=== PATIENT | male | born 1945 | race Caucasian/White ===

== ENCOUNTER 2019-03-18 16:36 | Outpatient (REF) | payer MEDICARE, BC, SELFPAY ==
[2019-03-18 21:26] LABS: Calculated LDL 147 mg/dL; Cholesterol 211 mg/dL (50-200); Glucose 89 mg/dL (70-100); HDL Cholesterol 42 mg/dL (40-60); Triglyceride 111 mg/dL (30-150)
== END 2019-03-18 16:56 ==
LOC: NCHCN 16:36
PROVIDERS: PCP Internal Medicine; Visit Provider Internal Medicine
DX: E78.00 Pure hypercholesterolemia, unspecified (principal)
CPT/HCPCS: 80061; 82947

== ENCOUNTER 2019-04-11 08:45 | Outpatient (REF) | payer MEDICARE, BC, SELFPAY ==
[2019-04-13 15:28] LABS: Lyme Ab w Rflx to Lyme Confirm Negative
== END 2019-04-11 09:05 ==
LOC: NCHCN 08:45
PROVIDERS: PCP Internal Medicine; Visit Provider Internal Medicine
DX: R21 Rash and other nonspecific skin eruption (principal); Z11.9 Encounter for screening for infectious and parasitic diseases, unspecified
CPT/HCPCS: 86618

== ENCOUNTER 2020-06-12 10:28 | Outpatient (REF) | payer MEDICARE, BC, SELFPAY ==
[2020-06-12 22:52] LABS: HCT 44.6 % (40.0-50.0); HGB 14.1 g/dL (13.5-17.5); MCH 30.3 pg (27.0-33.0); MCHC 31.6 % (32.0-36.0); MCV 95.9 fL (80-95); MPV 12.2 fL (8.0-11.0); Platelet Count 172 10^3/uL (130-400); RBC 4.65 10^6/uL (4.36-5.78); RDW 14.1 % (11.8-14.1); WBC 4.01 10^3/uL (4.4-10.8)
[2020-06-12 23:28] LABS: ALT 31 U/L (16-63); AST 21 U/L (15-37); Albumin 3.7 g/dL (3.4-5.0); Alkaline Phosphatase 46 U/L (46-116); Anion Gap 7.3 mmol/L (3-11); BUN 19 mg/dL (7-18); Bilirubin, Total 0.4 mg/dL (0.2-1.0); CO2 26.7 mmol/L (21.0-32.0); CREATININE 1.07 mg/dL (0.70-1.30); Calcium 8.4 mg/dL (8.5-10.1); Calculated LDL 171 mg/dL (<100); Chloride 108 mmol/L (98-107); Cholesterol 224 mg/dL (<200); Glucose 83 mg/dL (74-106); HDL Cholesterol 36 mg/dL (40-60); Potassium 4.7 mmol/L (3.5-5.1); Sodium 142 mmol/L (136-145); Total Protein 6.8 g/dL (6.4-8.2); Triglyceride 86 mg/dL (<150)
[2020-06-13 21:29] LABS: PSA, Screening 10.5 ng/mL (0.0-6.5)
== END 2020-06-12 10:48 ==
LOC: NCHCN 10:28
PROVIDERS: PCP Nurse Practitioner Family; Visit Provider Nurse Practitioner Family
DX: Z00.00 Encounter for general adult medical examination without abnormal findings (principal); Z12.5 Encounter for screening for malignant neoplasm of prostate; Z13.220 Encounter for screening for lipoid disorders
CPT/HCPCS: 80053; 80061; 84153; 85027

== ENCOUNTER 2020-06-25 19:46 | Outpatient (REF) | payer MEDICARE, BC, SELFPAY ==
[2020-06-26 17:43] LABS: PSA, Diagnostic 11.8 ng/mL (0.0-6.5)
== END 2020-06-25 20:06 ==
LOC: NCHCN 19:46
PROVIDERS: PCP Nurse Practitioner Family; Visit Provider Nurse Practitioner Family
DX: R97.20 Elevated prostate specific antigen [PSA] (principal)
CPT/HCPCS: 84153

== ENCOUNTER 2020-09-14 10:34 | Outpatient (REF) | payer MEDICARE, BC, SELFPAY ==
[2020-09-14 14:00] LABS: ALT 31 U/L (16-63); AST 20 U/L (15-37); Albumin 3.7 g/dL (3.4-5.0); Alkaline Phosphatase 51 U/L (46-116); Anion Gap 7.2 mmol/L (3-11); BUN 15 mg/dL (7-18); Bilirubin, Total 0.5 mg/dL (0.2-1.0); CO2 29.8 mmol/L (21.0-32.0); Calcium 8.8 mg/dL (8.5-10.1); Calculated LDL 143 mg/dL (<100); Chloride 105 mmol/L (98-107); Cholesterol 196 mg/dL (<200); Glucose 92 mg/dL (74-106); HDL Cholesterol 37 mg/dL (40-60); Potassium 4.6 mmol/L (3.5-5.1); Sodium 142 mmol/L (136-145); Total Protein 7.2 g/dL (6.4-8.2); Triglyceride 83 mg/dL (<150)
== END 2020-09-14 10:35 | disposition home or self-care (01) ==
LOC: NCHCN 10:34
PROVIDERS: PCP Nurse Practitioner Family; Visit Provider Nurse Practitioner Family
DX: R97.20 Elevated prostate specific antigen [PSA] (principal); E78.89 Other lipoprotein metabolism disorders
CPT/HCPCS: 80053; 80061

== ENCOUNTER 2020-10-11 20:21 | Outpatient (REF) | payer MEDICARE, BC, SELFPAY ==
[2020-11-09 12:36] LABS: Fungus Smear No Fungi Seen
== END 2020-10-11 20:22 | disposition home or self-care (01) ==
LOC: NCHCN 20:21
PROVIDERS: PCP Nurse Practitioner Family; Visit Provider Nurse Practitioner Family
DX: L60.8 Other nail disorders (principal)
CPT/HCPCS: 87101; 87206

== ENCOUNTER 2020-11-05 10:16 | Outpatient (REF) | payer MEDICARE, BC, SELFPAY ==
[2020-11-05 22:22] LABS: PSA, Diagnostic 14.2 ng/mL (0.0-6.5)
== END 2020-11-05 10:17 | disposition home or self-care (01) ==
LOC: LBN 10:16
PROVIDERS: PCP Nurse Practitioner Family; Visit Provider Urology
DX: C61 Malignant neoplasm of prostate (principal)
CPT/HCPCS: 84153

== ENCOUNTER 2021-03-13 09:16 | Outpatient (REF) | payer MEDICARE, BC, SELFPAY ==
[2021-03-13 14:35] LABS: ALT 33 U/L (16-63); AST 22 U/L (15-37); Albumin 3.6 g/dL (3.4-5.0); Alkaline Phosphatase 60 U/L (46-116); BUN 21 mg/dL (7-18); Bilirubin, Total 0.4 mg/dL (0.2-1.0); Calcium 8.6 mg/dL (8.5-10.1); Calculated LDL 116 mg/dL (<100); Chloride 104 mmol/L (98-107); Cholesterol 165 mg/dL (<200); Glucose 84 mg/dL (74-106); HDL Cholesterol 38 mg/dL (40-60); Potassium 4.3 mmol/L (3.5-5.1); Sodium 141 mmol/L (136-145); Total Protein 6.9 g/dL (6.4-8.2); Triglyceride 56 mg/dL (<150)
[2021-03-13 22:17] LABS: PSA, Diagnostic 14.6 ng/mL (0.0-6.5)
== END 2021-03-13 09:17 | disposition home or self-care (01) ==
LOC: LBN 09:16
PROVIDERS: PCP Nurse Practitioner Family; Visit Provider Urology
DX: C61 Malignant neoplasm of prostate (principal); E78.5 Hyperlipidemia, unspecified
CPT/HCPCS: 80053; 80061; 84153

== ENCOUNTER 2021-05-23 08:35 | Outpatient (REF) | payer MEDICARE, BC, SELFPAY ==
[2021-05-24 09:18] LABS: Calculated LDL 106 mg/dL (<100); Cholesterol 148 mg/dL (<200); HDL Cholesterol 33 mg/dL (40-60); Triglyceride 48 mg/dL (<150)
== END 2021-05-23 08:36 | disposition home or self-care (01) ==
LOC: NCHCN 08:35
PROVIDERS: PCP Nurse Practitioner Family; Visit Provider Nurse Practitioner Family
DX: E78.5 Hyperlipidemia, unspecified (principal)
CPT/HCPCS: 80061

== ENCOUNTER 2021-07-02 13:14 | Outpatient (REF) | payer MEDICARE, BC, SELFPAY ==
[2021-07-02 15:16] LABS: ALT 33 U/L (16-63); AST 22 U/L (15-37); Albumin 3.9 g/dL (3.4-5.0); Alkaline Phosphatase 58 U/L (46-116); Anion Gap 5.8 mmol/L (3-11); BUN 20 mg/dL (7-18); Bilirubin, Total 0.5 mg/dL (0.2-1.0); CO2 32.2 mmol/L (21.0-32.0); Calcium 8.9 mg/dL (8.5-10.1); Calculated LDL 123 mg/dL (<100); Chloride 105 mmol/L (98-107); Cholesterol 179 mg/dL (<200); Glucose 92 mg/dL (74-106); HDL Cholesterol 44 mg/dL (40-60); Potassium 5.3 mmol/L (3.5-5.1); Sodium 143 mmol/L (136-145); Total Protein 7.1 g/dL (6.4-8.2); Triglyceride 64 mg/dL (<150)
[2021-07-02 22:59] LABS: PSA, Diagnostic 14.8 ng/mL (0.0-6.5)
== END 2021-07-02 13:15 | disposition home or self-care (01) ==
LOC: NCHCN 13:14
PROVIDERS: PCP Nurse Practitioner Family; Visit Provider Nurse Practitioner Family
DX: E78.5 Hyperlipidemia, unspecified (principal); C61 Malignant neoplasm of prostate
CPT/HCPCS: 80053; 80061; 84153

== ENCOUNTER 2021-07-08 16:00 | Outpatient (REF) | payer MEDICARE, BC, SELFPAY ==
[2021-07-08 21:16] LABS: Potassium 3.8 mmol/L (3.5-5.1)
== END 2021-07-08 16:01 | disposition home or self-care (01) ==
LOC: NCHCN 16:00
PROVIDERS: PCP Nurse Practitioner Family; Visit Provider Nurse Practitioner Family
DX: E87.5 Hyperkalemia (principal)
CPT/HCPCS: 84132

== ENCOUNTER 2021-08-14 11:08 | Outpatient (REF) | payer MEDICARE, BC, SELFPAY ==
[2021-08-14 15:21] LABS: Calculated LDL 84 mg/dL (<100); Cholesterol 149 mg/dL (<200); HDL Cholesterol 41 mg/dL (40-60); Triglyceride 124 mg/dL (<150)
== END 2021-08-14 11:09 | disposition home or self-care (01) ==
LOC: NCHCN 11:08
PROVIDERS: PCP Nurse Practitioner Family; Visit Provider Internal Medicine
DX: E78.5 Hyperlipidemia, unspecified (principal); E66.3 Overweight
CPT/HCPCS: 80061

== ENCOUNTER 2021-10-22 13:02 | Outpatient (REF) | payer MEDICARE, BC, SELFPAY | END 2021-10-22 13:03 | disposition home or self-care (01) | LOC: NCHCN 13:02 | PROVIDERS: PCP Nurse Practitioner Family; Visit Provider Internal Medicine | DX: M70.21 Olecranon bursitis, right elbow (principal) | CPT/HCPCS: 87070; 87205 ==

== ENCOUNTER 2021-10-29 16:21 | Outpatient (REF) | payer MEDICARE, BC, SELFPAY | END 2021-10-29 16:22 | disposition home or self-care (01) | LOC: NCHCN 16:21 | PROVIDERS: PCP Nurse Practitioner Family; Visit Provider Internal Medicine | DX: M70.21 Olecranon bursitis, right elbow (principal) | CPT/HCPCS: 87070; 87205 ==

== ENCOUNTER 2021-12-31 19:44 | Outpatient (REF) | payer MEDICARE, BC, SELFPAY | END 2021-12-31 19:45 | disposition home or self-care (01) | LOC: NCHCN 19:44 | PROVIDERS: PCP Nurse Practitioner Family; Visit Provider Nurse Practitioner Family | DX: C61 Malignant neoplasm of prostate (principal) | CPT/HCPCS: 84153 ==

== ENCOUNTER 2023-08-19 18:21 | Outpatient (REF) | payer MEDICARE, BC, SELFPAY ==
--- OUTSIDE RECORDS SUMMARY | 2023-08-19 18:33 | XMS_ITS | CCD ---
Author Name Unknown Address [address] [place] [address] [phone] Organization Unknown Address [address] [place] [address] [phone] Care Team Providers Care Malt House Operator Name Role Phone JULIÁN MACEDO Attending Physician [phone] Vital Signs Unknown or Not Available. Allergies Allergy Code Allergy Type Reaction Status No Known Environmental Allergies 0 No known envir onmental allergies Active No Known Food Allergies 0 No known food allergies Active No Known Drug Allergies 0 No known drug allergies Active Procedures Unknown or Not Available. History of Immunizations Unknown or Not Available. Problems Unknown or Not Available. Results BASIC METABOLIC PANEL (BMP) - Collect Date/Time: 03/26/2023 08:15 Test Name Code Test Result Test Units Test Ref Rang e GLUCOSE 2345-7 86 mg/dL L=70 H=116 BUN 3094-0 20 mg/dL L=6 H=25 CREATININE 2160-0 0.99 mg/dL L=0.67 H=1.17 SODIUM SERUM 2951-2 140 mmol/L L=136 H=145 POTASSIUM SERUM 2823-3 5.0 mmol/L L=3.4 H=5 .2 CHLORIDE SERUM 2075-0 107 mmol/L L=96 H=110 CARBON DIOXIDE (CO2) 2028-9 30 mmol/L L=22 H=34 ANION GAP 11982-1 2.7 mmol/L CALCIUM SERUM 74157-1 8.5 mg/dL L=8.2 H=10. 2 AGE 77 years eGFR (non-Afr.Amer.) 96904-5 73 mL/min eGFR (Afr-Singaporean) 62680-9 89 mL/min C REACTIVE PROTEIN HIGH SENS ITIVITY* - Collect Date/Time: 03/26/2023 08:15 Test Name Code Test Result Test Units Test Ref Rang e CRP-HIGH SENS. 18231-3 3.27 mg/L L=0.00 H=3 .00 CRP-HIGH SENS 17024-7 0.33 mg/dL L=0.00 H=0. 30 CBC W/ DIFFERENTIAL* - Colle ct Date/Time: 03/26/2023 08:15 Test Name Code Test Result Test Units Test Ref Rang e WBC 6690-2 4.27 th/cmm L=5.00 H=10.00 NEUT % 54.6 % L=40.0 H=80.0 LYMPH % 23.4 % L=10.0 H=50.0 MONO % 86922-4 13.1 % L=2.0 H=12.0 EOS % 8.0 % L=0.0 H=8.0 BASO % 0.7 % L=0.0 H=3.0 IG % 2514-8 0.2 % L=0.0 H=1.1 NRBC % 42934-0 0.0 % L=0.0 H=0.0 NEUT abs count 751-8 2.3 th/cmm L=1.6 H=8. 4 LYMPH abs count 731-0 1.0 th/cmm L=1.5 H=4 .0 MONO abs count 742-7 0.6 th/cmm L=0.2 H=1. 0 EOS abs count 711-2 0.3 th/cmm L=0.0 H=0.5 BASO abs count 704-7 0.0 th/cmm L=0.0 H=0. 2 IG abs count 94797-9 0.0 th/cmm L=0.0 H=0.1 NRBC abs count 20856-6 0.0 mil/cmm L=0.0 H=0. 0 RBC 789-8 4.63 mil/cmm L=4.30 H=6.20 HEMOGLOBIN 718-7 13.8 gm/dL L=13.0 H=17.0 HEMATOCRIT 4544-3 44 % L=45 H=52 MCV 787-2 94 fL L=82 H=92 MCH 785-6 29.8 pg L=27.0 H=31.0 MCHC 786-4 31.7 % L=32.0 H=36.0 RDW-SD 788-0 51.1 fL L=39.0 H=49.0 PLATELET COUNT 777-3 181 th/cmm L=150 H=45 0 SED RATE* - Collect Date/Felipe e: 03/26/2023 08:15 Test Name Code Test Result Test Units Test Ref Rang e SED. RATE 4537-7 <1 mm/hr L=0 H=20 MRSA/MSSA NASAL COMPLETE BY PCR* - Collect Date/Time: 03/26/2023 08:15 Test Name Code Test Result Test Units Test Ref Rang e MRSA 63586-3 NEGATIVE N/A Normal: Negati ve MSSA NEGATIVE N/A Normal: Negati ve Active Medications Unknown or Not Available. Medications Administered During Visit Unknown or Not Available. Encounters Encounter Diagnosis Diagnosis Code Start Date Pre-surgery evaluation [id number] Social History Smoking Status Code Start Date End Date Former smoker [id number] 1964 12/19/1999 Patient Decision Aids Unknown or Not Available. Discharge Instructions You were admitted to [facility] on 03/26/2023 14:41 with a principal diagnosis of Encounter for other preprocedural examination You had the following tests done:BASIC METABOLIC PANEL (BMP)C REACTIVE PROTEIN HIGH SENSITIVITY*CBC W/ DIFFERENTIAL*MRSA/MSSA NASAL COMPLETE BY PCR*SED RATE* You were discharged from [facility] on 03/26/2023 14:42 Should you have any questions prior to discharge, please contact a member of your healthcare team. If you have left the hospital and have any questions, please contact your primary care physician. Chief Complaint and Reason For Visit Chief Complaint Date of Onset PROSTATE CA Function Status Unknown or Not Available. Plan of Care Unknown or Not Available. Referral/Transition of Care Unknown or Not Available.
--- OUTSIDE RECORDS SUMMARY | 2023-08-19 18:33 | XMS_ITS | CCD ---
Author Name Unknown Address [address] [place] [address] [phone] Organization Unknown Address [address] [place] [address] [phone] Care Team Providers Care Packing Clerk Name Role Phone WOO WEST Attending Physician [phone] Vital Signs Unknown or Not Available. Allergies Allergy Code Allergy Type Reaction Status No Known Environmental Allergies 0 No known envir onmental allergies Active No Known Food Allergies 0 No known food allergies Active No Known Drug Allergies 0 No known drug allergies Active Procedures Unknown or Not Available. History of Immunizations Unknown or Not Available. Problems Unknown or Not Available. Results Unknown or Not Available. Active Medications Unknown or Not Available. Medications Administered During Visit Unknown or Not Available. Encounters Encounter Diagnosis Diagnosis Code Start Date Degeneration of lumbar intervertebral disc 49001 006 04/01/2023 Social History Smoking Status Code Start Date End Date Former smoker [id number] 1964 12/19/1999 Patient Decision Aids Unknown or Not Available. Discharge Instructions You were admitted to [facility] on 04/01/2023 07:58 with a principal diagnosis of Other intervertebral disc degeneration, lumbar region You were discharged from [facility] on 04/01/2023 07:58 Should you have any questions prior to discharge, please contact a member of your healthcare team. If you have left the hospital and have any questions, please contact your primary care physician. Chief Complaint and Reason For Visit Unknown or Not Available. Function Status Unknown or Not Available. Plan of Care Unknown or Not Available. Referral/Transition of Care Unknown or Not Available.
--- OUTSIDE RECORDS SUMMARY | 2023-08-19 18:33 | XMS_ITS | CCD ---
Author Name Unknown Address [address] [place] [address] [phone] Organization Unknown Address [address] [place] [address] [phone] Care Team Providers Care Appeals Analyst Name Role Phone JULIÁN MACEDO Attending Physician [phone] JULIÁN MACEDO Rounding (Secondary) Physician [phone] Vital Signs Unknown or Not Available. Allergies [...] Encounters Encounter Diagnosis Diagnosis Code Start Date Aftercare [id number] 04/27/2023 Social History Smoking Status Code Start Date End Date Former smoker [id number] 1964 12/19/1999 Patient Decision Aids Unknown or Not Available. Discharge Instructions You were admitted to [facility] [place] [facility] on 04/27/2023 14:31 with a principal diagnosis of Aftercare following joint replacement surgery You were discharged from [facility] [place] [facility] on 04/27/2023 09:15 Should you have any questions prior to [...]
--- OUTSIDE RECORDS SUMMARY | 2023-08-19 18:33 | XMS_ITS | CCD ---
Author Name Unknown Address [address] [place] [address] [phone] Organization Unknown Address [address] [place] [address] [phone] Care Team Providers Care Assistant Athletic Trainer Name Role Phone JULIÁN MACEDO Attending Physician [phone] Vital Signs Unknown or Not Available. Allergies [...] Encounter Diagnosis Diagnosis Code Start Date Aftercare following joint replacement surgery Z4 71 05/01/2023 Social History Smoking Status Code Start Date End Date Former smoker [id number] 1964 12/19/1999 Patient Decision Aids Unknown or Not Available. Discharge Instructions You were admitted to [facility] on 05/01/2023 07:53 with a principal diagnosis of Aftercare following joint replacement surgery You were discharged from [facility] Should you have any questions prior to [...]
--- OUTSIDE RECORDS SUMMARY | 2023-08-19 18:34 | XMS_ITS | CCD ---
Author Name Unknown Address [address] [place] [address] [phone] Organization Unknown Address [address] [place] [address] [phone] Care Team Providers Care Ocean Fishing Guide Name Role Phone MIRIAM PABLO Attending Physician [phone] MIRIAM PABLO Rounding (Secondary) Physic prince [phone] Vital Signs Unknown or Not Available. Allergies [...] Encounters Encounter Diagnosis Diagnosis Code Start Date Bursitis of olecranon of right elbow [id number] 9108 12/19/2021 Social History Smoking Status Code Start Date End Date Former smoker [id number] 1964 12/19/1999 Patient Decision Aids Unknown or Not Available. Discharge Instructions You were admitted to [facility] [place] [facility] on 12/19/2021 15:16 with a principal diagnosis of Olecranon bursitis, right elbow You were discharged from [facility] [place] [facility] on 12/19/2021 00:00 Should you have any questions prior to [...]
--- OUTSIDE RECORDS SUMMARY | 2023-08-19 18:34 | XMS_ITS | CCD ---
Author Name Unknown Address [address] [place] [address] [phone] Organization Unknown Address [address] [place] [address] [phone] Care Team Providers Care Mining And Quarrying Machinery Repairer Name Role Phone WOO WEST Attending Physician [phone] Vital Signs Unknown or Not Available. [...] Encounters Encounter Diagnosis Diagnosis Code Start Date Malignant neoplasm of prostate C61 0 03/25/2023 Social History Smoking Status Code Start Date End Date Former smoker [id number] 1964 12/19/1999 Patient Decision Aids Unknown or Not Available. Discharge Instructions You were admitted to [facility] on 03/25/2023 16:05 with a principal diagnosis of Malignant neoplasm of prostate You were discharged from [facility] on 03/25/2023 16:05 Should you have any questions prior to [...]
--- OUTSIDE RECORDS SUMMARY | 2023-08-19 18:34 | XMS_ITS | CCD ---
Author Name Unknown Address [address] [place] [address] [phone] Organization Unknown Address [address] [place] [address] [phone] Care Team Providers Care Filterer Name Role Phone QUINCY WYNN Attending Physician [phone] Vital Signs Unknown or Not Available. Allergies [...] Encounters Encounter Diagnosis Diagnosis Code Start Date Nasal congestion R0981 06/09/2022 Social History Smoking Status Code Start Date End Date Former smoker [id number] 1964 12/19/1999 Patient Decision Aids Unknown or Not Available. Discharge Instructions You were admitted to [facility] on 06/09/2022 08:53 with a principal diagnosis of Nasal congestion You were discharged from [facility] on 06/09/2022 08:53 Should you have any questions prior to discharge, please contact a member of your healthcare team. If you have left the hospital and have any questions, please contact your primary care physician. Chief Complaint and Reason For Visit Chief Complaint Date of Onset NASAL CONGESTION R/O CHRONIC SINUSITIS Function Status Unknown or Not Available. Plan of Care Unknown or Not Available. Referral/Transition of Care Unknown or Not Available.
--- OUTSIDE RECORDS SUMMARY | 2023-08-19 18:34 | XMS_ITS | CCD ---
Author Name Unknown Address [address] [place] [address] [phone] Organization Unknown Address [address] [place] [address] [phone] Care Team Providers Care Head Turning Machine Operator Name Role Phone BRETTNIALLWOO Z Attending Physician [phone] Vital Signs Unknown or Not Available. Allergies Allergy Code Allergy Type Reaction Status No Known Environmental Allergies 0 No known envir onmental allergies Active No Known Food Allergies 0 No known food allergies Active No Known Drug Allergies 0 No known drug allergies Active Procedures Unknown or Not Available. History of Immunizations Unknown or Not Available. Problems Unknown or Not Available. Results PSA DIAG PROSTATE SPECIFIC A NTIGEN * - Collect Date/Time: 01/27/2023 12:07 Test Name Code Test Result Test Units Test Ref Rang e PSA 2857-1 27.92 ng/mL L=0.00 H=6.50 Active Medications Unknown or Not Available. Medications Administered During Visit Unknown or Not Available. Encounters Encounter Diagnosis Diagnosis Code Start Date Malignant neoplasm of prostate C61 0 01/27/2023 Social History Smoking Status Code Start Date End Date Former smoker [id number] 1964 12/19/1999 Patient Decision Aids Unknown or Not Available. Discharge Instructions You were admitted to [facility] on 01/27/2023 11:50 with a principal diagnosis of Malignant neoplasm of prostate You had the following tests done:PSA DIAG PROSTATE SPECIFIC ANTIGEN * You were discharged from [facility] on 01/27/2023 11:50 Should you have any questions prior to [...]
--- OUTSIDE RECORDS SUMMARY | 2023-08-19 18:34 | XMS_ITS | CCD ---
Author Name Unknown Address [address] [place] [address] [phone] Organization Unknown Address [address] [place] [address] [phone] Care Team Providers Care Plow And Boring Machine Tender Name Role Phone WOO WEST Attending Physician [phone] Vital Signs Unknown or Not Available. [...] Date Malignant neoplasm of prostate C61 0 03/04/2023 Social History Smoking Status Code Start Date End Date Former smoker [id number] 1964 12/19/1999 Patient Decision Aids Unknown or Not Available. Discharge Instructions You were admitted to [facility] on 03/04/2023 13:33 with a principal diagnosis of Malignant neoplasm of prostate You were discharged from [facility] on 03/04/2023 13:33 Should you have any questions prior to discharge, please contact a member of your healthcare team. If you have left the hospital and have any questions, please contact your primary care physician. Chief Complaint and Reason For Visit Chief Complaint Date of Onset ELEVATED PSA Function Status Unknown or Not Available. Plan of Care Unknown or Not Available. Referral/Transition of Care Unknown or Not Available.
--- OUTSIDE RECORDS SUMMARY | 2023-08-19 18:34 | XMS_ITS | CCD ---
Author Name Unknown Address [address] [place] [address] [phone] Organization Unknown Address [address] [place] [address] [phone] Care Team Providers Care Bull Bucker Name Role Phone TREVOR SERRANO Attending Physician [phone] TREVOR SERRANO Rounding (Secondary) Physic prince [phone] Vital Signs Unknown or Not Available. Allergies [...] Encounters Encounter Diagnosis Diagnosis Code Start Date Other specific arthropathies , not elsewhere classified, right shoulder [id number] 07/24/2022 Social History Smoking Status Code Start Date End Date Former smoker [id number] 1964 12/19/1999 Patient Decision Aids Unknown or Not Available. Discharge Instructions You were admitted to [facility] on 07/24/2022 09:13 with a principal diagnosis of Other specific arthropathies, not elsewhere classified, right shoulder You were discharged from [facility] on 07/24/2022 00:00 Should you have any questions prior [...]
--- OUTSIDE RECORDS SUMMARY | 2023-08-19 18:35 | XMS_ITS | CCD ---
Author Name Unknown Address [address] [place] [address] [phone] Organization Unknown Address [address] [place] [address] [phone] Care Team Providers Care Adult Education Manager Name Role Phone JULIÁN MACEDO Attending Physician [phone] Vital Signs Unknown or Not Available. Allergies [...] BASIC METABOLIC PANEL (BMP) - Collect Date/Time: 08/10/2023 14:30 Test Name Code Test Result Test Units Test Ref Rang e GLUCOSE 2345-7 108 mg/dL L=70 H=116 BUN 3094-0 25 mg/dL L=6 H=25 CREATININE 2160-0 0.90 mg/dL L=0.67 H=1.17 SODIUM SERUM 2951-2 142 mmol/L L=136 H=145 POTASSIUM SERUM 2823-3 4.0 mmol/L L=3.4 H=5 .2 CHLORIDE SERUM 2075-0 106 mmol/L L=96 H=110 CARBON DIOXIDE (CO2) 2028-9 28 mmol/L L=22 H=34 ANION GAP 31334-2 8.3 mmol/L CALCIUM SERUM 30970-7 9.2 mg/dL L=8.2 H=10. 2 AGE 77 years eGFR (non-Afr.Amer.) 35314-5 82 mL/min eGFR (Afr-Gabonese) 88667-8 99 mL/min C REACTIVE PROTEIN HIGH SENS ITIVITY* - Collect Date/Time: 08/10/2023 14:30 Test Name Code Test Result Test Units Test Ref Rang e CRP-HIGH SENS. 72594-7 7.47 mg/L L=0.00 H=3 .00 CRP-HIGH SENS 51250-7 0.75 mg/dL L=0.00 H=0. 30 CBC W/ DIFFERENTIAL* - [facility] ct Date/Time: 08/10/2023 14:30 Test Name Code Test Result Test Units Test Ref Rang e WBC 6690-2 3.17 th/cmm L=5.00 H=10.00 NEUT % 49.9 % L=40.0 H=80.0 LYMPH % 26.5 % L=10.0 H=50.0 MONO % 67198-6 15.8 % L=2.0 H=12.0 EOS % 6.9 % L=0.0 H=8.0 BASO % 0.6 % L=0.0 H=3.0 IG % 2514-8 0.3 % L=0.0 H=1.1 NRBC % 66790-4 0.0 % L=0.0 H=0.0 NEUT abs count 751-8 1.6 th/cmm L=1.6 H=8. 4 LYMPH abs count 731-0 0.8 th/cmm L=1.5 H=4 .0 MONO abs count 742-7 0.5 th/cmm L=0.2 H=1. 0 EOS abs count 711-2 0.2 th/cmm L=0.0 H=0.5 BASO abs count 704-7 0.0 th/cmm L=0.0 H=0. 2 IG abs count 22213-0 0.0 th/cmm L=0.0 H=0.1 NRBC abs count 67554-9 0.0 mil/cmm L=0.0 H=0. 0 RBC 789-8 4.15 mil/cmm L=4.30 H=6.20 HEMOGLOBIN 718-7 12.5 gm/dL L=13.0 H=17.0 HEMATOCRIT 4544-3 39 % L=45 H=52 MCV 787-2 93 fL L=82 H=92 MCH 785-6 30.1 pg L=27.0 H=31.0 MCHC 786-4 32.5 % L=32.0 H=36.0 RDW-SD 788-0 49.7 fL L=39.0 H=49.0 PLATELET COUNT 777-3 156 th/cmm L=150 H=45 0 SED RATE* - Collect Date/Felipe e: 08/10/2023 14:30 Test Name Code Test Result Test Units Test Ref Rang e SED. RATE 4537-7 8 mm/hr L=0 H=20 MRSA/MSSA NASAL COMPLETE BY PCR* - Collect Date/Time: 08/10/2023 14:30 Test Name Code Test Result Test Units Test Ref Rang e MRSA 82825-2 NEGATIVE N/A Normal: Negati ve MSSA NEGATIVE N/A Normal: Negati ve Active Medications Unknown or Not Available. Medications Administered During Visit Unknown or Not Available. Encounters Encounter Diagnosis Diagnosis Code Start Date Pre-surgery evaluation [id number] Social History Smoking Status Code Start Date End Date Former smoker [id number] 1964 12/19/1999 Patient Decision Aids Unknown or Not Available. Discharge Instructions You were admitted to [facility] on 08/10/2023 12:58 with a principal diagnosis of Encounter for other preprocedural examination You had the following tests done:BASIC METABOLIC PANEL (BMP)C REACTIVE PROTEIN HIGH SENSITIVITY*CBC W/ DIFFERENTIAL*MRSA/MSSA NASAL COMPLETE BY PCR*SED RATE* You were discharged from [facility] on 08/10/2023 12:58 Should you have any questions prior to discharge, please contact a member of your healthcare team. If you have left the hospital and have any questions, please contact your primary care physician. Chief Complaint and Reason For Visit Chief Complaint Date of Onset PREOP LT SHOULDER Function Status Unknown or Not Available. Plan of Care Unknown or Not Available. Referral/Transition of Care Unknown or Not Available.
--- OUTSIDE RECORDS SUMMARY | 2023-08-19 18:35 | XMS_ITS | CCD ---
Author Name Unknown Address [address] [place] [address] [phone] Organization Unknown Address [address] [place] [address] [phone] Care Team Providers Care Tin Flopper Name Role Phone JULIÁN MACEDO Attending Physician [phone] JULIÁN MACEDO Rounding (Secondary) Physician [phone] Vital Signs Unknown or Not Available. Allergies [...] Other specific arthropathies , not elsewhere classified, left shoulder S30022 08/03/2023 Social History Smoking Status Code Start Date End Date Former smoker [id number] 1964 12/19/1999 Patient Decision Aids Unknown or Not Available. Discharge Instructions You were admitted to [facility] on 08/03/2023 12:58 with a principal diagnosis of Other specific arthropathies, not elsewhere classified, left shoulder You were discharged from [facility] on 08/03/2023 12:58 Should you have any questions prior [...]
[2023-08-19 21:51] LABS: FREE T4 0.74 ng/dL (0.76-1.46); Ferritin 461 ng/mL (26-388); TSH 1.31 uIU/mL (0.36-3.74)
[2023-08-19 22:32] LABS: Folate 9.4 ng/mL (8.6-20.0); Vitamin B12 344 pg/mL (193-986)
== END 2023-08-19 18:22 | disposition home or self-care (01) ==
LOC: NCHCN 18:21
PROVIDERS: PCP Nurse Practitioner Family; Visit Provider Nurse Practitioner Family
DX: D64.9 Anemia, unspecified (principal)
CPT/HCPCS: 82607; 82728; 82746; 84439; 84443

== ENCOUNTER 2023-10-13 17:59 | Outpatient (REF) | payer MEDICARE, BC, SELFPAY ==
[2023-10-14 18:19] LABS: PSA, Diagnostic <0.1 ng/mL (<=6.5)
== END 2023-10-13 18:00 | disposition home or self-care (01) ==
LOC: NCHCN 17:59
PROVIDERS: PCP Nurse Practitioner Family; Visit Provider Nurse Practitioner Family
DX: C61 Malignant neoplasm of prostate (principal)
CPT/HCPCS: 84153

== ENCOUNTER 2023-11-11 15:39 | Outpatient (REF) | payer MEDICARE, BC, SELFPAY ==
[2023-11-11 22:08] LABS: HCT 36.9 % (40.0-50.0); HGB 12.1 g/dL (13.5-17.5); MCH 29.5 pg (27.0-33.0); MCHC 32.8 % (32.0-36.0); MCV 90 fL (80-95); MPV 10.8 fL (8.0-11.0); Platelet Count 266 10^3/uL (130-400); RDW 14.4 % (11.8-14.1); RDW-SD 47.8 fL; Reticulocyte 1.6 % (0.5-2.4); WBC 5.43 10^3/uL (4.4-10.8)
[2023-11-11 22:34] LABS: ALT 28 U/L (16-63); AST 21 U/L (15-37); Albumin 3.3 g/dL (3.4-5.0); Alkaline Phosphatase 70 U/L (46-116); Anion Gap 7.3 mmol/L (3-11); BUN 19 mg/dL (7-18); Bilirubin, Direct 0.1 mg/dL (0.0-0.2); Bilirubin, Total 0.3 mg/dL (0.2-1.0); C-Reactive Protein 0.69 mg/dL (<or=0.5); CO2 27.7 mmol/L (21.0-32.0); CREATININE 0.9 mg/dL (0.70-1.30); Calcium 8.7 mg/dL (8.5-10.1); Chloride 107 mmol/L (98-107); Estimated GFR 87.96 (mL/min/1.73m2); FREE T4 0.88 ng/dL (0.76-1.46); Glucose 115 mg/dL (74-106); Potassium 3.9 mmol/L (3.5-5.1); Sodium 142 mmol/L (136-145); TSH 1.37 uIU/Ml (0.36-3.74); Total Protein 6.9 g/dL (6.4-8.2)
[2023-11-11 22:53] LABS: Vitamin D 25 Total 37.2 ng/mL (30-100)
[2023-11-11 23:13] LABS: Ferritin 502 ng/mL (26-388); Vitamin B12 313 pg/mL (193-986)
[2023-11-12 18:25] LABS: T3, Total 144 ng/dL (97-169)
== END 2023-11-11 15:40 | disposition home or self-care (01) ==
LOC: NCHCN 15:39
PROVIDERS: PCP Nurse Practitioner Family; Visit Provider Nurse Practitioner Family
DX: D64.9 Anemia, unspecified (principal); Z85.46 Personal history of malignant neoplasm of prostate; E05.90 Thyrotoxicosis, unspecified without thyrotoxic crisis or storm
CPT/HCPCS: 80053; 82306; 85027; 82248; 82607; 82728; 84439; 84443; 84480; 85045; 86140

== ENCOUNTER 2024-01-18 13:51 | Outpatient (REF) | payer MEDICARE, BC, SELFPAY ==
[2024-01-18 14:36] LABS: Reticulocyte 1.3 % (0.5-2.4)
[2024-01-18 14:40] LABS: ESR 7 mm/hr (0-20)
[2024-01-18 16:01] LABS: Iron 65 ug/dL (65-175); Total Iron Binding Capacity 222 ug/dL (250-450); Transferrin Sat 29 % (20-55)
[2024-01-18 16:05] LABS: ALT 39 U/L (16-63); AST 25 U/L (15-37); Albumin 3.7 g/dL (3.4-5.0); Alkaline Phosphatase 66 U/L (46-116); Anion Gap 6.2 mmol/L (3-11); BUN 22 mg/dL (7-18); Bilirubin, Total 0.35 mg/dL (0.2-1.0); CO2 27.8 mmol/L (21.0-32.0); CREATININE 0.8 mg/dL (0.70-1.30); Calcium 9.1 mg/dL (8.5-10.1); Chloride 106 mmol/L (98-107); Estimated GFR 90.58 (mL/min/1.73m2); Ferritin 456 ng/mL (26-388); Glucose 90 mg/dL (74-106); Potassium 4.1 mmol/L (3.5-5.1); Sodium 140 mmol/L (136-145); Total Protein 7.3 g/dL (6.4-8.2)
[2024-01-18 16:26] LABS: Abs Immature Grans 0.01 10^3/uL (0.0-0.06); HCT 41.6 % (40.0-50.0); HGB 13.1 g/dL (13.5-17.5); MCH 29.4 pg (27.0-33.0); MCHC 31.5 % (32.0-36.0); MCV 93 fL (80-95); MPV 11.3 fL (8.0-11.0); Platelet Count 193 10^3/uL (130-400); RBC 4.46 10^6/uL (4.36-5.78); RDW-SD 52.2 fL
[2024-01-18 16:48] LABS: C-Reactive Protein < 0.50 mg/dL (<or=0.5)
[2024-01-18 16:59] LABS: Absolute Basophil Count 0.05 10^3/uL (0.0-0.2); Absolute Eosinophil Count 0.37 10^3/uL (0.0-0.7); Absolute Lymphocyte Count 1.01 10^3/uL (1.2-3.4); Absolute Monocyte Count 0.37 10^3/uL (0.1-0.8); Absolute Neutrophil Count 2.81 10^3/uL (1.2-6.7); Atypical Lymphocytes % 1 %; Diff Comment Manual Differential; RBC Morphology Normal
[2024-01-19 10:11] LABS: Transferrin 161 mg/dL (201-352)
== END 2024-01-18 13:52 | disposition home or self-care (01) ==
LOC: NCHCN 13:51
PROVIDERS: PCP Nurse Practitioner Family; Visit Provider Nurse Practitioner Family
DX: D53.9 Nutritional anemia, unspecified (principal)
CPT/HCPCS: 80053; 85652; 82728; 83540; 83550; 84466; 85025; 85045; 86140

== ENCOUNTER 2024-01-27 08:10 | Outpatient (REF) | payer MEDICARE, BC, SELFPAY ==
--- OUTSIDE RECORDS SUMMARY | 2024-01-27 08:12 | XMS_ITS ---
Author Organization Unknown Address [address] [place] [address] [phone] Phone Care Team Providers Care Receiving Weigher Name Role Phone BEV Hutchinson Attending Unavailable CRHISTINA MIMS Primary Unavailable Results XR ELBOW RT 3V MIN* - Comple marion: 12/19/2021 13:54 LOINC: RIGHT ELBOW Three views. There is a prominent spur at the triceps insertion. There is also a small spur at the posterior olecranon and lateral epicondyle. Minimal spurring is seen at the radial head. No joint effusion is visible. There are no tendon or joint space calcifications. IMPRESSION: Prominent olecranon spur. Dictated by: CEO DAVID MENDOZA MD Transcribed by: [facility] 12/19/21/15:42 D December 12:59:59 PM [id number] Electronically Reviewed and Signed By: DAVID MENDOZA MD 12/19/21 16:04 Copy for: CHRISTINA MIMS via fax Copy for: [employer] Social History Type Status Start Date End Date Code Code Syst em Smoking History Former smoker 1964 12/19/[address] Sex Male Hospital Discharge Instructions Should you have any questions prior to discharge, please contact a member of your healthcare team. If you have left the hospital and have any questions, please contact your primary care physician. Reason For Referral No Data Found Allergies and Adverse Reactions Allergy Substance Reaction Severity Start Date Concern Status Co de Code System No Known Drug Allergies Moderate Active [id number] SNOMED-CT Plan of Treatment NM BONE SCAN WHOLE BODY 03/25/2023 CT FACIAL/SINUS W/O CONTRAS 06/09/2022 US GUIDED NEEDLE BIOPSY 03/04/2023 PRE-OP TESTING 08/10/2023 PRE-OP TESTING 03/26/2023 CT UPPER EXTREM W/O CONTRAST 08/10/2023 CT UPPER EXTREM W/O CONTRAST 03/26/2023 Encounters Encounter Diagnosis Start Date Code Code Sys tem Bursitis of olecranon of right elbow 12/19/2021 3146 [id number] SNOMED-CT Personal Care Team Section Performer Name Performer Role Active Date Inactive Da te
--- OUTSIDE RECORDS SUMMARY | 2024-01-27 08:13 | XMS_ITS ---
Author Organization Unknown Address [address] [place] [address] [phone] Phone Care Team Providers Care Rn Med Surg Name Role Phone KINGSLEY MATHEW Attending Unavailable CHRISTINA MIMS Primary Unavailable Results CT FACIAL OR SINUS WO CONTRA ST - Completed: 06/09/2022 09:14 LOINC: [facility] [place], [place] [address] PACS PASTEURIZING SUPERVISOR REPORT Patient Name: ALEX CRESPO MRN: Sex: : Age: [id number] M 1945 [id number] Account: Accession: Admit: StayType: [id number] 06/09/2022 O/P Ordered: Order ID: Submitted: Ordering Provider: 06/09/2022 08:57 [id number] [facility] QUINCY WYNN Completed: Technologist: Resulted: 06/09/2022 09:14 BMM 06/09/2022 16:14 Study Description: CT FACIAL OR SINUS WO CONTRAST Study Reason: NASAL CONGESTION TECHNIQUE: Imaging Protocol: Axial computed tomography images with coronal and sagittal reformatted images were created and reviewed. No IV Contrast COMPARISON: No exams were available for comparison FINDINGS: MAXILLARY SINUSES: There is mild mucosal thickening in the floor of both maxillary sinuses. No fluid levels. There is no evidence of bone dehiscence. OSTIOMEATAL UNITS: Patent bilaterally. Appearance may reflect prior endoscopic surgery. ETHMOIDAL AIR CELLS: [Mild mucosal thickening . SPHENOID SINUSES: Well aerated. No mucosal thickening nor fluid levels. FRONTAL SINUSES: Well aerated. No mucosal thickening nor fluid levels. NASAL SEPTUM AND TURBINATES:Nasal septum is midline with no evidence of significant nasal septal spur. There is no evidence of debbie bullosa. IMPRESSION: Mild findings as described above. Report Digitally Signed by Asa Walker on 06/09/2022 04:14 PM EST 06/09/[email or web address].to CHRISTINA SALAZAR via fax Social History Type Status Start Date End Date Code Code Syst em Smoking History Former smoker 1964 12/19/[address] Sex Male Hospital Discharge Instructions [...] System No Known Drug Allergies Moderate Active [id number] SNOMED-CT Plan of Treatment NM BONE SCAN WHOLE BODY 03/25/2023 CT FACIAL/SINUS W/O CONTRAS 06/09/2022 US GUIDED NEEDLE BIOPSY 03/04/2023 PRE-OP TESTING 08/10/2023 PRE-OP TESTING 03/26/2023 CT UPPER EXTREM W/O CONTRAST 08/10/2023 CT UPPER EXTREM W/O CONTRAST 03/26/2023 Encounters Encounter Diagnosis Start Date Code Code Sys tem Nasal congestion 06/09/2022 SNOMED-CT Personal Care Team Section Performer Name Performer Role Active Date Inactive Da te
--- OUTSIDE RECORDS SUMMARY | 2024-01-27 08:13 | XMS_ITS ---
Author Organization Unknown Address [address] [place] [address] [phone] Phone Care Team Providers Care Director Ambulatory Name Role Phone BEV Hutchinson Attending Unavailable CHRISTINA MIMS Primary Unavailable Social History Type Status Start Date End Date Code Code Syst em Smoking History Former smoker 1964 12/19/[id number] Sex Male Hospital Discharge Instructions [...] System No Known Drug Allergies Moderate Active [id number] SNOMED-CT Plan of Treatment NM BONE SCAN WHOLE BODY 03/25/2023 CT FACIAL/SINUS W/O CONTRAS 06/09/2022 US GUIDED NEEDLE BIOPSY 03/04/2023 PRE-OP TESTING 08/10/2023 PRE-OP TESTING 03/26/2023 CT UPPER EXTREM W/O CONTRAST 08/10/2023 CT UPPER EXTREM W/O CONTRAST 03/26/2023 Encounters Encounter Diagnosis Start Date Code Code Sys tem Bursitis of olecranon of right elbow 01/27/2022 3146 [id number] SNOMED-CT Personal Care Team Section Performer Name Performer Role Active Date Inactive Da abbey
--- OUTSIDE RECORDS SUMMARY | 2024-01-27 08:14 | XMS_ITS ---
Author Organization Unknown Address [address] [place] [address] [phone] Phone Care Team Providers Care Medical Staff Credentialing Coordinator Name Role Phone HELLEN Correa Attending Unavailable CHERYL Hutchinson Primary Unavailable Social History Type Status Start Date End Date Code Code Syst em Smoking History Former smoker 1964 12/19/[address] Sex Male Hospital Discharge Instructions [...] System No Known Drug Allergies Moderate Active 820962219 SNOMED-CT Plan of Treatment NM BONE SCAN WHOLE BODY 03/25/2023 CT FACIAL/SINUS W/O CONTRAS 06/09/2022 US GUIDED NEEDLE BIOPSY 03/04/2023 PRE-OP TESTING 08/10/2023 PRE-OP TESTING 03/26/2023 CT UPPER EXTREM W/O CONTRAST 08/10/2023 CT UPPER EXTREM W/O CONTRAST 03/26/2023 Encounters Encounter Diagnosis Start Date Code Code Sys tem Idiopathic osteoarthritis 03/23/2023 078890714 SN OMED-CT Personal Care Team Section Performer Name Performer Role Active Date Inactive Da te
--- OUTSIDE RECORDS SUMMARY | 2024-01-27 08:14 | XMS_ITS ---
Author Organization Unknown Address [address] [place] [address] [phone] Phone Care Team Providers Care Family Independence Case Manager Name Role Phone MAGGIE Varma Attending Unavailable CHRISTINA MIMS Primary Unavailable Results XR SHOULDER 2V OR MORE LT* - Completed: 07/24/2022 09:29 LOINC: [place], [place] [address] PACS VENDING MECHANIC REPORT Patient Name: ALEX CRESPO MRN: Sex: : Age: [id number] M 1945 76 Account: Accession: Admit: StayType: [id number] 07/24/2022 CLINIC Ordered: Order ID: Submitted: Ordering Provider: 07/24/2022 09:20 [id number] [facility] TREVOR SERRANO Completed: Technologist: Resulted: 07/24/2022 09:29 [facility] 07/24/2022 15:39 Study Description: XR SHOULDER 2V OR MORE LT* Study Reason: Pain Views: 3 COMPARISON: 28 July 2019 FINDINGS: BONES: No acute fracture is present. No bony destructive lesion is seen. JOINTS: No dislocation present. Superior subluxation of the humeral head not as apparent on the current exam which is suspicious for a chronic rotator cuff tear. Spurring at the tip of the acromion. Glenohumeral joint space is maintained. There is mild spurring at the glenoid, greater and lesser tuberosities. SOFT TISSUE: Normal. IMPRESSION: Stable degenerative changes. Report Digitally Signed by Nya Lozano on 07/24/2022 03:39 PM EST XR SHOULDER 2V OR MORE RT* - Completed: 07/24/2022 09:29 LOINC: [facility] [place], [place] [address] PACS VENDING MECHANIC REPORT Patient Name: ALEX CRESPO MRN: Sex: : Age: [id number] M 1945 Account: Accession: Admit: StayType: [id number] 07/24/2022 CLINIC Ordered: Order ID: Submitted: Ordering Provider: 07/24/2022 09:20 [id number] [facility] TREVOR SERRANO Completed: Technologist: Resulted: 07/24/2022 09:29 [facility] 07/24/2022 15:40 Study Description: XR SHOULDER 2V OR MORE RT* Study Reason: Pain TECHNIQUE: 3 Views Comparison: 28 July 2019 FINDINGS: No evidence of fracture. No destructive bony lesion. The AC joint is unremarkable. The glenohumeral joint is well-maintained. There is spurring at the rim of the glenoid and inferior humeral head. The humeral head is superiorly positioned, articulating against the undersurface of the acromion which is prominent spurring. Spurring and subchondral cysts also noted at the greater tuberosity. Soft tissues:Unremarkable. IMPRESSION: Degenerative changes and evidence of chronic rotator cuff tear. Report Digitally Signed by Nya Lozano on 07/24/2022 03:40 PM EST Social History Type Status Start Date End Date Code Code Syst em Smoking History Former smoker 1964 12/19/[address] Sex Male Hospital Discharge Instructions [...] System No Known Drug Allergies Moderate Active 987970026 SNOMED-CT Plan of Treatment NM BONE SCAN WHOLE BODY 03/25/2023 CT FACIAL/SINUS W/O CONTRAS 06/09/2022 US GUIDED NEEDLE BIOPSY 03/04/2023 PRE-OP TESTING 08/10/2023 PRE-OP TESTING 03/26/2023 CT UPPER EXTREM W/O CONTRAST 08/10/2023 CT UPPER EXTREM W/O CONTRAST 03/26/2023 Encounters Encounter Diagnosis Start Date Code Code Sys tem 07/24/2022 [id number] SNOMED-CT Personal Care Team Section Performer Name Performer Role Active Date Inactive Da abbey
--- OUTSIDE RECORDS SUMMARY | 2024-01-27 08:14 | XMS_ITS ---
Author Organization Unknown Address [address] [place] [address] [phone] Phone Care Team Providers Care Photogrammetric Compilation Specialist Name Role Phone BRETT Harmon Attending Unavailable CHERYL Hutchinson Primary Unavailable Results PSA DIAG PROSTATE SPECIFIC A NTIGEN * - Collect Date/Time: 01/27/2023 12:07 [facility] ID: [id number] - [id number] [address], [place], [address] LOINC: 2857-1 Test Value Unit Reference Range Code Code System Flag PSA 27.92 ng/mL L=0.00 H=6.50 2857-1 LOINC H Social History Type Status Start Date End Date Code Code Syst em Smoking History Former smoker 1964 12/19/[address] Sex Male Hospital Discharge Instructions [...] System No Known Drug Allergies Moderate Active 783341352 SNOMED-CT Plan of Treatment NM BONE SCAN WHOLE BODY 03/25/2023 CT FACIAL/SINUS W/O CONTRAS 06/09/2022 US GUIDED NEEDLE BIOPSY 03/04/2023 PRE-OP TESTING 08/10/2023 PRE-OP TESTING 03/26/2023 CT UPPER EXTREM W/O CONTRAST 08/10/2023 CT UPPER EXTREM W/O CONTRAST 03/26/2023 Encounters Encounter Diagnosis Start Date Code Code Sys tem Malignant neoplasm of prostate 01/27/2023 SNOMED-CT Personal Care Team Section Performer Name Performer Role Active Date Inactive Da te
--- OUTSIDE RECORDS SUMMARY | 2024-01-27 08:14 | XMS_ITS ---
Author Organization Unknown Address [address] [place] [address] [phone] Phone Care Team Providers Care Road Hogger Operator Name Role Phone BRETT Harmon Attending Unavailable CHERYL Hutchinson Primary Unavailable Results US PROSTATE BIOPSY* - Comple marion: 03/04/2023 14:03 LOINC: [place], [place] [address] PACS TRUSS BUILDER REPORT Patient Name: ALEX CRESPO MRN: Sex: : Age: [id number] M 1945 77 Account: Accession: Admit: StayType: [id number] 03/04/2023 O/P Ordered: Order ID: Submitted: Ordering Provider: 03/04/2023 13:36 [id number] KT WOO WEST Completed: Technologist: Resulted: 03/04/2023 15:10 [facility] 03/04/2023 15:59 Study Description: US PROSTATE BIOPSY Study Reason: ELEVATED PSA TECHNIQUE: Transrectal ultrasound guidance provided for ultrasound-guided prostate biopsy COMPARISON: No exams were available for comparison FINDINGS: Ultrasound-guided biopsy. IMPRESSION: As above. Report Digitally Signed by Asa Walker on 03/04/2023 03:59 PM EDT 03/04/23.1572.[facility].to CHERYL KINNEY via fax Social History Type Status Start Date End Date Code Code Syst em Smoking History Former smoker 1964 12/19/[address] Sex Male Hospital Discharge Instructions [...] System No Known Drug Allergies Moderate Active 557267232 SNOMED-CT Plan of Treatment NM BONE SCAN WHOLE BODY 03/25/2023 CT FACIAL/SINUS W/O CONTRAS 06/09/2022 US GUIDED NEEDLE BIOPSY 03/04/2023 PRE-OP TESTING 08/10/2023 PRE-OP TESTING 03/26/2023 CT UPPER EXTREM W/O CONTRAST 08/10/2023 CT UPPER EXTREM W/O CONTRAST 03/26/2023 Encounters Encounter Diagnosis Start Date Code Code Sys tem Malignant neoplasm of prostate 03/04/2023 SNOMED-CT Personal Care Team Section Performer Name Performer Role Active Date Inactive Da te
--- OUTSIDE RECORDS SUMMARY | 2024-01-27 08:15 | XMS_ITS ---
Author Organization Unknown Address [address] [place] [address] [phone] Phone Care Team Providers Care Event Specialist Product Demonstrator Name Role Phone BRETT Harmon Attending Unavailable CHERYL Hutchinson Primary Unavailable Results XR LS SPINE 4V OR MORE - Com pleted: 04/01/2023 08:29 LOINC: [facility] [place], [place] [address] PACS APPLIED MATHEMATICIAN REPORT Patient Name: ALEX CRESPO MRN: Sex: : Age: [id number] M 1945 77 Account: Accession: Admit: StayType: [id number] 04/01/2023 O/P Ordered: Order ID: Submitted: Ordering Provider: 04/01/2023 08:02 [id number] WOO WEIR Completed: Technologist: Resulted: 04/01/2023 08:29 EXC 04/01/2023 08:47 Study Description: XR LS SPINE 4V OR MORE Study Reason: ABNORMAL FINDINGS ON 5 images were obtained. COMPARISON: Comparison is made with nuclear medicine examination from 03/25/2023. FINDINGS: There are 5 lumbar-type vertebral bodies. There is normal alignment. There is no spondylolysis or spondylolisthesis. Disc base narrowing is seen at T12-L1. Endplate osteophytes are seen at multiple levels of the lumbar spine. There are degenerative changes of the facets at L5-S1. No acute fracture or subluxation is seen. Atherosclerosis is present. There are degenerative changes seen at T10-T11, T11-T12 and T12-L1 with disc base narrowing and osteophytes. The findings are most marked on the right side. This likely reflects the findings on the bone scan. IMPRESSION: 1. Mild to moderate degenerative changes seen in the lumbar spine. 2. Degenerative changes seen in the lower thoracic spine, particularly on the right. Report Digitally Signed by Brian Milan on 04/01/2023 08:47 AM EDT 04/01/23.0850.EXC.to CHERYL KINNEY via fax Social History Type Status Start Date End Date Code Code Syst em Smoking History Former smoker 1964 12/19/[address] Sex Male Hospital Discharge Instructions [...] System No Known Drug Allergies Moderate Active 438850248 SNOMED-CT Plan of Treatment NM BONE SCAN WHOLE BODY 03/25/2023 CT FACIAL/SINUS W/O CONTRAS 06/09/2022 US GUIDED NEEDLE BIOPSY 03/04/2023 PRE-OP TESTING 08/10/2023 PRE-OP TESTING 03/26/2023 CT UPPER EXTREM W/O CONTRAST 08/10/2023 CT UPPER EXTREM W/O CONTRAST 03/26/2023 Encounters Encounter Diagnosis Start Date Code Code Sys tem Degeneration of lumbar intervertebral disc 04/01/2023 19425102 SNOMED-CT Personal Care Team Section Performer Name Performer Role Active Date Inactive Da te
--- OUTSIDE RECORDS SUMMARY | 2024-01-27 08:15 | XMS_ITS ---
Author Organization Unknown Address [address] [place] [address] [phone] Phone Care Team Providers Care Corporate Real Estate Manager Name Role Phone BRETT Harmon Attending Unavailable CHERYL Hutchinson Primary Unavailable Results NM BONE SCAN WHOLE BODY - Co mpleted: 03/25/2023 16:06 LOINC: [facility] [place], [place] [address] PACS APPRENTICE PAINTER BRUSH REPORT Patient Name: ALEX CREPSO MRN: Sex: : Age: [id number] M 1945 77 Account: Accession: Admit: StayType: [id number] O/P Ordered: Order ID: Submitted: Ordering Provider: 03/25/2023 12:51 [id number] WOO INMAN Completed: Technologist: Resulted: 03/25/2023 16:06 HTP 03/26/2023 08:56 Study Description: NM BONE SCAN WHOLE BODY Study Reason: PROSTATE CANCER TECHNIQUE: Injected dose: 22.1 mCi technetium 99 MDP COMPARISON: No exams were available for comparison FINDINGS: There is focal increased uptake in the medial compartment of both knees consistent with osteoarthritic degenerative change. Also within both breasts, more so on the left side. There is mild decrease uptake in both sides of L5 level of the lumbar spine most probably related to degenerative facet arthropathy. There is also a focus of increased uptake seen on the right side of what appears to be T12 this may be related to the facet. No other abnormal uptake in the spine. No abnormal uptake in the rib cages. No abnormal uptake in the pelvis. No abnormal uptake in the hips and long bones IMPRESSION: 1. there is an abnormal focus of increased radiopharmaceutical uptake seen in the right side of what appears to be T12 or L1. This may be related to facet arthropathy but recommend further imaging with CT scan of the lumbosacral spine through this region to rule out lytic or blastic lesion. If this patient is having a staging abdomen pelvic CT scan then this would most probably be satisfactory for determination added specificity for these findings in the lumbosacral spine. 2. Mild increased relatively symmetric things seen at L5 level which is probably related to facet arthropathy. This will also be confirmed with CT scan. 3. Other findings as above in the knees and wrists are related to degenerative changes. Report Digitally Signed by Asa Walker on 03/26/2023 08:56 AM EDT 03/26/23.0858.HTP.to CHERYL KINNEY via fax Social History Type Status Start Date End Date Code Code Syst em Smoking History Former smoker 1964 12/19/[address] Sex Male Hospital Discharge Instructions Should [...] System No Known Drug Allergies Moderate Active 029420547 SNOMED-CT Plan of Treatment NM BONE SCAN WHOLE BODY 03/25/2023 CT FACIAL/SINUS W/O CONTRAS 06/09/2022 US GUIDED NEEDLE BIOPSY 03/04/2023 PRE-OP TESTING 08/10/2023 PRE-OP TESTING 03/26/2023 CT UPPER EXTREM W/O CONTRAST 08/10/2023 CT UPPER EXTREM W/O CONTRAST 03/26/2023 Encounters Encounter Diagnosis Start Date Code Code Sys tem Malignant neoplasm of prostate 03/25/2023 SNOMED-CT Personal Care Team Section Performer Name Performer Role Active Date Inactive Da te
--- OUTSIDE RECORDS SUMMARY | 2024-01-27 08:15 | XMS_ITS ---
Author Organization Unknown Address [address] [place] [address] [phone] Phone Care Team Providers Care Decal Applier Name Role Phone HELLEN Correa Attending Unavailable CHERYL Hutchinson Primary Unavailable Results CBC W/ DIFFERENTIAL* - Colle ct Date/Time: 03/26/2023 08:15 [facility] ID: [id number] [address] [place] [address], [address] LOINC: 50502-3 Test Value Unit Reference Range Code Code System Flag WBC 4.27 th/cmm L=5.00 H=10.00 6690-2 LOINC L NEUT % 54.6 % L=40.0 H=80.0 LYMPH % 23.4 % L=10.0 H=50.0 MONO % 13.1 % L=2.0 H=12.0 84445-0 LOINC H EOS % 8.0 % L=0.0 H=8.0 BASO % 0.7 % L=0.0 H=3.0 IG % 0.2 % L=0.0 H=1.1 2514-8 LOINC NRBC % 0.0 % L=0.0 H=0.0 56518-9 LOINC NEUT abs count 2.3 th/cmm L=1.6 H=8.4 751-8 LOINC LYMPH abs count 1.0 th/cmm L=1.5 H=4.0 731-0 LOINC L MONO abs count 0.6 th/cmm L=0.2 H=1.0 742-7 LOINC EOS abs count 0.3 th/cmm L=0.0 H=0.5 711-2 LOINC BASO abs count 0.0 th/cmm L=0.0 H=0.2 704-7 LOINC IG abs count 0.0 th/cmm L=0.0 H=0.1 86699-3 LOINC NRBC abs count 0.0 mil/cmm L=0.0 H=0.0 20774-5 LOINC RBC 4.63 mil/cmm L=4.30 H=6.20 789-8 LOINC HEMOGLOBIN 13.8 gm/dL L=13.0 H=17.0 718-7 LOINC HEMATOCRIT 44 % L=45 H=52 4544-3 LOINC L MCV 94 fL L=82 H=92 787-2 LOINC H MCH 29.8 pg L=27.0 H=31.0 785-6 LOINC MCHC 31.7 % L=32.0 H=36.0 786-4 LOINC L RDW-SD 51.1 fL L=39.0 H=49.0 788-0 LOINC H PLATELET COUNT 181 th/cmm L=150 H=450 777-3 LOINC SED RATE* - Collect Date/Felipe e: 03/26/2023 08:15 [facility] ID: [id number] [address] [place] [address], [address] LOINC: 4537-7 Test Value Unit Reference Range Code Code System Flag SED. RATE < 1 mm/hr L=0 H=20 4537-7 LOINC MRSA/MSSA NASAL COMPLETE BY PCR* - Collect Date/Time: 03/26/2023 08:15 [facility] ID: [id number] [address] [place] [address], [id number] LOINC: Test Value Unit Reference Range Code Code System Flag MRSA NEGATIVE Normal: Negative 61473-9 LOINC MSSA NEGATIVE Normal: Negative C REACTIVE PROTEIN HIGH SENS ITIVITY* - Collect Date/Time: 03/26/2023 08:15 [facility] ID: [id number] [address] [place] [address], [address] LOINC: 55162-7 Test Value Unit Reference Range Code Code System Flag CRP-HIGH SENS. 3.27 mg/L L=0.00 H=3.00 22496-6 LOINC H CRP-HIGH SENS 0.33 mg/dL L=0.00 H=0.30 99898-7 LOINC H BASIC METABOLIC PANEL (BMP) - Collect Date/Time: 03/26/2023 08:15 [facility] ID: [id number] [address] [place], [place], [address] LOINC: 26357-3 Test Value Unit Reference Range Code Code System Flag GLUCOSE 86 mg/dL L=70 H=116 2345-7 LOINC BUN 20 mg/dL L=6 H=25 3094-0 LOINC CREATININE 0.99 mg/dL L=0.67 H=1.17 2160-0 LOINC SODIUM SERUM 140 mmol/L L=136 H=145 2951-2 LOINC POTASSIUM SERUM 5.0 mmol/L L=3.4 H=5.2 2823-3 LOINC CHLORIDE SERUM 107 mmol/L L=96 H=110 2075-0 LOINC CARBON DIOXIDE (CO2) 30 mmol/L L=22 H=34 2028-9 LOINC ANION GAP 2.7 mmol/L 17592-6 LOINC CALCIUM SERUM 8.5 mg/dL L=8.2 H=10.2 08104-2 LOINC AGE 77 years eGFR (non-Afr.Amer.) 73 mL/min 72383-4 LOINC eGFR (Afr-Gambian) 89 mL/min 68750-[address] UPPER EXT WO CONTRAST RT - Completed: 03/26/2023 08:29 LOINC: [facility] [place], [place] [address] PACS RESEARCH BIOSTATISTICIAN REPORT Patient Name: ALEX CRESPO Avani MRN: Sex: : Age: [id number] M 1945 77 Account: Accession: Admit: StayType: [id number] O/P Ordered: Order ID: Submitted: Ordering Provider: 03/26/2023 08:04 [id number] [facility] JULIÁN MACEDO Completed: Technologist: Resulted: 03/26/2023 08:29 SLG 03/26/2023 08:41 Study Description: CT UPPER EXT WO CONTRAST RT Study Reason:Arthritis COMPARISON: X-rays 07/24/2022 FINDINGS: There is no evidence of fracture nor dislocation nor soft tissue calcifications. There is advanced diminution of the subacromial space, indicating full-thickness chronic rotator cuff tear. There also appears to be atrophy of both the supraspinatus and infraspinatus musculature evident on the CT scan. There is significant osteoarthritic degenerative changes in the glenohumeral joint. Some joint space narrowing and there is an osteophyte on the inferior tickler surface of the humeral head. There are no significant degenerative subarticular cysts in the osseous glenoid. Moderate degenerative changes are noted in the AC joint, including degenerative subarticular cysts on the clavicular side of the joint.. There is degenerative subarticular cyst in the lateral aspect of the humeral head-greater tuberosity. There are no soft tissue calcifications. Coracoid process intact. IMPRESSION: Advanced degenerative changes. Elimination of the subacromial space consistent with full rotator tear pathology. There is atrophy of both the supraspinatus and infraspinatus evident on this CT study. Report Digitally Signed by Asa Walker on 03/26/2023 08:41 AM EDT Social History Type Status Start Date End Date Code Code Syst em Smoking History Former smoker 1964 12/19/[address] Sex Male Hospital Discharge Instructions [...] System No Known Drug Allergies Moderate Active 506853244 SNOMED-CT Plan of Treatment NM BONE SCAN WHOLE BODY 03/25/2023 CT FACIAL/SINUS W/O CONTRAS 06/09/2022 US GUIDED NEEDLE BIOPSY 03/04/2023 PRE-OP TESTING 08/10/2023 PRE-OP TESTING 03/26/2023 CT UPPER EXTREM W/O CONTRAST 08/10/2023 CT UPPER EXTREM W/O CONTRAST 03/26/2023 Encounters Encounter Diagnosis Start Date Code Code Sys tem Pre-surgery evaluation 03/26/2023 199583709 [facility] Lebario D-CT Personal Care Team Section Performer Name Performer Role Active Date Inactive Harley potter
--- OUTSIDE RECORDS SUMMARY | 2024-01-27 08:15 | XMS_ITS ---
Author Organization Unknown Address [address] [place] [address] [phone] Phone Care Team Providers Care Logistics Administrator Name Role Phone Unavailable Xwatchlist Unavailable HELLEN Correa Attending Unavailable ANNE-MARIE SIMMONS CRNA Unavailable EFREN LUEVANO Physician Director Of Physical Education Unavailable CHERYL Hutchinson Primary Unavailable Results XR SHOULDER 2V OR MORE RT* - Completed: 04/16/2023 10:16 [facility] [place], [place] [address] PACS POLICE RESERVES COMMANDER REPORT Patient Name: ALEX CRESPO MRN: Sex: : Age: [id number] M 1945 77 Account: Accession: Admit: StayType: [id number] 04/16/2023 O/P Ordered: Order ID: Submitted: Ordering Provider: 04/16/2023 08:29 [id number] JULIÁN FARNSWORTH Completed: Technologist: Resulted: 04/16/2023 10:16 PAMELA 04/16/2023 10:43 Study Description: XR SHOULDER 2V OR MORE RT Study Reason: rt shoulder post op TECHNIQUE: 2 Views portable Comparison: CT 26 March 2023 FINDINGS: A reverse shoulder prosthesis has been placed. The alignment is satisfactory. There is residual postsurgical air in soft tissues. Report Digitally Signed by Nya Lozano on 04/16/2023 10:43 AM EDT Social History Type Status Start Date End Date Code Code Syst em Smoking History Former smoker 1964 12/19/[address] Sex Male Vital Signs Vital Sign Value Unit [place] Value [place] Unit Date/Time Recent/Initial? Code Code System Body Mass Index 24.19 kg/m2 04/13/2023 11:37 Initial 13519 -5 LOINC Systolic Blood Pressure 130 mm[Hg] 04/16/2023 09:58 Initial 8480- 6 LOINC Diastolic Blood Pressure 71 mm[Hg] 04/16/2023 09:58 Initial 8462- 4 LOINC Body Surface Area 2.04 m2 04/13/2023 11:37 Initial 3140- 1 LOINC Height 183.896 0 cm 72.40 in 04/13/2023 11:37 Initial 8302- 2 LOINC O2 Saturation 97 % 2022 09:58 Initial 43724 -5 LOINC Pulse 63.0 /min 04/16/2023 09:58 Initial 8867- 4 LOINC Respiration 19 /min 04/16/20 09:58 Initial 9279- 1 LOINC Temperature 35.4 Alice 95.7 F 04/16/20 09:58 Initial 8310- 5 LOINC Weight 81.82 kg 180.38 lbs 04/13/2023 11:37 Initial 39631 -7 LOINC Hospital Discharge Instructions Should you have any questions prior to discharge, please contact a member of your healthcare team. If you have left the hospital and have any questions, please contact your primary care physician. Reason For Referral No Data Found Procedures Procedure Name Date Status Code Code Sanya m Arthroplasty, Glenohumeral J oint; Total Shoulder 04/16/2023 completed 23343 CPT Injection Anesthetic Agent a nd/or Steroid; Brachial Plexus Including Imaging Guidance When Performed 04/16/2023 completed 53164 CPT Anesthesia, Open/Surg Arthro scopic Proc, Humeral Head & Neck, Sternoclav/Ac/Shoulder Jt; Replacemen 04/16/2023 completed 94476 CPT Allergies and Adverse Reactions Allergy Substance Reaction Severity Start Date Concern Status Co de Code System No Known Drug Allergies Moderate Active 157863656 SNOMED-CT Plan of Treatment NM BONE SCAN WHOLE BODY 03/25/2023 CT FACIAL/SINUS W/O CONTRAS 06/09/2022 US GUIDED NEEDLE BIOPSY 03/04/2023 PRE-OP TESTING 08/10/2023 PRE-OP TESTING 03/26/2023 CT UPPER EXTREM W/O CONTRAST 08/10/2023 CT UPPER EXTREM W/O CONTRAST 03/26/2023 Encounters Encounter Diagnosis Start Date Code Code Sys tem Other specific arthropathies , not elsewhere classified, left shoulder 04/16/2023 SNOMED-CT Personal Care Team Section Performer Name Performer Role Active Date Inactive Harley potter
--- OUTSIDE RECORDS SUMMARY | 2024-01-27 08:16 | XMS_ITS ---
Author Organization Unknown Address [address] [place] [address] [phone] Phone Care Team Providers Care Employee Relations Assistant Name Role Phone HELLEN Correa Attending Unavailable CHERYL Hutchinson Primary Unavailable Social History Type Status Start Date End Date Code Code Syst em Smoking History Former smoker 1964 12/19/[id number] Sex Male Hospital Discharge Instructions [...] System No Known Drug Allergies Moderate Active 538850339 SNOMED-CT Plan of Treatment NM BONE SCAN WHOLE BODY 03/25/2023 CT FACIAL/SINUS W/O CONTRAS 06/09/2022 US GUIDED NEEDLE BIOPSY 03/04/2023 PRE-OP TESTING 08/10/2023 PRE-OP TESTING 03/26/2023 CT UPPER EXTREM W/O CONTRAST 08/10/2023 CT UPPER EXTREM W/O CONTRAST 03/26/2023 Encounters Encounter Diagnosis Start Date Code Code Sys tem Aftercare following joint replacement surgery 05/01/20 SNOMED-CT Personal Care Team Section Performer Name Performer Role Active Date Inactive Da te
--- OUTSIDE RECORDS SUMMARY | 2024-01-27 08:16 | XMS_ITS ---
Author Organization Unknown Address [address] [place] [address] [phone] Phone Care Team Providers Care Motion Picture Projectionist Apprentice Name Role Phone HELLEN Correa Attending Unavailable CHERYL Hutchinson Primary Unavailable Results XR SHOULDER 2V OR MORE RT* - Completed: 04/27/2023 09:10 [facility] [place], [place] [address] PACS INTERNAL COMMUNICATIONS SPECIALIST REPORT Patient Name: ALEX CRESPO MRN: Sex: : Age: [id number] M 1945 77 Account: Accession: Admit: StayType: [id number] 04/27/2023 CLINIC Ordered: Order ID: Submitted: Ordering Provider: 04/27/2023 09:05 [id number] JULIÁN LIM Completed: Technologist: Resulted: 04/27/2023 09:10 MALIK 04/27/2023 09:16 Study Description: XR SHOULDER 2V OR MORE RT Study Reason: Post-Op Eval TECHNIQUE: 2D digital imaging was performed. COMPARISON: Postop images of 04/16/2023. FINDINGS: NUMBER OF VIEWS: 2 Again noted are the components of the recently placed reverse prosthesis. There are no fractures evident. However, on the AP view there is a lucent area just lateral to the humeral component, slightly more prominent than previous. May be significant. IMPRESSION: As above. Follow-up recommended. Report Digitally Signed by Asa Walker on 04/27/2023 09:16 AM EDT Social History Type Status Start Date End Date Code Code Syst em Smoking History Former smoker 1964 12/19/[address] Sex Male Hospital Discharge Instructions [...] System No Known Drug Allergies Moderate Active 542122561 SNOMED-CT Plan of Treatment NM BONE SCAN WHOLE BODY 03/25/2023 CT FACIAL/SINUS W/O CONTRAS 06/09/2022 US GUIDED NEEDLE BIOPSY 03/04/2023 PRE-OP TESTING 08/10/2023 PRE-OP TESTING 03/26/2023 CT UPPER EXTREM W/O CONTRAST 08/10/2023 CT UPPER EXTREM W/O CONTRAST 03/26/2023 Encounters Encounter Diagnosis Start Date Code Code Sys tem Aftercare 04/27/2023 [id number] SNOMED-CT Personal Care Team Section Performer Name Performer Role Active Date Inactive Da te
--- OUTSIDE RECORDS SUMMARY | 2024-01-27 08:16 | XMS_ITS ---
Author Organization Unknown Address [address] [place] [address] [phone] Phone Care Team Providers Care Airport Planner Name Role Phone HELLEN Correa Attending Unavailable CHERYL Hutchinson Primary Unavailable Results XR SHOULDER 2V OR MORE LT* - Completed: 08/03/2023 13:23 LOINC: [facility] [place], [place] [address] PACS ICE RESURFACING MACHINE OPERATORS REPORT Patient Name: ALEX CRESPO MRN: Sex: : Age: [id number] M 1945 77 Account: Accession: Admit: StayType: [id number] 08/03/2023 CLINIC Ordered: Order ID: Submitted: Ordering Provider: 08/03/2023 12:59 [id number] JULIÁN AMBROSE Completed: Technologist: Resulted: 08/03/2023 12:59 08/03/2023 13:20 Study Description: XR SHOULDER 2V OR MORE LT Study Reason: Pain Technique: 2D digital imaging was performed. 2 images were obtained. COMPARISON: Comparison is 07/24/2022. FINDINGS: Bones: No acute fractures present. No bony destructive lesion is seen. Joints: There is superior subluxation of the humeral head relative to the glenoid suggesting chronic rotator cuff tear. There are degenerative changes seen at both the glenohumeral and acromioclavicular joints. Soft tissues: The visualized lungs are unremarkable. 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 Report Digitally Signed by Brian Milan on 08/03/2023 01:20 PM EST XR SHOULDER 2V OR MORE RT* - Completed: 08/03/2023 13:23 LOINC: [facility] [place], [place] [address] PACS ICE RESURFACING MACHINE OPERATORS REPORT Patient Name: ALEX CRESPO MRN: Sex: : Age: [id number] M 1945 Account: Accession: Admit: StayType: [id number] 08/03/2023 CLINIC Ordered: Order ID: Submitted: Ordering Provider: 08/03/2023 13:13 [id number] JULIÁN AMBROSE Completed: Technologist: Resulted: 08/03/2023 13:23 MALIK 08/03/2023 13:23 Study Description: XR SHOULDER 2V OR MORE RT Reason for Study: Post-Op Eval COMPARISON: Comparison is 06/02/2023. Findings: Bones: There are post surgical changes of a right total reverse shoulder replacement present. No acute fracture or dislocation. Joints: There are degenerative changes seen at the acromioclavicular joint. There is no evidence of hardware failure. Soft Tissues: The visualized lungs are clear. Impressions: Stable post surgical changes. Report Digitally Signed by Brian Milan on 08/03/2023 01:23 PM EST Social History Type Status Start Date End Date Code Code Syst em Smoking History Former smoker 1964 12/19/[address] Sex Male Hospital Discharge Instructions [...] System No Known Drug Allergies Moderate Active 849664060 SNOMED-CT Plan of Treatment NM BONE SCAN WHOLE BODY 03/25/2023 CT FACIAL/SINUS W/O CONTRAS 06/09/2022 US GUIDED NEEDLE BIOPSY 03/04/2023 PRE-OP TESTING 08/10/2023 PRE-OP TESTING 03/26/2023 CT UPPER EXTREM W/O CONTRAST 08/10/2023 CT UPPER EXTREM W/O CONTRAST 03/26/2023 Encounters Encounter Diagnosis Start Date Code Code Sys tem 08/03/2023 [id number] SNOMED-CT Personal Care Team Section Performer Name Performer Role Active Date Inactive Da te
--- OUTSIDE RECORDS SUMMARY | 2024-01-27 08:16 | XMS_ITS ---
Author Organization Unknown Address [address] [place] [address] [phone] Phone Care Team Providers Care Extractions Technician Name Role Phone HELLEN Correa Attending Unavailable CHERYL Hutchinson Primary Unavailable Results SED RATE* - Collect Date/Felipe e: 08/10/2023 14:30 [facility] ID: [id number] [address] [place] [address], [address] LOINC: 4537-7 Test Value Unit Reference Range Code Code System Flag SED. RATE 8 mm/hr L=0 H=20 4537-7 LOINC MRSA/MSSA NASAL COMPLETE BY PCR* - Collect Date/Time: 08/10/2023 14:30 [facility] ID: [id number] [address] [place] [address], [id number] LOINC: Test Value Unit Reference Range Code Code System Flag MRSA NEGATIVE Normal: Negative 09874-7 LOINC MSSA NEGATIVE Normal: Negative CBC W/ DIFFERENTIAL* - Colle ct Date/Time: 08/10/2023 14:30 [facility] ID: [id number] [address] [place] [address], [address] LOINC: 63046-2 Test Value Unit Reference Range Code Code System Flag WBC 3.17 th/cmm L=5.00 H=10.00 6690-2 LOINC L NEUT % 49.9 % L=40.0 H=80.0 LYMPH % 26.5 % L=10.0 H=50.0 MONO % 15.8 % L=2.0 H=12.0 95335-6 LOINC H EOS % 6.9 % L=0.0 H=8.0 BASO % 0.6 % L=0.0 H=3.0 IG % 0.3 % L=0.0 H=1.1 2514-8 LOINC NRBC % 0.0 % L=0.0 H=0.0 99028-9 LOINC NEUT abs count 1.6 th/cmm L=1.6 H=8.4 751-8 LOINC LYMPH abs count 0.8 th/cmm L=1.5 H=4.0 731-0 LOINC L MONO abs count 0.5 th/cmm L=0.2 H=1.0 742-7 LOINC EOS abs count 0.2 th/cmm L=0.0 H=0.5 711-2 LOINC BASO abs count 0.0 th/cmm L=0.0 H=0.2 704-7 LOINC IG abs count 0.0 th/cmm L=0.0 H=0.1 57497-3 LOINC NRBC abs count 0.0 mil/cmm L=0.0 H=0.0 57795-5 LOINC RBC 4.15 mil/cmm L=4.30 H=6.20 789-8 LOINC L HEMOGLOBIN 12.5 gm/dL L=13.0 H=17.0 718-7 LOINC L HEMATOCRIT 39 % L=45 H=52 4544-3 LOINC L MCV 93 fL L=82 H=92 787-2 LOINC H MCH 30.1 pg L=27.0 H=31.0 785-6 LOINC MCHC 32.5 % L=32.0 H=36.0 786-4 LOINC RDW-SD 49.7 fL L=39.0 H=49.0 788-0 LOINC H PLATELET COUNT 156 th/cmm L=150 H=450 777-3 LOINC C REACTIVE PROTEIN HIGH SENS ITIVITY* - Collect Date/Time: 08/10/2023 14:30 [facility] ID: [id number] [address] [place], [place], [address] LOINC: 27493-7 Test Value Unit Reference Range Code Code System Flag CRP-HIGH SENS. 7.47 mg/L L=0.00 H=3.00 66571-7 LOINC H CRP-HIGH SENS 0.75 mg/dL L=0.00 H=0.30 72201-9 LOINC H BASIC METABOLIC PANEL (BMP) - Collect Date/Time: 08/10/2023 14:30 [facility] ID: [id number] [address] [place], [place], [address] LOINC: 44356-7 Test Value Unit Reference Range Code Code System Flag GLUCOSE 108 mg/dL L=70 H=116 2345-7 LOINC BUN 25 mg/dL L=6 H=25 3094-0 LOINC CREATININE 0.90 mg/dL L=0.67 H=1.17 2160-0 LOINC SODIUM SERUM 142 mmol/L L=136 H=145 2951-2 LOINC POTASSIUM SERUM 4.0 mmol/L L=3.4 H=5.2 2823-3 LOINC CHLORIDE SERUM 106 mmol/L L=96 H=110 2075-0 LOINC CARBON DIOXIDE (CO2) 28 mmol/L L=22 H=34 2028-9 LOINC ANION GAP 8.3 mmol/L 13957-1 LOINC CALCIUM SERUM 9.2 mg/dL L=8.2 H=10.2 38064-3 LOINC AGE 77 years eGFR (non-Afr.Amer.) 82 mL/min 26081-1 LOINC eGFR (Afr-Bulgarian) 99 mL/min 33613-[address] UPPER EXT WO CONTRAST LT - Completed: 08/10/2023 15:04 LOINC: [facility] [place], [place] [address] PACS LEAD NET SOFTWARE DEVELOPER REPORT Patient Name: ALEX CRESPO Avani MRN: Sex: : Age: [id number] M 1945 77 Account: Accession: Admit: StayType: [id number] O/P Ordered: Order ID: Submitted: Ordering Provider: 08/10/2023 14:52 [id number] JULIÁN WEST Completed: Technologist: Resulted: 08/10/2023 15:04 RXK 08/10/2023 18:27 Study Description: CT UPPER EXT WO CONTRAST LT Study Reason:LT SHOULDER ARTHRITIS COMPARISON: No exams were available for comparison FINDINGS: There is no evidence of fracture nor dislocation. [There is upward subluxation of the humeral head in the glenoid fossa by approxione 0.5 cm and diminution of the subacromial space which now exhibits space of 5-6 mm. Small osteophyte on the inferior articular surface of the humeral head noted. Also some sclerosis in the acromion subarticular region. Also degenerative subarticular cysts in the clavicular side of the AC joint. IMPRESSION: Significant osteoarthritic degenerative changes and glenohumeral joint. Also upward subluxation of the humeral head and the osseous glenoid with diminution of the subacromial space. Also degenerative changes in the AC joint articulation. Report Digitally Signed by Asa Walker on 08/10/2023 06:27 PM EST Social History Type Status Start Date End Date Code Code Syst em Smoking History Former smoker 1964 12/19/[address] Sex Male Hospital Discharge Instructions [...] System No Known Drug Allergies Moderate Active 519200134 SNOMED-CT Plan of Treatment NM BONE SCAN WHOLE BODY 03/25/2023 CT FACIAL/SINUS W/O CONTRAS 06/09/2022 US GUIDED NEEDLE BIOPSY 03/04/2023 PRE-OP TESTING 08/10/2023 PRE-OP TESTING 03/26/2023 CT UPPER EXTREM W/O CONTRAST 08/10/2023 CT UPPER EXTREM W/O CONTRAST 03/26/2023 Encounters Encounter Diagnosis Start Date Code Code Sys tem Encounter for other preprocedural examination 08/10/19 24 SNOMED-CT Personal Care Team Section Performer Name Performer Role Active Date Inactive Da te
--- OUTSIDE RECORDS SUMMARY | 2024-01-27 08:17 | XMS_ITS ---
Author Organization Unknown Address [address] [place] [address] [phone] Phone Care Team Providers Care Contract Manager Name Role Phone HELLEN Correa Attending Unavailable ANNE-MARIE SIMMONS CONCRETE TECHNICIAN Unavailable EFREN LUEVANO Physician Club Room Attendant Unavailable CHERYL Hutchinson Primary Unavailable Results XR SHOULDER 2V OR MORE LT* - Completed: 09/09/2023 09:36 LOINC: [facility] [place], [place] [address] PACS TRAVEL DIRECTOR REPORT Patient Name: ALEX CRESPO MRN: Sex: : Age: [id number] M 1945 77 Account: Accession: Admit: StayType: [id number] 09/09/2023 O/P Ordered: Order ID: Submitted: Ordering Provider: 09/09/2023 01:58 [id number] JULIÁN PEPPER Completed: Technologist: Resulted: 09/09/2023 09:36 MJP 09/09/2023 09:48 Study Description: XR SHOULDER 2V OR MORE LT Study Reason: TOTAL REVERSE Views: 3, portable COMPARISON: None. FINDINGS: A reverse shoulder prosthesis is in place. The alignment appears satisfactory. There is residual postsurgical air in the soft tissues. Report Digitally Signed by Nya Lozano on 09/09/2023 09:48 AM EST Social History Type Status Start Date End Date Code Code Syst em Smoking History Former smoker 1964 12/19/[address] Sex Male Vital Signs Vital Sign Value Unit Cold[place] Value [place] Unit Date/Time Recent/Initial? Code Code System Body Mass Index 25.11 kg/m2 08/26/2023 11:56 Initial 18234 -5 LOINC Systolic Blood Pressure 124 mm[Hg] 09/09/2023 10:58 Initial 8480- 6 LOINC Diastolic Blood Pressure 64 mm[Hg] 09/09/2023 10:58 Initial 8462- 4 LOINC Body Surface Area 1.98 m2 08/26/2023 11:56 Initial 3140- 1 LOINC Height 177.800 0 cm 70.00 in 08/26/2023 11:56 Initial 8302- 2 LOINC O2 Saturation 95 % 2023 10:58 Initial 82414 -5 LOINC Pulse 59.0 /min 09/09/2023 10:58 Initial 8867- 4 LOINC Respiration 19 /min 09/09/19 10:58 Initial 9279- 1 LOINC Temperature 36.0 Alice 96.8 F 09/09/19 10:58 Initial 8310- 5 LOINC Weight 79.38 kg 175.00 lbs 08/26/2023 11:56 Initial 33169 -7 LOINC Hospital Discharge Instructions Should you have any questions prior to discharge, please contact a member of your healthcare team. If you have left the hospital and have any questions, please contact your primary care physician. Reason For Referral No Data Found Procedures Procedure Name Date Status Code Code Syste m Arthroplasty, Glenohumeral J oint; Total Shoulder 09/09/2023 completed 65134 CPT Injection Anesthetic Agent a nd/or Steroid; Brachial Plexus Including Imaging Guidance When Performed 09/09/2023 completed 92006 CPT Anesthesia, Open/Surg Arthro scopic Proc, Humeral Head & Neck, Sternoclav/Ac/Shoulder Jt; Replacemen 09/09/2023 completed 68939 CPT Allergies and Adverse Reactions Allergy Substance Reaction Severity Start Date Concern Status Co de Code System No Known Drug Allergies Moderate Active 583748768 SNOMED-CT Plan of Treatment NM BONE SCAN WHOLE BODY 03/25/2023 CT FACIAL/SINUS W/O CONTRAS 06/09/2022 US GUIDED NEEDLE BIOPSY 03/04/2023 PRE-OP TESTING 08/10/2023 PRE-OP TESTING 03/26/2023 CT UPPER EXTREM W/O CONTRAST 08/10/2023 CT UPPER EXTREM W/O CONTRAST 03/26/2023 Encounters Encounter Diagnosis Start Date Code Code Sys tem Complete rotator cuff tear o r rupture of left shoulder, not specified as traumatic 09/09/2023 SNOMED-CT Personal Care Team Section Performer Name Performer Role Active Date Inactive Da te
--- OUTSIDE RECORDS SUMMARY | 2024-01-27 08:17 | XMS_ITS ---
Author Organization Unknown Address [address] [place] [address] [phone] Phone Care Team Providers Care Junior Electrical Engineer Name Role Phone HELLEN Correa Attending Unavailable CHERYL Hutchinson Primary Unavailable Social History Type Status Start Date End Date Code Code Syst em Smoking History Former smoker 1964 12/19/[address] Sex Male Hospital Discharge Instructions [...] System No Known Drug Allergies Moderate Active 915158948 SNOMED-CT Plan of Treatment NM BONE SCAN WHOLE BODY 03/25/2023 CT FACIAL/SINUS W/O CONTRAS 06/09/2022 US GUIDED NEEDLE BIOPSY 03/04/2023 PRE-OP TESTING 08/10/2023 PRE-OP TESTING 03/26/2023 CT UPPER EXTREM W/O CONTRAST 08/10/2023 CT UPPER EXTREM W/O CONTRAST 03/26/2023 Encounters Encounter Diagnosis Start Date Code Code Sys tem Aftercare following joint replacement surgery 09/23/19 24 SNOMED-CT Personal Care Team Section Performer Name Performer Role Active Date Inactive Da te
--- OUTSIDE RECORDS SUMMARY | 2024-01-27 08:17 | XMS_ITS ---
Author Organization Unknown Address [address] [place] [address] [phone] Phone Care Team Providers Care Decorator Hand Name Role Phone HELLEN Correa Attending Unavailable CHERYL Hutchinson Primary Unavailable Social History Type Status Start Date End Date Code Code Syst em Smoking History Former smoker 1964 12/19/[address] Sex Male Hospital Discharge Instructions [...] System No Known Drug Allergies Moderate Active 120608866 SNOMED-CT Plan of Treatment NM BONE SCAN WHOLE BODY 03/25/2023 CT FACIAL/SINUS W/O CONTRAS 06/09/2022 US GUIDED NEEDLE BIOPSY 03/04/2023 PRE-OP TESTING 08/10/2023 PRE-OP TESTING 03/26/2023 CT UPPER EXTREM W/O CONTRAST 08/10/2023 CT UPPER EXTREM W/O CONTRAST 03/26/2023 Encounters Encounter Diagnosis Start Date Code Code Sys tem Pre-surgery evaluation 08/27/2023 017598553 SNOME D-CT Personal Care Team Section Performer Name Performer Role Active Date Inactive Da te
--- OUTSIDE RECORDS SUMMARY | 2024-01-27 08:17 | XMS_ITS ---
Author Organization Unknown Address [address] [place] [address] [phone] Phone Care Team Providers Care Street Photographer Name Role Phone HELLEN Correa Attending Unavailable CHERYL Hutchinson Primary Unavailable Results XR SHOULDER 2V OR MORE LT* - Completed: 09/22/2023 10:02 [facility] [place], [place] [address] PACS DRYWALL FINISHER REPORT Patient Name: ALEX CRESPO MRN: Sex: : Age: [id number] M 1945 77 Account: Accession: Admit: StayType: [id number] 09/22/2023 CLINIC Ordered: Order ID: Submitted: Ordering Provider: 09/22/2023 09:55 [id number] JULIÁN VICKERS Completed: Technologist: Resulted: 09/22/2023 10:02 PW 09/22/2023 10:06 Study Description: XR SHOULDER 2V OR MORE LT Reason for Study: Pain COMPARISON: Comparison is made with prior examinations. Findings: Bones: There are post surgical changes of a left total reverse shoulder replacement present. No acute fracture or dislocation. Joints: The joints are well maintained. There is no evidence of hardware failure. Soft Tissues: There is a small amount of air which persists inferior to the acromion. This is likely residual from the recent surgery. The visualized lungs are clear. Impressions: Stable left total reverse shoulder replacement. Report Digitally Signed by Brian Milan on 09/22/2023 10:06 AM EDT Social History Type Status Start Date End Date Code Code Syst em Smoking History Former smoker 1964 12/19/[address] Sex Male Hospital Discharge Instructions [...] System No Known Drug Allergies Moderate Active 896578482 SNOMED-CT Plan of Treatment NM BONE SCAN WHOLE BODY 03/25/2023 CT FACIAL/SINUS W/O CONTRAS 06/09/2022 US GUIDED NEEDLE BIOPSY 03/04/2023 PRE-OP TESTING 08/10/2023 PRE-OP TESTING 03/26/2023 CT UPPER EXTREM W/O CONTRAST 08/10/2023 CT UPPER EXTREM W/O CONTRAST 03/26/2023 Encounters Encounter Diagnosis Start Date Code Code Sys tem Follow-up orthopedic assessment 09/22/2023 767439124 SNOMED-CT Personal Care Team Section Performer Name Performer Role Active Date Inactive Da te
--- OUTSIDE RECORDS SUMMARY | 2024-01-27 08:18 | XMS_ITS | Encounter Summary ---
Author Organization [facility] Address [address] [place] [address] Care Team Providers Care Security Guards Dispatcher Name Role Phone Domonique Caballero [facility] Primary Care Provider Encounter Details Date Type Department Care Team (Late st Contact Info) Description 11/12/2023 Lab Requisition [facility] Pathology & Laboratory Medicine - [facility] [address] [place], [place] [phone] Outr Resulting Lab, Provider Social History Tobacco Use Types Packs/Day Years Used Date Smoking Tobacco: Former Cigarettes 1 40 Smokeless Tobacco: Never Alcohol Use Standard Drinks/Week Comments Yes 14 (1 standard drink = 0.6 oz pu re alcohol) Interpersonal Safety Answer Date Record ed Physically Hurt Never 02/12/2020 Verbally Threaten Not on file 02/12/2020 Sex and Gender Information Value Date Recorded Sex Assigned at Not on file Gender Identity Male 03/18/2022 14:42 EDT Sexual Orientation Not on file documented as of this encounter Plan of Treatment Upcoming Encounters Date Type Department Care Team (Late st Contact Info) Description 03/22/2024 9:00 EDT Nurse Only [facility] Cancer Treatment [address] [phone] 03/22/2024 9:15 EDT Office Visit [facility] [address] [phone] Ezra Greenberg MD [address] [facility], [address] [place] [address] documented as of this encounter Procedures Procedure Name Priority Date/Time Associated Diagnosis Comments T3, TOTAL Routine 11/11/2023 15:20 EDT documented in this encounter Results * T3, TOTAL (11/11/2023 15:20 EDT) T3, Total 144 97 - 169 ng/dL 11/12/2023 18:21 EDT [facility] Blood VENOUS BLOOD / Unknown 11/11/2023 15:20 EDT 11/12/2023 17:31 EDT Provider Outr Resulting Lab CHEMISTRY & BLOOD GAS ORDERABLES [facility] [address] [place], [place] [address] documented in this encounter Visit Diagnoses Not on filedocumented in this encounter Care Teams Security Guards Dispatcher Relationship Specialty Start Date End Date Domonique Caballero FNP [address] [place] [phone] PCP - General Family Medicine - Primary Care 04/16/23 documented as of this encounter
--- OUTSIDE RECORDS SUMMARY | 2024-01-27 08:18 | XMS_ITS | Encounter Summary ---
Author Organization [facility] Address [address] [place] [address] Care Team Providers Care Editor School Photograph Name Role Phone Domonique Caballero [facility] Primary Care Provider Encounter Details Date Type Department Care Team (Late st Contact Info) Description 01/18/2024 Lab Requisition [facility] Pathology & Laboratory Medicine - [facility] [address], [place] [phone] Outr Resulting Lab, Provider Social History Tobacco [...] Info) Description 03/22/2024 9:00 EDT Nurse Only [facility] [place] [facility] [address] [phone] 03/22/2024 9:15 EDT Office Visit [facility] [place] [facility] [address] [phone] Ezra Greenberg MD [address] [facility], [address] [place] [address] documented as of this encounter Procedures Procedure Name Priority Date/Time Associated Diagnosis Comments TRANSFERRIN Routine 01/18/2024 7:45 EDT documented in this encounter Results * (ABNORMAL) TRANSFERRIN (01/18/2024 7:45 EDT) Transferrin 161(L) 201 - 352 mg/dL 01/19/2024 10:05 EDT [facility] Blood VENOUS BLOOD / Unknown 01/18/2024 7:45 EDT 01/18/2024 21:31 EDT Provider Outr Resulting Lab CHEMISTRY & BLOOD GAS ORDERABLES [facility] [address] [place], [place] [phone] documented in this encounter Visit Diagnoses Not on filedocumented in this encounter Care Teams Editor School Photograph Relationship Specialty Start Date End Date Domonique Caballero FNP [address] [place] [phone] PCP - General Family Medicine - Primary Care 04/16/23 documented as of this encounter
--- OUTSIDE RECORDS SUMMARY | 2024-01-27 08:18 | XMS_ITS | Encounter Summary ---
Author Organization [facility] [place] Address [address] [place] [address] Care Team Providers Care Block Sorter Name Role Phone Domonique Caballero WASHER CUTTER Primary Care Provider Encounter Details Date Type Department Care Team (Late st Contact Info) Description 12/04/2023 Documentation Visit [facility] Cancer Treatment [address] [address] Darby Eckert, RN Social History Tobacco Use Types Packs/Day Years [...] on file documented as of this encounter Progress Notes * Darby Eckert, RN - 12/04/2023 1218 EDT RX for Venlafaxine 37.5 sent to pts pharmacy to be refilled on 12.21.2023 # 30 with 2 refills, his last RX was 11.25.2023 with 0 refills. Pt requested it be renewed so he would not miss any doses. documented in this encounter Plan of Treatment Upcoming Encounters Date Type Department Care Team (Late st Contact Info) Description 03/22/2024 9:00 EDT Nurse Only [facility] [address] [place] [address] 03/22/2024 9:15 EDT Office Visit [facility] [address] [place] [address] Ezra Greenberg MD 111 [facility] 2 [place] [phone] documented as of this encounter Visit Diagnoses Not on filedocumented in this encounter Care Teams Block Sorter Relationship Specialty Start Date End Date Domonique Caballero FNP [address] [place] [phone] PCP - General Family Medicine - Primary Care 04/16/23 documented as of this encounter
--- OUTSIDE RECORDS SUMMARY | 2024-01-27 08:18 | XMS_ITS | Encounter Summary ---
Author Organization [facility] Address [address] [place] [address] Care Team Providers Care Morning Show Host Name Role Phone Domonique Caballero RESIDENTIAL ADVISOR Primary Care Provider Reason for Visit * Reason Onset Date Comments Medication Reaction 10/26/2023 Encounter Details Date Type Department Care Team (Late st Contact Info) Description 10/26/2023 Telephone [facility] Treatment [place] [address] [place] [address] Darby Eckert, directory clerk Reaction Social History Tobacco Use Types Packs/Day Years [...] on file documented as of this encounter Miscellaneous Notes * Telephone Encounter - Darby Eckert, RN - 10/26/2023 6108 EDT Called [facility] back regarding reaction to Lupron and or Venlafaxine. He has had nausea and one dayof vomiting. He notes a headache daily and just feeling poorly. I told him I have not seen this reaction to Lupron and he has not had any venlafaxine in 6 days at this point. His symptoms of nausea, headache and body aches is much like other patients with viral symptoms. I advised he keep up the fluids and call his pcp if he does not feel better soon. Rolan states understanding of the instructions. documented in this encounter Plan of Treatment Upcoming Encounters Date Type Department Care Team (Late st Contact Info) Description 03/22/2024 9:00 EDT Nurse Only [facility] Cancer Treatment [place] [address] [place] [address] 03/22/2024 9:15 EDT Office Visit [facility] Cancer [address] [address] Ezra Greenberg MD 111 [facility] 2 [place] [phone] documented as of this encounter Visit Diagnoses Not on filedocumented in this encounter Care Teams Morning Show Host Relationship Specialty Start Date End Date Domonique Caballero FNP [address] [place] [phone] PCP - General Family Medicine - Primary Care 04/16/23 documented as of this encounter
--- OUTSIDE RECORDS SUMMARY | 2024-01-27 08:18 | XMS_ITS | Encounter Summary ---
Author Organization [facility] Address [address] [place] [address] Care Team Providers Care Manager Battery Name Role Phone Domonique Caballero SATURATION DIVER Primary Care Provider Encounter Details Date Type Department Care Team (Late st Contact Info) Description 06/09/2023 Documentation Visit [facility] Cancer Treatment [address] [address] Darby Eckert, RN Social History Tobacco Use [...] Progress Notes * Darby Eckert, RN - 06/09/2023 0914 EST Pt notes nocturia x 4-5, some mild dysuria, morning frequency and urgency. Bowels are looser than normal. documented in this encounter Plan of Treatment Upcoming Encounters Date Type Department Care Team (Late st Contact Info) Description 03/22/2024 9:00 EDT Nurse Only [facility] Cancer Treatment [place] [address] [place] [address] 03/22/2024 9:15 EDT Office Visit [facility] Cancer Treatment [place] [address] [place] [address] Ezra Greenberg MD 111 [facility] 2 [place] [address] documented as of this encounter Visit Diagnoses Not on filedocumented in this encounter Care Teams Manager Battery Relationship Specialty Start Date End Date Domonique Caballero FNP 4 [place] [phone] PCP - General Family Medicine - Primary Care 04/16/23 documented as of this encounter
--- OUTSIDE RECORDS SUMMARY | 2024-01-27 08:18 | XMS_ITS ---
Author Organization [facility] Address [address] [place] [address] Care Team Providers Care Deck Hand Name Role Phone Domonique Caballero [facility] Primary Care Provider Active Problems Problem Noted Date Diagnosed Date Malignant neoplasm of prostate ([facility]) 023 Macular degeneration (senile) of retina 04/03/20 23 Glaucoma 04/03/2023 Deviated nasal septum 01/12/2018 Current Oncology Plans LEUPROLIDE* Plan Start Date:04/30/2023 Plan Provider:Todd Myles MD Linked Problems Malignant neoplasm of prosta te ([facility]) Treatment Medications leuprolide acetate (6 month) (LUPRON DEPOT) Past Plans No past plan information found. Radiation Treatments * Plan Last Treated On Elapsed Days Fractions Treated Prescribed Fraction Dose Prescribed Total Dose 1_ProstProx SV 05/19/2023 29 6 of 20 300 cGy 6,000 cGy 1_ProstProx SV:1 06/10/2023 29 14 of 14 300 cGy 4,200 cGy Reference Point Last Treated On Elapsed Days Session Dose Total Dose PROSTATE+PROX SV 06/10/2023 29 300 cGy 6,000 cG y Prost_ProxSV:1 06/10/2023 29 300 cGy 4,200 cGy
--- OUTSIDE RECORDS SUMMARY | 2024-01-27 08:18 | XMS_ITS | Encounter Summary ---
Author Organization [facility] Address [address] [place] [address] Care Team Providers Care Area Field Worker Name Role Phone Domonique Caballero GENERAL WORKER Primary Care Provider Encounter Details Date Type Department Care Team (Latest Contact Info) Description 06/08/2023 8:32 EST - 06/08/2023 23:59 EST Hospital Encounter [facility] Cancer Treatment [place] [address] [place] [address] Discharge Disposition: Home or Self Care Social History Tobacco Use Types Packs/Day Years [...] on file documented as of this encounter Medications at Time of Discharge Medication Sig Dispensed Refills Start Date End Date sildenafil citrate (VIAGRA) 100 mg tablet Take 1 Tablet by mouth as needed for Erectile Dysfunction. timolol (TIMOPTIC) 0.5 % ophthalmic solution Place 1 Drop into both eyes 2 times daily. vit A/vit C/vit E/zinc/copper (ICAPS AREDS ORAL) Take by mouth. documented as of this encounter Discharge Disposition Disposition Code Departure Means Destination Home or Self Care documented in this encounter Plan of Treatment Upcoming Encounters Date Type Department Care Team (Late st Contact Info) Description 03/22/2024 9:00 EDT Nurse Only [facility] Cancer Treatment [place] [address] [place] [address] 03/22/2024 9:15 EDT Office Visit [facility] [address] [place] [address] Ezra Greenberg MD [address] [place] [address] 2 [place] [phone] documented as of this encounter Visit Diagnoses Not on filedocumented in this encounter Care Teams Area Field Worker Relationship Specialty Start Date End Date Domonique Caballero FNP 4 [place] [phone] PCP - General Family Medicine - Primary Care 04/16/23 documented as of this encounter
--- OUTSIDE RECORDS SUMMARY | 2024-01-27 08:18 | XMS_ITS | Encounter Summary ---
Author Organization [facility] Address [address] [place] [address] Care Team Providers Care Stack Attendant Name Role Phone Domonique Caballero [facility] Primary Care Provider [phone] Encounter Details Date Type Department Care Team (Late st Contact Info) Description 12/04/2023 Orders Only [facility] Cancer Treatment [address] [address] Darby Eckert, MARGOT Social History Tobacco Use Types Packs/Day Years [...] on file documented as of this encounter Ordered Prescriptions Prescription Sig Dispensed Refills Start Date End Da te venlafaxine (EFFEXOR) 37.5 mg tablet Take 1 Tablet by mouth daily for 90 days. 30 Tablet 2 12/21/2023 03/20/2024 documented in this encounter Plan of Treatment Upcoming Encounters Date Type Department Care Team (Late st Contact Info) Description 03/22/2024 9:00 EDT Nurse Only [facility] Cancer [address] [address] 03/22/2024 9:15 EDT Office Visit [facility] Treatment [facility] [address] [place] [address] Ezra Greenberg MD 111 [facility] 2 [place] [phone] documented as of this encounter Visit Diagnoses Not on filedocumented in this encounter Care Teams Stack Attendant Relationship Specialty Start Date End Date Domonique Caballero FNP [address] [place] [phone] PCP - General Family Medicine - Primary Care 04/16/23 documented as of this encounter
--- OUTSIDE RECORDS SUMMARY | 2024-01-27 08:18 | XMS_ITS | Encounter Summary ---
Author Organization [facility] Address [address] [place] [address] Care Team Providers Care Bottling Equipment Sales Representative Name Role Phone Domonique Caballero BRINE TANK OPERATOR Primary Care Provider [phone] Encounter Details Date Type Department Care Team (Late st Contact Info) Description 06/09/2023 Results Only [facility] Radiation Oncology - Main [address] [phone] Unknown, Provider, Social History Tobacco Use Types Packs/Day Years [...] EDT Nurse Only [facility] Cancer Treatment [address] [address] 03/22/2024 9:15 EDT Office Visit [facility] Cancer [address] [address] Ezra Greenberg MD [address] [place] [address], Level [address] [place] [address] documented as of this encounter Procedures Procedure Name Priority Date/Time Associated Diagnosis Comments RAD ONC ARIA SESSION SUMMARY Routine 06/09/2023 9:01 EST documented in this encounter Results * RAD ONC ARIA SESSION SUMMARY (06/09/2023 9:01 EST) Course ID C1 ARIA RADIATION ONCOLOGY Course Intent Curative ARIA RADIATION ONCOLOGY Course First Treatment Date 05/12/2023 11:02 ARIA RADIATION ONCOLOGY Course Last Treatment Date 06/09/2023 9:02 ARIA RADIATION ONCOLOGY Course Elapsed Days 28 ARIA RADIATION ONCOLOGY Reference Point ID Prost_ProxSV :1 ARIA RADIATION ONCOLOGY Reference Point Dosage Given to Date 39 Gy ARIA RADIATION ONCOLOGY Reference Point Session Dosage Given 3 Gy ARIA RADIATION ONCOLOGY Reference Point ID PROSTATE+PRO X SV ARIA RADIATION ONCOLOGY Reference Point Dosage Given to Date 57 Gy ARIA RADIATION ONCOLOGY Reference Point Session Dosage Given 3 Gy ARIA RADIATION ONCOLOGY Plan ID 1_ProstProxS V:1 ARIA RADIATION ONCOLOGY Plan Name 1_ProstProxS V:1 ARIA RADIATION ONCOLOGY Plan Fractions Treated to Date 13 ARIA RADIATION ONCOLOGY Plan Total Fractions Prescribed 14 ARIA RADIATION ONCOLOGY Plan Prescribed Dose Per Fraction 3 Gy ARIA RADIATION ONCOLOGY Plan Total Prescribed Dose 4,200 cGy ARIA RADIATION ONCOLOGY Plan Primary Reference Point Prost_ProxSV :1 ARIA RADIATION ONCOLOGY 06/09/2023 9:01 EST Provider Unknown RADIATION ONCOLOGY O RDERABLES ARIA RADIATION ONCOLOGY documented in this encounter Visit Diagnoses Not on filedocumented in this encounter Care Teams Bottling Equipment Sales Representative Relationship Specialty Start Date End Date Domonique Caballero FNP [address] [place] [phone] PCP - General Family Medicine - Primary Care 04/16/23 documented as of this encounter
--- OUTSIDE RECORDS SUMMARY | 2024-01-27 08:18 | XMS_ITS | Encounter Summary ---
Author Organization [facility] Address [address] [place] [address] Care Team Providers Care Coding And Reimbursement Specialist Name Role Phone Domonique Caballero WOOD MILLING MACHINE OPERATOR Primary Care Provider Reason for Visit * Reason Comments Medications Refill Encounter Details Date Type Department Care Team (Late st Contact Info) Description 12/03/2023 Refill [facility] Cancer [address] [address] Ezra Greenberg MD 111 [facility] 2 [place] [address] Medications Refill Social History Tobacco Use Types Packs/Day Years [...] Info) Description 03/22/2024 9:00 EDT Nurse Only [facility] Cancer Treatment [place] [address] [place] [address] 03/22/2024 9:15 EDT Office Visit [facility] Treatment [facility] [address] [place] [address] Ezra Greenberg MD [address] [facility] 2 [place] [phone] documented as of this encounter Visit Diagnoses Not on filedocumented in this encounter Care Teams Coding And Reimbursement Specialist Relationship Specialty Start Date End Date Domonique Caballero FNP [address] [place] [phone] PCP - General Family Medicine - Primary Care 04/16/23 documented as of this encounter
--- OUTSIDE RECORDS SUMMARY | 2024-01-27 08:18 | XMS_ITS | Encounter Summary ---
Author Organization [facility] Address [address] [place] [address] Care Team Providers Care Director Service Name Role Phone Domonique Caballero MEDICAL TECHNOLOGIST MICROBIOLOGY Primary Care Provider Reason for Visit * Reason Comments Prostate Cancer Encounter Details Date Type Department Care Team (Late st Contact Info) Description 10/19/2023 9:00 EDT Office Visit [facility] Cancer Treatment [place] [address] [place], [place] [phone] Ezra Greenberg MD 111 [facility] 2 [place] [address] Malignant neoplasm of prostate (HCC-CMS) (Primary Dx) Social History Tobacco Use Types Packs/Day Years [...] Take 1 Tablet by mouth daily for 30 days. 30 Tablet 1 10/19/2023 11/18/2023 documented in this encounter Progress Notes * Ezra Greenberg MD - 10/19/2023 0900 EDT RADIATION ONCOLOGY FOLLOW UP NOTE Diagnosis: High risk prostate cancer (S1qC1H3) PSA 27.9 Northbrook score 3+4 adenocarcinoma the prostate Site Treated with Radiation: Prostate and Seminal Vesicles Radiation Completion Date: 06/10/2023 Encounter Date: 10/19/23 Clinical History: Rolan Cardenas is a 77 y.o. male who presented with elevated PSA. PSA 14.2 on November 07, 2020 He underwent transrectal ultrasound-guided biopsies, we do not currently have that pathology reporthowever according to the note from Dr. Beasley this revealed Taylor score 6. PSA values on active surveillance included 14.6 on March 14, 2021, 14.8 on June 20, 2021, with 27.92 in February 18, 2023 03/04/2023 Transrectal ultrasound-guided biopsies by Dr. Beasley : Abnormality was noted on ultrasoundat the base extending from the right to the left. Pathology review: 09/17 core biopsies with evidenceof malignancy, Northbrook score 3+3 disease at the right and left base as well as Taylor score 3+4 inthe left base. 03/26/23 bone scan: Consistent with degenerative change. 04/03/[address] Wright. He had modest urinary symptoms at this point, his IPSS is 6. He does have erectile dysfunction and uses sildenafil at times. He has no localizing bone pain other than in his left shoulder, he is anticipating shoulder replacement surgery on . He was felt to have high risk disease given PSA> 20. PSA was repeated and PSMA PET was requested. Treatment options were reviewed 04/03/23 PSA 20.3 04/23/23 PSMA PET Impression 1. Extensive intense activity which is multifocal in the prostate gland, consistent with carcinoma. 2. Otherwise physiological activity and low-level activity in lymph nodes as described, most likely reactive. 3. No definite regional or distant metastatic disease. He underwent androgen deprivation therapy with 6 month Lupron injection 04/30/2023 and moderately hypofractionated prostate radiation to a dose of 6000 cGy in 20 fractions completed 06/10/2023. He experienced mild fatigue and his baseline nocturia remained at 3-5 x per evening. He experienced rare hot flashes and 3-4 soft BM per day and took Metamucil 5 caps per day. He had occasional burning when starting urinary stream. Interval History: Mr Cardenas is seen in scheduled follow up. He reports nocturia 4-5 times per night that is unchanged since prior to radiation. He has hot flashes day and night that sometimes impacts his sleep. He denies dysuria, hematuria or hematochezia. As below, his PSA is undetectable. AUA Score: PSA (ng/mL) Date Value 10/13/2023 <0.1 04/03/2023 20.300 (H) 12/31/2021 16.0 (H) 07/02/2021 14.8 (H) 03/13/2021 14.6 (H) 11/05/2020 14.2 (H) 06/25/2020 11.8 (H) 06/12/2020 10.5 (H) ECOG Performance Status: Current Outpatient Medications Medication fexofenadine (ROBYN) 60 mg tablet psyllium husk (METAMUCIL) 0.4 gram capsule sildenafil citrate (VIAGRA) 100 mg tablet timolol (TIMOPTIC) 0.5 % ophthalmic solution vit A/vit C/vit E/zinc/copper (ICAPS AREDS ORAL) Current Facility-Administered Medications Medication Route Frequency leuprolide acetate (6 month) (LUPRON DEPOT) IM injection 45 mg intramuscular EVERY 6 MONTHS Allergies as of 10/19/2023 (No Known Allergies) Objective: General: Well appearing male in no acute distress. Accompanied his HEENT: No facial asymmetry. Extraocular movements intact, no scleral icterus or injection. Abdomen: Non-distended Extremities: No digital or extremity clubbing, cyanosis, edema Neurological: Awake alert and oriented ASSESSMENT: 77 y.o. male with high risk prostate cancer ([id number]) PSA 27.9 Taylor score 3+4 adenocarcinoma theprostate PLAN: Mr Cardenas is recovering from radiation and his PSA decreased significantly. He continues to have hot flashes thrughout the day and night, The plan is for 18 months ADT with second 6 month Lupron injection today (10/19/2023). The following plan was discussed: - Prescription for Effexor 37.5 mg for hot flashes from ADT - 6 months Lupron injection today - Follow up PSA in 6 months - Follow up in radiation oncology after PSA I spent a total of 20 minutes on the date of this encounter meeting with the patient and reviewing documentation/coordinating care as described in the above note. Ezra Greenberg MD documented in this encounter Plan of Treatment Upcoming Encounters Date Type Department Care Team (Late st Contact Info) Description 03/22/2024 9:00 EDT Nurse Only [facility] Cancer [address] [address] 03/22/2024 9:15 EDT Office Visit [facility] Cancer [address] [address] Ezra Greenberg MD [address] [place] [address] 2 [place] [phone] Scheduled Orders Name Type Priority Associated Diagnoses Orde r Schedule PSA TOTAL, DIAGNOSTIC Lab Routine Malignant neoplasm of prostate (HCC-CMS) Expected: 04/12/2024 (Approximate), Expires: 10/18/2024 documented as of this encounter Visit Diagnoses Diagnosis Malignant neoplasm of prostate (HCC-CMS)- Primary Malignant neoplasm of prostate documented in this encounter Care Teams Director Service Relationship Specialty Start Date End Date Domonique Caballero FNP [address] [place] [phone] PCP - General Family Medicine - Primary Care 04/16/23 documented as of this encounter
--- OUTSIDE RECORDS SUMMARY | 2024-01-27 08:18 | XMS_ITS | Encounter Summary ---
Author Organization [facility] Address [address] [place] [address] Care Team Providers Care Drum Reel Cutter Name Role Phone Domonique Caballero PLOW HOLDER Primary Care Provider [phone] Reason for Visit * Reason Comments Prostate Cancer Encounter Details Date Type Department Care Team (Late st Contact Info) Description 06/10/2023 Radiation Therapy Visit [facility] Cancer Treatment [place] [address] [place] [address] Ezra Greenberg MD 111 [facility] 2 [place] [address] Malignant neoplasm of prostate (HCC-CMS) [...] as of this encounter Progress Notes * Ezra Greenberg MD - 06/10/2023 0808 EST Images from the original note were not included. Radiation Oncology- On Treatment Visit On Treatment Visit Assessment:06/10/23 Rolan Cardenas is currently receiving radiation therapy treatment and is being seen today for his weekly on treatment visit. Encounter Diagnosis: ICD-10-CM ICD-9-CM 1. Malignant neoplasm of prostate (HCC-CMS) C61 185 Radiation Therapy Dose: Radiation Treatments Active Plans 1_ProstProxSV Most recent treatment: Dose planned: 300 cGy (fraction 6 on 05/19/2023) Total: Dose planned: 6,000 cGy (20 fractions) Elapsed Days: Reference Points PROSTATE+PROX SV Most recent treatment: Dose given: 300 cGy (on 06/10/2023) Total: Dose given: 6,000 cGy Elapsed Days: 29 Prost_ProxSV:1 Most recent treatment: Dose given: 300 cGy (on 06/10/2023) Total: Dose given: 4,200 cGy Elapsed Days: 29 Treatment Plan Medications leuprolide acetate (6 month) (LUPRON DEPOT) IM 04/30/2023 9:20 45 mg Subjective Note: The patient reports baseline nocturia 3-5 x per evening. Rare hot flashes. 3-4 soft BM per day. Occasional burning when starting stream. Metamucil 5 caps per day Physical Exam: Wt Readings from Last 3 Encounters: 04/30/23 81.2 kg (179 lb) 04/03/23 81.9 kg (180 lb 8 oz) 01/12/18 81.6 kg (180 lb) (0) Fully active, able to carry on all predisease performance without restriction GENERAL: Well appearing male in no distress SKIN: Grade 0 erythema in the radiation treatment field Treatment Related Toxicity: Radiation Dermatitis: (0) No reaction. Current Labs: Lab Results Component Value Date PSA 20.300 (H) 04/03/2023 Medication Reconciliation: Medications were reviewed with the patient. Weekly Review Medication Changes: None Port Film/CBCT Review: Yes Impression: Disease State: Stable Plan: Plan: Continue per plan Plan Comment: - Patient tolerating treatment with expected radiation reaction. - No medications indicated at this time - Follow up PSA and see me in clinic October 2023 Ezra Greenberg MD Radiation Oncology-[facility] [phone] documented in this encounter Plan of Treatment Upcoming Encounters Date Type Department Care Team (Late st Contact Info) Description 03/22/2024 9:00 EDT Nurse Only [facility] Cancer Treatment [place] [address] [place] [address] 03/22/2024 9:15 EDT Office Visit [facility] Cancer [facility] [address] [place] [address] Ezra Greenberg MD [address] [place] [address] 2 [place] [phone] Scheduled Orders Name Type Priority Associated Diagnoses Orde r Schedule PSA TOTAL, DIAGNOSTIC Lab Routine Malignant neoplasm of prostate (HCC-CMS) Expected: 10/12/2023 (Approximate), Expires: 06/10/2024 documented as of this encounter Visit Diagnoses Diagnosis Malignant neoplasm of prostate (HCC-CMS)- Primary Malignant neoplasm of prostate documented in this encounter Care Teams Drum Reel Cutter Relationship Specialty Start Date End Date Domonique Caballero FNP [address] [place] [phone] PCP - General Family Medicine - Primary Care 04/16/23 documented as of this encounter
--- OUTSIDE RECORDS SUMMARY | 2024-01-27 08:18 | XMS_ITS | Encounter Summary ---
Author Organization [facility] Address [address] [place] [address] Care Team Providers Care Protection Analyst Name Role Phone Domonique Caballero [facility] Primary Care Provider [phone] Encounter Details Date Type Department Care Team (Late st Contact Info) Description 10/14/2023 Lab Requisition [facility] Pathology & Laboratory Medicine - [facility] [address] [place], [place] [phone] Outr Resulting Lab, Provider Social History Tobacco [...] Info) Description 03/22/2024 9:00 EDT Nurse Only [facility] Cancer Treatment [address] [phone] 03/22/2024 9:15 EDT Office Visit [facility] Cancer Treatment [address] [phone] Ezra Greenberg MD 111 [facility] [address] [place] [address] documented as of this encounter Procedures Procedure Name Priority Date/Time Associated Diagnosis Comments PSA TOTAL, DIAGNOSTIC Routine 10/13/2023 14:05 EDT documented in this encounter Results * PSA TOTAL, DIAGNOSTIC (10/13/2023 14:05 EDT) PSA <0.1 <=6.5 ng/mL 10/14/2023 18:[address] [facility] Blood VENOUS BLOOD / Unknown 10/13/2023 14:05 EDT 10/14/2023 16:[address] [facility] - 10/14/2023 18:15 EDT NOTE: Serum PSA concentration should not be interpreted as absolute evidence for the presence or absence of malignant disease. Assayed on Siemens ADVIA Linkytaur XPT using chemiluminescent technology.??Values obtained by using different assay methods cannot be used interchangeably. Provider Outr Resulting Lab CHEMISTRY & BLOOD GAS ORDERABLES [facility] [address] [place] [employer], [place] [address] documented in this encounter Visit Diagnoses Not on filedocumented in this encounter Care Teams Protection Analyst Relationship Specialty Start Date End Date Domonique Caballero FNP [address] [place] [phone] PCP - General Family Medicine - Primary Care 04/16/23 documented as of this encounter
--- OUTSIDE RECORDS SUMMARY | 2024-01-27 08:18 | XMS_ITS | Encounter Summary ---
Author Organization [facility] Address [address] [place] [address] Care Team Providers Care Outside Plant Engineer Name Role Phone Domonique Caballero GATE MORTISER OPERATOR Primary Care Provider Encounter Details Date Type Department Care Team (Late st Contact Info) Description 06/10/2023 Results Only [facility] Radiation Oncology - Main [address] [phone] Unknown, Provider, Social History Tobacco Use Types [...] [facility] Treatment [address] [address] 03/22/2024 9:15 EDT Office Visit [facility] Cancer [address] [address] Ezra Greenberg MD [address] [place] [address], [address] [place] [address] documented as of this encounter Procedures Procedure Name Priority Date/Time Associated Diagnosis Comments RAD ONC ARIA SESSION SUMMARY Routine 06/10/2023 8:38 EST documented in this encounter Results * RAD ONC ARIA SESSION SUMMARY (06/10/2023 8:38 EST) Course ID C1 ARIA RADIATION ONCOLOGY Course Intent Curative ARIA RADIATION ONCOLOGY Course First Treatment Date 05/12/2023 11:02 ARIA RADIATION ONCOLOGY Course Last Treatment Date 06/10/2023 8:39 ARIA RADIATION ONCOLOGY Course Elapsed Days 29 ARIA RADIATION ONCOLOGY Reference Point ID Prost_ProxSV :1 ARIA RADIATION ONCOLOGY Reference Point Dosage Given to Date 42 Gy ARIA RADIATION ONCOLOGY Reference Point Session Dosage Given 3 Gy ARIA RADIATION ONCOLOGY Reference Point ID PROSTATE+PRO X SV ARIA RADIATION ONCOLOGY Reference Point Dosage Given to Date 60 Gy ARIA RADIATION ONCOLOGY Reference Point Session Dosage Given 3 Gy ARIA RADIATION ONCOLOGY Plan ID 1_ProstProxS V:1 ARIA RADIATION ONCOLOGY Plan Name 1_ProstProxS V:1 ARIA RADIATION ONCOLOGY Plan Fractions Treated to Date 14 ARIA RADIATION ONCOLOGY Plan Total Fractions Prescribed 14 ARIA RADIATION ONCOLOGY Plan Prescribed Dose Per Fraction 3 Gy ARIA RADIATION ONCOLOGY Plan Total Prescribed Dose 4,200 cGy ARIA RADIATION ONCOLOGY Plan Primary Reference Point Prost_ProxSV :1 ARIA RADIATION ONCOLOGY 06/10/2023 8:38 EST Provider Unknown MD RADIATION ONCOLOGY O RDERABLES ARIA RADIATION ONCOLOGY documented in this encounter Visit Diagnoses Not on filedocumented in this encounter Care Teams Outside Plant Engineer Relationship Specialty Start Date End Date Domonique Caballero FNP [address] [place] [address] PCP - General Family Medicine - Primary Care 04/16/23 documented as of this encounter
--- OUTSIDE RECORDS SUMMARY | 2024-01-27 08:18 | XMS_ITS | Clinical Summary ---
Author Organization Health system Address [address] [place] [address] Care Team Providers Care Chemical Handler Name Role Phone Domonique Caballero AIRPORT CONTROL OPERATOR Primary Care Provider Allergies No known active allergies Medications Medication Sig Dispensed Refills Start Date End Date Status timolol (TIMOPTIC) 0.5 % ophthalmic solution Place 1 Drop into both eyes 2 times daily. Active sildenafil citrate (VIAGRA) 100 mg tablet Take 1 Tablet by mouth as needed for Erectile Dysfunction. Active vit A/vit C/vit E/zinc/copper (ICAPS AREDS ORAL) Take by mouth. Ac tive fexofenadine (ROBYN) 60 mg tablet Take 1 Tablet by mouth daily. Active psyllium husk (METAMUCIL) 0.4 gram capsule Take 4 Capsules by mouth. Active venlafaxine (EFFEXOR) 37.5 mg tablet Take 1 Tablet by mouth daily for 90 days. 30 Tablet 2 12/21/2023 03/20/2024 Active Hospital, Clinic, or Other Facility Administered Medication Ordered Dose Route Frequency Start Date End Date Status leuprolide acetate (6 month) (LUPRON DEPOT) IM injection 45 mg 45 mg IM EVERY 6 MONTHS 04/30/2023 Activ e Active Problems Problem Noted Date Diagnosed Date Malignant neoplasm of prostate (HCC-CMS) 023 Macular degeneration (senile) of retina 04/03/20 23 Glaucoma 04/03/2023 Deviated nasal septum 01/12/2018 Encounters Date Type Department Care Team Description 01/18/2024 Lab Requisition [facility] Pathology & Laboratory Medicine [address] [address] Outr Resulting Lab, Provider 12/04/2023 Documentation Visit [facility] [address] [place] [address] Darby Eckert, MARGOT 12/04/2023 Orders Only [facility] [address] [place] [address] Darby Eckert, RN 12/03/2023 Refill [facility] [address] [place] [address] Ezra Greenberg MD Medications Refill 11/12/2023 Lab Requisition [facility] Pathology & Laboratory [address] [address] Outr Resulting Lab, Provider from Last 3 Months Medical History Medical History Date Comments Glaucoma Macular degeneration (senile) of retina Glaucoma Social History Tobacco Use Types Packs/Day Years Used Date Smoking Tobacco: Former Cigarettes 1 40 Smokeless Tobacco: Never Tobacco Cessation:Counseling Given: Not Answered Alcohol Use Standard Drinks/Week Comments Yes 14 (1 standard drink = 0.6 oz pu re alcohol) Interpersonal Safety Answer Date Record ed Physically Hurt Never 02/12/2020 Verbally Threaten Not on file 02/12/2020 Sex and Gender Information Value Date Recorded Sex Assigned at Not on file Gender Identity Male 03/18/2022 14:42 EDT Sexual Orientation Not on file Obstetrics History Last Filed Vital Signs Vital Sign Reading Time Taken Comments Blood Pressure 162/74 10/19/2023 0903 EDT Pulse 66 10/19/2023 0903 EDT Temperature - - Respiratory Rate 16 06/01/2023 1304 EST Oxygen Saturation - - Inhaled Oxygen Concentration - - Weight 83 kg (183 lb) 10/19/2023 0903 EDT Height 182.9 cm (6') 01/12/2018 0826 EDT Body Mass Index 24.82 01/12/2018 0826 EDT Plan of Treatment Upcoming Encounters Date Type Department Care Team (Late st Contact Info) Description 03/22/2024 9:00 EDT Nurse Only [facility] Treatment [place] [address] [place] [address] 03/22/2024 9:15 EDT Office Visit [facility] Treatment [place] [address] [place] [address] Ezra Greenberg MD [address] [place] [address] [place] [address] Health Maintenance Due Date Last Done Comments Hepatitis C Screen 1945 COVID-19 Vaccine (#1) 1950 RSV Immunization ( o r 60+ Years) (1 - 1-dose 60+ series) 2005 Fall Risk Screening 2010 Procedures Procedure Name Priority Date/Time Associated Diagnosis Comments TRANSFERRIN Routine 01/18/2024 7:45 EDT T3, TOTAL Routine 11/11/2023 15:20 EDT from Last 3 Months Results * (ABNORMAL) TRANSFERRIN (01/18/2024 7:45 EDT) Pathologist [facility] Transferrin 161(L) 201 - 352 mg/dL 01/19/2024 10:05 EDT [facility] Blood VENOUS BLOOD / Unknown 01/18/2024 7:45 EDT 01/18/2024 21:31 EDT Provider Outr Resulting Lab CHEMISTRY & BLOOD GAS ORDERABLES [facility] [address] [place] [address] * T3, TOTAL (11/11/2023 15:20 EDT) T3, Total 144 97 - 169 ng/dL 11/12/2023 18:21 EDT [facility] Blood VENOUS BLOOD / Unknown 11/11/2023 15:20 EDT 11/12/2023 17:31 EDT Provider Outr Resulting Lab CHEMISTRY & BLOOD GAS ORDERABLES [facility] [address] [place], [place] [address] from Last 3 Months Care Teams Chemical Handler Relationship Specialty Start Date End Date Domonique Caballero, AIRPORT CONTROL OPERATOR [address] [place] [address] PCP - General Family Medicine - Primary Care 04/16/23
--- OUTSIDE RECORDS SUMMARY | 2024-01-27 08:18 | XMS_ITS | Encounter Summary ---
Author Organization [facility] Address [address] [place] [address] Care Team Providers Care Facing End Trimmer Name Role Phone Domonique Caballero TRAVELING CONSTRUCTION SUPERINTENDENT Primary Care Provider [phone] Encounter Details Date Type Department Care Team (Late st Contact Info) Description 06/10/2023 Results Only [facility] Radiation Oncology - Main [address] [phone] Unknown, Provider, Social History Tobacco Use Types [...] Info) Description 03/22/2024 9:00 EDT Nurse Only [facility] Cancer Treatment [address] [address] 03/22/2024 9:15 EDT Office Visit [facility] Cancer [address] [address] Ezra Greenberg MD [address] [place] [address], [address] [place] [address] documented as of this encounter Procedures Procedure Name Priority Date/Time Associated Diagnosis Comments RAD ONC ARIA COURSE SUMMARY Routine 10/21/2023 9:13 EDT documented in this encounter Results * RAD ONC ARIA COURSE SUMMARY (10/21/2023 9:13 EDT) Course ID C1 ARIA RADIATION ONCOLOGY Course Intent Curative ARIA RADIATION ONCOLOGY Course End Date 10/21/2023 9:13 ARIA RADIATION ONCOLOGY Course First Treatment Date 05/12/2023 11:02 ARIA RADIATION ONCOLOGY Course Last Treatment Date 06/10/2023 8:39 ARIA RADIATION ONCOLOGY Course Elapsed Days 29 ARIA RADIATION ONCOLOGY Reference Point ID Prost_ProxSV :1 ARIA RADIATION ONCOLOGY Reference Point Dosage Given to Date 42 Gy ARIA RADIATION ONCOLOGY Reference Point ID PROSTATE+PRO X SV ARIA RADIATION ONCOLOGY Reference Point Dosage Given to Date 60 Gy ARIA RADIATION ONCOLOGY Plan ID 1_ProstProxS V:1 ARIA RADIATION ONCOLOGY Plan Name 1_ProstProxS V:1 ARIA RADIATION ONCOLOGY Plan Fractions Treated to Date 14 ARIA RADIATION ONCOLOGY Plan Total Fractions Prescribed 14 ARIA RADIATION ONCOLOGY Plan Prescribed Dose Per Fraction 3 Gy ARIA RADIATION ONCOLOGY Plan Total Prescribed Dose 4,200 cGy ARIA RADIATION ONCOLOGY Plan Primary Reference Point Prost_ProxSV :1 ARIA RADIATION ONCOLOGY Plan ID 1_ProstProxS V ARIA RADIATION ONCOLOGY Plan Name 1_ProstProxS V ARIA RADIATION ONCOLOGY Plan Fractions Treated to Date 6 ARIA RADIATION ONCOLOGY Plan Total Fractions Prescribed 20 ARIA RADIATION ONCOLOGY Plan Prescribed Dose Per Fraction 3 Gy ARIA RADIATION ONCOLOGY Plan Total Prescribed Dose 6,000 cGy ARIA RADIATION ONCOLOGY Plan Primary Reference Point PROSTATE+PRO X SV ARIA RADIATION ONCOLOGY 10/21/2023 9:13 EDT Provider Unknown MD RADIATION ONCOLOGY O PETEY ARIA RADIATION ONCOLOGY documented in this encounter Visit Diagnoses Not on filedocumented in this encounter Care Teams Facing End Trimmer Relationship Specialty Start Date End Date Domonique Caballero FNP [address] [place] [phone] PCP - General Family Medicine - Primary Care 04/16/23 documented as of this encounter
--- OUTSIDE RECORDS SUMMARY | 2024-01-27 08:18 | XMS_ITS ---
Author Organization Unknown Address [address] [place] [phone] Phone Care Team Providers Care Towboat Captain Name Role Phone DAX YONI Vargas Attending Unavailable CHERYL Hutchinson Primary Unavailable Social History Type Status Start Date End Date Code Code Syst em Smoking History Former smoker 1964 12/19/[id number] Sex Male Hospital Discharge Instructions [...] System No Known Drug Allergies Moderate Active [id number] SNOMED-CT Plan of Treatment NM BONE SCAN WHOLE BODY 03/25/2023 CT FACIAL/SINUS W/O CONTRAS 06/09/2022 US GUIDED NEEDLE BIOPSY 03/04/2023 PRE-OP TESTING 08/10/2023 PRE-OP TESTING 03/26/2023 CT UPPER EXTREM W/O CONTRAST 08/10/2023 CT UPPER EXTREM W/O CONTRAST 03/26/2023 Encounters Encounter Diagnosis Start Date Code Code Sys tem 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
--- OUTSIDE RECORDS SUMMARY | 2024-01-27 08:18 | XMS_ITS | Referral Summary ---
Author Organization [facility] Address [address] [place] [address] Care Team Providers Care Urban Sociologist Name Role Phone Domonique Caballero [facility] Primary Care Provider Encounters Date Type Department Care Team Description 01/18/2024 Lab Requisition [facility] Pathology & Laboratory [address] [address] Outr Resulting Lab, Provider 12/04/2023 Documentation Visit [facility] [place] [address] Darby Eckert, RN 12/04/2023 Orders Only [facility] [place] [address] Darby Eckert, RN 12/03/2023 Refill [facility] [address] [address] Ezra Greenberg MD Medications Refill 11/12/2023 Lab Requisition [facility] Pathology & Laboratory [address] [address] Outr Resulting Lab, Provider from Last 3 Months Allergies No known active allergies Medications Medication [...] Date Diagnosed Date Malignant neoplasm of prostate ([facility]) 023 Macular degeneration (senile) of retina 04/03/20 23 Glaucoma 04/03/2023 Deviated nasal septum 01/12/2018 Social History Tobacco Use Types Packs/Day Years [...] 14:42 EDT Sexual Orientation Not on file Last Filed Vital Signs Vital Sign Reading [...] 9:00 EDT Nurse Only [facility] [address] [place] [address] 03/22/2024 9:15 EDT Office Visit [facility] Treatment [place] [address] [place] [address] Ezra Greenberg MD 111 [facility] 2 [place] [address] Procedures Procedure Name Priority Date/Time Associated Diagnosis Comments TRANSFERRIN Routine 01/18/2024 7:45 EDT T3, TOTAL Routine 11/11/2023 15:20 EDT from Last 3 Months Results * (ABNORMAL) TRANSFERRIN (01/18/2024 7:45 EDT) Transferrin 161(L) 201 - 352 mg/dL 01/19/2024 10:05 EDT [facility] Blood VENOUS BLOOD / Unknown 01/18/2024 7:45 EDT 01/18/2024 21:31 EDT Provider Outr Resulting Lab CHEMISTRY & BLOOD GAS ORDERABLES [facility] [address] [place] [address] * T3, TOTAL (11/11/2023 15:20 EDT) T3, Total 144 97 - 169 ng/dL 11/12/2023 18:21 EDT [facility] Blood VENOUS BLOOD / Unknown 11/11/2023 15:20 EDT 11/12/2023 17:31 EDT Provider Outr Resulting Lab CHEMISTRY & BLOOD GAS ORDERABLES [facility] [address] [place], [place] [phone] from Last 3 Months Care Teams Urban Sociologist Relationship Specialty Start Date End Date Domonique Caballero FNP 4 [place] [phone] PCP - General Family Medicine - Primary Care 04/16/23
--- OUTSIDE RECORDS SUMMARY | 2024-01-27 08:18 | XMS_ITS | Encounter Summary ---
Author Organization [facility] Address [address] [place] [address] Care Team Providers Care Bilingual Case Manager Name Role Phone Domonique Caballero SLEEP MANAGER Primary Care Provider [phone] Encounter Details Date Type Department Care Team (Late st Contact Info) Description 10/19/2023 Documentation Visit [facility] Cancer Treatment [address] [address] Darby Eckert, RN Social History Tobacco Use [...] Progress Notes * Darby Eckert, RN - 10/19/2023 1019 EDT Images from the original note were not included. Nursing Lupron Follow-Up Date of Service: 10/19/2023 Patient: Rolan Cardenas : @ADTLBLBDAY@ Age: 77 y.o. Lupron Procedure Acquisition: [] Labs: Labs to be drawn in Radiation Oncology per the order of the physician. [] All specimens collected were verbalized and labeled with the patient's name and in front of the patient. [] Code 21332 (Venipuncture Blood Draw) was billed on 10/19/2023. [] Code 82662 (Port Blood Draw) was billed on 10/19/2023 . COMMENTS: [x] Injection: Intramuscular injection given at Left upper quad. gluteus Lot Number:[id number] Expiration Date: 06/26/25 [facility]:6176-9288-96 [x]The patient's name and were verified prior to administering medications. [x] All medications were verbally and visually verified prior to administration. [x] Code 88111 (Administration of hormonal anti-neoplastic) was billed on 10/19/2023 by DARBY ECKERT RN . COMMENTS: Referring Physician: No ref. provider found Prescription: Vital Signs: There were no vitals filed for this visit. Medications: Current Outpatient Medications Medication fexofenadine (ROBYN) 60 mg tablet psyllium husk (METAMUCIL) 0.4 gram capsule sildenafil citrate (VIAGRA) 100 mg tablet timolol (TIMOPTIC) 0.5 % ophthalmic solution venlafaxine (EFFEXOR) 37.5 mg tablet vit A/vit C/vit E/zinc/copper (ICAPS AREDS ORAL) Current Facility-Administered Medications Medication Route Frequency leuprolide acetate (6 month) (LUPRON DEPOT) IM injection 45 mg intramuscular EVERY 6 MONTHS Lab Results: No results found for: LDVLIVER, PROT, ASTEXT, ALTEXT Review of Systems: Rolan in for a follow up with Dr. Greenberg. He is fatigues and experiencing hot flashes about 10 times a day, with some at night. He has nocturia x 4-5 and daytime urgency. We discussed the importance of getting outside each day and walking and doing some free weights as he is losing muscle mass and strength. ROS Signed: DARBY ECKERT RN documented in this encounter Plan of Treatment Upcoming Encounters Date Type Department Care Team (Late st Contact Info) Description 03/22/2024 9:00 EDT Nurse Only [facility] Cancer Treatment [address] [address] 03/22/2024 9:15 EDT Office Visit [facility] [address] [place] [address] Ezra Greenberg MD 111 [facility] 2 [place] [phone] documented as of this encounter Visit Diagnoses Not on filedocumented in this encounter Care Teams Bilingual Case Manager Relationship Specialty Start Date End Date Domonique Caballero FNP [address] [place] [phone] PCP - General Family Medicine - Primary Care 04/16/23 documented as of this encounter
--- OUTSIDE RECORDS SUMMARY | 2024-01-27 08:18 | XMS_ITS | Encounter Summary ---
Author Organization [facility] Address [address] [place] [address] Care Team Providers Care Hand Drawer In Helper Name Role Phone Domonique Caballero MANAGER QUANTITATIVE Primary Care Provider Reason for Visit * Reason Comments Prostate Cancer Encounter Details Date Type Department Care Team (Late st Contact Info) Description 06/03/2023 Radiation Therapy Visit [facility] Treatment [place] [address] [place] [address] Ezra Greenberg MD 111 [facility] 2 [place] [address] Malignant neoplasm of prostate (HCC-CMS) [...] Progress Notes * Ezra Greenberg MD - 06/03/2023 0815 EST Images from the original note were not included. Radiation Oncology- On Treatment Visit On Treatment Visit Assessment:06/03/23 Rolan Cardenas is currently receiving radiation therapy treatment and is being seen today for his weekly on treatment visit. Encounter Diagnosis: ICD-10-CM ICD-9-CM 1. Malignant neoplasm of prostate (HCC-CMS) C61 185 Radiation Therapy Dose: Radiation Treatments Active Plans 1_ProstProxSV Most recent treatment: Dose planned: 300 cGy (fraction 6 on 05/19/2023) Total: Dose planned: 6,000 cGy (20 fractions) Elapsed Days: 7 1_ProstProxSV:1 Most recent treatment: Dose planned: 300 cGy (fraction 12 on 06/03/2023) Total: Dose planned: 4,200 cGy (14 fractions) Elapsed Days: 22 Reference Points PROSTATE+PROX SV Most recent treatment: Dose given: 300 cGy (on 06/03/2023) Total: Dose given: 5,400 cGy Elapsed Days: 22 Prost_ProxSV:1 Most recent treatment: Dose given: 300 cGy (on 06/03/2023) Total: Dose given: 3,600 cGy Elapsed Days: 22 Treatment Plan Medications leuprolide acetate (6 month) (LUPRON DEPOT) IM 04/30/2023 9:20 45 mg Subjective Note: The patient reports baseline nocturia 3-5 x per evening. Rare hot flashes.Several soft BM and AM. Occasional burning when starting stream. Metamucil 5 [...] indicated at this time - Follow up October 2023 Ezra Greenberg MD Radiation Oncology-[facility] [phone] documented in this encounter Plan of Treatment Upcoming Encounters Date Type Department Care Team (Late st Contact Info) Description 03/22/2024 9:00 EDT Nurse Only [facility] [address] [place] [address] 03/22/2024 9:15 EDT Office Visit [facility] Cancer [address] [address] Ezra Greenberg MD [address] [place] [address], [facility] [address] [place] [address] documented as of this encounter Visit Diagnoses Diagnosis Malignant neoplasm of prostate (HCC-CMS)- Primary Malignant neoplasm of prostate documented in this encounter Care Teams Hand Drawer In Helper Relationship Specialty Start Date End Date Domonique Caballero FNP [address] [place] [address] PCP - General Family Medicine - Primary Care 04/16/23 documented as of this encounter
--- OUTSIDE RECORDS SUMMARY | 2024-01-27 08:18 | XMS_ITS | Encounter Summary ---
Author Organization [facility] Address [address] [place] [address] Care Team Providers Care Turpentine Farmer Name Role Phone Domonique Caballero RISK ENGINEER Primary Care Provider Encounter Details Date Type Department Care Team (Late st Contact Info) Description 07/22/2023 Documentation Visit [facility] Cancer Treatment [address] [address] Ezra Greenberg MD 111 [facility], [facility] 2 [place] [address] Social History Tobacco Use Types Packs/Day Years [...] as of this encounter Miscellaneous Notes * Treatment Summary - Ezra Greenberg MD - 07/22/2023 1732 EST RADIATION ONCOLOGY END OF TREATMENT REPORT Diagnosis: [id number], PSA 27.9 Luana score 3+4 adenocarcinoma the prostate, PSA 27.92 Site Treated with Radiation: Prostate and Seminal Vesicles Radiation Completion Date: 06/10/2023 Clinical History: Rolan Cardenas is a 77 y.o. male who presented with elevated PSA. PSA 14.2 on November 07, 2020 He underwent transrectal ultrasound-guided biopsies, we do not currently have that pathology reporthowever according to the note from Dr. Beasley this revealed Luana score 6. PSA values on active surveillance included 14.6 on March 14, 2021, 14.8 on June 20, 2021, with 27.92 in February 18, 2023 03/04/2023 Transrectal ultrasound-guided biopsies by Dr. Beasley : Abnormality was noted on ultrasoundat the base extending from the right to the left. Pathology review: 09/17 core biopsies with evidenceof malignancy, Taylor score 3+3 disease at the right and left base as well as Luana score 3+4 inthe left base. 03/26/23 bone [...] No definite regional or distant metastatic disease. Rolan Cardenas underwent androgen deprivation therapy with 6 month Lupron injection 04/30/2023 and moderately hypofractionated prostate radiation with a full bladder and daily CBCT image guidance with a treatment course as follows: Radiation Treatment Dates Elapsed Days Site Treated Technique Energy Dose Per Fraction Number Fractions Total Dose 05/20 - 06/10/2023 29 Prostate + Proximal Seminal Vesicles VMAT 10 MV 300 cGy 20 6000 cGy Disposition of the Patient: Rolan Cardenas tolerated his treatment and completed all prescribed radiation therapy as planned. He experienced mild fatigue and his baseline nocturia remained at 3-5 x per evening. He experienced rare hot flashes and 3-4 soft BM per day and took Metamucil 5 caps per day. He had occasional burning when starting urinary stream. PSA was ordered for 3 months post radiation completion. He was instructed to follow-up in the radiation oncology department after his PSA test in approximately 3 months. Rolan Cardenas was seen weekly by myself and the radiation oncology nursing staff. All treatment portals were reviewed and approved during the course of his radiation therapy. Ezra Greenberg MD documented in this encounter Plan of Treatment Upcoming Encounters Date Type Department Care Team (Late st Contact Info) Description 03/22/2024 9:00 EDT Nurse Only [facility] Cancer [address] [address] 03/22/2024 9:15 EDT Office Visit [facility] [address] [address] Ezra Greenberg MD 111 [facility], Level 2 [place] [phone] documented as of this encounter Visit Diagnoses Not on filedocumented in this encounter Care Teams Turpentine Farmer Relationship Specialty Start Date End Date Domonique Caballero FNP [address] [place] [phone] PCP - General Family Medicine - Primary Care 04/16/23 documented as of this encounter
--- OUTSIDE RECORDS SUMMARY | 2024-01-27 08:18 | XMS_ITS | Encounter Summary ---
Author Organization [facility] Address [address] [place] [address] Care Team Providers Care Cna Instructor Name Role Phone Domonique Caballero GENERAL MAINTENANCE MECHANIC Primary Care Provider Reason for Visit * Reason Comments Prostate Cancer Encounter Details Date Type Department Care Team (Latest Contact Info) Description 06/09/2023 8:45 EST - 06/09/2023 23:59 EST Hospital Encounter [facility] [place] [facility] Cancer Treatment [place] [address] [place] [address] Discharge Disposition: Home or Self Care Social [...] on file documented as of this encounter Last Filed Vital Signs Vital Sign Reading Time Taken Comments Blood Pressure 186/82 06/09/2023 0907 EST Pt to be in touch with his pcp regarding his BP. Pulse 78 06/09/2023 0907 EST Temperature - - Respiratory Rate - - Oxygen Saturation - - Inhaled Oxygen Concentration - - Weight - - Height - - Body Mass Index - - documented in this encounter Medications at Time of Discharge [...] Info) Description 03/22/2024 9:00 EDT Nurse Only [facility] [place] [facility] Cancer [address] [address] 03/22/2024 9:15 EDT Office Visit [facility] [place] [facility] Cancer [address] [address] Ezra Greenberg MD 111 [facility], [facility] 2 [place] [phone] documented as of this encounter Visit Diagnoses Not on filedocumented in this encounter Care Teams Cna Instructor Relationship Specialty Start Date End Date Domonique Caballero FNP 4 [place] [phone] PCP - General Family Medicine - Primary Care 04/16/23 documented as of this encounter
--- OUTSIDE RECORDS SUMMARY | 2024-01-27 08:18 | XMS_ITS | Encounter Summary ---
Author Organization [facility] Address [address] [place] [address] Care Team Providers Care Tumbler Operator Name Role Phone Domonique Caballero SHIP BOAT OR BARGE MATE Primary Care Provider Encounter Details Date Type Department Care Team (Latest Contact Info) Description 06/03/2023 8:45 EST - 06/03/2023 23:59 EST Hospital Encounter [facility] Cancer Treatment [place] [address] [place] [address] Discharge Disposition: Home or Self Care Social [...] 9:00 EDT Nurse Only [facility] Cancer Treatment [place] [address] [place] [address] 03/22/2024 9:15 EDT Office Visit [facility] [address] [place] [address] Ezra Greenberg MD [address] [place] [address] 2 [place] [phone] documented as of this encounter Visit Diagnoses Not on filedocumented in this encounter Care Teams Tumbler Operator Relationship Specialty Start Date End Date Domonique Caballero FNP 4 [place] [phone] PCP - General Family Medicine - Primary Care 04/16/23 documented as of this encounter
--- OUTSIDE RECORDS SUMMARY | 2024-01-27 08:18 | XMS_ITS ---
Author Organization Unknown Address [address] [place] [phone] Phone Care Team Providers Care Field Crop Ii Farmworker Name Role Phone DAX Vargas Attending Unavailable CHERYL Hutchinson Primary Unavailable Results XR KNEE BILAT 4V* - Complete d: 11/18/2023 07:48 LOINC: [facility] RADIOLOGY [place], [place] [address] [facility] PACS FRIT BURNER REPORT Patient Name: ALEX CRESPO MRN: Sex: : Age: [id number] O 1945 [id number] Account: Accession: Admit: StayType: [id number] 11/18/2023 O Ordered: Order ID: Submitted: Ordering Provider: 11/18/2023 07:35 [id number] LB YONI VERDUZCO Completed: Technologist: Resulted: 11/18/2023 07:38 LB 11/18/2023 07:55 FINAL REPORT EXAM: XR KNEE BILAT 4V* CLINICAL HISTORY: Reason for Extrem: Pain. TECHNIQUE: 2D digital imaging was performed of the right and left knee. Five views obtained. , AP, lateral and PA tunnel views were obtained. COMPARISON: MO KNEE LEFT MIN 4V from 05/03/2014 FINDINGS: In the right knee, there is marked narrowing of the medial femorotibial joint space. Osteophytes are seen at the posterior patella and the medial femorotibial joint. The bones are intact and normally mineralized. Vascular calcifications are seen in the soft tissues. In the left knee, there is marked narrowing of the medial femorotibial joint. Osteophytes are seen at the posterior patella and the medial femorotibial joint. The bones are intact and normally mineralized. No significant joint effusion is seen. Vascular calcifications are seen in the soft tissues. 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 DATA REPOSITORY: RADIATION DOSE DELIVERED: Electronically signed by: Brian Milan Dictated: 11/18/2023 07:55 Social History Type Status Start Date End Date Code Code Syst em Smoking History Former smoker 1964 12/19/1999 [id number] [employer] (formerly [employer]) CT Sex Male Hospital Discharge Instructions Should [...] System No Known Drug Allergies Moderate Active 792726061 SNOMED-CT Plan of Treatment NM BONE SCAN WHOLE BODY 03/25/2023 CT FACIAL/SINUS W/O CONTRAS 06/09/2022 US GUIDED NEEDLE BIOPSY 03/04/2023 PRE-OP TESTING 08/10/2023 PRE-OP TESTING 03/26/2023 CT UPPER EXTREM W/O CONTRAST 08/10/2023 CT UPPER EXTREM W/O CONTRAST 03/26/2023 Encounters Encounter Diagnosis Start Date Code Code Sys tem Idiopathic osteoarthritis 11/18/2023 [id number] SN OMED-CT Personal Care Team Section Performer Name Performer Role Active Date Inactive Da te
--- OUTSIDE RECORDS SUMMARY | 2024-01-27 08:18 | XMS_ITS | Encounter Summary ---
Author Organization [facility] Address [address] [place] [address] Care Team Providers Care Ferryboat Operator Helper Name Role Phone Domonique Caballero STAIN DIPPER Primary Care Provider Reason for Visit * Reason Comments Prostate Cancer Encounter Details Date Type Department Care Team (Late st Contact Info) Description 10/19/2023 8:45 EDT Nurse Only [facility] [place] [facility] Cancer Treatment [place] [address] [place], [place] [phone] Malignant neoplasm of prostate (HCC-CMS) (Primary Dx) [...] 0903 EDT Temperature - - Respiratory Rate - - Oxygen Saturation - - Inhaled Oxygen Concentration - - Weight 83 kg (183 lb) 10/19/2023 0903 EDT Height - - Body Mass Index 24.82 01/12/2018 0826 EDT documented in this encounter Progress Notes * Darby Eckert, RN - 10/19/2023 0845 EDT . documented in this encounter Plan of Treatment Upcoming Encounters Date Type Department Care Team (Late st Contact Info) Description 03/22/2024 9:00 EDT Nurse Only [facility] [place] [facility] Cancer Treatment [place] [address] [place] [address] 03/22/2024 9:15 EDT Office Visit [facility] [place] [facility] [address] [place] [address] Ezra Greenberg MD 111 [facility] 2 [place] [phone] documented as of this encounter Visit Diagnoses Diagnosis Malignant neoplasm of prostate (HCC-CMS)- Primary Malignant neoplasm of prostate documented in this encounter Administered Medications Active Administered Medications - up to 3 most recent administrations Medication Order MAR Action Action Date Dose Rate Site leuprolide acetate (6 month) (LUPRON DEPOT) IM injection 45 mg 45 mg, intramuscular, EVERY 6 MONTHS, First dose on Laurie 04/30/23 at 0000, Until Discontinued, Routine Given 10/19/2023 9:41 EDT 45 mg Left Gluteus Medius/Ventrogluteal documented in this encounter Historical Medications * This list may reflect changes made after this encounter. Medication Sig Dispensed Refills Start Date End Date psyllium husk (METAMUCIL) 0.4 gram capsule Take 4 Capsules by mouth. fexofenadine (ROBYN) 60 mg tablet Take 1 Tablet by mouth daily. added in this encounter Care Teams Ferryboat Operator Helper Relationship Specialty Start Date End Date Domonique Caballero FNP [address] [place] [phone] PCP - General Family Medicine - Primary Care 04/16/23 documented as of this encounter
--- OUTSIDE RECORDS SUMMARY | 2024-01-27 08:18 | XMS_ITS | Encounter Summary ---
Author Organization [facility] Address [address] [place] [address] Care Team Providers Care Dining Room Host Name Role Phone Domonique Caballero CHIEF INVESTMENT OFFICER Primary Care Provider Encounter Details Date Type Department Care Team (Late st Contact Info) Description 06/02/2023 Results Only [facility] Radiation Oncology - Main [address] [phone] Unknown, Provider, Social History Tobacco Use Types [...] Info) Description 03/22/2024 9:[address] [facility] Cancer Treatment [address] [address] 03/22/2024 9:[address] [facility] Cancer [address] [address] Ezra Greenberg MD [address] [place] [address], Level 2 [place] [address] documented as of this encounter Procedures Procedure Name Priority Date/Time Associated Diagnosis Comments RAD ONC ARIA SESSION SUMMARY Routine 06/02/2023 8:45 EST documented in this encounter Results * RAD ONC ARIA SESSION SUMMARY (06/02/2023 8:45 EST) Course ID C1 ARIA RADIATION ONCOLOGY Course Intent Curative ARIA RADIATION ONCOLOGY Course First Treatment Date 05/12/2023 11:02 ARIA RADIATION ONCOLOGY Course Last Treatment Date 06/02/2023 8:46 ARIA RADIATION ONCOLOGY Course Elapsed Days 21 ARIA RADIATION ONCOLOGY Reference Point ID Prost_ProxSV :1 ARIA RADIATION ONCOLOGY Reference Point Dosage Given to Date 33 Gy ARIA RADIATION ONCOLOGY Reference Point Session Dosage Given 3 Gy ARIA RADIATION ONCOLOGY Reference Point ID PROSTATE+PRO X SV ARIA RADIATION ONCOLOGY Reference Point Dosage Given to Date 51 Gy ARIA RADIATION ONCOLOGY Reference Point Session Dosage Given 3 Gy ARIA RADIATION ONCOLOGY Plan ID 1_ProstProxS V:1 ARIA RADIATION ONCOLOGY Plan Name 1_ProstProxS V:1 ARIA RADIATION ONCOLOGY Plan Fractions Treated to Date 11 ARIA RADIATION ONCOLOGY Plan Total Fractions Prescribed 14 ARIA RADIATION ONCOLOGY Plan Prescribed Dose Per Fraction 3 Gy ARIA RADIATION ONCOLOGY Plan Total Prescribed Dose 4,200 cGy ARIA RADIATION ONCOLOGY Plan Primary Reference Point Prost_ProxSV :1 ARIA RADIATION ONCOLOGY 06/02/2023 8:45 EST Provider Unknown MD RADIATION ONCOLOGY O RDERABLES ARIA RADIATION ONCOLOGY documented in this encounter Visit Diagnoses Not on filedocumented in this encounter Care Teams Dining Room Host Relationship Specialty Start Date End Date Domonique Caballero FNP [address] [place] [phone] PCP - General Family Medicine - Primary Care 04/16/23 documented as of this encounter
--- OUTSIDE RECORDS SUMMARY | 2024-01-27 08:18 | XMS_ITS | Encounter Summary ---
Author Organization [facility] Address [address] [place] [address] Care Team Providers Care Lock Fitter Name Role Phone Domonique Caballero MANUFACTURING SCHEDULER Primary Care Provider Encounter Details Date Type Department Care Team (Late st Contact Info) Description 06/03/2023 Results Only [facility] Radiation Oncology - Main [address] [phone] Unknown, Provider, Social History Tobacco Use Types [...] Info) Description 03/22/2024 9:00 EDT Nurse Only [facility] Cancer Treatment [address] [address] 03/22/2024 9:15 EDT Office Visit [facility] [address] [address] Ezra Greenberg MD [address] [place] [address], Level [address] [place] [address] documented as of this encounter Procedures Procedure Name Priority Date/Time Associated Diagnosis Comments RAD ONC ARIA SESSION SUMMARY Routine 06/03/2023 9:02 EST documented in this encounter Results * RAD ONC ARIA SESSION SUMMARY (06/03/2023 9:02 EST) Course ID C1 ARIA RADIATION ONCOLOGY Course Intent Curative ARIA RADIATION ONCOLOGY Course First Treatment Date 05/12/2023 11:02 ARIA RADIATION ONCOLOGY Course Last Treatment Date 06/03/2023 9:02 ARIA RADIATION ONCOLOGY Course Elapsed Days 22 ARIA RADIATION ONCOLOGY Reference Point ID Prost_ProxSV :1 ARIA RADIATION ONCOLOGY Reference Point Dosage Given to Date 36 Gy ARIA RADIATION ONCOLOGY Reference Point Session Dosage Given 3 Gy ARIA RADIATION ONCOLOGY Reference Point ID PROSTATE+PRO X SV ARIA RADIATION ONCOLOGY Reference Point Dosage Given to Date 54 Gy ARIA RADIATION ONCOLOGY Reference Point Session Dosage Given 3 Gy ARIA RADIATION ONCOLOGY Plan ID 1_ProstProxS V:1 ARIA RADIATION ONCOLOGY Plan Name 1_ProstProxS V:1 ARIA RADIATION ONCOLOGY Plan Fractions Treated to Date 12 ARIA RADIATION ONCOLOGY Plan Total Fractions Prescribed 14 ARIA RADIATION ONCOLOGY Plan Prescribed Dose Per Fraction 3 Gy ARIA RADIATION ONCOLOGY Plan Total Prescribed Dose 4,200 cGy ARIA RADIATION ONCOLOGY Plan Primary Reference Point Prost_ProxSV :1 ARIA RADIATION ONCOLOGY 06/03/2023 9:02 EST Provider Unknown RADIATION ONCOLOGY O RDERABLES ARIA RADIATION ONCOLOGY documented in this encounter Visit Diagnoses Not on filedocumented in this encounter Care Teams Lock Fitter Relationship Specialty Start Date End Date Domonique Caballero FNP [address] [place] [phone] PCP - General Family Medicine - Primary Care 04/16/23 documented as of this encounter
--- OUTSIDE RECORDS SUMMARY | 2024-01-27 08:18 | XMS_ITS | Encounter Summary ---
Author Organization [facility] Address [address] [place] [address] Care Team Providers Care Travel Professional Name Role Phone Domonique Caballero ELECTROENCEPHALOGRAPH TECHNICIAN Primary Care Provider Encounter Details Date Type Department Care Team (Latest Contact Info) Description 06/10/2023 8:30 EST - 06/10/2023 23:59 EST Hospital Encounter [facility] Cancer Treatment [place] [address] [place] [address] Discharge Disposition: Home or Self Care Social [...] Info) Description 03/22/2024 9:00 EDT Nurse Only [facility] Cancer Treatment [place] [address] [place] [address] 03/22/2024 9:15 EDT Office Visit [facility] [address] [place] [address] Ezra Greenberg MD [address] [place] [address] 2 [place] [phone] documented as of this encounter Visit Diagnoses Not on filedocumented in this encounter Care Teams Travel Professional Relationship Specialty Start Date End Date Domoinque Caballero FNP [address] [place] [phone] PCP - General Family Medicine - Primary Care 04/16/23 documented as of this encounter
--- OUTSIDE RECORDS SUMMARY | 2024-01-27 08:19 | XMS_ITS | Encounter Summary ---
Author Organization [facility] Address [address] [place] [address] Care Team Providers Care Telegraph Editor Name Role Phone Domonique Caballero CALIBRATION CHECKER Primary Care Provider Encounter Details Date Type Department Care Team (Latest Contact Info) Description 05/13/2023 10:38 EDT - 05/13/2023 23:59 EDT Hospital Encounter [facility] Treatment [place] [address] [place] [address] Discharge Disposition: Home or Self Care Social [...] E/zinc/copper (ICAPS AREDS ORAL) Take by mouth. bicalutamide (CASODEX) 50 mg tablet Take 1 Tablet by mouth daily for 28 days. 28 Tablet 04/24/2023 05/22/2023 documented as of this encounter Discharge Disposition Disposition Code Departure Means Destination Home or Self Care documented in this encounter Plan of Treatment Upcoming Encounters Date Type Department Care Team (Late st Contact Info) Description 03/22/2024 9:00 EDT Nurse Only [facility] [place] [facility] Cancer [facility] [address] [place] [address] 03/22/2024 9:15 EDT Office Visit [facility] [place] [facility] Cancer [facility] [address] [place] [address] Ezra Greenberg MD 111 [facility] 2 [place] [address] documented as of this encounter Visit Diagnoses Not on filedocumented in this encounter Care Teams Telegraph Editor Relationship Specialty Start Date End Date Domonique Caballero FNP [address] [place] [phone] PCP - General Family Medicine - Primary Care 04/16/23 documented as of this encounter
--- OUTSIDE RECORDS SUMMARY | 2024-01-27 08:19 | XMS_ITS | Encounter Summary ---
Author Organization [facility] Address [address] [place] [address] Care Team Providers Care Mechanical Engineering Teacher Name Role Phone Domonique Caballero BUSINESS LAWYER Primary Care Provider [phone] Encounter Details Date Type Department Care Team (Late st Contact Info) Description 05/29/2023 Results Only [facility] Radiation Oncology - Main [address] [phone] Unknown, Provider, Social History Tobacco Use Types [...] Only [facility] Cancer Treatment [address] [address] 03/22/2024 9:15 EDT Office Visit [facility] Cancer [address] [address] Ezra Greenberg MD [address] [place] [address], Level [address] [place] [address] documented as of this encounter Procedures Procedure Name Priority Date/Time Associated Diagnosis Comments RAD ONC ARIA SESSION SUMMARY Routine 05/29/2023 8:52 EST documented in this encounter Results * RAD ONC ARIA SESSION SUMMARY (05/29/2023 8:52 EST) Course ID C1 ARIA RADIATION ONCOLOGY Course Intent Curative ARIA RADIATION ONCOLOGY Course First Treatment Date 05/12/2023 11:02 ARIA RADIATION ONCOLOGY Course Last Treatment Date 05/29/2023 8:53 ARIA RADIATION ONCOLOGY Course Elapsed Days 17 ARIA RADIATION ONCOLOGY Reference Point ID Prost_ProxSV :1 ARIA RADIATION ONCOLOGY Reference Point Dosage Given to Date 24 Gy ARIA RADIATION ONCOLOGY Reference Point Session Dosage Given 3 Gy ARIA RADIATION ONCOLOGY Reference Point ID PROSTATE+PRO X SV ARIA RADIATION ONCOLOGY Reference Point Dosage Given to Date 42 Gy ARIA RADIATION ONCOLOGY Reference Point Session Dosage Given 3 Gy ARIA RADIATION ONCOLOGY Plan ID 1_ProstProxS V:1 ARIA RADIATION ONCOLOGY Plan Name 1_ProstProxS V:1 ARIA RADIATION ONCOLOGY Plan Fractions Treated to Date 8 ARIA RADIATION ONCOLOGY Plan Total Fractions Prescribed 14 ARIA RADIATION ONCOLOGY Plan Prescribed Dose Per Fraction 3 Gy ARIA RADIATION ONCOLOGY Plan Total Prescribed Dose 4,200 cGy ARIA RADIATION ONCOLOGY Plan Primary Reference Point Prost_ProxSV :1 ARIA RADIATION ONCOLOGY 05/29/2023 8:52 EST Provider Unknown MD RADIATION ONCOLOGY O RDERABLES ARIA RADIATION ONCOLOGY documented in this encounter Visit Diagnoses Not on filedocumented in this encounter Care Teams Mechanical Engineering Teacher Relationship Specialty Start Date End Date Domonique Caballero FNP [address] [place] [phone] PCP - General Family Medicine - Primary Care 04/16/23 documented as of this encounter
--- OUTSIDE RECORDS SUMMARY | 2024-01-27 08:19 | XMS_ITS | Encounter Summary ---
Author Organization [facility] Address [address] [place] [address] Care Team Providers Care Hydraulic Plumber Name Role Phone Domonique Caballero JAMB CUTTER Primary Care Provider [phone] Encounter Details Date Type Department Care Team (Late st Contact Info) Description 05/21/2023 Results Only [facility] Radiation Oncology - Main [address] [phone] Unknown, Provider, Social History Tobacco Use Types [...] Nurse Only [facility] Cancer Treatment [address] [address] 03/22/2024 9:15 EDT Office Visit [facility] Cancer [address] [address] Ezra Greenberg MD [address] [place] [address], Level 2 [place] [address] documented as of this encounter Procedures Procedure Name Priority Date/Time Associated Diagnosis Comments RAD ONC ARIA SESSION SUMMARY Routine 05/21/2023 9:56 EST documented in this encounter Results * RAD ONC ARIA SESSION SUMMARY (05/21/2023 9:56 EST) Course ID C1 ARIA RADIATION ONCOLOGY Course Intent Curative ARIA RADIATION ONCOLOGY Course First Treatment Date 05/12/2023 11:02 ARIA RADIATION ONCOLOGY Course Last Treatment Date 05/21/2023 9:57 ARIA RADIATION ONCOLOGY Course Elapsed Days 9 ARIA RADIATION ONCOLOGY Reference Point ID Prost_ProxSV :1 ARIA RADIATION ONCOLOGY Reference Point Dosage Given to Date 6 Gy ARIA RADIATION ONCOLOGY Reference Point Session Dosage Given 3 Gy ARIA RADIATION ONCOLOGY Reference Point ID PROSTATE+PRO X SV ARIA RADIATION ONCOLOGY Reference Point Dosage Given to Date 24 Gy ARIA RADIATION ONCOLOGY Reference Point Session Dosage Given 3 Gy ARIA RADIATION ONCOLOGY Plan ID 1_ProstProxS V:1 ARIA RADIATION ONCOLOGY Plan Name 1_ProstProxS V:1 ARIA RADIATION ONCOLOGY Plan Fractions Treated to Date 2 ARIA RADIATION ONCOLOGY Plan Total Fractions Prescribed 14 ARIA RADIATION ONCOLOGY Plan Prescribed Dose Per Fraction 3 Gy ARIA RADIATION ONCOLOGY Plan Total Prescribed Dose 4,200 cGy ARIA RADIATION ONCOLOGY Plan Primary Reference Point Prost_ProxSV :1 ARIA RADIATION ONCOLOGY 05/21/2023 9:56 EST Provider Unknown RADIATION ONCOLOGY O RDERABLES ARIA RADIATION ONCOLOGY documented in this encounter Visit Diagnoses Not on filedocumented in this encounter Care Teams Hydraulic Plumber Relationship Specialty Start Date End Date Domonique Caballero FNP [address] [place] [address] PCP - General Family Medicine - Primary Care 04/16/23 documented as of this encounter
--- OUTSIDE RECORDS SUMMARY | 2024-01-27 08:19 | XMS_ITS | Encounter Summary ---
Author Organization [facility] Address [address] [place] [address] Care Team Providers Care Forward Air Controller/Air Officer Name Role Phone Domonique Caballero SURGICAL TECHNICIAN Primary Care Provider Encounter Details Date Type Department Care Team (Late st Contact Info) Description 05/25/2023 Results Only [facility] Radiation Oncology - Main [address] [phone] Unknown, Provider, Social History Tobacco Use Types [...] EDT Nurse Only [facility] Cancer Treatment [address] [address] 03/22/2024 9:15 EDT Office Visit [facility] Cancer [address] [address] Ezra Greenberg MD [address] [place] [address], Level 2 [place] [address] documented as of this encounter Procedures Procedure Name Priority Date/Time Associated Diagnosis Comments RAD ONC ARIA SESSION SUMMARY Routine 05/25/2023 9:54 EST documented in this encounter Results * RAD ONC ARIA SESSION SUMMARY (05/25/2023 9:54 EST) Course ID C1 ARIA RADIATION ONCOLOGY Course Intent Curative ARIA RADIATION ONCOLOGY Course First Treatment Date 05/12/2023 11:02 ARIA RADIATION ONCOLOGY Course Last Treatment Date 05/25/2023 9:55 ARIA RADIATION ONCOLOGY Course Elapsed Days 13 ARIA RADIATION ONCOLOGY Reference Point ID Prost_ProxSV :1 ARIA RADIATION ONCOLOGY Reference Point Dosage Given to Date 12 Gy ARIA RADIATION ONCOLOGY Reference Point Session Dosage Given 3 Gy ARIA RADIATION ONCOLOGY Reference Point ID PROSTATE+PRO X SV ARIA RADIATION ONCOLOGY Reference Point Dosage Given to Date 30 Gy ARIA RADIATION ONCOLOGY Reference Point Session Dosage Given 3 Gy ARIA RADIATION ONCOLOGY Plan ID 1_ProstProxS V:1 ARIA RADIATION ONCOLOGY Plan Name 1_ProstProxS V:1 ARIA RADIATION ONCOLOGY Plan Fractions Treated to Date 4 ARIA RADIATION ONCOLOGY Plan Total Fractions Prescribed 14 ARIA RADIATION ONCOLOGY Plan Prescribed Dose Per Fraction 3 Gy ARIA RADIATION ONCOLOGY Plan Total Prescribed Dose 4,200 cGy ARIA RADIATION ONCOLOGY Plan Primary Reference Point Prost_ProxSV :1 ARIA RADIATION ONCOLOGY 05/25/2023 9:54 EST Provider Unknown MD RADIATION ONCOLOGY O RDERABLES ARIA RADIATION ONCOLOGY documented in this encounter Visit Diagnoses Not on filedocumented in this encounter Care Teams Forward Air Controller/Air Officer Relationship Specialty Start Date End Date Domonique Caballero FNP [address] [place] [address] PCP - General Family Medicine - Primary Care 04/16/23 documented as of this encounter
--- OUTSIDE RECORDS SUMMARY | 2024-01-27 08:19 | XMS_ITS | Encounter Summary ---
Author Organization [facility] Address [address] [place] [address] Care Team Providers Care Septic Technician Name Role Phone Domonique Caballero SLIVER FORMER Primary Care Provider Encounter Details Date Type Department Care Team (Latest Contact Info) Description 05/15/2023 11:15 EDT - 05/15/2023 23:59 EDT Hospital Encounter [facility] Cancer Treatment [place] [address] [place] [address] Discharge Disposition: Home or Self Care Social [...] 9:00 EDT Nurse Only [facility] [address] [place] [address] 03/22/2024 9:15 EDT Office Visit [facility] Cancer [facility] [address] [place] [address] Ezra Greenberg MD 111 [facility] 2 [place] [address] documented as of this encounter Visit Diagnoses Not on filedocumented in this encounter Care Teams Septic Technician Relationship Specialty Start Date End Date Domonique Caballero FNP [address] [place] [phone] PCP - General Family Medicine - Primary Care 04/16/23 documented as of this encounter
--- OUTSIDE RECORDS SUMMARY | 2024-01-27 08:19 | XMS_ITS | Encounter Summary ---
Author Organization [facility] Address [address] [place] [address] Care Team Providers Care Sifter Operator Name Role Phone Domonique Caballero [facility] Primary Care Provider Encounter Details Date Type Department Care Team (Late st Contact Info) Description 04/30/2023 Documentation Visit [facility] Cancer Treatment [address] [address] Darby Eckert, RN Social History Tobacco Use [...] Progress Notes * Darby Eckert, RN - 04/30/2023 1522 EDT [facility] Patient Education/Needs Assessment Date: 04/30/23 What is the patient most concerned about with treatment? Concerns with bladder filling. Does the patient feel adequately informed about he treatment process? Yes Are there any barriers to getting the patient to treatment (transportation, work etc)? No Was the patient accompanied for this encounter? Yes, by his . LEARNING STYLE What time of day does the patient learn best? What is the patient preferred method of learning? Patient's primary language: Chilean Does the patient require an track walker? No Does the patient have any barriers to learning? []Hard of Hearing []Visual Impairment []Cognitive Impairment []Dementia []Low Literacy []Other Comments: PATIENT EDUCATION After assessing the patient's learning needs, the patient was educated about their upcoming treatments. The patient was: The following education materials were supplied to the patient: Written: [x] ZI Radiation Therapy for Cancer [] ZI Radiation Therapy for [x][facility]-specific information Audio/Visual [] ZI RT Answers: An introduction to external beam radiation therapy ADVANCE DIRECTIVES STATUS The patient's advance directive status was reviewed: [x] Patient was reminded again to bring in a copy for their electronic Radiation Oncology chart. [] The patient does not have any advance directives and is not interested in completing one at thistime. When asked, the patient was able to summarize our conversation, which demonstrates that they understand the education provided and are ready to begin their course of treatment. [x] The patient was counseled and provided with educational handouts of the following information: pertinent contact information for Radiation Oncology staff, general care and skin care during radiation therapy, nutritional and exercise guidelines during radiation therapy and information related to supportive services during radiation therapy. Comments: Signed: DARBY ECKERT RN documented in this encounter Plan of Treatment Upcoming Encounters Date Type Department Care Team (Late st Contact Info) Description 03/22/2024 9:00 EDT Nurse Only [facility] Cancer Treatment [address] [phone] 03/22/2024 9:15 EDT Office Visit [facility] Cancer [facility] [address] [place], [place] [address] Ezra Greenberg MD [address] [place] [address] 2 [place] [phone] documented as of this encounter Visit Diagnoses Not on filedocumented in this encounter Care Teams Sifter Operator Relationship Specialty Start Date End Date Domonique Caballero FNP [address] [place] [address] PCP - General Family Medicine - Primary Care 04/16/23 documented as of this encounter
--- OUTSIDE RECORDS SUMMARY | 2024-01-27 08:19 | XMS_ITS | Encounter Summary ---
Author Organization [facility] Address [address] [place] [address] Care Team Providers Care Asset Liability Analyst Name Role Phone Domonique Caballero OVERNIGHT BABYSITTER Primary Care Provider Encounter Details Date Type Department Care Team (Late st Contact Info) Description 05/12/2023 11:00 EDT - 05/12/2023 23:59 EDT Hospital Encounter [facility] Cancer Treatment [place] [address] [place] [address] Todd Myles MD 111 [facility] 2 [place] [address] Discharge Disposition: Home or Self Care Social [...] 9:00 EDT Nurse Only [facility] Cancer [address] [address] 03/22/2024 9:15 EDT Office Visit [facility] Cancer Treatment [address] [address] Ezra Greenberg MD 111 [facility] 2 [place] [address] documented as of this encounter Visit Diagnoses Not on filedocumented in this encounter Care Teams Asset Liability Analyst Relationship Specialty Start Date End Date Domonique Caballero FNP [address] [place] [phone] PCP - General Family Medicine - Primary Care 04/16/23 documented as of this encounter
--- OUTSIDE RECORDS SUMMARY | 2024-01-27 08:19 | XMS_ITS | Encounter Summary ---
Author Organization [facility] Address [address] [place] [address] Care Team Providers Care Tailings Dam Laborer Name Role Phone Doomnique Caballero DINING MANAGER Primary Care Provider [phone] Encounter Details Date Type Department Care Team (Late st Contact Info) Description 05/22/2023 Results Only [facility] Radiation Oncology - Main [address] [phone] Unknown, Provider, Social History Tobacco Use Types [...] Nurse Only [facility] Cancer Treatment [address] [address] 03/22/2024 9:15 EDT Office Visit [facility] Cancer [address] [address] Ezra Greenberg MD [address] [place] [address], Level 2 [place] [address] documented as of this encounter Procedures Procedure Name Priority Date/Time Associated Diagnosis Comments RAD ONC ARIA SESSION SUMMARY Routine 05/22/2023 9:59 EST documented in this encounter Results * RAD ONC ARIA SESSION SUMMARY (05/22/2023 9:59 EST) Course ID C1 ARIA RADIATION ONCOLOGY Course Intent Curative ARIA RADIATION ONCOLOGY Course First Treatment Date 05/12/2023 11:02 ARIA RADIATION ONCOLOGY Course Last Treatment Date 05/22/2023 9:59 ARIA RADIATION ONCOLOGY Course Elapsed Days 10 ARIA RADIATION ONCOLOGY Reference Point ID Prost_ProxSV :1 ARIA RADIATION ONCOLOGY Reference Point Dosage Given to Date 9 Gy ARIA RADIATION ONCOLOGY Reference Point Session Dosage Given 3 Gy ARIA RADIATION ONCOLOGY Reference Point ID PROSTATE+PRO X SV ARIA RADIATION ONCOLOGY Reference Point Dosage Given to Date 27 Gy ARIA RADIATION ONCOLOGY Reference Point Session Dosage Given 3 Gy ARIA RADIATION ONCOLOGY Plan ID 1_ProstProxS V:1 ARIA RADIATION ONCOLOGY Plan Name 1_ProstProxS V:1 ARIA RADIATION ONCOLOGY Plan Fractions Treated to Date 3 ARIA RADIATION ONCOLOGY Plan Total Fractions Prescribed 14 ARIA RADIATION ONCOLOGY Plan Prescribed Dose Per Fraction 3 Gy ARIA RADIATION ONCOLOGY Plan Total Prescribed Dose 4,200 cGy ARIA RADIATION ONCOLOGY Plan Primary Reference Point Prost_ProxSV :1 ARIA RADIATION ONCOLOGY 05/22/2023 9:59 EST Provider Unknown MD RADIATION ONCOLOGY O RDERABLES ARIA RADIATION ONCOLOGY documented in this encounter Visit Diagnoses Not on filedocumented in this encounter Care Teams Tailings Dam Laborer Relationship Specialty Start Date End Date Domonique Caballero FNP [address] [place] [address] PCP - General Family Medicine - Primary Care 04/16/23 documented as of this encounter
--- OUTSIDE RECORDS SUMMARY | 2024-01-27 08:19 | XMS_ITS | Encounter Summary ---
Author Organization [facility] Address [address] [place] [address] Care Team Providers Care Customer Service Administrator Name Role Phone Domonique Caballero WASHER ENGINEER HELPER Primary Care Provider Reason for Referral * (Routine/Next Available) - New Request Specialty Diagnoses / Procedures Referred By Tri crane Referred To Contact Diagnoses Malignant neoplasm of prostate (HCC-CMS) Procedures CT SIM EXAM Ezra Greenberg MD [address] [place] [phone] [facility] Referral ID Status Reason Start Date Expiration Date V isits Requested Visits Authorized [id number] New Request 05/19/2023 1 1 Reason for Visit * (Routine/Next Available) - New Request Specialty Diagnoses / Procedures Referred By Tri crane Referred To Contact Diagnoses Malignant neoplasm of prostate (HCC-CMS) Procedures CT SIM EXAM Ezra Greenberg MD [address] [place] [phone] [facility] Referral ID Status Reason Start Date Expiration Date V isits Requested Visits Authorized [id number] New Request 05/19/2023 1 1 Encounter Details Date Type Department Care Team (Latest Contact Info) Description 05/19/2023 9:45 EST - 05/19/2023 23:59 EST Hospital Encounter [facility] Treatment [place] [address] [place] [address] Malignant neoplasm of prostate (HCC-CMS) Discharge Disposition: Home or Self Care Social [...] EDT Nurse Only [facility] Treatment [place] [address] [place], [place] [address] 03/22/2024 9:[address] [facility] Treatment [place] [address] [place] [address] Ezra Greenberg MD [address] [place] [address] 2 [place] [address] documented as of this encounter Procedures Procedure Name Priority Date/Time Associated Diagnosis Comments CT SIM EXAM Routine 05/19/2023 10:15 EST Malignant neoplasm of prostate (HCC-CMS) documented in this encounter Results * CT SIM EXAM (05/19/2023 10:15 EST) Narrative 05/19/2023 10:15 EST This is a non-reportable exam. Ezra Greenberg MD IMG OTHER IMAGING OR DERABLES documented in this encounter Visit Diagnoses Diagnosis Malignant neoplasm of prostate (HCC-CMS) Malignant neoplasm of prostate documented in this encounter Care Teams Customer Service Administrator Relationship Specialty Start Date End Date Domonique Caballero FNP [address] [place] [address] PCP - General Family Medicine - Primary Care 04/16/23 documented as of this encounter
--- OUTSIDE RECORDS SUMMARY | 2024-01-27 08:19 | XMS_ITS | Encounter Summary ---
Author Organization [facility] Address [address] [place] [address] Care Team Providers Care General Practice Name Role Phone Domonique Caballero MAINTENANCE EQUIPMENT OPERATOR Primary Care Provider Encounter Details Date Type Department Care Team (Latest Contact Info) Description 05/28/2023 8:45 EST - 05/28/2023 23:59 EST Hospital Encounter [facility] Cancer Treatment [place] [address] [place] [address] Discharge Disposition: Home or Self Care Social [...] 9:00 EDT Nurse Only [facility] Cancer Treatment [place] [address] [place] [address] 03/22/2024 9:15 EDT Office Visit [facility] [address] [place] [address] Ezra Greenberg MD [address] [place] [address] 2 [place] [phone] documented as of this encounter Visit Diagnoses Not on filedocumented in this encounter Care Teams General Practice Relationship Specialty Start Date End Date Domonique Caballero FNP [address] [place] [phone] PCP - General Family Medicine - Primary Care 04/16/23 documented as of this encounter
--- OUTSIDE RECORDS SUMMARY | 2024-01-27 08:19 | XMS_ITS | Encounter Summary ---
Author Organization [facility] Address [address] [place] [address] Care Team Providers Care Mold Cooler Name Role Phone Domonique Caballero INSPECTOR OUTSIDE STEAM DISTRIBUTION Primary Care Provider Reason for Visit * Reason Comments Prostate Cancer Encounter Details Date Type Department Care Team (Late st Contact Info) Description 05/27/2023 Radiation Therapy Visit [facility] Treatment [place] [address] [place] [address] Ezra Greenberg MD 111 [facility] 2 [place] [address] Malignant neoplasm of prostate (HCC-CMS) [...] Progress Notes * Ezra Greenberg MD - 05/27/2023 0857 EST Images from the original note were not included. Radiation Oncology- On Treatment Visit On Treatment Visit Assessment:05/27/23 Rolan Cardenas is currently receiving radiation therapy [...] Dose planned: 300 cGy (fraction 6 on 05/27/2023) Total: Dose planned: 4,200 cGy (14 fractions) Elapsed Days: 15 Reference Points PROSTATE+PROX SV Most recent treatment: Dose given: 300 cGy (on 05/27/2023) Total: Dose given: 3,600 cGy Elapsed Days: 15 Prost_ProxSV:1 Most recent treatment: Dose given: 300 cGy (on 05/27/2023) Total: Dose given: 1,800 cGy Elapsed Days: 15 Treatment Plan Medications leuprolide acetate (6 month) (LUPRON DEPOT) IM 04/30/2023 9:20 45 mg Subjective Note: The patient reports baseline nocturia 3-5 x per evening. Rare hot flashes.Several soft BM and AM. Occasional burning when starting stream. Physical Exam: Wt Readings from Last 3 [...] - No medications indicated at this time Ezra Greenberg MD Radiation Oncology-[facility] [phone] documented in this encounter Plan of Treatment Upcoming Encounters Date Type Department Care Team (Late st Contact Info) Description 03/22/2024 9:00 EDT Nurse Only [facility] [address] [place] [address] 03/22/2024 9:15 EDT Office Visit [facility] [address] [place] [address] Ezra Greenberg MD 111 [facility] 2 [place] [address] documented as of this encounter Visit Diagnoses Diagnosis Malignant neoplasm of prostate (HCC-CMS)- Primary Malignant neoplasm of prostate documented in this encounter Care Teams Mold Cooler Relationship Specialty Start Date End Date Domonique Caballero FNP [address] [place] [phone] PCP - General Family Medicine - Primary Care 04/16/23 documented as of this encounter
--- OUTSIDE RECORDS SUMMARY | 2024-01-27 08:19 | XMS_ITS | Encounter Summary ---
Author Organization [facility] Address [address] [place] [address] Care Team Providers Care Die Sizer Name Role Phone Domonique Caballero SFDC DEVELOPER Primary Care Provider [phone] Reason for Visit * Reason Comments Prostate Cancer OTV Encounter Details Date Type Department Care Team (Latest Contact Info) Description 06/01/2023 8:45 EST - 06/01/2023 23:59 EST Hospital Encounter [facility] Treatment [place] [address] [place] [address] Discharge Disposition: Home or Self Care Social [...] Sign Reading Time Taken Comments Blood Pressure 174/75 06/01/2023 1304 EST Pulse 58 06/01/2023 1304 EST Temperature - - Respiratory Rate 16 06/01/2023 [...] EDT Nurse Only [facility] Cancer [address] [address] 03/22/2024 9:15 EDT Office Visit [facility] Cancer [address] [address] Ezra Greenberg MD 111 [facility] 2 [place] [phone] documented as of this encounter Visit Diagnoses Not on filedocumented in this encounter Care Teams Die Sizer Relationship Specialty Start Date End Date Domonique Caballero FNP [address] [place] [phone] PCP - General Family Medicine - Primary Care 04/16/23 documented as of this encounter
--- OUTSIDE RECORDS SUMMARY | 2024-01-27 08:19 | XMS_ITS | Encounter Summary ---
Author Organization [facility] Address [address] [place] [address] Care Team Providers Care Armature Repairer Name Role Phone Domonique Caballero FOLDING MACHINE FEEDER Primary Care Provider Encounter Details Date Type Department Care Team (Late st Contact Info) Description 06/01/2023 Documentation Visit [facility] Cancer Treatment [address] [address] Catrina Heredia, RN Social History Tobacco Use Types Packs/Day [...] as of this encounter Progress Notes * Catrina Heredia, MARGOT - 06/01/2023 1301 EST Seen for a nursing visit during radiation therapy of prostate. Reports urinary frequency and urgency, no incontinence. Loose stools, mostly in the morning. Takes Metamucil 1 capsule BID, dosage reviewed with him, he can take 2 to 6 caps. He will try 2 caps in am and 3 caps HS. If no improvement with this increase, he can try Imodium. documented in this encounter Plan of Treatment Upcoming Encounters Date Type Department Care Team (Late st Contact Info) Description 03/22/2024 9:00 EDT Nurse Only [facility] Cancer Treatment [place] [address] [place] [address] 03/22/2024 9:15 EDT Office Visit [facility] [address] [place] [address] Ezra Greenberg MD 111 [facility] 2 [place] [phone] documented as of this encounter Visit Diagnoses Not on filedocumented in this encounter Care Teams Armature Repairer Relationship Specialty Start Date End Date Domonique Caballero FNP [address] [place] [phone] PCP - General Family Medicine - Primary Care 04/16/23 documented as of this encounter
--- OUTSIDE RECORDS SUMMARY | 2024-01-27 08:19 | XMS_ITS | Encounter Summary ---
Author Organization [facility] Address [address] [place] [address] Care Team Providers Care Proof Technician Helper Name Role Phone Domonique Caballero TALENT MANAGEMENT SPECIALIST Primary Care Provider Encounter Details Date Type Department Care Team (Latest Contact Info) Description 05/22/2023 9:45 EST - 05/22/2023 23:59 EST Hospital Encounter [facility] Treatment [place] [address] [place] [address] Discharge Disposition: Home or Self Care Social [...] Info) Description 03/22/2024 9:00 EDT Nurse Only [facility] Cancer Treatment [place] [address] [place] [address] 03/22/2024 9:15 EDT Office Visit [facility] [address] [place] [address] Ezra Greenberg MD [address] [place] [address] 2 [place] [phone] documented as of this encounter Visit Diagnoses Not on filedocumented in this encounter Care Teams Proof Technician Helper Relationship Specialty Start Date End Date Domonique Caballero FNP 4 [place] [phone] PCP - General Family Medicine - Primary Care 04/16/23 documented as of this encounter
--- OUTSIDE RECORDS SUMMARY | 2024-01-27 08:19 | XMS_ITS | Encounter Summary ---
Author Organization [facility] Address [address] [place] [address] Care Team Providers Care Fan Runner Name Role Phone Domonique Caballero NIPPING MACHINE OPERATOR Primary Care Provider Encounter Details Date Type Department Care Team (Late st Contact Info) Description 05/15/2023 Results Only [facility] Radiation Oncology - Main [address] [phone] Unknown, Provider, Social History Tobacco Use Types [...] [facility] Cancer Treatment [address] [address] 03/22/2024 9:15 EDT Office Visit [facility] Cancer [address] [address] Ezra Greenberg MD 111 [facility], [facility], Level [address] [place] [address] documented as of this encounter Procedures Procedure Name Priority Date/Time Associated Diagnosis Comments RAD ONC ARIA SESSION SUMMARY Routine 05/15/2023 11:17 EDT documented in this encounter Results * RAD ONC ARIA SESSION SUMMARY (05/15/2023 11:17 EDT) Course ID C1 ARIA RADIATION ONCOLOGY Course Intent Curative ARIA RADIATION ONCOLOGY Course First Treatment Date 05/12/2023 11:02 ARIA RADIATION ONCOLOGY Course Last Treatment Date 05/15/2023 11:17 ARIA RADIATION ONCOLOGY Course Elapsed Days 3 ARIA RADIATION ONCOLOGY Reference Point ID PROSTATE+PRO X SV ARIA RADIATION ONCOLOGY Reference Point Dosage Given to Date 12 Gy ARIA RADIATION ONCOLOGY Reference Point Session Dosage Given 3 Gy ARIA RADIATION ONCOLOGY Plan ID 1_ProstProxS V ARIA RADIATION ONCOLOGY Plan Name 1_ProstProxS V ARIA RADIATION ONCOLOGY Plan Fractions Treated to Date 4 ARIA RADIATION ONCOLOGY Plan Total Fractions Prescribed 20 ARIA RADIATION ONCOLOGY Plan Prescribed Dose Per Fraction 3 Gy ARIA RADIATION ONCOLOGY Plan Total Prescribed Dose 6,000 cGy ARIA RADIATION ONCOLOGY Plan Primary Reference Point PROSTATE+PRO X SV ARIA RADIATION ONCOLOGY 05/15/2023 11:1 7 EDT Provider Unknown MD RADIATION ONCOLOGY O RDERABLES ARIA RADIATION ONCOLOGY documented in this encounter Visit Diagnoses Not on filedocumented in this encounter Care Teams Fan Runner Relationship Specialty Start Date End Date Domonique Caballero FNP [address] [place] [address] PCP - General Family Medicine - Primary Care 04/16/23 documented as of this encounter
--- OUTSIDE RECORDS SUMMARY | 2024-01-27 08:19 | XMS_ITS | Encounter Summary ---
Author Organization [facility] Address [address] [place] [address] Care Team Providers Care Clinical Assistant Name Role Phone Domonique Caballero BOTTOM SAW OPERATOR Primary Care Provider [phone] Encounter Details Date Type Department Care Team (Late st Contact Info) Description 06/01/2023 Results Only [facility] Radiation Oncology - Main [address] [phone] Unknown, Provider, Social History Tobacco Use Types [...] EDT Nurse Only [facility] Cancer Treatment [address] [address] 03/22/2024 9:15 EDT Office Visit [facility] Cancer [address] [address] Ezra Greenberg MD [address] [place] [address], Level [address] [place] [address] documented as of this encounter Procedures Procedure Name Priority Date/Time Associated Diagnosis Comments RAD ONC ARIA SESSION SUMMARY Routine 06/01/2023 8:49 EST documented in this encounter Results * RAD ONC ARIA SESSION SUMMARY (06/01/2023 8:49 EST) Course ID C1 ARIA RADIATION ONCOLOGY Course Intent Curative ARIA RADIATION ONCOLOGY Course First Treatment Date 05/12/2023 11:02 ARIA RADIATION ONCOLOGY Course Last Treatment Date 06/01/2023 8:50 ARIA RADIATION ONCOLOGY Course Elapsed Days 20 ARIA RADIATION ONCOLOGY Reference Point ID Prost_ProxSV :1 ARIA RADIATION ONCOLOGY Reference Point Dosage Given to Date 30 Gy ARIA RADIATION ONCOLOGY Reference Point Session Dosage Given 3 Gy ARIA RADIATION ONCOLOGY Reference Point ID PROSTATE+PRO X SV ARIA RADIATION ONCOLOGY Reference Point Dosage Given to Date 48 Gy ARIA RADIATION ONCOLOGY Reference Point Session Dosage Given 3 Gy ARIA RADIATION ONCOLOGY Plan ID 1_ProstProxS V:1 ARIA RADIATION ONCOLOGY Plan Name 1_ProstProxS V:1 ARIA RADIATION ONCOLOGY Plan Fractions Treated to Date 10 ARIA RADIATION ONCOLOGY Plan Total Fractions Prescribed 14 ARIA RADIATION ONCOLOGY Plan Prescribed Dose Per Fraction 3 Gy ARIA RADIATION ONCOLOGY Plan Total Prescribed Dose 4,200 cGy ARIA RADIATION ONCOLOGY Plan Primary Reference Point Prost_ProxSV :1 ARIA RADIATION ONCOLOGY 06/01/2023 8:49 EST Provider Unknown MD RADIATION ONCOLOGY O RDERABLES ARIA RADIATION ONCOLOGY documented in this encounter Visit Diagnoses Not on filedocumented in this encounter Care Teams Clinical Assistant Relationship Specialty Start Date End Date Domonique Caballero FNP [address] [place] [address] PCP - General Family Medicine - Primary Care 04/16/23 documented as of this encounter
--- OUTSIDE RECORDS SUMMARY | 2024-01-27 08:19 | XMS_ITS | Encounter Summary ---
Author Organization [facility] Address [address] [place] [address] Care Team Providers Care Channel Supervisor Name Role Phone Domonique Caballero INTERIOR HORTICULTURIST Primary Care Provider Encounter Details Date Type Department Care Team (Latest Contact Info) Description 05/25/2023 9:45 EST - 05/25/2023 23:59 EST Hospital Encounter [facility] Cancer Treatment [place] [address] [place] [address] Discharge Disposition: Home or Self Care Social [...] Sign Reading Time Taken Comments Blood Pressure 181/81 05/25/2023 1002 EST Pulse 61 05/25/2023 1002 EST Temperature - - Respiratory Rate - [...] 9:00 EDT Nurse Only [facility] [address] [place] [address] 03/22/2024 9:15 EDT Office Visit [facility] [address] [place] [address] Ezra Greenberg MD 111 [facility] 2 [place] [phone] documented as of this encounter Visit Diagnoses Not on filedocumented in this encounter Care Teams Channel Supervisor Relationship Specialty Start Date End Date Domonique Caballero FNP [address] [place] [phone] PCP - General Family Medicine - Primary Care 04/16/23 documented as of this encounter
--- OUTSIDE RECORDS SUMMARY | 2024-01-27 08:19 | XMS_ITS | Encounter Summary ---
Author Organization [facility] Address [address] [place] [address] Care Team Providers Care Gravure Press Operator Name Role Phone Domonique Caballero RETIREMENT SALES CONSULTANT Primary Care Provider Encounter Details Date Type Department Care Team (Latest Contact Info) Description 05/14/2023 9:45 EDT - 05/14/2023 23:59 EDT Hospital Encounter [facility] Cancer Treatment [place] [address] [place] [address] Discharge Disposition: Home or Self Care Social [...] EDT Nurse Only [facility] [address] [place] [address] 03/22/2024 9:15 EDT Office Visit [facility] [address] [place] [address] Ezra Greenberg MD 111 [facility] 2 [place] [address] documented as of this encounter Visit Diagnoses Not on filedocumented in this encounter Care Teams Gravure Press Operator Relationship Specialty Start Date End Date Domonique Caballero FNP 4 [place] [phone] PCP - General Family Medicine - Primary Care 04/16/23 documented as of this encounter
--- OUTSIDE RECORDS SUMMARY | 2024-01-27 08:19 | XMS_ITS | Encounter Summary ---
Author Organization [facility] Address [address] [place] [address] Care Team Providers Care Oil Well Service Operator Helper Name Role Phone Domonique Caballero GRANITE FABRICATOR Primary Care Provider Encounter Details Date Type Department Care Team (Latest Contact Info) Description 05/27/2023 9:15 EST - 05/27/2023 23:59 EST Hospital Encounter [facility] Treatment [place] [address] [place] [address] Discharge Disposition: Home or Self Care Social [...] or Self Care documented in this encounter Progress Notes * Betzaida Perera RD - 05/27/2023 0915 EST Initial Nutrition Assessment S: Louis reports feeling well and stating I feel like I'm getting off easy. Does endorse some bowel changes. Stools are more loose, but have not increased in frequency. Has a BM daily in the morning. Feels that his quality of sleep has actually improved since starting treatment. Has a garden and just finished shelling beans for winter storage. Asking questions regarding protein needs. O: Pt is 77 y.o. male currently receiving radiation treatment. Dx: Malignant neoplasm of prostate (HCC-CMS) Past Medical History: Diagnosis Date ??? Glaucoma ??? Glaucoma ??? Macular degeneration (senile) of retina Recent weight changes: There were no vitals filed for this visit. Wt Readings from Last 10 Encounters: 04/30/23 81.2 kg (179 lb) 04/03/23 81.9 kg (180 lb 8 oz) 01/12/18 81.6 kg (180 lb) . Significant Laboratory Data: No results found for: WBC, HGB, HCT, MCV, NA, K, CO2, CL, BUN, CREATININE, SERGLU, CALCIUM, PHOS, MG No results found for: HGBA1C, GLUCOSEPOC No results found for: ZINCMZN, COPPER, THIAMINE, FOLATE, [id number], METMMETHY, VITEALPH, RETINOL, VITD No results found for: IRON, TIBC, FERRITIN Current Outpatient Medications Medication Instructions ??? sildenafil citrate (VIAGRA) 100 mg, oral, PRN ??? timolol (TIMOPTIC) 0.5 % ophthalmic solution 1 Drop, both eyes, 2 TIMES DAILY ??? vit A/vit C/vit E/zinc/copper (ICAPS AREDS ORAL) oral A: RD Malnutrition Assessment No evidence of malnutrition at this time. Nutrition Impact Symptoms [] Nausea [] Vomiting [] Diarrhea [] Constipation [] Difficulty Swallowing [] Throat Pain/Sores [] Taste Changes [] Metallic Taste [] Fatigue [] Mouth Sores [] Dry Mouth [] Early Satiety [] Other [x] None Discussed included good protein sources throughout the day to help meet protein needs. Patient denies recent weight changes. Energy level is stable. No nutrition concerns at this time. Encouraged patient to follow-up with new questions. P: -Follow-up per patient or provider request. Betzaida Perera MS, RD, CD, CNSC documented in this encounter Plan of Treatment Upcoming Encounters Date Type Department Care Team (Late st Contact Info) Description 03/22/2024 9:00 EDT Nurse Only [facility] Cancer Treatment [place] [address] [place] [address] 03/22/2024 9:15 EDT Office Visit [facility] [address] [place] [address] Ezra Greenberg MD [address] [place] [address] 2 [place] [phone] documented as of this encounter Visit Diagnoses Not on filedocumented in this encounter Care Teams Oil Well Service Operator Helper Relationship Specialty Start Date End Date Domonique Caballero FNP [address] [place] [phone] PCP - General Family Medicine - Primary Care 04/16/23 documented as of this encounter
--- OUTSIDE RECORDS SUMMARY | 2024-01-27 08:19 | XMS_ITS | Encounter Summary ---
Author Organization [facility] Address [address] [place] [address] Care Team Providers Care Leg Man Name Role Phone Domonique Caballero Evangelina PHOTOGRAPHER FINISH Primary Care Provider Encounter Details Date Type Department Care Team (Latest Contact Info) Description 05/20/2023 15:15 EST - 05/20/2023 23:59 EST Hospital Encounter [facility] Cancer Treatment [place] [address] [place] [address] Discharge Disposition: Home or Self Care Social [...] Nurse Only [facility] Cancer [address] [address] 03/22/2024 9:15 EDT Office Visit [facility] Cancer [address] [address] Ezra Greenberg MD [address] [place] [address] 2 [place] [address] documented as of this encounter Visit Diagnoses Not on filedocumented in this encounter Care Teams Leg Man Relationship Specialty Start Date End Date Domonique Caballero FNP [address] [place] [phone] PCP - General Family Medicine - Primary Care 04/16/23 documented as of this encounter
--- OUTSIDE RECORDS SUMMARY | 2024-01-27 08:19 | XMS_ITS | Encounter Summary ---
Author Organization [facility] Address [address] [place] [address] Care Team Providers Care Inflated Ball Molder Name Role Phone Domonique Caballero HAZARDOUS SUBSTANCES ENGINEER Primary Care Provider Encounter Details Date Type Department Care Team (Late st Contact Info) Description 05/31/2023 Results Only [facility] Radiation Oncology - Main [address] [phone] Unknown, Provider, Social History Tobacco Use Types [...] EDT Nurse Only [facility] Cancer Treatment [address] [address] 03/22/2024 9:15 EDT Office Visit [facility] Cancer [address] [address] Ezra Greenberg MD [address] [place] [address], Level [address] [place] [address] documented as of this encounter Procedures Procedure Name Priority Date/Time Associated Diagnosis Comments RAD ONC ARIA SESSION SUMMARY Routine 05/31/2023 8:52 EST documented in this encounter Results * RAD ONC ARIA SESSION SUMMARY (05/31/2023 8:52 EST) Course ID C1 ARIA RADIATION ONCOLOGY Course Intent Curative ARIA RADIATION ONCOLOGY Course First Treatment Date 05/12/2023 11:02 ARIA RADIATION ONCOLOGY Course Last Treatment Date 05/31/2023 8:52 ARIA RADIATION ONCOLOGY Course Elapsed Days 19 ARIA RADIATION ONCOLOGY Reference Point ID Prost_ProxSV :1 ARIA RADIATION ONCOLOGY Reference Point Dosage Given to Date 27 Gy ARIA RADIATION ONCOLOGY Reference Point Session Dosage Given 3 Gy ARIA RADIATION ONCOLOGY Reference Point ID PROSTATE+PRO X SV ARIA RADIATION ONCOLOGY Reference Point Dosage Given to Date 45 Gy ARIA RADIATION ONCOLOGY Reference Point Session Dosage Given 3 Gy ARIA RADIATION ONCOLOGY Plan ID 1_ProstProxS V:1 ARIA RADIATION ONCOLOGY Plan Name 1_ProstProxS V:1 ARIA RADIATION ONCOLOGY Plan Fractions Treated to Date 9 ARIA RADIATION ONCOLOGY Plan Total Fractions Prescribed 14 ARIA RADIATION ONCOLOGY Plan Prescribed Dose Per Fraction 3 Gy ARIA RADIATION ONCOLOGY Plan Total Prescribed Dose 4,200 cGy ARIA RADIATION ONCOLOGY Plan Primary Reference Point Prost_ProxSV :1 ARIA RADIATION ONCOLOGY 05/31/2023 8:52 EST Provider Unknown MD RADIATION ONCOLOGY O RDERABLES ARIA RADIATION ONCOLOGY documented in this encounter Visit Diagnoses Not on filedocumented in this encounter Care Teams Inflated Ball Molder Relationship Specialty Start Date End Date Domonique Caballero FNP [address] [place] [address] PCP - General Family Medicine - Primary Care 04/16/23 documented as of this encounter
--- OUTSIDE RECORDS SUMMARY | 2024-01-27 08:19 | XMS_ITS | Encounter Summary ---
Author Organization [facility] Address [address] [place] [address] Care Team Providers Care Patternmaker Grader Name Role Phone Domonique Caballero TRANSITION PROGRAM MANAGER Primary Care Provider Encounter Details Date Type Department Care Team (Latest Contact Info) Description 05/08/2023 18:15 EDT - 05/08/2023 23:59 EDT Hospital Encounter [facility] Cancer Treatment [place] [address] [place] [address] Discharge Disposition: Home or Self Care Social [...] Info) Description 03/22/2024 9:[address] [facility] [address] [place] [address] 03/22/2024 9:[address] [facility] [address] [place] [address] Ezra Greenberg MD [address] [facility] 2 [place] [address] documented as of this encounter Visit Diagnoses Not on filedocumented in this encounter Care Teams Patternmaker Grader Relationship Specialty Start Date End Date Domonique Caballero FNP [address] [place] [phone] PCP - General Family Medicine - Primary Care 04/16/23 documented as of this encounter
--- OUTSIDE RECORDS SUMMARY | 2024-01-27 08:19 | XMS_ITS | Encounter Summary ---
Author Organization [facility] Address [address] [place] [address] Care Team Providers Care Snowmaker Name Role Phone Domonique Caballero Evangelina FLOUR INSPECTOR Primary Care Provider Encounter Details Date Type Department Care Team (Latest Contact Info) Description 05/18/2023 10:30 EST - 05/18/2023 23:59 EST Hospital Encounter [facility] Treatment [place] [address] [place] [address] Discharge Disposition: Home or Self Care Social [...] 9:00 EDT Nurse Only [facility] Cancer [address] [address] 03/22/2024 9:15 EDT Office Visit [facility] Cancer [address] [address] Ezra Greenberg MD [address] [place] [address] 2 [place] [address] documented as of this encounter Visit Diagnoses Not on filedocumented in this encounter Care Teams Snowmaker Relationship Specialty Start Date End Date Domonique Caballero FNP [address] [place] [phone] PCP - General Family Medicine - Primary Care 04/16/23 documented as of this encounter
--- OUTSIDE RECORDS SUMMARY | 2024-01-27 08:19 | XMS_ITS | Encounter Summary ---
Author Organization [facility] Address [address] [place] [address] Care Team Providers Care Bowstring Maker Name Role Phone Domonique Caballero WINDOW TRIMMER Primary Care Provider [phone] Encounter Details Date Type Department Care Team (Late st Contact Info) Description 05/13/2023 Radiation Therapy Visit [facility] [address] [place] [address] Todd Myles MD 111 [facility], [facility] 2 [place] [address] Prostate cancer ([facility]) (Primary Dx) Social History Tobacco Use Types [...] as of this encounter Progress Notes * Todd Myles MD - 05/13/2023 1043 EDT Images from the original note were not included. Radiation Oncology- On Treatment Visit On Treatment Visit Assessment:05/13/23 Rolan Cardenas is currently receiving radiation therapy treatment and is being seen today for his weekly on treatment visit. Encounter Diagnosis: ICD-10-CM ICD-9-CM 1. Prostate cancer (HCC-CMS) C61 185 Radiation Therapy Dose: Radiation Treatments Active Plans 1_ProstProxSV Most recent treatment: Dose planned: 300 cGy (fraction 2 on 05/13/2023) Total: Dose planned: 6,000 cGy (20 fractions) Elapsed Days: 1 Reference Points PROSTATE+PROX SV Most recent treatment: Dose given: 300 cGy (on 05/13/2023) Total: Dose given: 600 cGy Elapsed Days: 1 Treatment Plan Medications leuprolide acetate (6 month) (LUPRON DEPOT) IM 04/30/2023 9:20 45 mg Subjective Note: Just started this week. Baseline nocturia 4-5 x Rare hot flashes. Physical Exam: There were no vitals taken for this visit. There were no vitals filed for this visit. Wt Readings from Last 3 Encounters: 04/30/23 81.2 kg (179 lb) 04/03/23 81.9 kg (180 lb 8 oz) 01/12/18 81.6 kg (180 lb) (0) Fully active, able to carry on all predisease performance without restriction Appears well Treatment Related Toxicity: 0 Current Labs: Lab Results Component Value Date PSA 20.300 (H) 04/03/2023 Medication Reconciliation: Medications were reviewed with the patient. Impression: Rolan Cardenas is tolerating treatment well having just started. Plan: Reviewed treatment set up notes. Checked and approved portal images/CBCT. Reviewed dose delivery treatment parameters and deemed appropriate. After assessing the patient's response to treatment thus far, we will continue with radiation treatments as planned. Oncology History Malignant neoplasm of prostate (HCC-CMS) 04/03/2023 Initial Diagnosis Malignant neoplasm of prostate (HCC-CMS) 04/30/2023 - Procedure Lupron 45mg/6 months given Plan 6-12 months pending tolerance Todd Myles MD Radiation Oncology[facility] (p) [phone] / (f) [phone] documented in this encounter Plan of Treatment Upcoming Encounters Date Type Department Care Team (Late st Contact Info) Description 03/22/2024 9:00 EDT Nurse Only [facility] Treatment [place] [address] [place] [address] 03/22/2024 9:15 EDT Office Visit [facility] [address] [place] [address] Ezra Greenberg MD [address] [place] [address] [address] [place] [phone] documented as of this encounter Visit Diagnoses Diagnosis Prostate cancer ([facility])- Primary Malignant neoplasm of prostate documented in this encounter Care Teams Bowstring Maker Relationship Specialty Start Date End Date Domonique Caballero FNP [address] [place] [phone] PCP - General Family Medicine - Primary Care 04/16/23 documented as of this encounter
--- OUTSIDE RECORDS SUMMARY | 2024-01-27 08:19 | XMS_ITS | Encounter Summary ---
Author Organization [facility] Address [address] [place] [address] Care Team Providers Care Dry Cell And Battery Assembler Name Role Phone Domonique Caballero VALVING MACHINE OPERATOR Primary Care Provider Reason for Visit * Reason Comments Prostate Cancer Encounter Details Date Type Department Care Team (Late st Contact Info) Description 05/20/2023 Radiation Therapy Visit [facility] Treatment [place] [address] [place] [address] Ezra Greenberg MD 111 [facility] 2 [place] [address] Malignant neoplasm of prostate (HCC-CMS) [...] Progress Notes * Ezra Greenberg MD - 05/20/2023 9928 EST Images from the original note were not included. Radiation Oncology- On Treatment Visit On Treatment Visit Assessment:05/20/23 Rolan Cardenas is currently receiving radiation therapy treatment and is being seen today for his weekly on treatment visit. Encounter Diagnosis: ICD-10-CM ICD-9-CM 1. Malignant neoplasm of prostate (HCC-CMS) C61 185 Radiation Therapy Dose: Radiation Treatments Active Plans 1_ProstProxSV Most recent treatment: Dose planned: 300 cGy (fraction 6 on 05/19/2023) Total: Dose planned: 6,000 cGy (20 fractions) Elapsed Days: 7 Reference Points PROSTATE+PROX SV Most recent treatment: Dose given: 300 cGy (on 05/19/2023) Total: Dose given: 1,800 cGy Elapsed Days: 7 Treatment Plan Medications leuprolide acetate (6 month) (LUPRON DEPOT) IM 04/30/2023 9:20 45 mg Subjective Note: The patient reports baseline nocturia 3-5 x per evening. Rare hot flashes. Occasional soft BM. Occasional burning when starting stream. Physical Exam: There were no vitals taken [...] Patient tolerating treatment with expected radiation reaction. Ezra Greenberg MD Radiation Oncology-[facility] [place] [phone] documented in this encounter Plan of Treatment Upcoming Encounters Date Type Department Care Team (Late st Contact Info) Description 03/22/2024 9:00 EDT Nurse Only [facility] Cancer Treatment [address] [address] 03/22/2024 9:15 EDT Office Visit [facility] [address] [place] [address] Ezra Greenberg MD [address] [facility] 2 [place] [phone] documented as of this encounter Visit Diagnoses Diagnosis Malignant neoplasm of prostate (HCC-CMS)- Primary Malignant neoplasm of prostate documented in this encounter Care Teams Dry Cell And Battery Assembler Relationship Specialty Start Date End Date Domonique Caballero FNP 4 [place] [phone] PCP - General Family Medicine - Primary Care 04/16/23 documented as of this encounter
--- OUTSIDE RECORDS SUMMARY | 2024-01-27 08:19 | XMS_ITS | Encounter Summary ---
Author Organization [facility] Address [address] [place] [address] Care Team Providers Care Inspection Clerk Name Role Phone Domonique Caballero DIRECTOR OF CASINO MARKETING Primary Care Provider Encounter Details Date Type Department Care Team (Late st Contact Info) Description 05/25/2023 Documentation Visit [facility] Cancer Treatment [address] [address] Darby Eckert, RN Social History Tobacco Use [...] Progress Notes * Darby Eckert, RN - 05/25/2023 1007 EST Louis in for a nursing visit. He is feeling well, denies fatigue or pain at this time. He notes nocturia x 4, this has been a chronic baseline. He notes mild dysuria, I suggested Tums or Baking soda to make urine more alkaline. His bowel movements are softer than usual, denies any diarrhea. documented in this encounter Plan of Treatment Upcoming Encounters Date Type Department Care Team (Late st Contact Info) Description 03/22/2024 9:00 EDT Nurse Only [facility] [address] [place] [address] 03/22/2024 9:15 EDT Office Visit [facility] [address] [place] [address] Ezra Greenberg MD 111 [facility] 2 [place] [address] documented as of this encounter Visit Diagnoses Not on filedocumented in this encounter Care Teams Inspection Clerk Relationship Specialty Start Date End Date Domonique Caballero FNP 4 [place] [phone] PCP - General Family Medicine - Primary Care 04/16/23 documented as of this encounter
--- OUTSIDE RECORDS SUMMARY | 2024-01-27 08:19 | XMS_ITS | Encounter Summary ---
Author Organization [facility] Address [address] [place] [address] Care Team Providers Care Business Banking Officer Name Role Phone Domonique Caballero BOATBUILDER SUPERVISOR Primary Care Provider [phone] Encounter Details Date Type Department Care Team (Late st Contact Info) Description 05/20/2023 Results Only [facility] Radiation Oncology - Main [address] [phone] Unknown, Provider, Social History Tobacco Use Types [...] EDT Nurse Only [facility] Cancer Treatment [address] [address] 03/22/2024 9:15 EDT Office Visit [facility] Cancer [address] [address] Ezra Greenberg MD [address] [place] [address], Level 2 [place] [address] documented as of this encounter Procedures Procedure Name Priority Date/Time Associated Diagnosis Comments RAD ONC ARIA SESSION SUMMARY Routine 05/20/2023 15:53 EST documented in this encounter Results * RAD ONC ARIA SESSION SUMMARY (05/20/2023 15:53 EST) Course ID C1 ARIA RADIATION ONCOLOGY Course Intent Curative ARIA RADIATION ONCOLOGY Course First Treatment Date 05/12/2023 11:02 ARIA RADIATION ONCOLOGY Course Last Treatment Date 05/20/2023 15:53 ARIA RADIATION ONCOLOGY Course Elapsed Days 8 ARIA RADIATION ONCOLOGY Reference Point ID Prost_ProxSV :1 ARIA RADIATION ONCOLOGY Reference Point Dosage Given to Date 3 Gy ARIA RADIATION ONCOLOGY Reference Point Session Dosage Given 3 Gy ARIA RADIATION ONCOLOGY Reference Point ID PROSTATE+PRO X SV ARIA RADIATION ONCOLOGY Reference Point Dosage Given to Date 21 Gy ARIA RADIATION ONCOLOGY Reference Point Session Dosage Given 3 Gy ARIA RADIATION ONCOLOGY Plan ID 1_ProstProxS V:1 ARIA RADIATION ONCOLOGY Plan Name 1_ProstProxS V:1 ARIA RADIATION ONCOLOGY Plan Fractions Treated to Date 1 ARIA RADIATION ONCOLOGY Plan Total Fractions Prescribed 14 ARIA RADIATION ONCOLOGY Plan Prescribed Dose Per Fraction 3 Gy ARIA RADIATION ONCOLOGY Plan Total Prescribed Dose 4,200 cGy ARIA RADIATION ONCOLOGY Plan Primary Reference Point Prost_ProxSV :1 ARIA RADIATION ONCOLOGY 05/20/2023 15:5 3 EST Provider Unknown MD RADIATION ONCOLOGY O RDERABLES ARIA RADIATION ONCOLOGY documented in this encounter Visit Diagnoses Not on filedocumented in this encounter Care Teams Business Banking Officer Relationship Specialty Start Date End Date Domonique Caballero FNP 4 [place] [address] PCP - General Family Medicine - Primary Care 04/16/23 documented as of this encounter
--- OUTSIDE RECORDS SUMMARY | 2024-01-27 08:19 | XMS_ITS | Encounter Summary ---
Author Organization [facility] Address [address] [place] [address] Care Team Providers Care Handstitching Machine Collar Feller Name Role Phone Domonique Caballero MARKING CLERK Primary Care Provider Encounter Details Date Type Department Care Team (Latest Contact Info) Description 05/20/2023 9:05 EST - 05/20/2023 12:23 EST Hospital Encounter [facility] Cancer Treatment [place] [address] [place] [address] Discharge Disposition: Home or Self Care Social [...] [facility] Cancer [address] [address] 03/22/2024 9:15 EDT Office Visit [facility] Cancer [address] [address] Ezra Greenberg MD [address] [place] [address] 2 [place] [address] documented as of this encounter Visit Diagnoses Not on filedocumented in this encounter Care Teams Handstitching Machine Collar Feller Relationship Specialty Start Date End Date Domonique Caballero FNP 4 [place] [phone] PCP - General Family Medicine - Primary Care 04/16/23 documented as of this encounter
--- OUTSIDE RECORDS SUMMARY | 2024-01-27 08:19 | XMS_ITS | Encounter Summary ---
Author Organization [facility] Address [address] [place] [address] Care Team Providers Care Medical Records Secretary Name Role Phone Domonique Caballero CLINICAL APPLICATION SPECIALIST Primary Care Provider Encounter Details Date Type Department Care Team (Latest Contact Info) Description 05/29/2023 8:45 EST - 05/29/2023 23:[address] [facility] Treatment [place] [address] [place] [address] Discharge Disposition: Home or Self Care Social [...] EDT Nurse Only [facility] Treatment [place] [address] [place] [address] 03/22/2024 9:15 EDT Office Visit [facility] [address] [place] [address] Ezra Greenberg MD [address] [place] [address] 2 [place] [phone] documented as of this encounter Visit Diagnoses Not on filedocumented in this encounter Care Teams Medical Records Secretary Relationship Specialty Start Date End Date Domonique Caballero FNP 4 [place] [phone] PCP - General Family Medicine - Primary Care 04/16/23 documented as of this encounter
--- OUTSIDE RECORDS SUMMARY | 2024-01-27 08:19 | XMS_ITS | Encounter Summary ---
Author Organization [facility] Address [address] [place] [address] Care Team Providers Care Certified Phlebotomy Technician Name Role Phone Domonique Caballero JUDO TEACHER Primary Care Provider Encounter Details Date Type Department Care Team (Late st Contact Info) Description 05/13/2023 Results Only [facility] Radiation Oncology - Main [address] [phone] Unknown, Provider, Social History Tobacco Use Types [...] Info) Description 03/22/2024 9:00 EDT Nurse Only [facility] Cancer Treatment [address] [address] 03/22/2024 9:15 EDT Office Visit [facility] Cancer [address] [address] Ezra Greenberg MD 111 [facility], Level [address] [place] [address] documented as of this encounter Procedures Procedure Name Priority Date/Time Associated Diagnosis Comments RAD ONC ARIA SESSION SUMMARY Routine 05/13/2023 10:38 EDT documented in this encounter Results * RAD ONC ARIA SESSION SUMMARY (05/13/2023 10:38 EDT) Course ID C1 ARIA RADIATION ONCOLOGY Course Intent Curative ARIA RADIATION ONCOLOGY Course First Treatment Date 05/12/2023 11:02 ARIA RADIATION ONCOLOGY Course Last Treatment Date 05/13/2023 10:38 ARIA RADIATION ONCOLOGY Course Elapsed Days 1 ARIA RADIATION ONCOLOGY Reference Point ID PROSTATE+PRO [...] Point PROSTATE+PRO X SV ARIA RADIATION ONCOLOGY 05/13/2023 10:3 8 EDT Provider Unknown MD RADIATION ONCOLOGY O RDERABLES ARIA RADIATION ONCOLOGY documented in this encounter Visit Diagnoses Not on filedocumented in this encounter Care Teams Certified Phlebotomy Technician Relationship Specialty Start Date End Date Domonique Caballero FNP 4 [place] [address] PCP - General Family Medicine - Primary Care 04/16/23 documented as of this encounter
--- OUTSIDE RECORDS SUMMARY | 2024-01-27 08:19 | XMS_ITS | Encounter Summary ---
Author Organization [facility] Address [address] [place] [address] Care Team Providers Care Correctional Officer Chief Name Role Phone Domonique Caballero TITLE ONE KINDERGARTEN TEACHER Primary Care Provider Encounter Details Date Type Department Care Team (Latest Contact Info) Description 05/31/2023 8:45 EST - 05/31/2023 23:59 EST Hospital Encounter [facility] Cancer Treatment [place] [address] [place] [address] Discharge Disposition: Home or Self Care Social [...] Nurse Only [facility] Treatment [place] [address] [place] [address] 03/22/2024 9:15 EDT Office Visit [facility] [address] [place] [address] Ezra Greenberg MD [address] [place] [address] 2 [place] [phone] documented as of this encounter Visit Diagnoses Not on filedocumented in this encounter Care Teams Correctional Officer Chief Relationship Specialty Start Date End Date Domonique Caballero FNP 4 [place] [phone] PCP - General Family Medicine - Primary Care 04/16/23 documented as of this encounter
--- OUTSIDE RECORDS SUMMARY | 2024-01-27 08:19 | XMS_ITS | Encounter Summary ---
Author Organization [facility] Address [address] [place] [address] Care Team Providers Care Time Recorder Name Role Phone Domonique Caballero BAG WORKER Primary Care Provider [phone] Encounter Details Date Type Department Care Team (Late st Contact Info) Description 05/28/[address] [facility] Radiation Oncology - Main [address] [phone] Unknown, Provider, Social History Tobacco Use Types [...] Nurse Only [facility] Cancer Treatment [address] [address] 03/22/2024 9:15 EDT Office Visit [facility] Cancer [address] [address] Ezra Greenberg MD [address] [place] [address], Level [address] [place] [address] documented as of this encounter Procedures Procedure Name Priority Date/Time Associated Diagnosis Comments RAD ONC ARIA SESSION SUMMARY Routine 05/28/2023 8:46 EST documented in this encounter Results * RAD ONC ARIA SESSION SUMMARY (05/28/2023 8:46 EST) Course ID C1 ARIA RADIATION ONCOLOGY Course Intent Curative ARIA RADIATION ONCOLOGY Course First Treatment Date 05/12/2023 11:02 ARIA RADIATION ONCOLOGY Course Last Treatment Date 05/28/2023 8:46 ARIA RADIATION ONCOLOGY Course Elapsed Days 16 ARIA RADIATION ONCOLOGY Reference Point ID Prost_ProxSV [...] RADIATION ONCOLOGY Plan Fractions Treated to Date 7 ARIA RADIATION ONCOLOGY Plan Total Fractions Prescribed 14 ARIA RADIATION ONCOLOGY Plan Prescribed Dose Per Fraction 3 Gy ARIA RADIATION ONCOLOGY Plan Total Prescribed Dose 4,200 cGy ARIA RADIATION ONCOLOGY Plan Primary Reference Point Prost_ProxSV :1 ARIA RADIATION ONCOLOGY 05/28/2023 8:46 EST Provider Unknown MD RADIATION ONCOLOGY O RDERABLES ARIA RADIATION ONCOLOGY documented in this encounter Visit Diagnoses Not on filedocumented in this encounter Care Teams Time Recorder Relationship Specialty Start Date End Date Domonique Caballero FNP [address] [place] [address] PCP - General Family Medicine - Primary Care 04/16/23 documented as of this encounter
--- OUTSIDE RECORDS SUMMARY | 2024-01-27 08:19 | XMS_ITS | Encounter Summary ---
Author Organization [facility] Address [address] [place] [address] Care Team Providers Care Black Pickler Name Role Phone Domonique Caballero PHARM SPEC Primary Care Provider [phone] Encounter Details Date Type Department Care Team (Late st Contact Info) Description 05/12/2023 Results Only [facility] Radiation Oncology - Main [address] [phone] Unknown, Provider, Social History Tobacco Use Types [...] EDT Nurse Only [facility] Cancer Treatment [address] [address] 03/22/2024 9:15 EDT Office Visit [facility] Cancer [address] [address] Ezra Greenberg MD 111 [facility], Level [address] [place] [address] documented as of this encounter Procedures Procedure Name Priority Date/Time Associated Diagnosis Comments RAD ONC ARIA SESSION SUMMARY Routine 05/12/2023 11:02 EDT documented in this encounter Results * RAD ONC ARIA SESSION SUMMARY (05/12/2023 11:02 EDT) Course ID C1 ARIA RADIATION ONCOLOGY Course Intent Curative ARIA RADIATION ONCOLOGY Course First Treatment Date 05/12/2023 11:02 ARIA RADIATION ONCOLOGY Course Last Treatment Date 05/12/2023 11:02 ARIA RADIATION ONCOLOGY Course Elapsed Days 0 ARIA RADIATION ONCOLOGY Reference Point ID PROSTATE+PRO [...] Point PROSTATE+PRO X SV ARIA RADIATION ONCOLOGY 05/12/2023 11:0 2 EDT Provider Unknown MD RADIATION ONCOLOGY O RDERABLES ARIA RADIATION ONCOLOGY documented in this encounter Visit Diagnoses Not on filedocumented in this encounter Care Teams Black Pickler Relationship Specialty Start Date End Date Domonique Caballero FNP [address] [place] [address] PCP - General Family Medicine - Primary Care 04/16/23 documented as of this encounter
--- OUTSIDE RECORDS SUMMARY | 2024-01-27 08:19 | XMS_ITS | Encounter Summary ---
Author Organization [facility] Address [address] [place] [address] Care Team Providers Care Knuckle Bender Name Role Phone Domonique Caballero AOC DIRECTOR COMBAT PLANS OFFICER Primary Care Provider Encounter Details Date Type Department Care Team (Late st Contact Info) Description 05/18/2023 Results Only [facility] Radiation Oncology - Main [address] [phone] Unknown, Provider, Social History Tobacco Use Types [...] EDT Nurse Only [facility] Cancer Treatment [address] [address] 03/22/2024 9:15 EDT Office Visit [facility] Cancer [address] [address] Ezra Greenberg MD 111 [facility], [facility], Level [address] [place] [address] documented as of this encounter Procedures Procedure Name Priority Date/Time Associated Diagnosis Comments RAD ONC ARIA SESSION SUMMARY Routine 05/18/2023 10:44 EST documented in this encounter Results * RAD ONC ARIA SESSION SUMMARY (05/18/2023 10:44 EST) Course ID C1 ARIA RADIATION ONCOLOGY Course Intent Curative ARIA RADIATION ONCOLOGY Course First Treatment Date 05/12/2023 11:02 ARIA RADIATION ONCOLOGY Course Last Treatment Date 05/18/2023 10:44 ARIA RADIATION ONCOLOGY Course Elapsed Days 6 ARIA RADIATION ONCOLOGY Reference Point ID PROSTATE+PRO X SV ARIA RADIATION ONCOLOGY Reference Point Dosage Given to Date 15 Gy ARIA RADIATION ONCOLOGY Reference Point Session Dosage Given 3 Gy ARIA RADIATION ONCOLOGY Plan ID 1_ProstProxS V ARIA RADIATION ONCOLOGY Plan Name 1_ProstProxS V ARIA RADIATION ONCOLOGY Plan Fractions Treated to Date 5 ARIA RADIATION ONCOLOGY Plan Total Fractions Prescribed 20 ARIA RADIATION ONCOLOGY Plan Prescribed Dose Per Fraction 3 Gy ARIA RADIATION ONCOLOGY Plan Total Prescribed Dose 6,000 cGy ARIA RADIATION ONCOLOGY Plan Primary Reference Point PROSTATE+PRO X SV ARIA RADIATION ONCOLOGY 05/18/2023 10:4 4 EST Provider Unknown MD RADIATION ONCOLOGY O RDERABLES ARIA RADIATION ONCOLOGY documented in this encounter Visit Diagnoses Not on filedocumented in this encounter Care Teams Knuckle Bender Relationship Specialty Start Date End Date Domonique Caballero FNP 4 [place] [address] PCP - General Family Medicine - Primary Care 04/16/23 documented as of this encounter
--- OUTSIDE RECORDS SUMMARY | 2024-01-27 08:19 | XMS_ITS | Encounter Summary ---
Author Organization [facility] Address [address] [place] [address] Care Team Providers Care Editor Department Name Role Phone Domonique Caballero Evangelina FUNERAL HOME LOCATION MANAGER Primary Care Provider Encounter Details Date Type Department Care Team (Latest Contact Info) Description 05/19/2023 9:45 EST Hospital Encounter [facility] Cancer Treatment [place] [address] [place] [address] Discharge Disposition: Home or Self Care Social [...] Nurse Only [facility] [address] [place] [address] 03/22/2024 9:15 EDT Office Visit [facility] [address] [place] [address] Ezra Greenberg MD [address] [place] [address] 2 [place] [phone] documented as of this encounter Visit Diagnoses Not on filedocumented in this encounter Care Teams Editor Department Relationship Specialty Start Date End Date Domonique Caballero FNP 4 [place] [phone] PCP - General Family Medicine - Primary Care 04/16/23 documented as of this encounter
--- OUTSIDE RECORDS SUMMARY | 2024-01-27 08:19 | XMS_ITS | Encounter Summary ---
Author Organization [facility] Address [address] [place] [address] Care Team Providers Care Information Management Manager Name Role Phone Domonique Caballero Evangelina DESIGN ANALYST Primary Care Provider [phone] Encounter Details Date Type Department Care Team (Latest Contact Info) Description 05/21/2023 9:45 EST - 05/21/2023 23:59 EST Hospital Encounter [facility] Cancer Treatment [place] [address] [place] [address] Discharge Disposition: Home or Self Care Social [...] 9:00 EDT Nurse Only [facility] Cancer [address] [address] 03/22/2024 9:15 EDT Office Visit [facility] Cancer [address] [address] Ezra Greenberg MD [address] [place] [address] 2 [place] [address] documented as of this encounter Visit Diagnoses Not on filedocumented in this encounter Care Teams Information Management Manager Relationship Specialty Start Date End Date Domonique Caballero FNP 4 [place] [phone] PCP - General Family Medicine - Primary Care 04/16/23 documented as of this encounter
--- OUTSIDE RECORDS SUMMARY | 2024-01-27 08:19 | XMS_ITS | Encounter Summary ---
Author Organization [facility] Address [address] [place] [address] Care Team Providers Care Director Intelligence Analysis Programs Name Role Phone Domonique Caballero MIDDLE SCHOOL TECHNOLOGY TEACHER Primary Care Provider Encounter Details Date Type Department Care Team (Late st Contact Info) Description 05/19/2023 Results Only [facility] Radiation Oncology - Main [address] [phone] Unknown, Provider, Social History Tobacco Use Types [...] 03/22/2024 9:00 EDT Nurse Only [facility] Cancer Treatment [address] [address] 03/22/2024 9:15 EDT Office Visit [facility] Cancer [address] [address] Ezra Greenberg MD 111 [facility], Level [address] [place] [address] documented as of this encounter Procedures Procedure Name Priority Date/Time Associated Diagnosis Comments RAD ONC ARIA SESSION SUMMARY Routine 05/19/2023 9:57 EST documented in this encounter Results * RAD ONC ARIA SESSION SUMMARY (05/19/2023 9:57 EST) Course ID C1 ARIA RADIATION ONCOLOGY Course Intent Curative ARIA RADIATION ONCOLOGY Course First Treatment Date 05/12/2023 11:02 ARIA RADIATION ONCOLOGY Course Last Treatment Date 05/19/2023 9:57 ARIA RADIATION ONCOLOGY Course Elapsed Days 7 ARIA RADIATION ONCOLOGY Reference Point ID PROSTATE+PRO X SV ARIA RADIATION ONCOLOGY Reference Point Dosage Given to Date 18 Gy ARIA RADIATION ONCOLOGY Reference Point Session [...] Point PROSTATE+PRO X SV ARIA RADIATION ONCOLOGY 05/19/2023 9:57 EST Provider Unknown MD RADIATION ONCOLOGY O RDERABLES ARIA RADIATION ONCOLOGY documented in this encounter Visit Diagnoses Not on filedocumented in this encounter Care Teams Director Intelligence Analysis Programs Relationship Specialty Start Date End Date Domonique Caballero FNP [address] [place] [address] PCP - General Family Medicine - Primary Care 04/16/23 documented as of this encounter
--- OUTSIDE RECORDS SUMMARY | 2024-01-27 08:19 | XMS_ITS | Encounter Summary ---
Author Organization [facility] Address [address] [place] [address] Care Team Providers Care Birdcage Assembler Name Role Phone Domonique Caballero SEMICONDUCTOR ENGINEER Primary Care Provider Encounter Details Date Type Department Care Team (Late st Contact Info) Description 05/26/2023 Results Only [facility] Radiation Oncology - Main [address] [phone] Unknown, Provider, Social History Tobacco Use Types [...] Nurse Only [facility] Cancer Treatment [address] [address] 03/22/2024 9:15 EDT Office Visit [facility] Cancer [address] [address] Ezra Greenberg MD [address] [place] [address], Level 2 [place] [address] documented as of this encounter Procedures Procedure Name Priority Date/Time Associated Diagnosis Comments RAD ONC ARIA SESSION SUMMARY Routine 05/26/2023 9:24 EST documented in this encounter Results * RAD ONC ARIA SESSION SUMMARY (05/26/2023 9:24 EST) Course ID C1 ARIA RADIATION ONCOLOGY Course Intent Curative ARIA RADIATION ONCOLOGY Course First Treatment Date 05/12/2023 11:02 ARIA RADIATION ONCOLOGY Course Last Treatment Date 05/26/2023 9:24 ARIA RADIATION ONCOLOGY Course Elapsed Days 14 ARIA RADIATION ONCOLOGY Reference Point ID Prost_ProxSV [...] Reference Point Prost_ProxSV :1 ARIA RADIATION ONCOLOGY 05/26/2023 9:24 EST Provider Unknown MD RADIATION ONCOLOGY O RDERABLES ARIA RADIATION ONCOLOGY documented in this encounter Visit Diagnoses Not on filedocumented in this encounter Care Teams Birdcage Assembler Relationship Specialty Start Date End Date Domonique Caballero FNP [address] [place] [address] PCP - General Family Medicine - Primary Care 04/16/23 documented as of this encounter
--- OUTSIDE RECORDS SUMMARY | 2024-01-27 08:19 | XMS_ITS | Encounter Summary ---
Author Organization [facility] Address [address] [place] [address] Care Team Providers Care Health And Safety Instructor Name Role Phone Domonique Caballero SPA DIRECTOR/FINANCE Primary Care Provider Encounter Details Date Type Department Care Team (Latest Contact Info) Description 05/07/2023 14:07 EDT - 05/07/2023 23:59 EDT Hospital Encounter [facility] Cancer Treatment [place] [address] [place] [address] Discharge Disposition: Home or Self Care Social [...] 9:[address] [facility] Cancer [facility] [address] [place] [address] 03/22/2024 9:[address] [facility] Cancer [facility] [address] [place] [address] Ezra Greenberg MD 111 [facility] 2 [place] [address] documented as of this encounter Visit Diagnoses Not on filedocumented in this encounter Care Teams Health And Safety Instructor Relationship Specialty Start Date End Date Domonique Caballero FNP 4 [place] [phone] PCP - General Family Medicine - Primary Care 04/16/23 documented as of this encounter
--- OUTSIDE RECORDS SUMMARY | 2024-01-27 08:19 | XMS_ITS | Encounter Summary ---
Author Organization [facility] Address [address] [place] [address] Care Team Providers Care Radiation Protection Specialist Name Role Phone Domonique Caballero GROUND PRODUCTS DIRECTOR Primary Care Provider Encounter Details Date Type Department Care Team (Latest Contact Info) Description 06/02/2023 8:45 EST - 06/02/2023 23:59 EST Hospital Encounter [facility] Cancer Treatment [place] [address] [place] [address] Discharge Disposition: Home or Self Care Social [...] Description 03/22/2024 9:00 EDT Nurse Only [facility] Cancer Treatment [place] [address] [place] [address] 03/22/2024 9:15 EDT Office Visit [facility] [address] [place] [address] Ezra Greenberg MD [address] [place] [address] 2 [place] [phone] documented as of this encounter Visit Diagnoses Not on filedocumented in this encounter Care Teams Radiation Protection Specialist Relationship Specialty Start Date End Date Domonique Caballero FNP 4 [place] [phone] PCP - General Family Medicine - Primary Care 04/16/23 documented as of this encounter
--- OUTSIDE RECORDS SUMMARY | 2024-01-27 08:19 | XMS_ITS | Encounter Summary ---
Author Organization [facility] Address [address] [place] [address] Care Team Providers Care Dog Trainer Name Role Phone Domonique Caballero TAX APPRAISER Primary Care Provider Encounter Details Date Type Department Care Team (Late st Contact Info) Description 05/14/2023 Results Only [facility] Radiation Oncology - Main [address] [phone] Unknown, Provider, Social History Tobacco Use Types [...] EDT Nurse Only [facility] Cancer Treatment [address] [address] 03/22/2024 9:[address] [facility] Cancer [address] [address] Ezra Greenberg MD 111 [facility], [facility], Level 2 [place] [address] documented as of this encounter Procedures Procedure Name Priority Date/Time Associated Diagnosis Comments RAD ONC ARIA SESSION SUMMARY Routine 05/14/2023 9:58 EDT documented in this encounter Results * RAD ONC ARIA SESSION SUMMARY (05/14/2023 9:58 EDT) Course ID C1 ARIA RADIATION ONCOLOGY Course Intent Curative ARIA RADIATION ONCOLOGY Course First Treatment Date 05/12/2023 11:02 ARIA RADIATION ONCOLOGY Course Last Treatment Date 05/14/2023 9:58 ARIA RADIATION ONCOLOGY Course Elapsed Days 2 ARIA RADIATION ONCOLOGY Reference Point ID PROSTATE+PRO [...] Point PROSTATE+PRO X SV ARIA RADIATION ONCOLOGY 05/14/2023 9:58 EDT Provider Unknown MD RADIATION ONCOLOGY O RDERABLES ARIA RADIATION ONCOLOGY documented in this encounter Visit Diagnoses Not on filedocumented in this encounter Care Teams Dog Trainer Relationship Specialty Start Date End Date Domonique Caballero FNP 4 [place] [address] PCP - General Family Medicine - Primary Care 04/16/23 documented as of this encounter
--- OUTSIDE RECORDS SUMMARY | 2024-01-27 08:19 | XMS_ITS | Encounter Summary ---
Author Organization [facility] Address [address] [place] [address] Care Team Providers Care Handy Worker Name Role Phone Domonique Caballero TURF FARM WORKER Primary Care Provider Encounter Details Date Type Department Care Team (Late st Contact Info) Description 05/27/2023 Results Only [facility] Radiation Oncology - Main [address] [phone] Unknown, Provider, Social History Tobacco Use Types [...] [facility] Cancer Treatment [address] [address] 03/22/2024 9:15 EDT Office Visit [facility] Cancer [address] [address] Ezra Greenberg MD [address] [place] [address], Level 2 [place] [address] documented as of this encounter Procedures Procedure Name Priority Date/Time Associated Diagnosis Comments RAD ONC ARIA SESSION SUMMARY Routine 05/27/2023 9:23 EST documented in this encounter Results * RAD ONC ARIA SESSION SUMMARY (05/27/2023 9:23 EST) Course ID C1 ARIA RADIATION ONCOLOGY Course Intent Curative ARIA RADIATION ONCOLOGY Course First Treatment Date 05/12/2023 11:02 ARIA RADIATION ONCOLOGY Course Last Treatment Date 05/27/2023 9:24 ARIA RADIATION ONCOLOGY Course Elapsed Days 15 ARIA RADIATION ONCOLOGY Reference Point ID Prost_ProxSV [...] Reference Point Prost_ProxSV :1 ARIA RADIATION ONCOLOGY 05/27/2023 9:23 EST Provider Unknown MD RADIATION ONCOLOGY O RDERABLES ARIA RADIATION ONCOLOGY documented in this encounter Visit Diagnoses Not on filedocumented in this encounter Care Teams Handy Worker Relationship Specialty Start Date End Date Domonique Caballero FNP [address] [place] [address] PCP - General Family Medicine - Primary Care 04/16/23 documented as of this encounter
--- OUTSIDE RECORDS SUMMARY | 2024-01-27 08:19 | XMS_ITS | Encounter Summary ---
Author Organization [facility] Address [address] [place] [address] Care Team Providers Care Wood Heel Attacher Name Role Phone Domonique Caballero CONSTRUCTION SKILLS TEACHER Primary Care Provider [phone] Encounter Details Date Type Department Care Team (Latest Contact Info) Description 05/26/2023 9:15 EST - 05/26/2023 23:59 EST Hospital Encounter [facility] Cancer Treatment [place] [address] [place] [address] Discharge Disposition: Home or Self Care Social [...] EDT Nurse Only [facility] Cancer Treatment [place] [address] [place] [address] 03/22/2024 9:15 EDT Office Visit [facility] [address] [place] [address] Ezra Greenberg MD [address] [place] [address] 2 [place] [phone] documented as of this encounter Visit Diagnoses Not on filedocumented in this encounter Care Teams Wood Heel Attacher Relationship Specialty Start Date End Date Domonique Caballero FNP 4 [place] [phone] PCP - General Family Medicine - Primary Care 04/16/23 documented as of this encounter
--- OUTSIDE RECORDS SUMMARY | 2024-01-27 08:20 | XMS_ITS | Encounter Summary ---
Author Organization [facility] Address [address] [place] [address] Care Team Providers Care Housing Quality Standard Inspector Name Role Phone Unavailable Primary Care Provider Unavailabl e Encounter Details Date Type Department Care Team (Late st Contact Info) Description 11/25/2007 Before PRISM Converted [facility] [address] [place] [address] Brian Wu MD 111 [facility], Level 5 [place] [address] Social History Tobacco Use Types Packs/Day Years Used Date Smoking Tobacco: Never Assessed Sex and Gender Information Value Date Recorded Sex Assigned at Not on file Gender Identity Male 03/18/2022 14:42 EDT Sexual Orientation Not on file documented as of this encounter Progress Notes * Brian Wu MD - 04/13/2009 0958 EDT DIVISION OF OPHTHALMOLOGY [facility] PROGRESS/FOLLOWUP NOTE - 11/25/2007 EXTENDED OPHTHALMOSCOPY Extended ophthalmoscopy done with 360 degrees scleral depression reveals: 1. No new holes, tears or detachment. 2. The patient has an area of pexy at about 11 oclock, which is flat. ASSESSMENT Good result from pneumatic retinopexy. PLAN Recheck in one month. Signed by Brian Wu MD 12/02/2007 07:58 Brian Wu MD [facility] - Retina and Vitreous Service [address] [place], [place] [address] - Brian Wu MD - DV Job ID: [id number] Doc ID: [id number] cc: documented in this encounter Plan of Treatment Upcoming Encounters Date Type Department Care Team (Late st Contact Info) Description 03/22/2024 9:00 EDT Nurse Only [facility] Life Cancer Treatment [address] [phone] 03/22/2024 9:15 EDT Office Visit [facility] Cancer Treatment [address] [phone] Ezra Greenberg MD [address] [place] [address] Level 2 [place] [phone] documented as of this encounter Visit Diagnoses Not on filedocumented in this encounter
--- OUTSIDE RECORDS SUMMARY | 2024-01-27 08:20 | XMS_ITS | Encounter Summary ---
Author Organization [facility] Address [address] [place] [address] Care Team Providers Care Kai Whakaruruhau Name Role Phone Unavailable Primary Care Provider Unavailabl e Encounter Details Date Type Department Care Team (Late st Contact Info) Description 10/06/[address] [facility] Ophthalmology - [place] [address] [place] [address] Brian Wu MD 111 [facility], [facility] 5 [place] [address] Social History Tobacco Use Types Packs/Day Years Used Date Smoking Tobacco: Never Assessed Sex and Gender Information Value Date Recorded Sex Assigned at Not on file Gender Identity Male 03/18/2022 14:42 EDT Sexual Orientation Not on file documented as of this encounter Progress Notes * Brian Wu MD - 04/04/2009 2333 EDT DIVISION OF OPHTHALMOLOGY [facility] October 06, 2007 Mack Colón MD [address] [place] [address] Federico Mccann, OD 530 [facility] [address] [place] [phone] Dear Citlali: Rolan Cardenas was in today. On extended ophthalmoscopy in the right eye his retina is flat. He has a radial element with pexy over it at about 2 oclock and more pexy over the buckle at about 4 oThe patient does have some drusen, but the fovea looks dry (he is pinholing up from 20/60 to 20/30 so I think if he wore glasses in the right eye he would see better). In the left eye, the retina is flat. He has a single druse that is of medium size nasal to the fovea. Comment: The patient looks quite stable from the retinal standpoint. 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 He is a borderline candidate for AREDS vitamins. We havegiven him a handout on this and I have suggested the smokerformula of the vitamins since he is smoking intermittently. I will plan to see him again in about a year. Rickey, it would be nice if you could see him in six months so that we could double-team him twice a year. He knows it is important to get in to see us immediately should he have a sudden change in his central vision as delineated by the Amsler grid, which we are teaching him how to use. With best regards, Signed by Brian Wu MD 10/14/2007 10:09 Brian Wu MD [facility] - Retina and Vitreous Service [address] [place] [address] - Brian Wu MD - DV Job ID: [id number] Doc ID: [id number] cc: MD Federico Lin, BEATRIZ ([address] [place] [address], [address] [address]) * documented in this encounter Plan of Treatment Upcoming Encounters Date Type Department Care Team (Late st Contact Info) Description 03/22/2024 9:00 EDT Nurse Only [facility] [address] [place] [address] 03/22/2024 9:15 EDT Office Visit [facility] [address] [place] [address] Ezra Greenberg MD [address] [place] [address] 2 [place] [phone] documented as of this encounter Visit Diagnoses Not on filedocumented in this encounter
--- OUTSIDE RECORDS SUMMARY | 2024-01-27 08:20 | XMS_ITS | Encounter Summary ---
Author Organization [facility] Address [address] [place] [address] Care Team Providers Care Vice President Client Services Name Role Phone Unavailable Primary Care Provider Unavailabl e Encounter Details Date Type Department Care Team (Late st Contact Info) Description 03/26/2004 Before PRISM Converted Visit ([facility]) [facility] - [facility] conversion [address] [place], [place] [phone] Brian Wu MD [address] [address] Social History Tobacco Use Types Packs/Day [...] EDT Nurse Only [facility] Cancer Treatment [address] [address] 03/22/2024 9:15 EDT Office Visit [facility] Cancer Treatment [address] [address] Ezra Greenberg MD 111 [facility] 2 [place] [address] documented as of this encounter Visit Diagnoses Not on filedocumented in this encounter
--- OUTSIDE RECORDS SUMMARY | 2024-01-27 08:20 | XMS_ITS | Encounter Summary ---
Author Organization [facility] Address [address] [place] [address] Care Team Providers Care Footwear Sales Leader Name Role Phone Almita Raza APRN Primary Care Provider [phone] Reason for Visit * (Routine/Next Available) - Receiving Office to Obtain Authorization Specialty Diagnoses / Procedures Referred By Tri crane Referred To Contact Procedures CT OUTSIDE IMAGES RIGHT UPPER EXTREMITY Imaging, External Referral ID Status Reason Start Date Expiration Date Visits Requested Visits Authorized [id number] Receiving Office to Obtain Authorization 04/03/2023 1 1 Encounter Details Date Type Department Care Team (Latest Contact Info) Description 03/26/2023 - 03/26/2023 23:59 EDT Hospital Encounter [facility] Secondary [place] Discharge Disposition: Home or Self Care Social [...] Sig Dispensed Refills Start Date End Date timolol (TIMOPTIC) 0.5 % ophthalmic solution Place 1 Drop into both eyes 2 times daily. documented as of this encounter Discharge Disposition Disposition Code Departure Means Destination Home or Self Care documented in this encounter Plan of Treatment Upcoming Encounters Date Type Department Care Team (Late st Contact Info) Description 03/22/2024 9:00 EDT Nurse Only [facility] Cancer Treatment [place] [address] [place], [place] [phone] 03/22/2024 9:15 EDT Office Visit [facility] Cancer [facility] 130 [place], [place] [address] Ezra Greenberg MD 111 [facility] 2 [place] [phone] documented as of this encounter Procedures Procedure Name Priority Date/Time Associated Diagnosis Comments CT OUTSIDE IMAGES RIGHT UPPER EXTREMITY Routine 03/26/2023 9:08 EDT documented in this encounter Results * CT OUTSIDE IMAGES RIGHT UPPER EXTREMITY (03/26/2023 9:08 EDT) Narrative 04/03/2023 9:08 EDT This is a non-reportable exam. External Imaging IMG OTHER IMAGING OR DERABLES documented in this encounter Visit Diagnoses Not on filedocumented in this encounter Care Teams Footwear Sales Leader Relationship Specialty Start Date End Date Almita Raza APRN [address] [place] [address] PCP - General Family Medicine - Primary Care 03/18/22 04/15/23 documented as of this encounter
--- OUTSIDE RECORDS SUMMARY | 2024-01-27 08:20 | XMS_ITS | Encounter Summary ---
Author Organization [facility] Address [address] [place] [address] Care Team Providers Care Police Commanding Officer Name Role Phone Unavailable Primary Care Provider Unavailabl e Encounter Details Date Type Department Care Team (Late st Contact Info) Description 11/09/2007 Office Visit [facility] Ophthalmology - [address] [address] Brian Wu MD 111 [facility] 5 [place] [address] Social History Tobacco Use Types [...] Nurse Only [facility] Cancer Treatment [address] [address] 03/22/2024 9:15 EDT Office Visit [facility] Cancer Treatment [place] [address] [place] [address] Ezra Greenberg MD 111 [facility] 2 [place] [address] documented as of this encounter Visit Diagnoses Not on filedocumented in this encounter
--- OUTSIDE RECORDS SUMMARY | 2024-01-27 08:20 | XMS_ITS | Encounter Summary ---
Author Organization [facility] Address [address] [place] [address] Care Team Providers Care Supervisor Process Testing Name Role Phone Unknown, Provider Primary Care Provider Reason for Visit * Reason Onset Date Comments Appointment Related 02/25/2019 Encounter Details Date Type Department Care Team (Late st Contact Info) Description 02/25/[address] [facility] Ophthalmology - [facility] [address] [place], [place] [phone] Luis Arambula MD 111 [facility], Level [address] [place] [address] Appointment Related Social History Tobacco Use Types Packs/Day Years Used Date Smoking Tobacco: Former Cigarettes 1 40 Smokeless Tobacco: Never Alcohol Use Standard Drinks/Week Comments Yes 14 (1 standard drink = 0.6 oz pu re alcohol) Sex and Gender Information Value Date Recorded Sex Assigned at Not on file Gender Identity Male 03/18/2022 14:42 EDT Sexual Orientation Not on file documented as of this encounter Miscellaneous Notes * Telephone Encounter - Cheng Sloan - 02/25/2019 0906 EDT Called and LMOM. Dr. Harvey referred patient to Dr. Arambula for Diplopia. Dr. Arambula would like to see the patient within 1 week. Reminder put in system for Sunday 03/04 documented in this encounter Plan of Treatment Upcoming Encounters Date Type Department Care Team (Late st Contact Info) Description 03/22/2024 9:00 EDT Nurse Only [facility] Cancer [facility] [address] [place] [address] 03/22/2024 9:15 EDT Office Visit [facility] Cancer [facility] [address] [place] [address] Ezra Greenberg MD 111 [facility] 2 [place] [phone] documented as of this encounter Visit Diagnoses Not on filedocumented in this encounter Care Teams Supervisor Process Testing Relationship Specialty Start Date End Date Unknown, Provider, PCP - General 02/25/19 03/17/22 documented as of this encounter
--- OUTSIDE RECORDS SUMMARY | 2024-01-27 08:20 | XMS_ITS | Encounter Summary ---
Author Organization [facility] Address [address] [place] [address] Care Team Providers Care Powerhouse Mechanic Helper Name Role Phone Domonique Caballero Evangelina SPECIAL EDUCATION SCIENCE TEACHER Primary Care Provider Reason for Referral * (Routine/Next Available) - New Request Specialty Diagnoses / Procedures Referred By Tri crane Referred To Contact Diagnoses Malignant neoplasm of prostate (HCC-CMS) Procedures CT SIM EXAM Todd Myles MD [address] [address] [facility] Referral ID Status Reason Start Date Expiration Date V isits Requested Visits Authorized [id number] New Request 04/28/2023 1 1 Reason for Visit * Reason Comments Prostate Cancer * (Routine/Next Available) - New Request Specialty Diagnoses / Procedures Referred By Tri crane Referred To Contact Diagnoses Malignant neoplasm of prostate (HCC-[facility]) Procedures CT SIM EXAM Todd Myles MD [address] [address] [facility] Referral ID Status Reason Start Date Expiration Date V isits Requested Visits Authorized [id number] New Request 04/28/2023 1 1 Encounter Details Date Type Department Care Team (Latest Contact Info) Description 04/30/2023 7:29 EDT - 04/30/2023 23:59 EDT Hospital Encounter [facility] Cancer Treatment [address] [address] Malignant neoplasm of prostate (HCC-CMS) Discharge Disposition: [...] 9:00 EDT Nurse Only [facility] Cancer Treatment [address] [address] 03/22/2024 9:15 EDT Office Visit [facility] Cancer Treatment [address] [phone] Ezra Greenberg MD [address] [place] [address] 2 [place] [address] documented as of this encounter Procedures Procedure Name Priority Date/Time Associated Diagnosis Comments CT SIM EXAM Routine 04/30/2023 10:13 EDT Malignant neoplasm of prostate (HCC-CMS) documented in this encounter Results * CT SIM EXAM (04/30/2023 10:13 EDT) Narrative 04/30/2023 10:13 EDT This is a non-reportable exam. Todd Myles MD IMG OTHER IMAGING ORDERABLES documented in this encounter Visit Diagnoses Diagnosis Malignant neoplasm of prostate (HCC-CMS) Malignant neoplasm of prostate documented in this encounter Care Teams Powerhouse Mechanic Helper Relationship Specialty Start Date End Date Domonique Caballero, SPECIAL EDUCATION SCIENCE TEACHER [address] [place] [phone] PCP - General Family Medicine - Primary Care 04/16/23 documented as of this encounter
--- OUTSIDE RECORDS SUMMARY | 2024-01-27 08:20 | XMS_ITS | Encounter Summary ---
Author Organization [facility] Address [address] [place] [address] Care Team Providers Care Lacquer Dipping Machine Operator Name Role Phone Unknown, Provider Primary Care Provider + [phone] Almita Raza APRN Primary Care Provider + [phone] Domonique Caballero Primary Care Provider + [phone] Encounter Details Date Type Department Care Team (Late st Contact Info) Description 12/31/2021 Lab Requisition [facility] Pathology & Laboratory Medicine - [address] [address] Outr Resulting Lab, Provider Social History Tobacco [...] 9:00 EDT Nurse Only [facility] Treatment [address] [id number] 03/22/2024 9:15 EDT Office Visit [facility] Treatment [place] [address] [place] [address] Ezra Greenberg MD 111 [facility], [facility] 2 [place] [phone] documented as of this encounter Procedures Procedure Name Priority Date/Time Associated Diagnosis Comments PSA TOTAL, DIAGNOSTIC Routine 12/31/2021 10:28 EDT documented in this encounter Results * (ABNORMAL) PSA TOTAL, DIAGNOSTIC (12/31/2021 10:28 EDT) PSA 16.0(H) <=6.5 ng/mL 12/31/2021 23:01 EDT [facility] Blood VENOUS BLOOD / Unknown 12/31/2021 10:28 EDT 12/31/2021 22:01 EDT Narrative [facility] - 12/31/2021 23:01 EDT NOTE: Serum PSA concentration should not be interpreted as absolute evidence for the presence or absence of malignant disease. Assayed on Siemens ADVIA Centaur XPT using chemiluminescent technology.??Values obtained by using different assay methods cannot be used interchangeably. Provider Outr Resulting Lab CHEMISTRY & BLOOD GAS ORDERABLES [facility] [address] [place] [address] documented in this encounter Visit Diagnoses Not on filedocumented in this encounter Care Teams Lacquer Dipping Machine Operator Relationship Specialty Start Date End Date Unknown, Milena, PCP - General 02/25/19 03/17/22 Almita Raza APRN [address] [place] [phone] PCP - General Family Medicine - Primary Care 03/18/22 04/15/23 Domonique Caballero, TOP CASE ASSEMBLER [address] [place] [phone] PCP - General Family Medicine - Primary Care 04/16/23 documented as of this encounter
--- OUTSIDE RECORDS SUMMARY | 2024-01-27 08:20 | XMS_ITS | Encounter Summary ---
Author Organization [facility] Address [address] [place] [address] Care Team Providers Care Dba Developer Name Role Phone Almita Raza APRN Primary Care Provider Reason for Visit * (Routine/Next Available) - Receiving Office to Obtain Authorization Specialty Diagnoses / Procedures Referred By Tri crane Referred To Contact Procedures XR OUTSIDE IMAGES LUMBAR SPINE Imaging, External Referral ID Status Reason Start Date Expiration Date Visits Requested Visits Authorized [id number] Receiving Office to Obtain Authorization 04/03/2023 1 1 Encounter Details Date Type Department Care Team (Latest Contact Info) Description 04/01/2023 - 04/01/2023 23:59 EDT Hospital Encounter [facility] Secondary Reads [place] Discharge Disposition: Home or [...] Encounters Date Type Department Care Team (Late Contact Info) Description 03/22/2024 9:00 EDT Nurse Only [facility] Cancer Treatment [place] [address] [place], [place] [phone] 03/22/2024 9:15 EDT Office Visit [facility] Cancer [facility] [address] [place], [place] [address] Ezra Greenberg MD 111 [facility] 2 [place] [phone] documented as of this encounter Procedures Procedure Name Priority Date/Time Associated Diagnosis Comments XR OUTSIDE IMAGES LUMBAR SPINE Routine 04/01/2023 9:08 EDT documented in this encounter Results * XR OUTSIDE IMAGES LUMBAR SPINE (04/01/2023 9:08 EDT) Narrative 04/03/2023 9:08 EDT This is a non-reportable exam. External Imaging IMG OTHER IMAGING OR DERABLES documented in this encounter Visit Diagnoses Not on filedocumented in this encounter Care Teams Dba Developer Relationship Specialty Start Date End Date Almita Raza APRN [address] [place] [phone] PCP - General Family Medicine - Primary Care 03/18/22 04/15/23 documented as of this encounter
--- OUTSIDE RECORDS SUMMARY | 2024-01-27 08:20 | XMS_ITS | Encounter Summary ---
Author Organization [facility] Address [address] [place] [address] Care Team Providers Care Glacing Machine Tender Name Role Phone Unavailable Primary Care Provider Unavailabl e Encounter Details Date Type Department Care Team (Late st Contact Info) Description 07/30/2005 Results Only [facility] [address] [place], [place] [phone] Justyna Eduardo MD [address] [place] [address] [address] [place] [phone] Social History Tobacco Use Types Packs/Day Years [...] Only [facility] Cancer Treatment [address] [address] 03/22/2024 9:15 EDT Office Visit [facility] Cancer Treatment [place] [address] [place], [place] [address] Ezra Greenberg MD 111 [facility], [facility] 2 [place] [address] [phone] (work) documented as of this encounter Procedures Procedure Name Priority Date/Time Associated Diagnosis Comments SURGICAL PATHOLOGY Routine 07/30/2005 0:00 EST documented in this encounter Results * SURGICAL PATHOLOGY (07/30/2005 0:00 EST) Pathology Report: SURGICAL PATHOLOGY REPORT Reports generated via electronic interface contain original data; however they are lacking the format of the original report. Caution should be taken when reading/interpreti ng unformatted reports. Name: ? ROLAN CRESPO ? Accession #: ? [id number] ? : ? 1945 (Age: 59) ??M ? Collect Date: ? 07/30/2005 ? Location: ? [facility] ? Receive Date: ? 08/01/2005 ? Provider: JUSTYNA EDUARDO MD Copy to: JULIÁN HUTTON MD ? Final Pathologic Diagnosis: A. ?Colon, ascending, polyp, biopsy: 1. ?Tubular adenoma. 2. ?No high grade dysplasia or carcinoma identified. B. ?Colon, sigmoid, polyps, biopsies: 1. ?Hyperplastic polyps. 2. ?No adenomatous mucosa identified. Document reviewed and electronically signed by: BEVERLEY LAWRENCE MD Report ??Date: 08/04/2005 15:56 By the signature above, the attending physician certifies that he/she has personally conducted a gross and/or microscopic examination of the described specimens and rendered or confirmed the above diagnosis. Specimen(s) Received: ? Colon bx' s A. ?Polyp ascending colon (#1) B. ?Polyp x2 sigmoid (#2) Clinical History: ? Screening Gross Description: ? Received in Hollande's fixative labelled Theresa and #1 ??polyp ascending colon is a 0.4 x 0.4 x 0.1 cm reyes-pink tissue. ??The specimen is submitted intact as (A). Received in Hollande's fixative labelled Theresa and #2 ??polyps sigmoid are two reyes-pink tissues averaging 0.4 x 0.2 x 0.1 cm. ??Submitted in toto as (B). ??(Inocencia Woodward)/[facility] End of Report ISAK BLAIR 07/30/2005 08/01/2005 8:4 8 EST Justyna Eduardo MD PATHOLOGY ORDERABL ES ISAK BLAIR [address] [place] [address] documented in this encounter Visit Diagnoses Not on filedocumented in this encounter
--- OUTSIDE RECORDS SUMMARY | 2024-01-27 08:20 | XMS_ITS | Encounter Summary ---
Author Organization [facility] Address [address] [place] [address] Care Team Providers Care Tower Technician Name Role Phone Almita Raza Clemente SNYDER Primary Care Provider [phone] Reason for Referral * Radiology Services (Routine/Next Available) - Authorization Not Required Specialty Diagnoses / Procedures [facility] Referred To Contact Nuclear Medicine Diagnoses Malignant neoplasm of prostate (HCC-CMS) Procedures PET CT PSMA ND PIFLU F-18, FARRAH 1 Cole Sands MD 111 [facility] 2 [place] [address] [facility] Referral ID Status Reason Start Date Expiration Date Visits Requested Visits Authorized [id number] Authorization Not Required 04/03/2023 1 1 Reason for Visit * Reason Comments Prostate Cancer Encounter Details Date Type Department Care Team (Latest Contact Info) Description 04/03/2023 13:00 EDT Initial consult [facility] Cancer Treatment [place] [address] [place] [address] Malignant neoplasm of prostate (HCC-CMS) (Primary Dx) [...] Sign Reading Time Taken Comments Blood Pressure 165/82 04/03/2023 1258 EDT Pulse 80 04/03/2023 1258 EDT Temperature - - Respiratory Rate - - Oxygen Saturation - - Inhaled Oxygen Concentration - - Weight 81.9 kg (180 lb 8 oz) 04/03/2023 1258 EDT Height - - Body Mass Index 24.48 01/12/2018 0826 EDT documented in this encounter Consult Notes * Cole Wright III, MD - 04/03/2023 1300 EDT DIVISION OF RADIATION ONCOLOGY CONSULT NOTE DATE OF SERVICE: 04/03/2023 PRIMARY SITE, HISTOPATHOLOGY AND STAGE: [id number], PSA 27.9 Taylor score 3+4 adenocarcinoma the prostate HPI: Mr. Cardenas is a 77-year-old man who is otherwise in who has had a gradual rise in his PSA over time. ?? PSA 14.2 on November 07, 2020 ?? He underwent transrectal ultrasound-guided biopsies, we do not currently have that pathology report however according to the note from Dr. Beasley this revealed Stromsburg score 6. ?? Subsequent PSA values on active surveillance included 14.6 on March 14, 2021, 14.8 on June 20, 2021, most recently 27.92 in February 18, 2023 ?? Transrectal ultrasound-guided biopsies March 04, 2023: Abnormality was noted on ultrasound at the base extending from the right to the left ?? Pathology review: 09/17 core biopsies with evidence of malignancy, Stromsburg score 3+3 disease at the right and left base as well as Taylor score 3+4 in the left base. ?? Bone scan March 26, 2023: Consistent with degenerative change. He states he has modest urinary symptoms at this point, his IPSS is 6. He does have erectile dysfunction and uses sildenafil at times. He has no localizing bone pain other than in his left shoulder, he is anticipating shoulder replacement surgery on April 16.. His appetite and energy are fairly good. He is seen today to discuss the potential role of radiation therapy in his disease. Past Medical History: Diagnosis Date ??? Glaucoma ??? Macular degeneration (senile) of retina No past surgical history on file. Social History Tobacco Use ??? Smoking status: Former Packs/day: 1.00 Years: 40.00 Additional pack years: 0.00 Total pack years: 40.00 Types: Cigarettes ??? Smokeless tobacco: Never Substance Use Topics ??? Alcohol use: Yes Alcohol/week: 14.0 standard drinks of alcohol Types: 14 Cans of beer per week No family history on file. Current Outpatient Medications Medication Sig Dispense Refill ??? sildenafil citrate (VIAGRA) 100 mg tablet Take 1 Tablet by mouth as needed for Erectile Dysfunction. (Patient not taking: Reported on 04/03/2023) ??? timolol (TIMOPTIC) 0.5 % ophthalmic solution Place 1 Drop into both eyes 2 times daily. No current facility-administered medications for this visit. No Known Allergies REVIEW OF SYSTEMS Reviewed in detail on our intake sheet today. He has no pertinent positives on extensive review of systems other than as described above OBJECTIVE: Pulse: 80 Weight : 81.9 kg (180 lb 8 oz) Pain Score: 0 - No pain General: Very pleasant cooperative man in no acute distress. Lab Results Component Value Date PSA 20.300 (H) 04/03/2023 PSA 16.0 (H) 12/31/2021 PSA 14.8 (H) 07/02/2021 PERFORMANCE STATUS: KPS Score ECOG Grade Definition x 90-100 0 Fully active, able to carry on all pre-disease performance without restriction 70-80 1 Restricted in physically strenuous activity but ambulatory and able to carry out work of a light or sedentary nature, e.g., light house work, office work 50-60 2 Ambulatory and capable of all selfcare but unable to carry out any work activities; up and about more than 50% of waking hours 30-40 3 Capable of only limited selfcare; confined to bed or chair more than 50% of waking hours 10-20 4 Completely disabled; cannot carry on any selfcare; totally confined to bed or chair ASSESSMENT: Mr. Cardenas has had a rapid insignificant rise in his PSA with a PSA maximum value now well above 20, this would put him in the category of high risk prostate cancer. Otherwise he has relatively small volume disease and Stromsburg grade 2 at maximum. I shared with him and his that there is some disparity in the findings of a very elevated PSA with small volume low-grade disease. However with a repeat PSA of approximately 20 it is best to consider that he has high risk disease. I outlined for him today a standard definitive external beam radiation therapy approach utilizing image guided and intensity modulated radiation therapy techniques. I described for him standard courses of therapy that would last between 4 and 5 and 1/2 weeks time with potential side effects including in the short-term skin erythema, hair loss in the treatment field, fatigue, decreased blood cell count as well as bowel bladder irritative symptoms. I did note that we historically and on occasion continue to use a more fractionated longer course of therapy, particularly in the setting of large prostate glands or in men with severe urinary symptomatology. Potential longer term complications incl uding permanent bowel and bladder injury potentially requiring surgical intervention, urethral stricture and erectile dysfunction were all described and put in perspective. The potential role of prostate seed brachytherapy was discussed. A very high PSA if this is confirmed he would have a high likelihood of extracapsular extension and brachytherapy would not be indicated. We did discuss this briefly with him today. The potential role of androgen deprivation dependent on tumor grade, volume and PSA was also described. Potential side effects of androgen deprivation including hot flashes, loss of libido in the longer-term the potential of metabolic effects including changing body fat distribution, loss of musclemass, osteoporosis as well as the less likely but serious complications associated with androgen deprivation including risk of heart attack and stroke were also discussed. I told him the relative advantages of androgen deprivation must be weighed against the potential risks and is individualized based on known risk factors of tumor progression. With a PSA of 20 I told him I typically do favor 18-24 months of androgen deprivation. RECOMMENDATION: We will have him complete his staging evaluation with a PET scan. I will be in touch with him by phone with that result. I spent a total of 60 minutes on the date of this encounter meeting with the patient and reviewing documentation/coordinating care as described in the above note. No procedures were performed at the time of the visit. Cole Wright III, MD This note has been prepared with voice recognition software. Please excuse assignment clerk errors documented in this encounter Plan of Treatment Upcoming Encounters Date Type Department Care Team (Late st Contact Info) Description 03/22/2024 9:00 EDT Nurse Only [facility] Cancer Treatment [place] [address] [place] [address] 03/22/2024 9:15 EDT Office Visit [facility] [address] [place], [place] [phone] Ezra Greenberg MD 111 [facility] 2 [place] [address] documented as of this encounter Results * PET CT PSMA (04/23/2023 16:41 EDT) Anatomical Region Laterality Modality Body Positron Emissio n Tomography (PET) 04/24/2023 10:4 4 EDT Impressions 04/24/2023 10:44 EDT 1. Extensive intense activity which is multifocal in the prostate gland, consistent with carcinoma. 2. Otherwise physiological activity and low-level activity in lymph nodes as described, most likely reactive. 3. No definite regional or distant metastatic disease. 4. Emphysema with bibasal blebs. [id number] Narrative 04/24/2023 10:[address] PSMA 04/23/2023 3:00 PM Signs and Symptoms: ??Prostate cancer, staging;C61:Malignant neoplasm of prostate (HCC-CMS) Comparison: none Technique: Approximately 79 minutes following the IV injection of 9.3 mCi of F18- Piflufolastat, 3D TOF PET imaging was obtained from the skull base to upper thighs using a [employer] digital PET/CT system. ??The injection site was the left antecubital fossa. Oral contrast was administered. Findings: HEAD/NECK: Pertinent findings: Uptake in the head and neck is physiological. No abnormality is seen. CHEST: Pertinent findings: No definite abnormalities. Symmetric low-level activity is seen in hilar nodes. There is a very small right hilar node with SUV max 4.7, PET axial 352 and there is a tiny intrathoracic para-aortic node, SUV max 4.8, PET axial 330. Given the locations, and very small sizes of these nodes, they are almost certainly reactive. Incidental findings: There are findings of emphysema with several blebs at both bases. ABDOMEN/PELVIS: Pertinent findings: There is multifocal high level activity in the prostate gland, especially at the base with SUV max 9.8, consistent with prostate carcinoma. No definite extra prostatic metastatic disease is seen. Physiologic activity is noted in the left celiac ganglion. There is symmetric low level activity in normal-sized inguinal nodes. The most intense activity is in a small right inguinal node with SUV max 2.3, almost certainly reactive. Incidental findings: There is a calcification in the right mid kidney with associated cortical scar. MUSCULOSKELETAL: Pertinent findings: There is physiological musculoskeletal activity. No evidence of skeletal metastatic disease. Incidental findings: Mild age-appropriate degenerative changes are noted in the spine. Procedure Note Fidel Longoria MD - 04/24/[address] PSMA 04/23/2023 3:00 PM Signs and Symptoms: Prostate cancer, staging;C61:Malignant neoplasm ofprostate (HCC-CMS) Comparison: none Technique: Approximately 79 minutes following the IV injection of 9.3 mCi ofF18- Piflufolastat, 3D TOF PET imaging was obtained from the skull base toupper thighs using a [employer] digital PET/CT system. The injectionsite was the left antecubital fossa. Oral contrast was administered. Findings: HEAD/NECK: Pertinent findings: Uptake in the head and neck is physiological. Noabnormality is seen. CHEST: Pertinent findings: No definite abnormalities. Symmetric low-levelactivity is seen in hilar nodes. There is a very small right hilar nodewith SUV max 4.7, PET axial 352 and there is a tiny intrathoracicpara-aortic node, SUV max 4.8, PET axial 330. Given the locations, andvery small sizes of these nodes, they are almost certainly reactive. Incidental findings: There are findings of emphysema with several blebs atboth bases. ABDOMEN/PELVIS: Pertinent findings: There is multifocal high level activity in theprostate gland, especially at the base with SUV max 9.8, consistent withprostate carcinoma. No definite extra prostatic metastatic disease isseen. Physiologic activity is noted in the left celiac ganglion. There issymmetric low level activity in normal-sized inguinal nodes. The mostintense activity is in a small right inguinal node with SUV max 2.3,almost certainly reactive. Incidental findings: There is a calcification in the right mid kidney withassociated cortical scar. MUSCULOSKELETAL: Pertinent findings: There is physiological musculoskeletal activity. Noevidence of skeletal metastatic disease. Incidental findings: Mild age-appropriate degenerative changes are notedin the spine. IMPRESSION 1. Extensive intense activity which is multifocal in the prostate gland,consistent with carcinoma. 2. Otherwise physiological activity and low-level activity in lymph nodesas described, most likely reactive. 3. No definite regional or distant metastatic disease. 4. Emphysema with bibasal blebs. [id number] Cole Wright MD [facility] ORDERABLE S * (ABNORMAL) PSA TOTAL, DIAGNOSTIC (04/03/2023 14:26 EDT) PSA 20.300(H) <=6.500 ng/mL 04/03/2023 16:[address] [facility] Blood VENOUS BLOOD / Unknown Venipuncture / Unknown 04/03/2023 14:26 EDT 04/03/2023 15:[address] [facility] - 04/03/2023 16:46 EDT NOTE: Serum PSA concentration should not be interpreted as absolute evidence for the presence or absence of malignant disease. Assayed on [employer] [id number] using chemiluminescent technology.??Values obtained by using different assay methods cannot be used interchangeably. ?? Cole Wright MD CHEMISTRY & BLOO D GAS ORDERABLES [facility] [address] [place] [address] documented in this encounter Visit Diagnoses Diagnosis Malignant neoplasm of prostate (HCC-CMS)- Primary Malignant neoplasm of prostate Malignant neoplasm of prostate (HCC-CMS) Malignant neoplasm of prostate documented in this encounter Historical Medications * This list may reflect changes made after this encounter. Medication Sig Dispensed Refills Start Date End Date sildenafil citrate (VIAGRA) 100 mg tablet Take 1 Tablet by mouth as needed for Erectile Dysfunction. added in this encounter Care Teams Tower Technician Relationship Specialty Start Date End Date Luz Marina, Almita J, ROUTE DRIVER [employer] [address] [place] [phone] PCP - General Family Medicine - Primary Care 03/18/22 04/15/23 documented as of this encounter
--- OUTSIDE RECORDS SUMMARY | 2024-01-27 08:20 | XMS_ITS | Encounter Summary ---
Author Organization [facility] Address [address] [place] [address] Care Team Providers Care Social Worker Aide Name Role Phone Unknown, Provider Primary Care Provider [phone] Reason for Visit * Reason Comments Diplopia 1 Episode of diplopi a last 3-5 minutes. Did not go away if one eye or the other was covered. Slight dizziness, followed by a minor headache. Intermittent chronic floaters both eyes, stable. No flashing lights or eye pain. * Consult, Test and Treat (Routine) - Closed Specialty Diagnoses / Procedures Referred By Tri crane Referred To Contact Ophthalmology Diagnoses Diplopia Headache Benjamín Harvey, OD [address] [place] [address] Luis Arambula MD [address] [place] [phone] Referral ID Status Reason Start Date Expiration Date Visits Re quested Visits Authorized [id number] Closed 1 1 Encounter Details Date Type Department Care Team (Late st Contact Info) Description 03/04/2019 8:30 EDT Office Visit [facility] Ophthalmology - [address] [phone] Luis Arambula MD [address] [place] [phone] Social History Tobacco Use Types Packs/Day [...] as of this encounter Progress Notes * Luis Arambula MD - 03/04/[address] [facility] NEURO-OPHTHALMOLOGY CONSULTATION - March 04, 2019 Patient: Rolan Cardenas : [address] Harvey, Thank you for requesting Neuro-Ophthalmological consultation on Mr. Cardenas because of the history of double vision. Appreciate the notes and events provide instruction to his medical problems. This is a 73-year-old man who is followed by you for an angle glaucoma in his regularly followed [facility] by Dr. 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 Patient was recently seen by you and reported a single episode of binocular oblique diplopia that lasted for couple minutes and subsequently resolved. The patient is fairly certain that the episode was present in each eye and did not resolve when he covered. In reviewing your notes, seen at the history somewhat different. In either case, present the patient is not experiencing any symptomatic diplopia. There was minor head discomfort following the event, and perhaps some degree of dizziness. Patient denies other deficits. The patient does report chronic floaters he denies flashes. There is no previous history of double vision, although, the patient retinal detachment and has an encircling buckle. There is no significant history of head trauma. A comprehensive review of systems is otherwise negative. 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 The medical history is otherwise unremarkable and his surgical history includes only the surgery asnoted above. The patient is a former smoker with with close to [id number] history reports moderate alcohol useand denies recreational drugs. Medications include only atenolol and an AREDS 2 multivitamin. Patient has no known medication allergies. There is no known family history of neurologic or ophthalmologic disease. The Neuro-ophthalmic examination revealed the patient to be alert, communicative and cooperative for testing. Visual acuities with glasses were: 20/20 in the right eye; 20/25 in the left eye. Color vision (Ishihara) testing showed no dyschromatopsia. Amsler grid testing was normal. The pupils were equal in size, and showed normal response to light and near. The external examination of the eyes and orbits revealed mild dermatochalasia. The lids were in normal position and showed no lid lag or twitch. The examination of extraocular motility showed no strabismus, with full versions and ductions.Pursuit and saccadic function was normal. There was no nystagmus. On Gómez brian testing there was no vertical misalignment. Stereopsis testing revealed 40 seconds of stereopsis. Applanation tonometryat 11:30 hours was 20 mmHg in the right eye; 20 mmHg in the left eye. Slit lamp examination revealed blepharitis early break of the tear film clear corneal incisions well-placed posterior chamber intraocular lenses. Confrontation visual velez were full. Undilated stereoscopic (indirect) funduscopyrevealed normal optic nerves, cup disc ratio 0.3-0.4 in each eye. The vessels were mildly attenuated there are laser scars of the retina in the right eye mild mottling in the left. Formulation: Mr. Cardenas is seen for Neuro-Ophthalmologic evaluation because of the history of a single episode of double vision. It is not entirely clear from the patient's history or the notes whetherthis was monocular or binocular. The symptom has not persisted and there is no evidence for strabismus today. I explained to the patient is possible that this is related to his scleral buckle, if it was in fact a true misalignment, or any number of other possibilitiest. To this end, I think it not unreasonable to obtain serologic studies for myasthenia gravis and thyroid I am to explore alternatecauses. Provided the patient is not having further episodes and/or provided these studies are negative I think it is fine for him to continue to monitor things. If this were to re-occur, I have instructed him to cover one eye and the other make note whether or not the double vision persists as wellas whether or not it is worse at distance or near any direction of gaze if it would recur. I have not scheduled follow-up neuro- ophthalmic examination at this point but would be happy to see patient back at any point that I can be of further assistance. Thank you for allowing me to share in the care of your patient. Please do not hesitate to contact me with any further questions or concerns. Sincerely, Luis Arambula MD Diplomate, the [place] [employer] central office operator Department of Ophthalmology NEURO-OPHTHALMOLOGY documented in this encounter Plan of Treatment Upcoming Encounters Date Type Department Care Team (Late st Contact Info) Description 03/22/2024 9:00 EDT Nurse Only [facility] Cancer [address] [address] 03/22/2024 9:15 EDT Office Visit [facility] Cancer [address] [phone] Ezra Greenberg MD [address] [facility], Level [address] [place] [address] documented as of this encounter Results * STRIATED MUSCLE ANTIBODY (03/04/2019 12:16 EDT) Striated Muscle Ab Negative <1:120 titer 03/07/2019 13:33 EDT [facility] Comment: (Note) . ADDITIONAL INFORMATION This test was developed and its performance characteristics determined by [facility] in a manner consistent with CLIA requirements. This test has not been cleared or approved by the U.S. Food and Drug Administration. Performed or Referred by: [facility], [address] [place] [address] Blood specimen (specimen) BLOOD SPECIMEN / Unknown 03/04/2019 12:16 EDT 03/04/2019 12:44 EDT Luis Arambula MD IMMUNOLOGY AND S EROLOGY ORDERABLES Performing Organization Address [facility] Co de Phone Number [facility] [address] [place] [address] * THYROTROPIN RECEPTOR ANTIBODY (03/04/2019 12:16 EDT) Thyrotropin Receptor Ab <1.00 0.00 - 1.75 IU/L 03/07/2019 13:06 EDT [facility] Comment: (Note) . ADDITIONAL INFORMATION At a decision limit of 1.75 IU/L, this assay has 97% sensitivity and 99% specificity for detection of Graves' disease. In healthy individuals and in patients with thyroid disease without diagnosis of Graves' disease, the upper limit of anti-TSHR values are 1.22 IU/L and 1.58 IU/L, respectively (97.5th percentiles). Performed by: [facility]: [facility] [address], [place] [address] Blood specimen (specimen) BLOOD SPECIMEN / Unknown 03/04/2019 12:16 EDT 03/04/2019 12:44 EDT Luis Arambula MD CHEMISTRY & BLOO D GAS ORDERABLES Performing Organization Address [facility] Co de Phone Number [facility] [address] [place] [address] * THYROID ANTIBODIES (03/04/2019 12:16 EDT) Thyroglobulin Ab 20 <61 U/mL 03/04/20 19 14:50 EDT [facility] Thyroperoxidase Ab <28 <61 U/mL 2018 14:50 EDT [facility] Blood specimen (specimen) BLOOD SPECIMEN / Unknown 03/04/2019 12:16 EDT 03/04/2019 12:44 EDT Luis Arambula MD CHEMISTRY & BLOO D GAS ORDERABLES Performing Organization Address City/[facility]/ZIP Co de Phone Number [facility] [address] [place] [address] * ACETYLCHOLINE RECEPTOR (MUSCLE ACHR) BINDING ANTIBODY (03/04/2019 12:16 EDT) Acetylcholine Receptor Ab 0.00 <=0.02 nmol/L 03/09/2019 8:22 EDT [facility] Comment: (Note) . ADDITIONAL INFORMATION This test was developed and its performance characteristics determined by [facility] in a manner consistent with CLIA requirements. This test has not been cleared or approved by the U.S. Food and Drug Administration. Performed or Referred by: [facility], [address] [place] [address] Blood specimen (specimen) BLOOD SPECIMEN / Unknown 03/04/2019 12:16 EDT 03/04/2019 12:44 EDT Luis Arambula MD IMMUNOLOGY AND S EROLOGY ORDERABLES Performing Organization Address [facility] Co de Phone Number [facility] [address] [place] [address] * THYROID-STIMULATING IMMUNOGLOBULIN (TSI), SERUM (03/04/2019 12:16 EDT) Thyroid Stimulating Immunoglobulin <1.0 <=1.3 TSI index 03/11/2019 7:58 EDT [facility] Comment: Performed or Referred by: [facility], [address] [place] [address] Blood specimen (specimen) BLOOD SPECIMEN / Unknown 03/04/2019 12:16 EDT 03/04/2019 12:44 EDT Luis Arambula MD CHEMISTRY & BLOO D GAS ORDERABLES Performing Organization Address City/[facility] Co de Phone Number [facility] [address] [place] [address] documented in this encounter Visit Diagnoses Diagnosis Diplopia- Primary Vertical strabismus of left eye Hypertropia documented in this encounter Eye Exam Visual Acuity (Snellen - Linear) Right eye Left eye Dist cc 20/20 20/25 -2 Near cc J2 J2 Correction: Glasses Tonometry (Applanation, 11:30) Right eye Left eye Pressure 20 20 Pupils Dark Light Shape React APD Right eye 5 4 Round Brisk None Left eye 5 4 Round Brisk None Visual Velez Right eye Left eye Full Full Extraocular Movement Right eye Left eye Full Full Neuro/Psych Oriented x3: Yes Mood/Affect: Normal Amsler Right eye Left eye Normal Wavy lines right of the dot in the center Color Right eye Left eye Ishihara 04/22 04/22 Stereo Fly: + Circles: 03/21 Lan Sec Wearing Rx Sphere Cylinder Errol Add Right eye -2.50 +1.50 011 +2.75 Left eye -2.00 +1.50 164 +2.75 Care Teams Social Worker Aide Relationship Specialty Start Date End Date Unknown, Provider, PCP - General 02/25/19 03/17/22 documented as of this encounter
--- OUTSIDE RECORDS SUMMARY | 2024-01-27 08:20 | XMS_ITS | Encounter Summary ---
Author Organization [facility] Address [address] [place] [address] Care Team Providers Care Horses Or Mules Teamster Name Role Phone Unknown, Provider Primary Care Provider + [phone] Almita Raza APRN Primary Care Provider + [phone] Domonique Caballero Primary Care Provider + [phone] Encounter Details Date Type Department Care Team (Late st Contact Info) Description 03/13/[address] [facility] Pathology & Laboratory Medicine - [address] [address] Outr Resulting Lab, Provider Social History Tobacco [...] EDT Nurse Only [facility] Treatment [address] [address] 03/22/2024 9:15 EDT Office Visit [facility] [place] [address] [place] [address] Ezra Greenberg MD 111 [facility], Level [address] [place] [phone] documented as of this encounter Procedures Procedure Name Priority Date/Time Associated Diagnosis Comments PSA TOTAL, DIAGNOSTIC Routine 03/13/2021 8:45 EDT documented in this encounter Results * (ABNORMAL) PSA TOTAL, DIAGNOSTIC (03/13/2021 8:45 EDT) PSA 14.6(H) 0.0 - 6.5 ng/mL 03/13/2021 22:13 EDT [facility] Blood VENOUS BLOOD / Unknown 03/13/2021 8:45 EDT 03/13/2021 21:10 EDT Narrative [facility] - 03/13/2021 22:13 EDT NOTE: Serum PSA concentration should not be interpreted as absolute evidence for the presence or absence of malignant disease. Assayed on Siemens ADVIA Centaur XPT using chemiluminescent technology.??Values obtained by using different assay methods cannot be used interchangeably. Provider Outr Resulting Lab CHEMISTRY & BLOOD GAS ORDERABLES [facility] [address] [place] [address] documented in this encounter Visit Diagnoses Not on filedocumented in this encounter Care Teams Horses Or Mules Teamster Relationship Specialty Start Date End Date Unknown, Milena, PCP - General 02/25/19 03/17/22 Almita Raza APRN [address] [place] [phone] PCP - General Family Medicine - Primary Care 03/18/22 04/15/23 Domonique Caballero, REAMING MACHINE TENDER [address] [place] [phone] PCP - General Family Medicine - Primary Care 04/16/23 documented as of this encounter
--- OUTSIDE RECORDS SUMMARY | 2024-01-27 08:20 | XMS_ITS | Encounter Summary ---
Author Organization [facility] Address [address] [place] [address] Care Team Providers Care Diffuser Operator Name Role Phone Unavailable Primary Care Provider Unavailabl e Encounter Details Date Type Department Care Team (Late st Contact Info) Description 11/03/2007 Office [address] [facility] Ophthalmology - [address] [phone] Nii Pena MD 111 [facility] 5 [place] [address] Social History Tobacco Use Types [...] EDT Nurse Only [facility] Cancer Treatment [address] [address] 03/22/2024 9:15 EDT Office Visit [facility] Treatment [place] [address] [place] [address] Ezra Greenberg MD 111 [facility] 2 [place] [address] documented as of this encounter Visit Diagnoses Not on filedocumented in this encounter
--- OUTSIDE RECORDS SUMMARY | 2024-01-27 08:20 | XMS_ITS | Encounter Summary ---
Author Organization [facility] Address [address] [place] [address] Care Team Providers Care Package Delivery Room Service Runner Name Role Phone Unavailable Primary Care Provider Unavailabl e Encounter Details Date Type Department Care Team (Latest Contact Info) Description 12/03/2000 14:04 EDT - 12/10/2000 11:59 EDT Hospital Encounter [facility] conversion [address] [place], [place] [phone] Brett Moreland MD Discharge Disposition: Auto Discharge Social History Tobacco Use Types Packs/Day Years Used Date Smoking Tobacco: Never Assessed Sex and Gender Information Value Date Recorded Sex Assigned at Not on file Gender Identity Male 03/18/2022 14:42 EDT Sexual Orientation Not on file documented as of this encounter Discharge Disposition Disposition Code Departure Means Destination Auto Discharge documented in this encounter Plan of Treatment Upcoming Encounters Date Type Department Care Team (Late st Contact Info) Description 03/22/2024 9:00 EDT Nurse Only [facility] Cancer Treatment [address] [address] 03/22/2024 9:15 EDT Office Visit [facility] Treatment [address] [place], [place] [address] Ezra Greenberg MD 111 [facility] 2 [place] [phone] documented as of this encounter Procedures Procedure Name Priority Date/Time Associated Diagnosis Comments SHOULDER 2 OR MORE VIEWS Routine 12/03/2000 11:15 EDT documented in this encounter Results * SHOULDER 2 OR MORE VIEWS (12/03/2000 11:15 EDT) Anatomical Region Laterality Modality Other 12/03/2000 11:1 5 EDT Narrative 05/23/2009 5:17 EST LONG HEAD OF BICEPS DISRUPTION R/O CALCIFIC TENDONITIS RIGHT SHOULDER: 12-03-00 No comparison. AP internal and external rotation, outlet and axillary views. Mild degenerative changes in the acromioclavicular and glenohumeral joints. The anterior acromial spur with Type 2 to Type 3 acromial morphology. Humeral acromial space normal. No fracture seen. D: 12-11-00 T: 12-14-00 dmf Addendum: The ICD9/diagnostic code has been changed from 653.90 to 840.9 for physician billing. The text has not been altered. 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 AP internal and external rotation, outlet and axillary views. Mild degenerative changes in the acromioclavicular and glenohumeral joints. The anterior acromial spur with Type 2 to Type 3 acromial morphology. Humeral acromial space normal. No fracture seen. D: 12-11-00 T: 12-14-00 [facility] Addendum: The ICD9/diagnostic code has been changed from 653.90 to 840.9 for physician billing. The text has not been altered. Brett Moreland MD IMG DIAGNOSTIC I MAGING ORDERABLES documented in this encounter Visit Diagnoses Not on filedocumented in this encounter
--- OUTSIDE RECORDS SUMMARY | 2024-01-27 08:20 | XMS_ITS | Encounter Summary ---
Author Organization [facility] Address [address] [place] [address] Care Team Providers Care Film Drying Machine Operator Name Role Phone Domonique Caballero WINEMAKER Primary Care Provider Encounter Details Date Type Department Care Team (Late st Contact Info) Description 04/24/2023 Documentation Visit [facility] Treatment [place] [address] [place] [address] Cole Wright MD 111 [facility], [facility] 2 [place] [address] Social History Tobacco Use Types [...] as of this encounter Progress Notes * Cole Wright III, MD - 04/24/2023 7909 EDT RADIATION ONCOLOGY Mr. Cardenas's PET scan revealed no evidence of metastatic disease. Inguinal lymphadenopathy most likely to be reactive was noted. I spoke with him by phone today. I told him we will arrange to initiate androgen deprivation and radiation treatment planning as soon as practical. Antonino Wright MD Radiation Oncology [phone] ([phone] (pager) This note has been prepared with voice recognition software. Please excuse photo technician errors. documented in this encounter Plan of Treatment Upcoming Encounters Date Type Department Care Team (Late st Contact Info) Description 03/22/2024 9:00 EDT Nurse Only [facility] Cancer [address] [address] 03/22/2024 9:15 EDT Office Visit [facility] Cancer [facility] [address] [place] [address] Ezra Greenberg MD 111 [facility], Level [address] [place] [address] documented as of this encounter Visit Diagnoses Not on filedocumented in this encounter Care Teams Film Drying Machine Operator Relationship Specialty Start Date End Date Domonique Caballero FNP [address] [place] [phone] PCP - General Family Medicine - Primary Care 04/16/23 documented as of this encounter
--- OUTSIDE RECORDS SUMMARY | 2024-01-27 08:20 | XMS_ITS | Encounter Summary ---
Author Organization [facility] Address [address] [place] [address] Care Team Providers Care Accounting Manager Controller Name Role Phone Unavailable Primary Care Provider Unavailabl e Encounter Details Date Type Department Care Team (Late st Contact Info) Description 07/17/2005 Before PRISM Converted Visit (Maple) [facility] conversion [address] [place] [address] Brian Wu MD 111 [facility], Level [address] [place] [address] Social History Tobacco Use Types Packs/Day Years Used Date Smoking Tobacco: Never Assessed Sex and Gender Information Value Date Recorded Sex Assigned at Not on file Gender Identity Male 03/18/2022 14:42 EDT Sexual Orientation Not on file documented as of this encounter Progress Notes * Brian Wu MD - 09/13/20092120 EST DIVISION OF OPHTHALMOLOGY [facility] PROGRESS/FOLLOWUP NOTE - 07/17/2005 Federico Mccann, OD [address] [facility] [address] [place] [address] Jeronimo Benjamin MD [address] [place] [phone] Dear Colleagues: Rolan Cardenas was seen today. His retina is flat on an encircling buckle. His fovea is dry. He has an occasional druse in each eye. 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 He has an early cataract in the left eye. Judy asked him to get back to you for ongoing care. I will see him again in 1-2 years, but Im glad to see him sooner should you wish me to. With best personal regards, Signed by Brian Wu MD 07/23/2005 10:33 Kenya Wu MD[address] [id number] [phone] Millay, MD Brian Wu MD [address] [address] - Brian Wu MD A - dv Job ID: Tape Document ID: [id number] cc: MD Federico Martinez MP, OD * documented in this encounter Plan of Treatment Upcoming Encounters Date Type Department Care Team (Late st Contact Info) Description 03/22/2024 9:00 EDT Nurse Only [facility] Cancer Treatment [address] [phone] 03/22/2024 9:15 EDT Office Visit [facility] Cancer Treatment [place] [address] [place], [place] [address] Ezra Greenberg MD [address] [place] [address] 2 [place] [address] documented as of this encounter Visit Diagnoses Not on filedocumented in this encounter
--- OUTSIDE RECORDS SUMMARY | 2024-01-27 08:20 | XMS_ITS | Encounter Summary ---
Author Organization [facility] Address [address] [place] [address] Care Team Providers Care Decal Cutter Name Role Phone Unknown, Provider Primary Care Provider + [phone] Almita Raza APRN Primary Care Provider + [phone] Domonique Caballero Primary Care Provider + [phone] Encounter Details Date Type Department Care Team (Late st Contact Info) Description 06/13/2020 Lab Requisition [facility] Pathology & Laboratory Medicine - [facility] [address] [place] [address] Outr Resulting Lab, Provider Social History Tobacco [...] 9:00 EDT Nurse Only [facility] Cancer Treatment [address] [phone] 03/22/2024 9:15 EDT Office Visit [facility] Cancer Treatment [place] [address] [place] [address] Ezra Greenberg MD 111 [facility], Level 2 [place] [phone] documented as of this encounter Procedures Procedure Name Priority Date/Time Associated Diagnosis Comments PSA TOTAL, DIAGNOSTIC Routine 06/12/2020 8:30 EST documented in this encounter Results * (ABNORMAL) PSA TOTAL, DIAGNOSTIC (06/12/2020 8:30 EST) PSA 10.5(H) 0.0 - 6.5 ng/mL 06/13/2020 21:24 EST [facility] Blood VENOUS BLOOD / Unknown 06/12/2020 8:30 EST 06/13/2020 16:05 EST Narrative [facility] - 06/13/2020 21:24 EST NOTE: Serum PSA concentration should not be interpreted as absolute evidence for the presence or absence of malignant disease. Assayed on Siemens ADVIA Centaur XPT using chemiluminescent technology.??Values obtained by using different assay methods cannot be used interchangeably. Provider Outr Resulting Lab CHEMISTRY & BLOOD GAS ORDERABLES [facility] [address] [place] [address] documented in this encounter Visit Diagnoses Not on filedocumented in this encounter Care Teams Decal Cutter Relationship Specialty Start Date End Date Unknown, Milena, PCP - General 02/25/19 03/17/22 Almita Raza APRN [address] [place] [phone] PCP - General Family Medicine - Primary Care 03/18/22 04/15/23 Domonique aCballero FNP [address] [place] [phone] PCP - General Family Medicine - Primary Care 04/16/23 documented as of this encounter
--- OUTSIDE RECORDS SUMMARY | 2024-01-27 08:20 | XMS_ITS | Encounter Summary ---
Author Organization [facility] Address [address] [place] [address] Care Team Providers Care Power Lineman Technician Name Role Phone Domonique Caballero [facility] Primary Care Provider Encounter Details Date Type Department Care Team (Late st Contact Info) Description 04/24/2023 Orders Only [facility] Cancer Treatment [address] [address] Darby Eckert, MARGOT Social History Tobacco Use [...] Dispensed Refills Start Date End Da te bicalutamide (CASODEX) 50 mg tablet Take 1 Tablet by mouth daily for 28 days. 28 Tablet 04/24/2023 05/22/2023 documented in this encounter Plan of Treatment Upcoming Encounters Date Type Department Care Team (Late st Contact Info) Description 03/22/2024 9:00 EDT Nurse Only [facility] Cancer Treatment [address] [address] 03/22/2024 9:15 EDT Office Visit [facility] Treatment [facility] [address] [place] [address] Ezra Greenberg MD 111 [facility] [address] [place] [phone] documented as of this encounter Visit Diagnoses Not on filedocumented in this encounter Orders Medications Ordered That Pop ht Not Have Been Administered Count Last Ordered Date First Ordered Date leuprolide acetate (6 month) (LUPRON DEPOT) IM injection 45 mg 1 04/24/2023 documented in this encounter Care Teams Power Lineman Technician Relationship Specialty Start Date End Date Domonique Caballero FNP [address] [place] [phone] PCP - General Family Medicine - Primary Care 04/16/23 documented as of this encounter
--- OUTSIDE RECORDS SUMMARY | 2024-01-27 08:20 | XMS_ITS | Encounter Summary ---
Author Organization [facility] Address [address] [place] [address] Care Team Providers Care Religious Educator Name Role Phone Almita Raza Clemente SNYDER Primary Care Provider Encounter Details Date Type Department Care Team (Late st Contact Info) Description 04/03/2023 14:20 EDT Phlebotomy Only [facility] - Outpatient Phlebotomy Drawing [address] [place] [address] Lab, [facility] Op Phlebotomy Malignant neoplasm of prostate (HCC-CMS) Social History Tobacco Use Types Packs/Day Years [...] EDT Nurse Only [facility] Cancer Treatment [place] [address] [place] [address] 03/22/2024 9:15 EDT Office Visit [facility] Cancer [facility] [address] [place] [address] Ezra Greenberg MD 111 [facility], Level 2 [place] [address] documented as of this encounter Procedures Procedure Name Priority Date/Time Associated Diagnosis Comments PSA TOTAL, DIAGNOSTIC Routine 04/03/2023 14:26 EDT Malignant neoplasm of prostate (HCC-CMS) documented in this encounter Results * (ABNORMAL) PSA TOTAL, DIAGNOSTIC (04/03/2023 14:26 EDT) PSA 20.300(H) <=6.500 ng/mL 04/03/2023 16:46 EDT [facility] Blood VENOUS BLOOD / Unknown Venipuncture / Unknown 04/03/2023 14:26 EDT 04/03/2023 15:41 EDT Narrative [facility] - 04/03/2023 16:46 EDT NOTE: Serum PSA concentration should not be interpreted as absolute evidence for the presence or absence of malignant disease. Assayed on [employer] 5600 using chemiluminescent technology.??Values obtained by using different assay methods cannot be used interchangeably. ?? Cole Wright MD CHEMISTRY & BLOO D GAS ORDERABLES [facility] [address] [place] [address] documented in this encounter Visit Diagnoses Diagnosis Malignant neoplasm of prostate (HCC-CMS) Malignant neoplasm of prostate documented in this encounter Care Teams Religious Educator Relationship Specialty Start Date End Date Almita Raza APRN [address] [place] [phone] PCP - General Family Medicine - Primary Care 03/18/22 04/15/23 documented as of this encounter
--- OUTSIDE RECORDS SUMMARY | 2024-01-27 08:20 | XMS_ITS | Encounter Summary ---
Author Organization [facility] Address [address] [place] [address] Care Team Providers Care Catheter Finisher And Inspector Name Role Phone Unknown, Provider Primary Care Provider + [phone] Almita Raza APRN Primary Care Provider + [phone] Domonique Caballero Primary Care Provider + [phone] Encounter Details Date Type Department Care Team (Late st Contact Info) Description 06/26/2020 Lab Requisition [facility] Pathology & Laboratory Medicine - [facility] [address] [place] [address] Outr Resulting Lab, Provider Social History Tobacco [...] EDT Nurse Only [facility] Cancer Treatment [address] [address] 03/22/2024 9:15 EDT Office Visit [facility] Cancer Treatment [place] [address] [place] [address] Ezra Greenberg MD 111 [facility], Level 2 [place] [phone] documented as of this encounter Procedures Procedure Name Priority Date/Time Associated Diagnosis Comments PSA TOTAL, DIAGNOSTIC Routine 06/25/2020 11:45 EST documented in this encounter Results * (ABNORMAL) PSA TOTAL, DIAGNOSTIC (06/25/2020 11:45 EST) PSA 11.8(H) 0.0 - 6.5 ng/mL 06/26/2020 17:39 EST [facility] Blood VENOUS BLOOD / Unknown 06/25/2020 11:45 EST 06/26/2020 16:14 EST Narrative [facility] - 06/26/2020 17:39 EST NOTE: Serum PSA concentration should not be interpreted as absolute evidence for the presence or absence of malignant disease. Assayed on Siemens ADVIA Centaur XPT using chemiluminescent technology.??Values obtained by using different assay methods cannot be used interchangeably. Provider Outr Resulting Lab CHEMISTRY & BLOOD GAS ORDERABLES [facility] [address] [place] [address] documented in this encounter Visit Diagnoses Not on filedocumented in this encounter Care Teams Catheter Finisher And Inspector Relationship Specialty Start Date End Date Unknown, Milena, PCP - General 02/25/19 03/17/22 Almita Raza APRN [address] [place] [phone] PCP - General Family Medicine - Primary Care 03/18/22 04/15/23 Domonique Caballero FNP [address] [place] [phone] PCP - General Family Medicine - Primary Care 04/16/23 documented as of this encounter
--- OUTSIDE RECORDS SUMMARY | 2024-01-27 08:20 | XMS_ITS | Encounter Summary ---
Author Organization [facility] Address [address] [place] [address] Care Team Providers Care Private Equity Analyst Name Role Phone Jeronimo Anthony MD Primary Care Provider Un available Reason for Visit * Reason Comments Other feels a ridge in the back of nose. in the winter causes excess mucous and bleeding symptoms approx 2 years. no imaging rinses with water. * Consult (Routine) - Closed Specialty Diagnoses / Procedures [facility] Referred To Contact Otolaryngology Diagnoses Other specified disorders of nose and nasal sinuses Walker Marcial MD [address] [place] [address] Frandy Thayer MD [address] [place] [phone] Referral ID Status Reason Start Date Expiration Date Visits Re quested Visits Authorized [id number] Closed 1 1 Encounter Details Date Type Department Care Team (Late st Contact Info) Description 01/12/2018 8:30 EDT Office Visit [facility] ENT - [place] [address] [place] [address] Frandy Thayer MD [address] [place] [phone] Deviated nasal septum (Primary Dx) Discharge Disposition: Auto Discharge Social History Tobacco [...] Sign Reading Time Taken Comments Blood Pressure 134/81 01/12/2018825 EDT Pulse 63 01/12/2018825 EDT Temperature - - Respiratory Rate - - Oxygen Saturation - - Inhaled Oxygen Concentration - - Weight 81.6 kg (180 lb) 01/12/2018825 EDT Height 182.9 cm (6') 01/12/2018825 EDT Body Mass Index 24.41 01/12/2018825 EDT documented in this encounter Discharge Disposition Disposition Code Departure Means Destination Auto Discharge documented in this encounter Progress Notes * Frandy Thayer MD - 01/12/2018829 EDT This is a consult from Jeronimo Anthony and Walker Marcial for evaluation of nasal obstruction. HISTORY OF PRESENT ILLNESS: This is a 72-year-old male with a 2-year history of feeling like there is a ridge in the back portion of his nose, and in the winter it can cause excess mucus and bleeding. He also has a history of recurrent sinus infections but denies pain, fever or purulent discharge. No history of prior nasal fracture. His symptoms are of mild severity, intermittent, improved with rinsing with water. No other associated signs or symptoms. PAST MEDICAL HISTORY: Current medications include Timoptic eye drops. Has no known drug allergies. He denies any other medical illnesses. No previous surgeries. Family History: Negative for anesthesia problems. SOCIAL HISTORY: The patient is a former smoker, pack per day for 40 years. REVIEW OF SYSTEMS: Otherwise negative for a complete review of all systems. PHYSICAL EXAM: General: Well-developed, well-nourished, alert, oriented and cooperative adult male in no acute distress. Normal voice. Vital signs: Height 72 inches, weight 180. Blood pressure 134/81, pulse 63. No reportable pain. The face is normal without lesions. No tenderness to palpation. Salivary glands are normal. Facial strength is symmetric. Eye exam is normal. Ears: External ears are normal. Canals are clear. The tympanic membranes are normal. Hearing is intact. Nose: Nasal dorsum is midline. The airway is patent. There is a right inferior anterior nasoseptal deviation without obstruction. Oral cavity is clear. Posterior pharynx is clear. Neck: No pathologic lymphadenopathy. Trachea is midline. Thyroid is normal. Chest is clear to auscultation. Heart: Regular rate and rhythm. PROCEDURE: Fiberoptic nasal endoscopy was performed with topical anesthesia. Again, this reveals a right nasoseptal deviation without obstruction. Both middle meati were clear. No polyps or purulence. The nasopharynx is clear. The base of tongue, epiglottis, vallecula, piriform sinuses, false vocalcords and true vocal cords are within normal limits. IMPRESSION: Right nasoseptal deviation without obstruction. PLAN: Continue with conservative therapy. Nasoseptoplasty surgery was discussed but not indicated at this time. Follow up with ENT p.r.n. cc: Walker Marcial documented in this encounter Plan of Treatment Upcoming Encounters Date Type Department Care Team (Late st Contact Info) Description 03/22/2024 9:00 EDT Nurse Only [facility] Cancer Treatment [address] [address] 03/22/2024 9:15 EDT Office Visit [facility] Cancer Treatment [address] [address] Ezra Greenberg MD [address] [place] [address] [address] [place] [phone] documented as of this encounter Visit Diagnoses Diagnosis Deviated nasal septum- Primary documented in this encounter Discontinued Medications Medication Sig Discontinue Reason Start Date End Da te LORazepam (ATIVAN) 0.5 mg tablet Take 1 mg by mouth every 4 hours as needed for Anxiety. Patient Stopped Taking 01/12/2018 sildenafil citrate (VIAGRA) 100 mg tablet Take 100 mg by mouth as needed for Erectile Dysfunction. Patient Stopped Taking 01/12/2018 vardenafil (LEVITRA) 20 mg tablet Take 20 mg by mouth as needed. Patient Stopped Taking 01/12/2018 documented as of this encounter Care Teams Private Equity Analyst Relationship Specialty Start Date End Date Jeronimo Anthony MD PCP - General 06/04/15 02/24/19 documented as of this encounter
--- OUTSIDE RECORDS SUMMARY | 2024-01-27 08:20 | XMS_ITS | Encounter Summary ---
Author Organization [facility] Address [address] [place] [address] Care Team Providers Care Psychological Science Professor Name Role Phone Unknown, Provider Primary Care Provider [phone] Encounter Details Date Type Department Care Team (Late st Contact Info) Description 03/04/2019 12:08 EDT - 03/04/2019 23:59 EDT Hospital Encounter [facility] [place] [address] [place] [address] Luis Arambula MD 111 [facility], Level [address] [place] [address] Discharge Disposition: Auto Discharge Social History Tobacco [...] file documented as of this encounter Discharge Diagnoses Diagnosis H53.2 Diplopia-H53.2[ICD-10-CM] 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 documented as of this encounter Discharge Disposition Disposition Code Departure Means Destination Auto Discharge Home documented in this encounter Plan of Treatment Upcoming Encounters Date Type Department Care Team (Late st Contact Info) Description 03/22/2024 9:00 EDT Nurse Only [facility] Cancer [address] [address] 03/22/2024 9:15 EDT Office Visit [facility] Cancer [facility] [address] [place] [address] Ezra Greenberg MD 111 [facility] 2 [place] [phone] documented as of this encounter Visit Diagnoses Not on filedocumented in this encounter Care Teams Psychological Science Professor Relationship Specialty Start Date End Date Unknown, ProviderMD PCP - General 02/25/19 03/17/22 documented as of this encounter
--- OUTSIDE RECORDS SUMMARY | 2024-01-27 08:20 | XMS_ITS | Encounter Summary ---
Author Organization [facility] Address [address] [place] [address] Care Team Providers Care Cuffer Name Role Phone Jeronimo Anthony MD Primary Care Provider Un available Encounter Details Date Type Department Care Team (Late st Contact Info) Description 01/11/2018 Abstract [facility] ENT - [place] [address] [place], [place] [address] Walker Marcial MD Social History Tobacco Use Types Packs/Day Years [...] 03/22/2024 9:00 EDT Nurse Only [facility] Cancer Treatment [place] [address] [place], [place] [phone] 03/22/2024 9:15 EDT Office Visit [facility] Cancer [facility] [address] [place], [place] [address] Ezra Greenberg MD 111 [facility] 2 [place] [address] documented as of this encounter Visit Diagnoses Not on filedocumented in this encounter Historical Medications * This list may reflect changes made after this encounter. Medication Sig Dispensed Refills Start Date End Date timolol (TIMOPTIC) 0.5 % ophthalmic solution Place 1 Drop into both eyes 2 times daily. sildenafil citrate (VIAGRA) 100 mg tablet Take 100 mg by mouth as needed for Erectile Dysfunction. 01/12/2018 vardenafil (LEVITRA) 20 mg tablet Take 20 mg by mouth as needed. 01/12/2018 LORazepam (ATIVAN) 0.5 mg tablet Take 1 mg by mouth every 4 hours as needed for Anxiety. 01/12/2018 added in this encounter Care Teams Cuffer Relationship Specialty Start Date End Date Jeronimo Anthony MD PCP - General 06/04/15 02/24/19 documented as of this encounter
--- OUTSIDE RECORDS SUMMARY | 2024-01-27 08:20 | XMS_ITS | Encounter Summary ---
Author Organization [facility] Address [address] [place] [address] Care Team Providers Care Oliving Machine Operator Name Role Phone Unavailable Primary Care Provider Unavailabl e Encounter Details Date Type Department Care Team (Late st Contact Info) Description 03/20/2004 Office Visit [facility] - [place] [address] [place] [address] Katharine Mark MD [address], [address] [place], [place] [phone] Social History Tobacco Use Types Packs/Day Years Used Date Smoking Tobacco: Never Assessed Sex and Gender Information Value Date Recorded Sex Assigned at Not on file Gender Identity Male 03/18/2022 14:42 EDT Sexual Orientation Not on file documented as of this encounter Progress Notes * Katharine Mark - 09/14/2009 1346 EST [facility] ??? Physician Summary Registration Date/Time 03/20/2004 15:24 HISTORY OF PRESENT ILLNESS (asked by opthalmologist to perform pre-op eval for pt who need emergent surgeryfor retinal detcehment tomroorw. see foorms). Katharine Mark M.D. (Electronically signed Katharine Mark M.D. 03/20/2004 18:39) Physician's Clinical Report [facility] ??? Nursing Summary Registration Date/Time 03/20/2004 15:24 TRIAGE Initial Assessment Triage time 17:03 --1852 Betzaida Orozco L.P.N. Medications None.--1704 Betzaida Orozco L.P.N. Allergies (pollen). No known drug allergies. --1704 Betzaida Orozco L.P.N. History This started today. Pain level now: 0/10. (pt had an eye infection after his cateract surgery.). PAST HX: (detached retina). Arrived by private vehicle and accompanied by family. Historian: patient. Primary carephysician notnotified of patient's arrival. (pt to have eye surgery, here for pre op physical.). --1704 Betzaida Orozco L.P.N. (please see paper chart.). --1704 Betzaida Orozco L.P.N. PHYSICAL ASSESSMENT Alert. Oriented X 3. --1704 Betzaida Orozco L.P.N. DISPOSITION / DISCHARGE Patient reports pain level on departure as 0/10. Condition at departure: stable. (please see preop physical papers.). The patient was discharged home and accompanied by spouse. The patient left the Emergency Department ambulatory and via private vehicle. Departure time: 18:52 --1851 Leti Chinchilla L.P.N. Locked/Released at 03/20/2004 18:53 by Betzaida Orozco L.P.N. documented in this encounter Plan of Treatment Upcoming Encounters Date Type Department Care Team (Late st Contact Info) Description 03/22/2024 9:00 EDT Nurse Only [facility] Cancer Treatment [place] [address] [place] [address] 03/22/2024 9:15 EDT Office Visit [facility] Treatment [place] [address] [place] [address] Ezra Greenberg MD 111 [facility], Level [address] [place] [address] documented as of this encounter Visit Diagnoses Not on filedocumented in this encounter
--- OUTSIDE RECORDS SUMMARY | 2024-01-27 08:20 | XMS_ITS | Encounter Summary ---
Author Organization [facility] Address [address] [place] [address] Care Team Providers Care Hyperbaric Nurse Name Role Phone Unavailable Primary Care Provider Unavailabl e Encounter Details Date Type Department Care Team (Late st Contact Info) Description 11/25/2007 Before PRISM Converted Visit ([place]) [facility] - [place] conversion [address] [place] [address] Brian Wu MD 111 [facility], Level [address] [place] [address] Social History Tobacco Use Types Packs/Day Years Used Date Smoking Tobacco: Never Assessed Sex and Gender Information Value Date Recorded Sex Assigned at Not on file Gender Identity Male 03/18/2022 14:42 EDT Sexual Orientation Not on file documented as of this encounter Progress Notes * Brian Wu MD - 04/13/2009 0958 EDT DIVISION OF OPHTHALMOLOGY [facility] November 25, 2007 Mack Colón MD [address] [place] [address] Federico Mccann, OD [address] [facility] [address] [place] [phone] Dear Citlali: Rolan Cardenas was seen again today. He had a pneumatic about two weeks ago and looks great today. I will plan to see him again in a month or so. Sincerely, Signed by Brian Wu MD 12/02/2007 08:03 Brian Wu MD [facility] - Retina and Vitreous Service [address] [place] [address] - Brian Wu MD - DV Job ID: [id number] Doc ID: [id number] cc: MD Federico Lin OD ([address] [place] [address], [address], [place] [address]) * documented in this encounter Plan of Treatment Upcoming Encounters Date Type Department Care Team (Late st Contact Info) Description 03/22/2024 9:00 EDT Nurse Only [facility] Cancer Treatment [address] [address] 03/22/2024 9:15 EDT Office Visit [facility] Cancer Treatment [address] [phone] Ezra Greenberg MD [address] [place] [address], [facility] 2 [place] [phone] documented as of this encounter Visit Diagnoses Not on filedocumented in this encounter
--- OUTSIDE RECORDS SUMMARY | 2024-01-27 08:20 | XMS_ITS | Encounter Summary ---
Author Organization [facility] Address [address] [place] [address] Care Team Providers Care Help Desk Manager Name Role Phone Unknown, Provider Primary Care Provider + [phone] Almita Raza APRN Primary Care Provider + [phone] Domonique Caballero Primary Care Provider + [phone] Encounter Details Date Type Department Care Team (Late st Contact Info) Description 11/05/2020 Lab Requisition [facility] Pathology & Laboratory Medicine - [address] [address] Outr Resulting Lab, Provider Social History Tobacco [...] 9:00 EDT Nurse Only [facility] Cancer Treatment [address] [phone] 03/22/2024 9:15 EDT Office Visit [facility] Cancer Treatment [place] [address] [place] [address] Ezra Greenberg MD 111 [facility], Level 2 [place] [phone] documented as of this encounter Procedures Procedure Name Priority Date/Time Associated Diagnosis Comments PSA TOTAL, DIAGNOSTIC Routine 11/05/2020 10:00 EDT documented in this encounter Results * (ABNORMAL) PSA TOTAL, DIAGNOSTIC (11/05/2020 10:00 EDT) PSA 14.2(H) 0.0 - 6.5 ng/mL 11/05/2020 22:18 EDT [facility] Blood VENOUS BLOOD / Unknown 11/05/2020 10:00 EDT 11/05/2020 21:23 EDT Narrative [facility] - 11/05/2020 22:18 EDT NOTE: Serum PSA concentration should not be interpreted as absolute evidence for the presence or absence of malignant disease. Assayed on Siemens ADVIA Centaur XPT using chemiluminescent technology.??Values obtained by using different assay methods cannot be used interchangeably. Provider Outr Resulting Lab CHEMISTRY & BLOOD GAS ORDERABLES [facility] [address] [place] [address] documented in this encounter Visit Diagnoses Not on filedocumented in this encounter Care Teams Help Desk Manager Relationship Specialty Start Date End Date Unknown, Milena, PCP - General 02/25/19 03/17/22 Almita Raza APRN [address] [place] [phone] PCP - General Family Medicine - Primary Care 03/18/22 04/15/23 Domonique Caballero, COORDINATE MEASURING MACHINE OPERATOR [address] [place] [phone] PCP - General Family Medicine - Primary Care 04/16/23 documented as of this encounter
--- OUTSIDE RECORDS SUMMARY | 2024-01-27 08:20 | XMS_ITS | Encounter Summary ---
Author Organization [facility] Address [address] [place] [address] Care Team Providers Care Etl Programmer Name Role Phone Unknown, Provider Primary Care Provider Reason for Visit * Reason Onset Date Comments Eye Problem 03/18/2019 Encounter Details Date Type Department Care Team (Late st Contact Info) Description 03/18/2019 Telephone [facility] Ophthalmology - [facility] [address] [place], [place] [phone] Luis Arambula MD [address] [facility], Level [address] [place] [address] Eye Problem Social History Tobacco Use Types Packs/Day Years [...] encounter Miscellaneous Notes * Telephone Encounter - Piero Petty RN - 03/18/2019 1543 EDT Called and spoke to patient. Episode of double vision that last about 3 seconds. It happened so fast he was not able to tell which eye. No pain and no loss of vision. No other changes and no new symptoms. He is aware Dr Arambula is out today but will be back early next week. He was told to call over the weekend if the double was changing at all. [phone] ok to leave message. Piero Petty, RN 03/18/2019 15:44 * Telephone Encounter - Kwame Barrera - 03/18/[address] Arambula 10 days ago complaining double vision. Dr Arambula instructed the patient to call back ifit happened again and it has. It lasted about 3 seconds. documented in this encounter Plan of Treatment Upcoming Encounters Date Type Department Care Team (Late st Contact Info) Description 03/22/2024 9:00 EDT Nurse Only [facility] Cancer Treatment [address] [address] 03/22/2024 9:15 EDT Office Visit [facility] Cancer Treatment [address] [address] Ezra Greenberg MD [address] [place] [address] 2 [place] [phone] documented as of this encounter Visit Diagnoses Not on filedocumented in this encounter Care Teams Etl Programmer Relationship Specialty Start Date End Date Unknown, Provider, PCP - General 02/25/19 03/17/22 documented as of this encounter
--- OUTSIDE RECORDS SUMMARY | 2024-01-27 08:20 | XMS_ITS | Encounter Summary ---
Author Organization [facility] Address [address] [place] [address] Care Team Providers Care Environmental Health Aide Name Role Phone Unavailable Primary Care Provider Unavailabl e Encounter Details Date Type Department Care Team (Late st Contact Info) Description 01/05/2008 Office Visit [facility] - [address] [address] Brian Wu MD [address] [place] [phone] Discharge Disposition: Auto Discharge Social History Tobacco [...] EDT Nurse Only [facility] Cancer Treatment [place] [address] [place], [place] [phone] 03/22/2024 9:15 EDT Office Visit [facility] Cancer Treatment [place] [address] [place], [place] [address] Ezra Greenberg MD 111 [facility] 2 [place] [address] documented as of this encounter Visit Diagnoses Not on filedocumented in this encounter
--- OUTSIDE RECORDS SUMMARY | 2024-01-27 08:20 | XMS_ITS | Encounter Summary ---
Author Organization [facility] Address [address] [place] [address] Care Team Providers Care Catalogue And Special Products Manager Name Role Phone Domonique Caballero BLIND SLAT STAPLING MACHINE OPERATOR Primary Care Provider [phone] Encounter Details Date Type Department Care Team (Late st Contact Info) Description 04/30/2023 Documentation Visit [facility] Cancer Treatment [address] [address] Darby Eckert, RN Social History Tobacco Use [...] Notes * Darby Eckert, RN - 04/30/2023 1341 EDT Images from the original note were not included. Nursing Lupron Follow-Up Date of Service: 04/30/2023 Patient: Rolan Cardenas : @[email or web address]@ Age: 77 y.o. Lupron Procedure Acquisition: [] Labs: Labs to be drawn in Radiation Oncology per the order of the physician. [] All specimens collected were verbalized and labeled with the patient's name and in front of the patient. [] Code 86088 (Venipuncture Blood Draw) was billed on 04/30/2023. [] Code 75479 (Port Blood Draw) was billed on 04/30/2023 . COMMENTS: [x] Injection: Intramuscular injection given at Left upper quad. gluteus Lot Number:[id number] Expiration Date: 01.30.2025 [facility]:0170-5093-18 [x]The patient's name and were verified prior to administering medications. [x] All medications were verbally and visually verified prior to administration. [x] Code 31464 (Administration of hormonal anti-neoplastic) was billed on 04/30/2023 by DARBY ECKERT RN . COMMENTS: Referring Physician: No ref. provider found Prescription: Vital Signs: See rooming. Medications: Current Outpatient Medications Medication ??? bicalutamide (CASODEX) 50 mg tablet ??? sildenafil citrate (VIAGRA) 100 mg tablet ??? timolol (TIMOPTIC) 0.5 % ophthalmic solution ??? vit A/vit C/vit E/zinc/copper (ICAPS AREDS ORAL) Current Facility-Administered Medications Medication Route Frequency ??? leuprolide acetate (6 month) (LUPRON DEPOT) IM injection 45 mg intramuscular EVERY 6 MONTHS Lab Results: No results found for: LDVLIVER, PROT, ASTEXT, ALTEXT Review of Systems: ROS Signed: DARBY ECKERT RN documented in this encounter Plan of Treatment Upcoming Encounters Date Type Department Care Team (Late st Contact Info) Description 03/22/2024 9:[address] [facility] Cancer Treatment [place] [address] [place] [address] 03/22/2024 9:[address] [facility] Cancer Treatment [place] [address] [place] [address] Ezra Greenberg MD [address] [place] [address] 2 [place] [phone] documented as of this encounter Visit Diagnoses Not on filedocumented in this encounter Care Teams Catalogue And Special Products Manager Relationship Specialty Start Date End Date Domonique Caballero FNP [address] [place] [phone] PCP - General Family Medicine - Primary Care 04/16/23 documented as of this encounter
--- OUTSIDE RECORDS SUMMARY | 2024-01-27 08:20 | XMS_ITS | Encounter Summary ---
Author Organization [facility] Address [address] [place] [address] Care Team Providers Care Out Of School Hours Care Worker Name Role Phone Unavailable Primary Care Provider Unavailabl e Encounter Details Date Type Department Care Team (Late st Contact Info) Description 11/25/2007 Office Visit [facility] - [address] [address] Brian Wu MD [address] [place] [phone] Discharge Disposition: Auto Discharge Social History Tobacco [...] EDT Nurse Only [facility] Cancer Treatment [place] [address] [place], [place] [phone] 03/22/2024 9:15 EDT Office Visit [facility] Cancer Treatment [place] [address] [place], [place] [address] Ezra Greenberg MD 111 [facility] 2 [place] [address] documented as of this encounter Visit Diagnoses Not on filedocumented in this encounter
--- OUTSIDE RECORDS SUMMARY | 2024-01-27 08:20 | XMS_ITS | Encounter Summary ---
Author Organization [facility] Address [address] [place] [address] Care Team Providers Care Human Resources File Clerk Name Role Phone Unavailable Primary Care Provider Unavailabl e Encounter Details Date Type Department Care Team (Late st Contact Info) Description 07/17/2005 12:03 EST Hospital Encounter [facility] - Other [address] [place] [address] Brian Wu MD 111 [facility], Level [address] [place] [address] Social History Tobacco Use Types [...] 9:00 EDT Nurse Only [facility] Cancer [address] [address] 03/22/2024 9:15 EDT Office Visit [facility] Treatment [facility] [address] [place] [address] Ezra Greenberg MD [address] [place] [address], [facility] [address] [place] [address] documented as of this encounter Visit Diagnoses Not on filedocumented in this encounter
--- OUTSIDE RECORDS SUMMARY | 2024-01-27 08:20 | XMS_ITS | Encounter Summary ---
Author Organization [facility] Address [address] [place] [address] Care Team Providers Care Radiology Administrator Name Role Phone Unknown, Provider Primary Care Provider + [phone] Almita Raza APRN Primary Care Provider + [phone] Domonique Caballero Primary Care Provider + [phone] Encounter Details Date Type Department Care Team (Late st Contact Info) Description 07/02/2021 Lab Requisition [facility] Pathology & Laboratory Medicine - [address] [address] Outr Resulting Lab, Provider Social History Tobacco [...] EDT Nurse Only [facility] Cancer Treatment [address] [address] 03/22/2024 9:15 EDT Office Visit [facility] Cancer Treatment [place] [address] [place] [address] Ezra Greenberg MD 111 [facility], [facility] 2 [place] [phone] documented as of this encounter Procedures Procedure Name Priority Date/Time Associated Diagnosis Comments PSA TOTAL, DIAGNOSTIC Routine 07/02/2021 7:35 EST documented in this encounter Results * (ABNORMAL) PSA TOTAL, DIAGNOSTIC (07/02/2021 7:35 EST) PSA 14.8(H) 0.0 - 6.5 ng/mL 07/02/2021 22:55 EST [facility] Blood VENOUS BLOOD / Unknown 07/02/2021 7:35 EST 07/02/2021 21:51 EST Narrative [facility] - 07/02/2021 22:55 EST NOTE: Serum PSA concentration should not be interpreted as absolute evidence for the presence or absence of malignant disease. Assayed on Siemens ADVIA Centaur XPT using chemiluminescent technology.??Values obtained by using different assay methods cannot be used interchangeably. Provider Outr Resulting Lab CHEMISTRY & BLOOD GAS ORDERABLES [facility] [address] [place] [address] documented in this encounter Visit Diagnoses Not on filedocumented in this encounter Care Teams Radiology Administrator Relationship Specialty Start Date End Date Unknown, Milena, PCP - General 02/25/19 03/17/22 Almita Raza APRN [address] [place] [phone] PCP - General Family Medicine - Primary Care 03/18/22 04/15/23 Domonique Caballero, RANI [address] [place] [phone] PCP - General Family Medicine - Primary Care 04/16/23 documented as of this encounter
--- OUTSIDE RECORDS SUMMARY | 2024-01-27 08:20 | XMS_ITS | Encounter Summary ---
Author Organization [facility] Address [address] [place] [address] Care Team Providers Care Quality Assurance Advisor Name Role Phone Almita Raza Clemente SNYDER Primary Care Provider [phone] Encounter Details Date Type Department Care Team (Late st Contact Info) Description 04/03/2023 Orders Only [facility] Radiology - Main [place] [address] [place], [place] [phone] Blanca Layton MD [address] [place] [address] Social History Tobacco Use Types [...] EDT Nurse Only [facility] Cancer Treatment [address] [address] 03/22/2024 9:[address] [facility] [address] [place] [address] Ezra Greenberg MD 111 [facility], [facility] 2 [place] [address] documented as of this encounter Visit Diagnoses Not on filedocumented in this encounter Care Teams Quality Assurance Advisor Relationship Specialty Start Date End Date Almita Raza APRN [address] [place] [phone] PCP - General Family Medicine - Primary Care 03/18/22 04/15/23 documented as of this encounter
--- OUTSIDE RECORDS SUMMARY | 2024-01-27 08:20 | XMS_ITS | Encounter Summary ---
Author Organization [facility] Address [address] [place] [address] Care Team Providers Care Hub Cutter Name Role Phone Unknown, Provider Primary Care Provider + [phone] Almita Raza APRN Primary Care Provider + [phone] Domonique Caballero Primary Care Provider + [phone] Encounter Details Date Type Department Care Team (Late st Contact Info) Description 10/12/2020 Lab Requisition [facility] Pathology & Laboratory Medicine - [address] [address] Outr Resulting Lab, Provider Social History Tobacco [...] EDT Nurse Only [facility] Cancer Treatment [address] [address] 03/22/2024 9:15 EDT Office Visit [facility] Cancer [facility] [address] [place] [address] Ezra Greenberg MD 111 [facility] 2 [place] [phone] documented as of this encounter Procedures Procedure Name Priority Date/Time Associated Diagnosis Comments FUNGAL CULTURE/SMEAR, SKIN, HAIR OR NAIL Routine 10/11/2020 14:50 EDT documented in this encounter Results * FUNGAL CULTURE/SMEAR, SKIN, HAIR OR NAIL (10/11/2020 14:50 EDT) Organism ID No fungi isolated 11/09/2020 12:31 EDT [facility] Fungal Smear No Fungi Seen 11/09/2020 12:31 EDT [facility] Nail ENTIRE NAIL BED / Unknown 10/11/2020 14:50 EDT 10/12/2020 16:50 EDT Provider Outr Resulting Lab MICROBIOLOGY - GENERAL ORDERABLES Performing Organization Address City/State/[facility] Co de Phone Number [facility] [address] [place] [address] documented in this encounter Visit Diagnoses Not on filedocumented in this encounter Care Teams Hub Cutter Relationship Specialty Start Date End Date Unknown, MD Milena PCP - General 02/25/19 03/17/22 Almita Raza APRN [address] [place] [address] PCP - General Family Medicine - Primary Care 03/18/22 04/15/23 Domonique Caballero FNP [address] [place] [address] PCP - General Family Medicine - Primary Care 04/16/23 documented as of this encounter
--- OUTSIDE RECORDS SUMMARY | 2024-01-27 08:20 | XMS_ITS | Encounter Summary ---
Author Organization [facility] Address [address] [place] [address] Care Team Providers Care Plastic Welding Machine Operator Name Role Phone Unavailable Primary Care Provider Unavailabl e Encounter Details Date Type Department Care Team (Late st Contact Info) Description 11/02/2007 Before PRISM Converted Visit (Maple) [facility] - Maple conversion [address] [place] [address] Nii Pena MD 111 [facility], Level [address] [place] [address] Social History Tobacco Use Types Packs/Day Years Used Date Smoking Tobacco: Never Assessed Sex and Gender Information Value Date Recorded Sex Assigned at Not on file Gender Identity Male 03/18/2022 14:42 EDT Sexual Orientation Not on file documented as of this encounter Progress Notes * Nii Pena MD - 04/13/2009 0159 EDT DIVISION OF OPHTHALMOLOGY [facility] PROGRESS/FOLLOWUP NOTE - 11/02/2007 Brian Wu MD [facility] [address] Dear Jose C: I had the pleasure of seeing one of your patients emergently. As you know, Mr. Cardenas is a pleasant gentleman who you operated on his right eye for a retinal detachment many years back. He comes in complaining of an inferior peripheral field defect for two months. It has been worsening over the past month or so with more rapid progression over the past week. He has also had more flashes in the pastweek or so. On examination today, visual acuity in his right eye is 20/80 and his left is 20/30. He has an inferior temporal field defect of his left eye. Anterior exam is fairly unremarkable, other than being pseudophakic. Dilated fundus exam with extended ophthalmoscopy was performed in both eyes and showed in the right eye, a cup-to-disc ratio of 0.3 with a pink, healthy optic nerve. He has a scleral buckle for 360 degrees and I see no new tears or breaks. He has well-placed cryo and his retina is flat.In his left eye, he has a cup-to-disc ratio of 0.3 with a pink, healthy optic nerve. He has a PVD in this eye. He has a shallow detachment that goes from approximately 10:00 to 11:15 with two breaks at 10:00 and 11 oThese appear to be small, pseudophakic-like breaks. He has a retinal tag inferiorlyat 6 oclock. His macula is attached. Impression: 1. 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 2. History of retinal detachment, right eye status post scleral buckle, right eye. 3. Posterior vitreous detachment, left eye. 4. History of endophthalmitis, right eye. 5. Pseudophakic, both eyes. 6. Retinal tag, left eye. Plan: At this point, we gave him the options for either a buckle or pneumatic retinopathy. He has elected pneumatic retinopexy, which we did today. I will see him tomorrow and get him back to your care as soon as possible. Thanks. Sincerely, Signed by Nii Pena MD 11/17/2007 15:03 Nii Pena MD [facility] - Retina and Vitreous Service [address] [place] [address] D: - Nii Pena MD - DV Job ID: [id number] Doc ID: [id number] cc: Brian Wu MD documented in this encounter Plan of Treatment Upcoming Encounters Date Type Department Care Team (Late st Contact Info) Description 03/22/2024 9:00 EDT Nurse Only [facility] [address] [place] [address] 03/22/2024 9:15 EDT Office Visit [facility] Cancer [facility] [address] [place], [place] [address] Ezra Greenberg MD [address] [place] [address] 2 [place] [phone] documented as of this encounter Visit Diagnoses Not on filedocumented in this encounter
--- OUTSIDE RECORDS SUMMARY | 2024-01-27 08:20 | XMS_ITS | Encounter Summary ---
Author Organization [facility] Address [address] [place] [address] Care Team Providers Care Stiff Leg Derrick Operator Name Role Phone Michael Caballerosanti Hutchinson BOOK SHELVER Primary Care Provider Reason for Visit * Reason Comments Prostate Cancer * Episode Based Medications (Routine) - New Request Specialty Diagnoses / Procedures Referred By Tri crane Referred To Contact Diagnoses Malignant neoplasm of prostate (HCC-CMS) Todd Myles MD [address] [address] [facility] [address] [place] [address] Referral ID Status Reason Start Date Expiration Date V isits Requested Visits Authorized [id number] New Request 04/24/2023 1 1 Encounter Details Date Type Department Care Team (Late st Contact Info) Description 04/30/2023 9:00 EDT Office Visit [facility] [address] [place] [address] Todd Myles MD [address] [address] Malignant neoplasm of prostate (HCC-CMS) (Primary [...] Sign Reading Time Taken Comments Blood Pressure 159/74 04/30/2023 0856 EDT Pulse 78 04/30/2023 0856 EDT Temperature - - Respiratory Rate - - Oxygen Saturation - - Inhaled Oxygen Concentration - - Weight 81.2 kg (179 lb) 04/30/2023 0856 EDT Height - - Body Mass Index 24.28 01/12/2018 0826 EDT documented in this encounter Progress Notes * Todd Myles MD - 04/30/2023 0900 EDT Images from the original note were not included. Division of Radiation Oncology- FOLLOW-UP NOTE Date of Service: 04/30/2023 Diagnosis/Stage: Cancer Staging No matching staging information was found for the patient. Oncology History No history exists. Impression: Mr. Cardenas is a 77-year-old with a Taylor 3+4/group 2 adenocarcinoma of the prostate with PSAs earlier this year 27.9 and repeat in March was 20.3. PSMA PET scan shows no evidence of regional maria antonia or distant metastatic disease with uptake bilaterally throughout the prostate. Based on PSA >20 he would be considered to have high risk prostate cancer based on NCCN guidelines and nonsurgical treatment includes radiation with long-term ADT/androgen deprivation therapy (1.5-3 years). If his PSA were < 20 he would be considered to have favorable intermediate risk prostate cancer as he is felt to have clinical T1c disease. Favorable intermediate risk prostate cancer per NCCN could include surveillance, or radiation alone without ADT. Given his to documented PSA levels >20 and PSMA PET showing bilateral uptake in the prostate, suggesting more prostate cancer involvement than the biopsy results, I would favor ADT with 6 to 12 months. [facility] suggests that with surgery there is risk of extracapsular extension, lymph node involvement and seminal vesicle invasion are 67%, 9% and 9% with T1c and PSA 20.3. With a PSA of 27.9 estimates are 76%, 12% and 12%, respectively. With his present today we reviewed the rationale, process and role of IMRT/VMAT prostate radiation and informed consent was obtained. Recommendations: 1. Lupron to begin today with 6-[address] simulation today as part of radiation planning. I plan to deliver 60 Gy in 20 treatments/4 weeks. 3. If he is tolerating the 6 months of Lupron I would consider 12 months total. History of Presenting Illness: Mr. Cardenas has [id number], PSA 27.9 [place] score 3+4 adenocarcinoma the prostate, PSA 27.92 (03/04). ??? PSA 14.2 on November 07, 2020 ??? He underwent transrectal ultrasound-guided biopsies, we do not currently have that pathology report however according to the note from Dr. Beasley this revealed [place] score 6. ??? PSA values on active surveillance included 14.6 on March 14, 2021, 14.8 on June 20, 2021,most recently 27.92 in February 18, 2023 ??? 03/04/2023 Transrectal ultrasound-guided biopsies by Dr. Beasley : Abnormality was noted on ultrasound at the base extending from the right to the left. Pathology review: 09/17 core biopsies with evidence of malignancy, Taylor score 3+3 disease at the right and left base as well as Taylro score 3+4 in the left base. ??? 03/26/23 bone scan: Consistent with degenerative change. ?? 04/03/[address] Wright. He has modest urinary symptoms at this point, his IPSS is 6. He does have erectile dysfunction and uses sildenafil at times. He has no localizing bone pain other than in his left shoulder, he is anticipating shoulder replacement surgery on April 16. He was felt to have high risk disease given PSA> 20. PSA was repeated and PSMA PET was requested. Treatment options were reviewed ?? 04/03/23 PSA 20.3 ?? 04/23/23 PSMA PET Impression 1. Extensive intense activity which is multifocal in the prostate gland, consistent with carcinoma. 2. Otherwise physiological activity and low-level activity in lymphnodes as described, most likely reactive. ?? 3. No definite regional or distant metastatic disease. 4. Emphysema with bibasal blebs. Interval History: He is seen in the office today with his . Dr. Wright previously review the results of the PSMAPET scan showing prostate only involvement but multifocal prostate involvement. PSA [place] 27.9 [place] 20.3 [place] [facility] [place] without treatment. Dr. Wright recommended ADT with radiation. The patient has been on Casodex without symptoms interval history is significant for April 16 right shoulder replacement surgery. Objective: BP (!) 159/74 (BP Cuff Location: Left arm) Pulse 78 Wt 81.2 kg (179 lb) BMI 24.28 kg/m?? Wt Readings from Last 3 Encounters: 04/03/23 81.9 kg (180 lb 8 oz) 01/12/18 81.6 kg (180 lb) ECOG performance Status: (0) Fully active, able to carry on all predisease performance without restriction He is wearing a sling for his right shoulder and appears well Rectal exam was deferred Lab Results: Lab Results Component Value Date PSA 20.300 (H) 04/03/2023 Imaging: PET CT PSMA 04/23/2023 3:00 PM Signs and Symptoms: Prostate cancer, staging;C61:Malignant neoplasm of prostate (HCC-CMS) HEAD/NECK:Pertinent findings: Uptake in the head and neck is physiological. No abnormality is seen. CHEST:Pertinent findings: No definite abnormalities. Symmetric low-level activity [...] intense activity is in a small right inguinalnode with SUV max 2.3, almost certainly reactive. Incidental findings: There is a calcification in the right mid kidney with associated cortical scar. MUSCULOSKELETAL:Pertinent findings: There is physiological musculoskeletal activity. No evidence ofskeletal metastatic disease. Incidental findings: Mild age-appropriate degenerative changes are noted in the spine. Impression: 1. Extensive intense activity which is multifocal in the prostate gland, consistent with carcinoma. 2. Otherwise physiological activity and low-level activity in lymph nodes as described, most likelyreactive. 3. No definite regional or distant metastatic disease. 4. Emphysema with bibasal blebs. I spent a total of 25 minutes on the date of this encounter meeting with the patient and reviewing documentation/coordinating care as described in the above note. This was separate from any procedures performed at the time of the visit. Todd Myles MD Radiation Oncology-[facility] (p) [phone] / (f) [phone] documented in this encounter Plan of Treatment Upcoming Encounters Date Type Department Care Team (Late st Contact Info) Description 03/22/2024 9:[address] [facility] [address] [phone] 03/22/2024 9:[address] [facility] [address] [phone] Ezra Greenberg MD [address] [place] [address], [address] [place] [address] documented as of this encounter Visit Diagnoses Diagnosis Malignant neoplasm of prostate (HCC-CMS)- Primary Malignant neoplasm of prostate documented in this encounter Administered Medications Inactive Administered Medications - up to 3 most recent administrations Medication Order MAR Action Action Date Dose Rate Site leuprolide acetate (6 month) (LUPRON DEPOT) IM injection 45 mg 45 mg, intramuscular, NOW X1, 1 dose, On Laurie 04/30/23 at 0915, Routine Given 04/30/2023 9:20 EDT 45 mg Right Gl uteus Medius/Ventrogluteal documented in this encounter Historical Medications * This list may reflect changes made after this encounter. Medication Sig Dispensed Refills Start Date End Date vit A/vit C/vit E/zinc/copper (ICAPS AREDS ORAL) Take by mouth. added in this encounter Orders Medications Ordered That Pop ht Not Have Been Administered Count Last Ordered Date First Ordered Date leuprolide acetate (6 month) (LUPRON DEPOT) IM injection 45 mg 1 04/30/2023 documented in this encounter Care Teams Stiff Leg Derrick Operator Relationship Specialty Start Date End Date Domonique Caballero FNP [address] [place] [phone] PCP - General Family Medicine - Primary Care 04/16/23 documented as of this encounter
--- OUTSIDE RECORDS SUMMARY | 2024-01-27 08:20 | XMS_ITS | Encounter Summary ---
Author Organization [facility] Address [address] [place] [address] Care Team Providers Care Election Assistant Name Role Phone Domonique Caballero [facility] Primary Care Provider Encounter Details Date Type Department Care Team (Late st Contact Info) Description 04/24/2023 Orders Only [facility] [place] [address] Darby Eckert, MARGOT Social History Tobacco Use [...] Nurse Only [facility] [address] [address] 03/22/2024 9:15 EDT Office Visit [facility] [address] [address] Ezra Greenberg MD [address] [facility], [address] [place] [address] documented as of this encounter Visit Diagnoses Not on filedocumented in this encounter Care Teams Election Assistant Relationship Specialty Start Date End Date Domonique Caballero FNP [address] [place] [address] PCP - General Family Medicine - Primary Care 04/16/23 documented as of this encounter
--- OUTSIDE RECORDS SUMMARY | 2024-01-27 08:20 | XMS_ITS | Encounter Summary ---
Author Organization [facility] Address [address] [place] [address] Care Team Providers Care Clam Digger Name Role Phone Almita Raza APRN Primary Care Provider [phone] Reason for Referral * Radiology Services (Routine/Next Available) - Authorization Not Required Specialty Diagnoses / Procedures Referred By Contac t Referred To Contact Diagnoses Hyperlipidemia, unspecified Procedures CT CARDIAC CALCIUM SCORE Almita Raza APRN [address] [place] [address] [facility] Referral ID Status Reason Start Date Expiration Date Visits Requested Visits Authorized [id number] Authorization Not Required 02/04/2022 1 1 Reason for Visit * Radiology Services (Routine/Next Available) - Authorization Not Required Specialty Diagnoses / Procedures Referred By Contac t Referred To Contact Diagnoses Hyperlipidemia, unspecified Procedures CT CARDIAC CALCIUM SCORE Almita Raza APRN [address] [place] [address] [facility] Referral ID Status Reason Start Date Expiration Date Visits Requested Visits Authorized [id number] Authorization Not Required 02/04/2022 1 1 Encounter Details Date Type Department Care Team (Latest Contact Info) Description 03/20/2022 12:32 EDT - 03/20/2022 23:59 EDT Hospital Encounter [facility] Radiology [facility] Outpatient - [facility] [address] [place] [address] Hyperlipidemia, unspecified Discharge Disposition: Home or Self Care Social [...] Only [facility] Treatment [address] [address] 03/22/2024 9:15 EDT Office Visit [facility] [address] [address] Ezra Greenberg MD 111 [facility] 2 [place] [phone] documented as of this encounter Procedures Procedure Name Priority Date/Time Associated Diagnosis Comments CT CARDIAC CALCIUM SCORE Routine 03/20/2022 14:01 EDT Hyperlipidemia, unspecified documented in this encounter Results * CT CARDIAC CALCIUM SCORE (03/20/2022 14:01 EDT) Anatomical Region Laterality Modality Computed Tomogra phy 03/20/2022 14:3 7 EDT Impressions 03/20/2022 14:37 EDT 1. ??Total calcium score 3.1 (mildly increased likelihood of coronary obstruction) 2. ??Multiple thin-walled cysts throughout both lungs. If indicated, this finding could be further evaluated with a dedicated CT of the chest. Coronary artery calcification is a specific marker for coronary atherosclerosis. ??The amount of calcification correlates with the severity of coronary atherosclerosis. A score of 0 implies low likelihood of coronary obstruction but cannot totally exclude the presence of atherosclerosis. A high score indicates a significant plaque burden and relative risk for future cardiovascular events. It should be understood that calcification is not site specific for stenosis but rather indicates the extent of atherosclerosis in the coronary arteries overall. I have personally reviewed the images and the above interpretation and agree with the findings. Narrative 03/20/2022 14:[address] CARDIAC CALCIUM SCORE ??03/20/2022 1:30 PM Clinical History/Comments: Hyperlipidemia Technique: Acquisition was performed with prospective cardiac triggering in axial mode with 3mm contiguous slices from the marcus to the inferior surface of the heart. ??Vessel analysis was performed on a dedicated 3D console using Agatston 130 tables for risk stratification. Exam description: CT of the heart without contrast with quantitative evaluation of coronary calcium. Comparison: No relevant prior imaging available for comparison Findings: The calcium score is distributed as following: Left main: 2.0 Left anterior descendin Right coronary artery: 0 Left circumflex coronary artery: 1.1 The patient has a total calcium score of 3. . Agatston Score Reference Table Agatson Score ?Risk 0 ? very low 1-99 ?mildly increased 100-299 ?moderately increased >300 ? moderately to severely increased Radha HS, Natalya ALONSO, Dacia MALONE, Carlitos PARRA, Madeleine M, Juvenal Cornejo and Freddy Vargas. ??CAC-DRS: Coronary Artery Calcium Data and Reporting System. ??An expert consensus document of the Society of Cardiovascular Computed Tomography (SCCT). ??J Cardiovasc Comput Tomogr. November-Dec 2017:12(3): 185-191. This calcium score is at the 8th percentile for a 76 year old white male. This percentile is in comparison to a group of patients with the same age, gender and race/ethnicity who are free of clinical cardiovascular disease and treated diabetes. ??The lower the calcium score and percentile rank, the less likely the patient will have cardiovascular disease compared to others with the same age, gender and ethnicity. ??These results come from AMEZCUA, a prospective cohort study of the prevalence, risk factors and progression of subclinical cardiovascular disease, which was performed on the [place] population. AMEZCUA database calculator is based on the following reference: Nany Crawley, Christen Ortiz, Brian Spivey, Marija Mena and Eb Farrell Distribution of Coronary Artery Calcium by Race, Gender, and Age: Results from the Multi-Ethnic Study of Atherosclerosis (AMEZCUA), Circulation 2006 Additional findings: * ??Calcified atherosclerotic disease in the aorta. Numerous thin-walled cystic lesions throughout both lungs Procedure Note Pool Villa MD - 03/20/2022 CT CARDIAC CALCIUM SCORE 03/20/2022 1:30 PM Clinical History/Comments: Hyperlipidemia Technique: Acquisition was performed with prospective cardiac triggering in axialmode with 3mm contiguous slices from the marcus to the inferior surface ofthe heart. Vessel analysis was performed on a dedicated 3D console usingAgatston 130 tables for risk stratification. Exam description: CT of the heart without contrast with quantitativeevaluation of coronary calcium. Comparison: No relevant prior imaging available for comparison Findings: The calcium score is distributed as following: Left main: 2.0 Left anterior descendin Right coronary artery: 0 Left circumflex coronary artery: 1.1 The patient has a total calcium score of 3. . Agatston Score Reference Table Agatson Score Risk 0 very low 1-99 mildly increased 100-299 moderately increased >300 moderately to severely increased Radha HS, Natalya ALONSO, Dacia MALONE, Carlitos RC, Madeleine M, Juvenal Cornejo and Freddy Vargas.CAC- DRS: Coronary Artery Calcium Data and Reporting System. An expertconsensus document of the Society of Cardiovascular Computed Tomography(SCCT). J Cardiovasc Comput Tomogr. November-Dec 2017:12(3): 185-191. This calcium score is at the 8th percentile for a 76 year old [place]. This percentile is in comparison to a group of patients with the same age,gender and race/ethnicity who are free of clinical cardiovascular diseaseand treated diabetes. The lower the calcium score and percentile rank,the less likely the patient will have cardiovascular disease compared toothers with the same age, gender and ethnicity. These results come fromMESA, a prospective cohort study of the prevalence, risk factors andprogression of subclinical cardiovascular disease, which was performed onthe [place] population. AMEZCUA database calculator is based on the following reference: Christen Corona, Brian Spivey, Marija Mena and RichardA. Farrell Distribution of Coronary Artery Calcium by Race, Gender, andAge: Results from the Multi-Ethnic Study of Atherosclerosis (AMEZCUA),Circulation 2006 Additional findings: * Calcified atherosclerotic disease in the aorta. Numerous thin-walled cystic lesions throughout both lungs IMPRESSION 1. Total calcium score 3.1 (mildly increased likelihood of coronaryobstruction) 2. Multiple thin-walled cysts throughout both lungs. If indicated, thisfinding could be further evaluated with a dedicated CT of the chest. Coronary artery calcification is a specific marker for coronaryatherosclerosis. The amount of calcification correlates with the severityof coronary atherosclerosis. A score of 0 implies low likelihood ofcoronary obstruction but cannot totally exclude the presence ofatherosclerosis. A high score indicates a significant plaque burden andrelative risk for future cardiovascular events. It should be understoodthat calcification is not site specific for stenosis but rather indicatesthe extent of atherosclerosis in the coronary arteries overall. I have personally reviewed the images and the above interpretation andagree with the findings. Almita Raza APRN IM CT ORDERABLES documented in this encounter Visit Diagnoses Diagnosis Hyperlipidemia, unspecified documented in this encounter Care Teams Clam Digger Relationship Specialty Start Date End Date Almita Raza APRN [address] [place] [phone] PCP - General Family Medicine - Primary Care 03/18/22 04/15/23 documented as of this encounter
--- OUTSIDE RECORDS SUMMARY | 2024-01-27 08:20 | XMS_ITS | Encounter Summary ---
Author Organization [facility] Address [address] [place] [address] Care Team Providers Care Violin Tutor Name Role Phone Unavailable Primary Care Provider Unavailabl e Encounter Details Date Type Department Care Team (Late st Contact Info) Description 03/20/2004 15:24 EDT Hospital Encounter [facility] [address] [place] [address] Katharine Mark MD [address] [place] [address], [address] [place], [place] [address] Todd Dorsey MD [address] [place] [phone] Social History Tobacco Use Types Packs/Day Years [...] EDT Nurse Only [facility] [place] [address] [place] [address] 03/22/2024 9:15 EDT Office Visit [facility] [address] [place] [address] Ezra Greenberg MD [address] [place] [address] [address] [place] [address] documented as of this encounter Visit Diagnoses Not on filedocumented in this encounter
--- OUTSIDE RECORDS SUMMARY | 2024-01-27 08:20 | XMS_ITS | Encounter Summary ---
Author Organization [facility] Address [address] [place] [address] Care Team Providers Care Banking Analyst Name Role Phone Almita Raza APRN Primary Care Provider [phone] Reason for Visit * (Routine/Next Available) - Receiving Office to Obtain Authorization Specialty Diagnoses / Procedures Referred By Tri crane Referred To Contact Procedures CT OUTSIDE IMAGES NEURO Imaging, External Referral ID Status Reason Start Date Expiration Date Visits Requested Visits Authorized [id number] Receiving Office to Obtain Authorization 2 1 1 Encounter Details Date Type Department Care Team (Latest Contact Info) Description 06/09/2022 17:44 EST - 06/09/2022 23:59 EST Hospital Encounter [facility] [place] Discharge Disposition: Home or [...] 9:[address] [facility] [place] [address] [place] [address] 03/22/2024 9:[address] [facility] [place] [address] [place] [address] Ezra Greenberg MD [address] [place] [address] 2 [place] [phone] documented as of this encounter Procedures Procedure Name Priority Date/Time Associated Diagnosis Comments CT OUTSIDE IMAGES NEURO Routine 06/09/2022 17:45 EST documented in this encounter Results * CT OUTSIDE IMAGES NEURO (06/09/2022 17:45 EST) Narrative 06/09/2022 17:45 EST This is a non-reportable exam. External Imaging IMG OTHER IMAGING OR DERABLES documented in this encounter Visit Diagnoses Not on filedocumented in this encounter Care Teams Banking Analyst Relationship Specialty Start Date End Date Almita Raza APRN [address] [place] [address] PCP - General Family Medicine - Primary Care 03/18/22 04/15/23 documented as of this encounter
--- OUTSIDE RECORDS SUMMARY | 2024-01-27 08:20 | XMS_ITS | Encounter Summary ---
Author Organization [facility] Address [address] [place] [address] Care Team Providers Care Carcass Trimmer Name Role Phone Almita Raza APRN Primary Care Provider Reason for Visit * (Routine/Next Available) - Receiving Office to Obtain Authorization Specialty Diagnoses / Procedures Referred By Tri crane Referred To Contact Procedures NM OUTSIDE IMAGES Imaging, External Referral ID Status Reason Start Date Expiration Date Visits Requested Visits Authorized [id number] Receiving Office to Obtain Authorization 04/03/2023 1 1 Encounter Details Date Type Department Care Team (Latest Contact Info) Description 03/25/2023 - 03/25/2023 23:59 EDT Hospital Encounter [facility] Secondary Reads [place] Discharge Disposition: [...] EDT Nurse Only [facility] [place] [address] [place], [place] [address] 03/22/2024 9:15 EDT Office Visit [facility] [place] [address] [place], [place] [address] Ezra Greenberg MD 111 [facility] 2 [place] [phone] documented as of this encounter Procedures Procedure Name Priority Date/Time Associated Diagnosis Comments NM OUTSIDE IMAGES Routine 03/25/2023 9:07 EDT documented in this encounter Results * NM OUTSIDE IMAGES (03/25/2023 9:07 EDT) Narrative 04/03/2023 9:08 EDT This is a non-reportable exam. External Imaging IMG OTHER IMAGING OR DERABLES documented in this encounter Visit Diagnoses Not on filedocumented in this encounter Care Teams Carcass Trimmer Relationship Specialty Start Date End Date Almita Raza APRN [address] [place] [address] PCP - General Family Medicine - Primary Care 03/18/22 04/15/23 documented as of this encounter
--- OUTSIDE RECORDS SUMMARY | 2024-01-27 08:20 | XMS_ITS | Encounter Summary ---
Author Organization [facility] Address [address] [place] [address] Care Team Providers Care Central Office Frame Wirer Name Role Phone Unavailable Primary Care Provider Unavailabl e Encounter Details Date Type Department Care Team (Late st Contact Info) Description 03/21/2004 12:40 EDT Hospital Encounter [address] [address] Brian Wu MD 111 [facility] 5 [place] [address] Discharge Disposition: Auto Discharge Social [...] EDT Nurse Only [facility] Cancer Treatment [place] [address] [place], [place] [phone] 03/22/2024 9:15 EDT Office Visit [facility] Treatment [place] [address] [place], [place] [address] Ezra Greenberg MD 111 [facility] Level [address] [place] [address] documented as of this encounter Visit Diagnoses Not on filedocumented in this encounter
--- OUTSIDE RECORDS SUMMARY | 2024-01-27 08:20 | XMS_ITS | Encounter Summary ---
Author Organization [facility] Address [address] [place] [address] Care Team Providers Care J2Ee Android Developer Name Role Phone Unavailable Primary Care Provider Unavailabl e Encounter Details Date Type Department Care Team (Late st Contact Info) Description 11/02/2007 Office Visit [facility] Ophthalmology - [address] [address] Nii Pena MD [address] [place] [phone] Discharge Disposition: Auto Discharge Social History Tobacco [...] Only [facility] [place] [facility] Cancer Treatment [place] [address] [place], [place] [phone] 03/22/2024 9:15 EDT Office Visit [facility] [place] [facility] Cancer Treatment [place] [address] [place], [place] [address] Ezra Greenberg MD 111 [facility] 2 [place] [address] documented as of this encounter Visit Diagnoses Not on filedocumented in this encounter
--- OUTSIDE RECORDS SUMMARY | 2024-01-27 08:20 | XMS_ITS | Encounter Summary ---
Author Organization [facility] Address [address] [place] [address] Care Team Providers Care Stopperer Assembler Name Role Phone Almita Raza Clemente SNYDER Primary Care Provider Encounter Details Date Type Department Care Team (Late st Contact Info) Description 04/03/2023 Documentation Visit [facility] Cancer Treatment [address] [address] Darby Eckert, RN Social History Tobacco Use [...] Progress Notes * Darby Eckert, RN - 04/03/2023 2765 EDT Images from the original note were not included. Nursing Initial Assessment Date of Service: 04.03.2023 Referring Physicians: Vitals: There were no vitals filed for this visit. Pain: 0 Review Of Systems: System Comments Constitutional Denies change in energy or appetite. Eyes Glaucoma, macular degeneration. ENT Cardiovascular Pulmonary Gastrointestinal Genitourinary Nocturia x 2. Muscoloskeletal Integument/breast Neurological Psychiatric Endocrine Hematologic/Lymph Allergic/Immunologic REVIEW OF SYSTEMS COMMENTS: Signed: DARBY ECKERT, RN documented in this encounter Plan of Treatment Upcoming Encounters Date Type Department Care Team (Late st Contact Info) Description 03/22/2024 9:00 EDT Nurse Only [facility] Cancer Treatment [place] [address] [place] [address] 03/22/2024 9:15 EDT Office Visit [facility] Cancer [facility] [address] [place] [address] Ezra Greenberg MD [address] [place] [address], [facility] 2 [place] [phone] documented as of this encounter Visit Diagnoses Not on filedocumented in this encounter Care Teams Stopperer Assembler Relationship Specialty Start Date End Date Almita Raza APRN [address] [place] [phone] PCP - General Family Medicine - Primary Care 03/18/22 04/15/23 documented as of this encounter
--- OUTSIDE RECORDS SUMMARY | 2024-01-27 08:20 | XMS_ITS | Encounter Summary ---
Author Organization [facility] Address [address] [place] [address] Care Team Providers Care Strike On Machine Operator Name Role Phone Domonique Caballero NUTS AND BOLTS ASSEMBLER Primary Care Provider Reason for Referral * Radiology Services (Routine/Next Available) - Authorization Not Required Specialty Diagnoses / Procedures Referred By Contac t Referred To Contact Nuclear Medicine Diagnoses Malignant neoplasm of prostate (HCC-CMS) Procedures PET CT PSMA TN PIFLU F-18, FARRAH 1 Cole Sands MD [address] [place] [phone] [facility] Referral ID Status Reason Start Date Expiration Date Visits Requested Visits Authorized [id number] Authorization Not Required 04/03/2023 1 1 Reason for Visit * Radiology Services (Routine/Next Available) - Authorization Not Required Specialty Diagnoses / Procedures Referred By Contac t Referred To Contact Nuclear Medicine Diagnoses Malignant neoplasm of prostate (HCC-CMS) Procedures PET CT PSMA TN PIFLU F-18, FARRAH 1 Cole Sands MD [address] [place] [phone] [facility] Referral ID Status Reason Start Date Expiration Date Visits Requested Visits Authorized [id number] Authorization Not Required 04/03/2023 1 1 Encounter Details Date Type Department Care Team (Latest Contact Info) Description 04/23/2023 14:31 EDT - 04/23/2023 23:59 EDT Hospital Encounter [facility] Radiology Nuclear Medicine and PET - [facility] [address] [place], [place] [phone] Malignant neoplasm of prostate (HCC-CMS) Discharge Disposition: [...] Nurse Only [facility] Cancer Treatment [address] [phone] 03/22/2024 9:15 EDT Office Visit [facility] Cancer Treatment [address] [address] Ezra Greenberg MD 111 [facility], Level [address] [place] [address] documented as of this encounter Procedures Procedure Name Priority Date/Time Associated Diagnosis Comments PET CT PSMA Routine 04/23/2023 16:41 EDT Malignant neoplasm of prostate (HCC-CMS) documented in this encounter Results * PET CT PSMA [...] metastatic disease. 4. Emphysema with bibasal blebs. [id number] Narrative 04/24/2023 10:[address] PSMA 04/23/2023 3:00 PM Signs and Symptoms: ??Prostate cancer, staging;C61:Malignant neoplasm of prostate (HCC-[facility]) Comparison: none Technique: Approximately 79 minutes following the IV injection of 9.3 mCi of F18- Piflufolastat, 3D TOF PET imaging was obtained from the skull base to upper thighs using a [employer] digital PET/CT system. ??The injection site was [...] the skull base toupper thighs using a [employer] digital PET/CT system. The injectionsite was the [...] metastatic disease. 4. Emphysema with bibasal blebs. [id number] Cole Wright MD IMG [place] ORDERABLE S documented in this encounter Visit Diagnoses Diagnosis Malignant neoplasm of prostate (HCC-CMS) Malignant neoplasm of prostate documented in this encounter Administered Medications Inactive Administered Medications - up to 3 most recent administrations Medication Order MAR Action Action Date Dose Rate Site piflufolastat F 18 (PILARIFY) injection 9 millicurie 9 millicurie, radiopharm IV, Once in imaging, 1 dose, Starting on Laurie 04/23/23 at 1502, Until Laurie 04/23/23 at 1502, Routine, Imaging Protocol Orders Given 04/23/2023 15:02 EDT 9.3 millicuries documented in this encounter Care Teams Strike On Machine Operator Relationship Specialty Start Date End Date Domonique Caballero FNP 4 [place] [phone] PCP - General Family Medicine - Primary Care 04/16/23 documented as of this encounter
--- OUTSIDE RECORDS SUMMARY | 2024-01-27 08:20 | XMS_ITS | Encounter Summary ---
Author Organization [facility] Address [address] [place] [address] Care Team Providers Care Tooth Cutter Spur Name Role Phone Unknown, Provider Primary Care Provider + [phone] Almita Raza APRN Primary Care Provider + [phone] Domonique Caballero Primary Care Provider + [phone] Encounter Details Date Type Department Care Team (Late st Contact Info) Description 01/03/2020 Lab Requisition [facility] Pathology & Laboratory Medicine - [facility] [address] [place] [address] Outr Resulting Lab, Provider Social History Tobacco [...] EDT Nurse Only [facility] Cancer Treatment [address] [address] 03/22/2024 9:15 EDT Office Visit [facility] Cancer [address] [place] [address] Ezra Greenberg MD 111 [facility], Level [address] [place] [address] documented as of this encounter Procedures Procedure Name Priority Date/Time Associated Diagnosis Comments ZZCOVID-19 TEST [facility] PCR Today 01/03/2020 14:05 EDT COVID-19 TESTING Routine 01/03/2020 14:0 5 EDT documented in this encounter Results * COVID-19 TEST [facility] PCR (01/03/2020 14:05 EDT) Swab ENTIRE NASOPHARYNX / Unknown 01/03/2020 14:05 EDT 01/03/2020 21:53 EDT Provider Outr Resulting Lab MICROBIOLOGY - GENERAL ORDERABLES [facility] [address] [place] [address] * COVID-19 TESTING (01/03/2020 14:05 EDT) COVID-19 rt-PCR Result Negative Negative 01/04/2020 11:14 EDT [facility] Comment: This test has not been FDA cleared or approved. This test has been authorized by FDA under an EUA for use by authorized laboratories. This test has been authorized only for detection of nucleic acid from 2019-nCoV, not for any other viruses or pathogens. This test is only authorized for the duration of the declaration that circumstances exist justifying the authorization of emergency use of in vitro diagnostic tests for detection and/or diagnosis of 2019-nCoV under section 564(b)(1) of Act, 21 U.S.C ?? 360bbb-3(b) (1), unless the authorization is terminated or revoked sooner. Negative results do not preclude 2019-nCoV infection and should not be used as the sole basis for treatment or other patient management decisions. Negative results must be combined with clinical observations, patient history, and epidemiological information. Performed on the [employer] Fusion instrument Performing Lab [facility] 01/04/2020 11:14 EDT [facility] Swab 01/03/2020 14:0 5 EDT 01/03/2020 21:53 EDT Provider Outr Resulting Lab MICROBIOLOGY - GENERAL ORDERABLES [facility] [address] [place] [address] documented in this encounter Visit Diagnoses Not on filedocumented in this encounter Care Teams Tooth Cutter Spur Relationship Specialty Start Date End Date Unknown, Provider, PCP - General 02/25/19 03/17/22 Almita Raza APRN [address] [place] [address] PCP - General Family Medicine - Primary Care 03/18/22 04/15/23 Domonique Caballero FNP [address] [place] [address] PCP - General Family Medicine - Primary Care 04/16/23 documented as of this encounter
--- OUTSIDE RECORDS SUMMARY | 2024-01-27 08:20 | XMS_ITS | Encounter Summary ---
Author Organization [facility] Address [address] [place] [address] Care Team Providers Care Aluminum Container Tester Name Role Phone Unknown, Provider Primary Care Provider [phone] Encounter Details Date Type Department Care Team (Late st Contact Info) Description 03/04/2019 Phlebotomy Only [address] [address] Tar Kettle Runner, Outpatient Diplopia; Vertical strabismus of left eye Social History Tobacco Use Types Packs/Day Years [...] Only [facility] Cancer Treatment [address] [address] 03/22/2024 9:15 EDT Office Visit [facility] Cancer Treatment [place] [address] [place] [address] Ezra Greenberg MD 111 [facility] 2 [place] [address] documented as of this encounter Procedures Procedure Name Priority Date/Time Associated Diagnosis Comments THYROTROPIN RECEPTOR ANTIBODY Routine 03/04/2019 12:16 EDT Diplopia Vertical strabismus of left eye THYROID-STIMULATING IMMUNOGLOBULIN (TSI), SERUM Routine 03/04/2019 12:16 EDT Diplopia Vertical strabismus of left eye ACETYLCHOLINE RECEPTOR (MUSCLE ACHR) BINDING ANTIBODY Routine 03/04/2019 12:16 EDT Diplopia Vertical strabismus of left eye STRIATED MUSCLE ANTIBODY Routine 03/04/2019 12:16 EDT Diplopia Vertical strabismus of left eye THYROID ANTIBODIES Routine 03/04/2019 12 :16 EDT Diplopia Vertical strabismus of left eye documented in this encounter Results * STRIATED MUSCLE ANTIBODY (03/04/2019 12:16 EDT) Striated Muscle Ab Negative <1:120 titer 03/07/2019 13:33 EDT [facility] Comment: (Note) . ADDITIONAL INFORMATION This test was developed and its performance characteristics determined by [facility] in a manner consistent with CLIA requirements. This test has not been cleared or approved by the U.S. Food and Drug Administration. Performed or Referred by: [facility], [address] [place] [address] Blood specimen (specimen) BLOOD SPECIMEN / Unknown 03/04/2019 12:16 EDT 03/04/2019 12:44 EDT Luis Arambula MD IMMUNOLOGY AND S EROLOGY ORDERABLES [facility] [address] [place] [address] * THYROTROPIN RECEPTOR ANTIBODY (03/04/2019 12:16 EDT) Thyrotropin Receptor Ab <1.00 0.00 - 1.75 IU/L 03/07/2019 13:06 EDT [facility] Comment: (Note) . ADDITIONAL INFORMATION At a decision limit of 1.75 IU/L, this assay has 97% sensitivity and 99% specificity for detection of Graves' disease. In healthy individuals and in patients with thyroid disease without diagnosis of Graves' disease, the upper limit of anti-TSHR values are 1.22 IU/L and 1.58 IU/L, respectively (97.5th percentiles). Performed by: [facility] Labs: [facility] [address], [place] [address] Blood specimen (specimen) BLOOD SPECIMEN / Unknown 03/04/2019 12:16 EDT 03/04/2019 12:44 EDT Luis Arambula MD CHEMISTRY & BLOO D GAS ORDERABLES Performing Organization Address City/[facility] Co de Phone Number [facility] [address] [place] [address] * THYROID ANTIBODIES (03/04/2019 12:16 EDT) [facility] Thyroglobulin Ab 20 <61 U/mL 03/04/20 19 14:50 EDT [facility] Thyroperoxidase Ab <28 <61 U/mL 2018 14:50 EDT [facility] Blood specimen (specimen) BLOOD SPECIMEN / Unknown 03/04/2019 12:16 EDT 03/04/2019 12:44 EDT Luis Arambula MD CHEMISTRY & BLOO D GAS ORDERABLES Performing Organization Address City/[facility]/ZIP Co de Phone Number [facility] [address] [place] [address] * ACETYLCHOLINE RECEPTOR (MUSCLE ACHR) BINDING ANTIBODY (03/04/2019 12:16 EDT) [facility] Acetylcholine Receptor Ab 0.00 <=0.02 nmol/L 03/09/2019 8:22 EDT [facility] Comment: (Note) . ADDITIONAL INFORMATION This test was developed and its performance characteristics determined by [facility] in a manner consistent with CLIA requirements. This test has not been cleared or approved by the U.S. Food and Drug Administration. Performed or Referred by: [facility], [address] [place] [address] Blood specimen (specimen) BLOOD SPECIMEN / Unknown 03/04/2019 12:16 EDT 03/04/2019 12:44 EDT Luis Arambula MD IMMUNOLOGY AND S EROLOGY ORDERABLES Performing Organization Address [facility] Co de Phone Number [facility] [address] [place] [address] * THYROID-STIMULATING IMMUNOGLOBULIN (TSI), SERUM (03/04/2019 12:16 EDT) Thyroid Stimulating Immunoglobulin <1.0 <=1.3 TSI index 03/11/2019 7:58 EDT [facility] Comment: Performed or Referred by: [facility], [address] [place] [address] Blood specimen (specimen) BLOOD SPECIMEN / Unknown 03/04/2019 12:16 EDT 03/04/2019 12:44 EDT Luis Arambula MD CHEMISTRY & BLOO D GAS ORDERABLES Performing Organization Address City/[facility] Co de Phone Number [facility] [address] [place] [address] documented in this encounter Visit Diagnoses Diagnosis Diplopia Vertical strabismus of left eye Hypertropia documented in this encounter Care Teams Aluminum Container Tester Relationship Specialty Start Date End Date Unknown, Provider, PCP - General 02/25/19 03/17/22 documented as of this encounter
[2024-01-27 23:03] LABS: PSA, Diagnostic <0.1 ng/mL (<=6.5)
== END 2024-01-27 08:11 | disposition home or self-care (01) ==
LOC: NCHCN 08:10
PROVIDERS: PCP Nurse Practitioner Family; Visit Provider Nurse Practitioner Family
DX: C61 Malignant neoplasm of prostate (principal)
CPT/HCPCS: 84153

== ENCOUNTER 2024-05-17 14:53 | Outpatient (REF) | payer MEDICARE, BC, SELFPAY ==
--- OUTSIDE RECORDS SUMMARY | 2024-05-17 14:55 | XMS_ITS ---
Author Organization Unknown Address [address] [place] [phone] Phone Care Team Providers Care Assistant Manager Pt Name Role Phone BEV Hutchinson Attending Unavailable CHRISTINA MIMS Primary Unavailable Results XR ELBOW RT [...] by: CEO DAVID MENDOZA MD Transcribed by: [facility] 12/19/21/15:42 D December 12:59:59 PM [id number] [phone] Electronically Reviewed and Signed By: DAVID MENDOZA MD 12/19/21 16:04 Copy for: CHRISTINA MIMS via fax Copy for: [facility] Social History Type Status Start Date End Date Code Code Syst em Smoking History Former smoker 1964 12/19/[id number] Sex Male Hospital Discharge Instructions [...] System No Known Drug Allergies Moderate Active [id number] SNOMED-CT Plan of Treatment X-RAY 05/18/2024 PRE-OP TESTING 05/18/2024 CT UPPER EXTREM W/O CONTRAST 08/10/2023 PRE-OP TESTING 08/10/2023 CT UPPER EXTREM W/O CONTRAST 03/26/2023 PRE-OP TESTING 03/26/2023 NM BONE SCAN WHOLE BODY 03/25/2023 US GUIDED NEEDLE BIOPSY 03/04/2023 CT FACIAL/SINUS W/O CONTRAS 06/09/2022 Encounters Encounter Diagnosis Start Date Code Code Sys tem Bursitis of olecranon of right elbow 12/19/2021 3146 [id number] SNOMED-CT Personal Care Team Section Performer Name Performer Role Active Date Inactive Da te
--- OUTSIDE RECORDS SUMMARY | 2024-05-17 14:55 | XMS_ITS ---
Author Organization Unknown Address [address] [place] [phone] Phone Care Team Providers Care Underground Drill Operator Name Role Phone BEV Hutchinson Attending Unavailable CHRISTINA MIMS Primary Unavailable Social History Type Status Start Date End Date Code Code Syst em Smoking History Former smoker 1964 12/19/[id number] Sex Male Hospital Discharge Instructions [...] System No Known Drug Allergies Moderate Active [id number] SNOMED-CT Plan of Treatment X-RAY 05/18/2024 PRE-OP TESTING 05/18/2024 CT UPPER EXTREM W/O CONTRAST 08/10/2023 PRE-OP TESTING 08/10/2023 CT UPPER EXTREM W/O CONTRAST 03/26/2023 PRE-OP TESTING 03/26/2023 NM BONE SCAN WHOLE BODY 03/25/2023 US GUIDED NEEDLE BIOPSY 03/04/2023 CT FACIAL/SINUS W/O CONTRAS 06/09/2022 Encounters Encounter Diagnosis Start Date Code Code Sys tem Bursitis of olecranon of right elbow 01/27/2022 3146 [id number] SNOMED-CT Personal Care Team Section Performer Name Performer Role Active Date Inactive Da te
--- OUTSIDE RECORDS SUMMARY | 2024-05-17 14:55 | XMS_ITS | Encounter Summary ---
Author Organization [facility] Address [facility] [place] [address] Care Team Providers Care Affiliate Marketing Manager Name Role Phone Unavailable Primary Care Provider Unavailabl e Encounter Details Date Type Department Care Team (Late st Contact Info) Description 03/01/2024 Interpretation Only [facility] in [address] [phone] Unknown None Social History Tobacco Use Types Packs/Day Years Used Date Smoking Tobacco: Never Assessed Sex and Gender Information Value Date Recorded Sex Assigned at Not on file Gender Identity Not on file Sexual Orientation Not on file documented as of this encounter Plan of Treatment Not on file documented as of this encounter Procedures Procedure Name Priority Date/Time Associated Diagnosis Comments XR SHOULDER RIGHT Routine 03/01/2024 1:4 1 PM EDT documented in this encounter Results * XR Shoulder Right (Generic) (03/01/2024 1:41 PM EDT) PT CLASS O RAD ADMITDTTM [id number] RAD PT RAD MD INFO [id number]^[place] N^BASSEM RAD EXAM DESC XRSHDR^XR SHOULDER 2V OR MORE RT^RIS RAD WORKSTATION ID [id number] RAD Anatomical Region Laterality Modality Shoulder Right Radiographic Estela ging Impressions 03/01/2024 4:55 PM EDT Right shoulder arthroplasty without complications. Thank you for letting us participate in the care of this patient. ??If you are a health care provider and have any questions regarding this report, please contact the number below. ??For patients who have questions please contact the health resident care technician that requested your imaging first. ? Electronically signed by: González Foy MD, [facility] ([phone]), at 03/01/2024 4:55 PM Narrative 03/01/2024 4:55 PM EDT EXAMINATION: XR SHOULDER 2V OR MORE RT CLINICAL HISTORY: REASON: STATUS POST REVERSE TOTAL REPLACEMENT OF RIGHT SHOULDER ADD'L INFO: 2 VIEW TECHNIQUE: 2 views RIGHT shoulder COMPARISON: August 03, 2023 FINDINGS: A reverse glenohumeral joint prosthesis is demonstrated in near anatomic position and alignment. No fracture or evidence of loosening is seen. Procedure Note González Foy MD - 03/01/2024 EXAMINATION: XR SHOULDER 2V OR MORE RT CLINICAL HISTORY: REASON: STATUS POST REVERSE TOTAL REPLACEMENT OF RIGHT SHOULDER ADD'L INFO: 2 VIEW TECHNIQUE: 2 views RIGHT shoulder COMPARISON: August 03, 2023 FINDINGS: A reverse glenohumeral joint prosthesis is demonstrated in near anatomic position and alignment. No fracture or evidence of loosening is seen. IMPRESSION Right shoulder arthroplasty without complications. Thank you for letting us participate in the care of this patient. If youare a health care provider and have any questions regarding this report,please contact the number below. For patients who have questions please contactthe health resident care technician that requested your imaging first. Electronically signed by: González Foy MD, [facility]([phone]), at 03/01/2024 4:55 PM Unknown IMG DX ORDERABLES documented in this encounter Visit Diagnoses Not on filedocumented in this encounter
--- OUTSIDE RECORDS SUMMARY | 2024-05-17 14:55 | XMS_ITS | Encounter Summary ---
Author Organization [facility] Address [facility] [place] [address] Care Team Providers Care Calenderer Name Role Phone Unavailable Primary Care Provider Unavailabl e Encounter Details Date Type Department Care Team (Late st Contact Info) Description 03/01/2024 Interpretation Only [facility] in [address] [phone] Unknown None Social History Tobacco [...] Priority Date/Time Associated Diagnosis Comments XR SHOULDER LEFT Routine 03/01/2024 1:41 PM EDT documented in this encounter Results * XR Shoulder Left (Generic) (03/01/2024 1:41 PM EDT) PT CLASS O RAD ADMITDTTM [id number] RAD PT RAD MD INFO [id number]^[place] N^BASSEM RAD EXAM DESC XRSHDL^XR SHOULDER 2V OR MORE LT^RIS RAD WORKSTATION ID [id number] RAD Anatomical Region Laterality Modality Shoulder Left Radiographic Estela ging Impressions 03/01/2024 4:54 PM EDT Left shoulder arthroplasty without complications. Thank you for letting us participate in the care of this patient. ??If you are a health care provider and have any questions regarding this report, please contact the number below. ??For patients who have questions please contact the health healthcare representative that requested your imaging first. ? Electronically signed by: González Foy MD, [facility] ([phone]), at 03/01/2024 4:54 PM Narrative 03/01/2024 4:54 PM EDT EXAMINATION: XR SHOULDER 2V OR MORE LT CLINICAL HISTORY: REASON: STATUS POST REVERSE TOTAL REPLACEMENT OF RIGHT SHOULDER ADD'L INFO: 2 VIEW TECHNIQUE: 2 views LEFT shoulder COMPARISON: September 22, 2023 FINDINGS: A reverse glenohumeral joint prosthesis is demonstrated in near anatomic position and alignment. No fracture or evidence of loosening is seen. Procedure Note González Foy MD - 03/01/2024 EXAMINATION: XR SHOULDER 2V OR MORE LT CLINICAL HISTORY: REASON: STATUS POST REVERSE TOTAL REPLACEMENT OF RIGHT SHOULDER ADD'L INFO: 2 VIEW TECHNIQUE: 2 views LEFT shoulder COMPARISON: September 22, 2023 FINDINGS: A reverse glenohumeral joint prosthesis is demonstrated in near anatomic position and alignment. No fracture or evidence of loosening is seen. IMPRESSION Left shoulder arthroplasty without complications. Thank you for letting us participate in the care of this patient. If youare a health care provider and have any questions regarding this report,please contact the number below. For patients who have questions please contactthe health healthcare representative that requested your imaging first. Electronically signed by: González Foy MD, [facility]([phone]), at 03/01/2024 4:54 PM Unknown IMG DX ORDERABLES documented in this encounter Visit Diagnoses Not on filedocumented in this encounter
--- OUTSIDE RECORDS SUMMARY | 2024-05-17 14:55 | XMS_ITS | Clinical Summary ---
Author Organization [facility] Address [facility] [place] [address] Care Team Providers Care Digital Learning Platforms Manager Name Role Phone Unavailable Primary Care Provider Unavailabl e Encounters Date Type Department Care Team Description 03/01/2024 Interpretation Only [place] [facility] in [address] [phone] Unknown 03/01/2024 Interpretation Only [place] [facility] in [address] [phone] Unknown from Last 3 Months Social History Tobacco Use Types Packs/Day Years Used Date Smoking Tobacco: Never Assessed Sex and Gender Information Value Date Recorded Sex Assigned at Not on file Gender Identity Not on file Sexual Orientation Not on file Plan of Treatment Health Maintenance Due Date Last Done Comments Hepatitis C Screening 12/19/1963 Tetanus/Diphtheria/Pertussis Vaccines (1 - Tdap) 12/18 Zoster vaccine (1 of 2) 12/19/1995 Advance Directive 2000 Pneumoccocal Vaccine: 65+ (1 of 1 - PCV) 2010 Covid-19 Vaccine (1 - season) 2024 Influenza (Flu) vaccine (1 o f 1 - Influenza standard series) 03/13/2024 Procedures Procedure Name Priority Date/Time Associated Diagnosis Comments XR SHOULDER RIGHT Routine 03/01/2024 1:4 1 PM EDT XR SHOULDER LEFT Routine 03/01/2024 1:41 PM EDT from Last 3 Months Results * XR Shoulder Right (Generic) (03/01/2024 1:41 PM EDT) PT CLASS O DH RAD ADMITDTTM [id number] RAD PT RAD MD INFO [id number]^[place] N^BASSEM RAD EXAM DESC XRSHDR^XR SHOULDER 2V OR MORE RT^RIS [facility] WORKSTATION ID [id number] [facility] Anatomical Region Laterality Modality Shoulder Right Radiographic Estela ging Impressions 03/01/2024 4:55 PM EDT Right shoulder arthroplasty without complications. Thank you for letting us participate in the care of this patient. ??If you are a health care provider and have any questions regarding this report, please contact the number below. ??For patients who have questions please contact the health healthcare associate that requested your imaging first. ? Electronically signed by: González Foy MD, [facility] ([phone]), at 03/01/2024 4:55 PM Narrative 03/01/2024 4:55 [...] who have questions please contactthe health healthcare associate that requested your imaging first. Electronically signed by: González Foy MD, [facility]([phone]), at 03/01/2024 4:55 PM Unknown IMG DX ORDERABLES * XR Shoulder Left (Generic) (03/01/2024 1:41 PM EDT) PT CLASS O RAD ADMITDTTM [id number] RAD PT RAD INFO [id number]^[place] N^BASSEM RAD EXAM DESC XRSHDL^XR SHOULDER 2V OR MORE LT^RIS [facility] WORKSTATION ID [id number] [facility] Anatomical Region Laterality Modality Shoulder Left Radiographic Estela ging Impressions 03/01/2024 4:54 PM EDT Left shoulder arthroplasty without complications. Thank you for letting us participate in the care of this patient. ??If you are a health care provider and have any questions regarding this report, please contact the number below. ??For patients who have questions please contact the health healthcare associate that requested your imaging first. ? Electronically signed by: González Foy MD, [facility] ([phone]), at 03/01/2024 4:54 PM Narrative 03/01/2024 4:54 [...] who have questions please contactthe health healthcare associate that requested your imaging first. Electronically signed by: González Foy MD, [facility]([phone]), at 03/01/2024 4:54 PM Unknown IMG DX ORDERABLES from Last 3 Months
--- OUTSIDE RECORDS SUMMARY | 2024-05-17 14:56 | XMS_ITS ---
Author Organization Unknown Address [address] [place] [address] [phone] Phone Care Team Providers Care Pot Runner Name Role Phone KINGSLEY MATHEW Attending Unavailable CHRISTINA MIMS Primary Unavailable Results CT FACIAL OR SINUS WO CONTRA ST - Completed: 06/09/2022 09:14 LOINC: [facility] [place], [place] [address] PACS SHIP CEILER REPORT Patient Name: ALEX CRESPO MRN: Sex: : Age: [id number] M 1945 76 Account: Accession: Admit: StayType: [id number] 06/09/2022 O/P Ordered: Order ID: Submitted: Ordering Provider: 06/09/2022 08:[id number] [facility] Completed: Technologist: Resulted: 06/09/2022 09:14 [...] em Smoking History Former smoker 1964 12/19/[address] Sex Male Hospital Discharge Instructions [...] System No Known Drug Allergies Moderate Active 883802456 SNOMED-CT Plan of Treatment X-RAY 05/18/2024 PRE-OP [...]
--- OUTSIDE RECORDS SUMMARY | 2024-05-17 14:56 | XMS_ITS ---
Author Organization Unknown Address [address] [place] [address] [phone] Phone Care Team Providers Care Risk Control Representative Name Role Phone MAGGIE Varma Attending Unavailable CHRISTINA MIMS Primary Unavailable Results XR SHOULDER 2V OR MORE LT* - Completed: 07/24/2022 09:29 LOINC: [place], [place] [address] PACS EDGE STITCHER REPORT Patient Name: ALEX CRESPO MRN: Sex: : Age: [id number] M 1945 76 Account: Accession: Admit: StayType: [id number] 07/24/2022 CLINIC Ordered: Order ID: Submitted: Ordering Provider: 07/24/2022 09:20 [id number] [facility] T[facility] SERRANO Completed: Technologist: Resulted: 07/24/2022 09:29 [facility] 07/24/2022 15:39 Study Description: XR SHOULDER 2V [...] MORE RT* - Completed: 07/24/2022 09:29 LOINC: [facility] [place], [place] [address] PACS EDGE STITCHER REPORT Patient Name: ALEX CRESPO MRN: Sex: : Age: [id number] M 1945 Account: Accession: Admit: StayType: [id number] 07/24/2022 CLINIC Ordered: Order ID: Submitted: Ordering Provider: 07/24/2022 09:20 [id number] [facility] SERR[facility]O Completed: Technologist: Resulted: 07/24/2022 09:29 [facility] 07/24/2022 15:40 Study Description: XR SHOULDER 2V [...] em Smoking History Former smoker 1964 12/19/[address] Sex Male Hospital Discharge Instructions [...] System No Known Drug Allergies Moderate Active 645188370 SNOMED-CT Plan of Treatment X-RAY 05/18/2024 PRE-OP TESTING 05/18/2024 CT UPPER EXTREM W/O CONTRAST 08/10/2023 PRE-OP TESTING 08/10/2023 CT UPPER EXTREM W/O CONTRAST 03/26/2023 PRE-OP TESTING 03/26/2023 NM BONE SCAN WHOLE BODY 03/25/2023 US GUIDED NEEDLE BIOPSY 03/04/2023 CT FACIAL/SINUS W/O CONTRAS 06/09/2022 Encounters Encounter Diagnosis Start Date Code Code Sys tem 07/24/2022 [id number] SNOMED-CT Personal Care Team Section Performer Name Performer Role Active Date Inactive Da te
--- OUTSIDE RECORDS SUMMARY | 2024-05-17 14:57 | XMS_ITS ---
Author Organization Unknown Address [address] [place] [address] [phone] Phone Care Team Providers Care Behavioral Health Director Name Role Phone HELLEN Correa Attending Unavailable CHERYL Hutchinson Primary Unavailable Social History Type Status Start Date End Date Code Code Syst em Smoking History Former smoker 1964 12/19/[address] Sex Male Hospital Discharge Instructions [...] System No Known Drug Allergies Moderate Active 029501969 SNOMED-CT Plan of Treatment X-RAY 05/18/2024 PRE-OP TESTING 05/18/2024 CT UPPER EXTREM W/O CONTRAST 08/10/2023 PRE-OP TESTING 08/10/2023 CT UPPER EXTREM W/O CONTRAST 03/26/2023 PRE-OP TESTING 03/26/2023 NM BONE SCAN WHOLE BODY 03/25/2023 US GUIDED NEEDLE BIOPSY 03/04/2023 CT FACIAL/SINUS W/O CONTRAS 06/09/2022 Encounters Encounter Diagnosis Start Date Code Code Sys tem Idiopathic osteoarthritis 03/23/2023 617080362 SN OMED-CT Personal Care Team Section Performer Name Performer Role Active Date Inactive Da te
--- OUTSIDE RECORDS SUMMARY | 2024-05-17 14:57 | XMS_ITS ---
Author Organization Unknown Address [address] [place] [address] [phone] Phone Care Team Providers Care Specimen Boss Name Role Phone BRETT Harmon Attending Unavailable CHERYL Hutchinson Primary Unavailable Results US PROSTATE BIOPSY* - Comple marion: 03/04/2023 14:03 LOINC: [place], [place] [address] PACS RESEARCH LAB ASSISTANT REPORT Patient Name: ALEX CRESPO MRN: Sex: : Age: [id number] M 1945 77 Account: Accession: Admit: StayType: [id number] 03/04/2023 O/P Ordered: Order ID: Submitted: Ordering Provider: 03/04/2023 13:36 [id number] K[facility] WOO WEST Completed: Technologist: Resulted: 03/04/2023 15:10 [facility] 03/04/2023 15:59 Study Description: US PROSTATE BIOPSY Study Reason: ELEVATED PSA TECHNIQUE: Transrectal ultrasound guidance provided for ultrasound-guided prostate biopsy COMPARISON: No exams were available for comparison FINDINGS: Ultrasound-guided biopsy. IMPRESSION: As above. Report Digitally Signed by Asa Walker on 03/04/2023 03:59 PM EDT 03/04/23.2048.[facility].to CHERYL KINNEY via fax Social History Type Status Start Date End Date Code Code Syst em Smoking History Former smoker 1964 12/19/[address] Sex Male Hospital Discharge Instructions [...] System No Known Drug Allergies Moderate Active 285158191 SNOMED-CT Plan of Treatment X-RAY 05/18/2024 PRE-OP [...]
--- OUTSIDE RECORDS SUMMARY | 2024-05-17 14:57 | XMS_ITS ---
Author Organization Unknown Address [address] [place] [address] [phone] Phone Care Team Providers Care Automatic Fabric Cutter Name Role Phone BRETT Harmon Attending Unavailable CHERYL Hutchinson Primary Unavailable Results PSA DIAG PROSTATE SPECIFIC A NTIGEN * - Collect Date/Time: 01/27/2023 12:07 [facility] ID: [id number] [address] [place], [place], [address] LOINC: 2857-1 Test Value Unit Reference Range Code Code System Flag PSA 27.92 ng/mL L=0.00 H=6.50 2857-1 LOINC H Social History Type Status Start Date End Date Code Code Syst em Smoking History Former smoker 1964 12/19/[address] Sex Male Hospital Discharge Instructions [...] System No Known Drug Allergies Moderate Active 896330007 SNOMED-CT Plan of Treatment X-RAY 05/18/2024 PRE-OP [...]
--- OUTSIDE RECORDS SUMMARY | 2024-05-17 14:58 | XMS_ITS ---
Author Organization Unknown Address [address] [place] [address] [phone] Phone Care Team Providers Care Instructor Extension Work Name Role Phone BRETT Harmon Attending Unavailable CHERYL Hutchinson Primary Unavailable Results XR LS SPINE 4V OR MORE - Com pleted: 04/01/2023 08:29 LOINC: [facility] RAD[facility] [place], [place] [address] PACS MEETING/EVENT PLANNER REPORT Patient Name: ALEX CRESPO MRN: Sex: : Age: [id number] M 1945 77 Account: Accession: Admit: StayType: [id number] 04/01/2023 O/P Ordered: Order ID: Submitted: Ordering Provider: 04/01/2023 08:02 [id number] WOO WEIR Completed: Technologist: Resulted: 04/01/2023 08:29 [...] em Smoking History Former smoker 1964 12/19/[address] Sex Male Hospital Discharge Instructions [...] System No Known Drug Allergies Moderate Active 707516618 SNOMED-CT Plan of Treatment X-RAY 05/18/2024 PRE-OP TESTING 05/18/2024 CT UPPER EXTREM W/O CONTRAST 08/10/2023 PRE-OP TESTING 08/10/2023 CT UPPER EXTREM W/O CONTRAST 03/26/2023 PRE-OP TESTING 03/26/2023 NM BONE SCAN WHOLE BODY 03/25/2023 US GUIDED NEEDLE BIOPSY 03/04/2023 CT FACIAL/SINUS W/O CONTRAS 06/09/2022 Encounters Encounter Diagnosis Start Date Code Code Sys tem Degeneration of lumbar intervertebral disc 04/01/2023 32110341 SNOMED-CT Personal Care Team Section Performer Name Performer Role Active Date Inactive Da te
--- OUTSIDE RECORDS SUMMARY | 2024-05-17 14:58 | XMS_ITS ---
Author Organization Unknown Address [address] [place] [address] [phone] Phone Care Team Providers Care Math And Physics Instructor Name Role Phone BRETT Harmon Attending Unavailable CHERYL Hutchinson Primary Unavailable Results NM BONE SCAN WHOLE BODY - Co mpleted: 03/25/2023 16:06 LOINC: [facility] [place], [place] [address] PACS TIE IN HAND REPORT Patient Name: ALEX CRESPO MRN: Sex: : Age: [id number] M 1945 77 Account: Accession: Admit: StayType: [id number] O/P Ordered: Order ID: Submitted: Ordering Provider: 03/25/2023 12:51 [id number] WOO INMAN Completed: Technologist: Resulted: 03/25/2023 16:06 [...] em Smoking History Former smoker 1964 12/19/[address] Sex Male Hospital Discharge Instructions Should [...] System No Known Drug Allergies Moderate Active 656857077 SNOMED-CT Plan of Treatment X-RAY 05/18/2024 PRE-OP [...]
--- OUTSIDE RECORDS SUMMARY | 2024-05-17 14:58 | XMS_ITS ---
Author Organization Unknown Address [address] [place] [address] [phone] Phone Care Team Providers Care Psychiatry Teacher Name Role Phone HELLEN Correa Attending Unavailable CHERYL Hutchinson Primary Unavailable Results CBC W/ DIFFERENTIAL* - Colle ct Date/Time: 03/26/2023 08:15 [facility] ID: [id number] [address] [place] [address], [address] LOINC: 79962-6 Test Value Unit Reference Range Code Code System Flag WBC 4.27 th/cmm L=5.00 H=10.00 6690-2 LOINC L NEUT % 54.6 % L=40.0 H=80.0 LYMPH % 23.4 % L=10.0 H=50.0 MONO % 13.1 % L=2.0 H=12.0 57143-5 LOINC H EOS % 8.0 % L=0.0 H=8.0 BASO % 0.7 % L=0.0 H=3.0 IG % 0.2 % L=0.0 H=1.1 2514-8 LOINC NRBC % 0.0 % L=0.0 H=0.0 11061-8 LOINC NEUT abs count 2.3 th/cmm L=1.6 H=8.4 751-8 LOINC LYMPH abs count 1.0 th/cmm L=1.5 H=4.0 731-0 LOINC L MONO abs count 0.6 th/cmm L=0.2 H=1.0 742-7 LOINC EOS abs count 0.3 th/cmm L=0.0 H=0.5 711-2 LOINC BASO abs count 0.0 th/cmm L=0.0 H=0.2 704-7 LOINC IG abs count 0.0 th/cmm L=0.0 H=0.1 90473-4 LOINC NRBC abs count 0.0 mil/cmm L=0.0 H=0.0 30716-7 LOINC RBC 4.63 mil/cmm L=4.30 H=6.20 789-8 [...] RATE* - Collect Date/Felipe e: 03/26/2023 08:15 [facility] ID: [id number] [address] [place] [address], [address] LOINC: 4537-7 Test Value Unit Reference Range Code Code System Flag SED. RATE < 1 mm/hr L=0 H=20 4537-7 LOINC MRSA/MSSA NASAL COMPLETE BY PCR* - Collect Date/Time: 03/26/2023 08:15 [facility] ID: [id number] [address] [place] [address], [id number] LOINC: Test Value Unit Reference Range Code Code System Flag MRSA NEGATIVE Normal: Negative 93042-7 LOINC MSSA NEGATIVE Normal: Negative C REACTIVE PROTEIN HIGH SENS ITIVITY* - Collect Date/Time: 03/26/2023 08:15 [facility] ID: [id number] [address] [place] [address], [address] LOINC: 99725-2 Test Value Unit Reference Range Code Code System Flag CRP-HIGH SENS. 3.27 mg/L L=0.00 H=3.00 96567-5 LOINC H CRP-HIGH SENS 0.33 mg/dL L=0.00 H=0.30 35343-6 LOINC H BASIC METABOLIC PANEL (BMP) - Collect Date/Time: 03/26/2023 08:15 [facility] ID: [id number] [address] [place], [place], [address] LOINC: 83915-2 Test Value Unit Reference Range Code Code [...] H=34 2028-9 LOINC ANION GAP 2.7 mmol/L 26084-5 LOINC CALCIUM SERUM 8.5 mg/dL L=8.2 H=10.2 10617-3 LOINC AGE 77 years eGFR (non-Afr.Amer.) 73 mL/min 38344-6 LOINC eGFR (Afr-Senegalese) 89 mL/min 89800-[address] UPPER EXT WO CONTRAST RT - Completed: 03/26/2023 08:29 LOINC: [facility] RADIOLOG[facility] [place], [place] [address] PACS MERCHANDISE BUYER REPORT Patient Name: ALEX CRESPO Avani MRN: Sex: : Age: [id number] M 1945 77 Account: Accession: Admit: StayType: [id number] O/P Ordered: Order ID: Submitted: Ordering Provider: 03/26/2023 08:04 [id number] [facility] JULIÁN MACEDO Completed: Technologist: Resulted: 03/26/2023 08:29 [...] em Smoking History Former smoker 1964 12/19/[address] Sex Male Hospital Discharge Instructions [...] System No Known Drug Allergies Moderate Active 074821172 SNOMED-CT Plan of Treatment X-RAY 05/18/2024 PRE-OP TESTING 05/18/2024 CT UPPER EXTREM W/O CONTRAST 08/10/2023 PRE-OP TESTING 08/10/2023 CT UPPER EXTREM W/O CONTRAST 03/26/2023 PRE-OP TESTING 03/26/2023 NM BONE SCAN WHOLE BODY 03/25/2023 US GUIDED NEEDLE BIOPSY 03/04/2023 CT FACIAL/SINUS W/O CONTRAS 06/09/2022 Encounters Encounter Diagnosis Start Date Code Code Sys tem Pre-surgery evaluation 03/26/2023 [id number] [facility] Personal Care Team Section Performer Name Performer Role Active Date Inactive Da abbey
--- OUTSIDE RECORDS SUMMARY | 2024-05-17 14:58 | XMS_ITS ---
Author Organization Unknown Address [address] [place] [address] [phone] Phone Care Team Providers Care Abstract Maker Name Role Phone Unavailable Xwatchlist Unavailable HELLEN Correa Attending Unavailable ANNE-MARIE SIMMONS CRNA Unavailable EFREN LUEVANO Physician Trial Management Associate Unavailable CHERYL Hutchinson Primary Unavailable Results XR SHOULDER 2V OR MORE RT* - Completed: 04/16/2023 10:16 [facility]: [facility] [place], [place] [address] PACS LAWN SERVICE MANAGER REPORT Patient Name: ALEX CRESPO MRN: Sex: : Age: [id number] M 1945 77 Account: Accession: Admit: StayType: [id number] 04/16/2023 O/P Ordered: Order ID: Submitted: Ordering Provider: 04/16/2023 08:29 [id number] JULIÁN FARNSWORTH Completed: Technologist: Resulted: 04/16/2023 10:16 [...] em Smoking History Former smoker 1964 12/19/[address] Sex Male Vital Signs Vital Sign Value Unit Dawson Value Dawson Unit Date/Time Recent/Initial? Code Code System Body Mass Index 24.19 kg/m2 04/13/2023 11:37 Initial 14022 -5 LOINC Systolic Blood Pressure 130 mm[Hg] 04/16/2023 09:58 Initial 8480- 6 LOINC Diastolic Blood Pressure 71 mm[Hg] 04/16/2023 09:58 Initial 8462- 4 LOINC Body Surface Area 2.04 m2 04/13/2023 11:37 Initial 3140- 1 LOINC Height 183.896 0 cm 72.40 in 04/13/2023 11:37 Initial 8302- 2 LOINC O2 Saturation 97 % 2022 09:58 Initial 97746 -5 LOINC Pulse 63.0 /min 04/16/2023 09:58 Initial 8867- 4 LOINC Respiration 19 /min 04/16/20 09:58 Initial 9279- 1 LOINC Temperature 35.4 Alice 95.7 F 04/16/20 09:58 Initial 8310- 5 LOINC Weight 81.82 kg 180.38 lbs 04/13/2023 11:37 Initial 01110 -7 LOINC Hospital Discharge Instructions Should you have any questions prior to discharge, please contact a member of your healthcare team. If you have left the hospital and have any questions, please contact your primary care physician. Reason For Referral No Data Found Procedures Procedure Name Date Status Code Code Sanya m Arthroplasty, Glenohumeral J oint; Total Shoulder 04/16/2023 completed 87801 CPT Injection Anesthetic Agent a nd/or Steroid; Brachial Plexus Including Imaging Guidance When Performed 04/16/2023 completed 73199 CPT Anesthesia, Open/Surg Arthro scopic Proc, Humeral Head & Neck, Sternoclav/Ac/Shoulder Jt; Replacemen 04/16/2023 completed 20378 CPT Allergies and Adverse Reactions Allergy Substance Reaction Severity Start Date Concern Status Co de Code System No Known Drug Allergies Moderate Active 182061158 SNOMED-CT Plan of Treatment X-RAY 05/18/2024 PRE-OP [...]
--- OUTSIDE RECORDS SUMMARY | 2024-05-17 14:59 | XMS_ITS ---
Author Organization Unknown Address [address] [place] [address] [phone] Phone Care Team Providers Care Brilliandeer Lopper Name Role Phone HELLEN Correa Attending Unavailable CHERYL Hutchinson Primary Unavailable Social History Type Status Start Date End Date Code Code Syst em Smoking History Former smoker 1964 12/19/[address] Sex Male Hospital Discharge Instructions [...] System No Known Drug Allergies Moderate Active 144265144 SNOMED-CT Plan of Treatment X-RAY 05/18/2024 PRE-OP [...]
--- OUTSIDE RECORDS SUMMARY | 2024-05-17 14:59 | XMS_ITS ---
Author Organization Unknown Address [address] [place] [address] [phone] Phone Care Team Providers Care Industrial Technician Name Role Phone HELLEN Correa Attending Unavailable CHERYL Hutchinson Primary Unavailable Results XR SHOULDER 2V OR MORE LT* - Completed: 08/03/2023 13:23 LOINC: RADIOLOGY [place], [place] [address] PACS CONTACT ACID PLANT OPERATOR HELPER REPORT Patient Name: ALEX CRESPO MRN: Sex: : Age: [id number] M 1945 77 Account: Accession: Admit: StayType: [id number] 08/03/2023 CLINIC Ordered: Order ID: Submitted: Ordering Provider: 08/03/2023 12:59 [id number] JULIÁN AMBROSE Completed: Technologist: Resulted: 08/03/2023 12:59 [...] MORE RT* - Completed: 08/03/2023 13:23 LOINC: RADIOLOGY [place], [place] [address] PACS CONTACT ACID PLANT OPERATOR HELPER REPORT Patient Name: ALEX CRESPO MRN: Sex: : Age: [id number] M 1945 Account: Accession: Admit: StayType: [id number] 08/03/2023 CLINIC Ordered: Order ID: Submitted: Ordering Provider: 08/03/2023 13:13 [id number] JULIÁN AMBROSE Completed: Technologist: Resulted: 08/03/2023 13:23 [...] post surgical changes. Report Digitally Signed by rBian Milan on 08/03/2023 01:23 PM EST Social History Type Status Start Date End Date Code Code Syst em Smoking History Former smoker 1964 12/19/[id number] Sex Male Hospital Discharge Instructions [...] System No Known Drug Allergies Moderate Active 913240499 SNOMED-CT Plan of Treatment X-RAY 05/18/2024 PRE-OP TESTING 05/18/2024 CT UPPER EXTREM W/O CONTRAST 08/10/2023 PRE-OP TESTING 08/10/2023 CT UPPER EXTREM W/O CONTRAST 03/26/2023 PRE-OP TESTING 03/26/2023 NM BONE SCAN WHOLE BODY 03/25/2023 US GUIDED NEEDLE BIOPSY 03/04/2023 CT FACIAL/SINUS W/O CONTRAS 06/09/2022 Encounters Encounter Diagnosis Start Date Code Code Sys tem 08/03/2023 [id number] SNOMED-CT Personal Care Team Section Performer Name Performer Role Active Date Inactive Da te
--- OUTSIDE RECORDS SUMMARY | 2024-05-17 14:59 | XMS_ITS ---
Author Organization Unknown Address [address] [place] [address] [phone] Phone Care Team Providers Care Watch Dial Stoner Name Role Phone HELLEN Correa Attending Unavailable CHERYL Hutchinson Primary Unavailable Results XR SHOULDER 2V OR MORE RT* - Completed: 04/27/2023 09:10 [facility] RAD[facility]Y [place], [place] [address] PACS FASHION ILLUSTRATOR REPORT Patient Name: ALEX CRESPO MRN: Sex: : Age: [id number] M 1945 77 Account: Accession: Admit: StayType: [id number] 04/27/2023 CLINIC Ordered: Order ID: Submitted: Ordering Provider: 04/27/2023 09:05 [id number] JULIÁN AMBROSE Completed: Technologist: Resulted: 04/27/2023 09:10 MALIK 04/27/2023 [...] em Smoking History Former smoker 1964 12/19/[id number] Sex Male Hospital Discharge Instructions [...] System No Known Drug Allergies Moderate Active 872953579 SNOMED-CT Plan of Treatment X-RAY 05/18/2024 PRE-OP TESTING 05/18/2024 CT UPPER EXTREM W/O CONTRAST 08/10/2023 PRE-OP TESTING 08/10/2023 CT UPPER EXTREM W/O CONTRAST 03/26/2023 PRE-OP TESTING 03/26/2023 NM BONE SCAN WHOLE BODY 03/25/2023 US GUIDED NEEDLE BIOPSY 03/04/2023 CT FACIAL/SINUS W/O CONTRAS 06/09/2022 Encounters Encounter Diagnosis Start Date Code Code Sys tem Aftercare 04/27/2023 [id number] SNOMED-CT Personal Care Team Section Performer Name Performer Role Active Date Inactive Da te
--- OUTSIDE RECORDS SUMMARY | 2024-05-17 14:59 | XMS_ITS ---
Author Organization Unknown Address [address] [place] [address] [phone] Phone Care Team Providers Care [facility] Name Role Phone HELLEN Correa Attending Unavailable CHERYL Hutchinson Primary Unavailable Results SED RATE* - Collect Date/Felipe e: 08/10/2023 14:30 [facility] ID: [id number] [address] [place] [address], [address] LOINC: 4537-7 Test Value Unit Reference Range Code Code System Flag SED. RATE 8 mm/hr L=0 H=20 4537-7 LOINC MRSA/MSSA NASAL COMPLETE BY PCR* - Collect Date/Time: 08/10/2023 14:30 [facility] ID: [id number] [address] [place] [address], [id number] LOINC: Test Value Unit Reference Range Code Code System Flag MRSA NEGATIVE Normal: Negative 54822-9 LOINC MSSA NEGATIVE Normal: Negative CBC W/ DIFFERENTIAL* - Colle ct Date/Time: 08/10/2023 14:30 [facility] ID: [id number] [address] [place] [address], [address] LOINC: 24692-3 Test Value Unit Reference Range Code Code System Flag WBC 3.17 th/cmm L=5.00 H=10.00 6690-2 LOINC L NEUT % 49.9 % L=40.0 H=80.0 LYMPH % 26.5 % L=10.0 H=50.0 MONO % 15.8 % L=2.0 H=12.0 25076-9 LOINC H EOS % 6.9 % L=0.0 H=8.0 BASO % 0.6 % L=0.0 H=3.0 IG % 0.3 % L=0.0 H=1.1 2514-8 LOINC NRBC % 0.0 % L=0.0 H=0.0 32435-3 LOINC NEUT abs count 1.6 th/cmm L=1.6 H=8.4 751-8 LOINC LYMPH abs count 0.8 th/cmm L=1.5 H=4.0 731-0 LOINC L MONO abs count 0.5 th/cmm L=0.2 H=1.0 742-7 LOINC EOS abs count 0.2 th/cmm L=0.0 H=0.5 711-2 LOINC BASO abs count 0.0 th/cmm L=0.0 H=0.2 704-7 LOINC IG abs count 0.0 th/cmm L=0.0 H=0.1 29170-2 LOINC NRBC abs count 0.0 mil/cmm L=0.0 H=0.0 92360-6 LOINC RBC 4.15 mil/cmm L=4.30 H=6.20 789-8 [...] SENS ITIVITY* - Collect Date/Time: 08/10/2023 14:30 [facility] ID: [id number] [address] [place], [place], [address] LOINC: 44570-4 Test Value Unit Reference Range Code Code System Flag CRP-HIGH SENS. 7.47 mg/L L=0.00 H=3.00 46918-9 LOINC H CRP-HIGH SENS 0.75 mg/dL L=0.00 H=0.30 61972-1 LOINC H BASIC METABOLIC PANEL (BMP) - Collect Date/Time: 08/10/2023 14:30 [facility] ID: [id number] [address] [place], [place], [address] LOINC: 45063-6 Test Value Unit Reference Range Code Code [...] H=34 2028-9 LOINC ANION GAP 8.3 mmol/L 55230-0 LOINC CALCIUM SERUM 9.2 mg/dL L=8.2 H=10.2 55875-8 LOINC AGE 77 years eGFR (non-Afr.Amer.) 82 mL/min 93649-5 LOINC eGFR (Afr-Algerian) 99 mL/min 22525-[address] UPPER EXT WO CONTRAST LT - Completed: 08/10/2023 15:04 LOINC: [facility] RADIOLOGY [place], [place] [address] PACS RENAL DIALYSIS TECHNICIAN REPORT Patient Name: ALEX CRESPO Avani MRN: Sex: : Age: [id number] M 1945 77 Account: Accession: Admit: StayType: [id number] O/P Ordered: Order ID: Submitted: Ordering Provider: 08/10/2023 14:52 [id number] JULIÁN WEST Completed: Technologist: Resulted: 08/10/2023 15:04 [...] em Smoking History Former smoker 1964 12/19/[address] Sex Male Hospital Discharge Instructions [...] System No Known Drug Allergies Moderate Active 064188269 SNOMED-CT Plan of Treatment X-RAY 05/18/2024 PRE-OP [...]
--- OUTSIDE RECORDS SUMMARY | 2024-05-17 15:00 | XMS_ITS ---
Author Organization Unknown Address [address] [place] [address] [phone] Phone Care Team Providers Care Validation Technician Name Role Phone HELLEN Correa Attending Unavailable ANNE-MARIE SIMMONS CONTINUOUS IMPROVEMENT LEAD Unavailable EFREN LUEVANO Physician Life Skills Trainer Unavailable CHERYL Hutchinson Primary Unavailable Results XR SHOULDER 2V OR MORE LT* - Completed: 09/09/2023 09:36 LOINC: [facility] RADIOLOGY [place], [place] [address] PACS RADIO MECHANIC HELPER REPORT Patient Name: ALEX CRESPO MRN: Sex: : Age: [id number] M 1945 77 Account: Accession: Admit: StayType: [id number] 09/09/2023 O/P Ordered: Order ID: Submitted: Ordering Provider: 09/09/2023 01:58 [id number] JULIÁN PEPPER Completed: Technologist: Resulted: 09/09/2023 09:36 [...] em Smoking History Former smoker 1964 12/19/[address] Sex Male Vital Signs Vital Sign Value Unit Cass Value Cass Unit Date/Time Recent/Initial? Code Code System Body Mass Index 25.11 kg/m2 08/26/2023 11:56 Initial 55336 -5 LOINC Systolic Blood Pressure 124 mm[Hg] 09/09/2023 10:58 Initial 8480- 6 LOINC Diastolic Blood Pressure 64 mm[Hg] 09/09/2023 10:58 Initial 8462- 4 LOINC Body Surface Area 1.98 m2 08/26/2023 11:56 Initial 3140- 1 LOINC Height 177.800 0 cm 70.00 in 08/26/2023 11:56 Initial 8302- 2 LOINC O2 Saturation 95 % 2023 10:58 Initial 75460 -5 LOINC Pulse 59.0 /min 09/09/2023 10:58 Initial 8867- 4 LOINC Respiration 19 /min 09/09/19 10:58 Initial 9279- 1 LOINC Temperature 36.0 Alice 96.8 F 09/09/19 10:58 Initial 8310- 5 LOINC Weight 79.38 kg 175.00 lbs 08/26/2023 11:56 Initial 93856 -7 LOINC Hospital Discharge Instructions Should you have any questions prior to discharge, please contact a member of your healthcare team. If you have left the hospital and have any questions, please contact your primary care physician. Reason For Referral No Data Found Procedures Procedure Name Date Status Code Code Syste m Arthroplasty, Glenohumeral J oint; Total Shoulder 09/09/2023 completed 31434 CPT Injection Anesthetic Agent a nd/or Steroid; Brachial Plexus Including Imaging Guidance When Performed 09/09/2023 completed 21309 CPT Anesthesia, Open/Surg Arthro scopic Proc, Humeral Head & Neck, Sternoclav/Ac/Shoulder Jt; Replacemen 09/09/2023 completed 25727 CPT Allergies and Adverse Reactions Allergy Substance Reaction Severity Start Date Concern Status Co de Code System No Known Drug Allergies Moderate Active 179833766 SNOMED-CT Plan of Treatment X-RAY 05/18/2024 PRE-OP [...]
--- OUTSIDE RECORDS SUMMARY | 2024-05-17 15:00 | XMS_ITS ---
Author Organization Unknown Address [address] [place] [address] [phone] Phone Care Team Providers Care Director Nursing Service Name Role Phone HELLEN Correa Attending Unavailable CHERYL Hutchinson Primary Unavailable Social History Type Status Start Date End Date Code Code Syst em Smoking History Former smoker 1964 12/19/[address] Sex Male Hospital Discharge Instructions [...] System No Known Drug Allergies Moderate Active 810073154 SNOMED-CT Plan of Treatment X-RAY 05/18/2024 PRE-OP TESTING 05/18/2024 CT UPPER EXTREM W/O CONTRAST 08/10/2023 PRE-OP TESTING 08/10/2023 CT UPPER EXTREM W/O CONTRAST 03/26/2023 PRE-OP TESTING 03/26/2023 NM BONE SCAN WHOLE BODY 03/25/2023 US GUIDED NEEDLE BIOPSY 03/04/2023 CT FACIAL/SINUS W/O CONTRAS 06/09/2022 Encounters Encounter Diagnosis Start Date Code Code Sys tem Pre-surgery evaluation 08/27/2023 711358712 SNOME D-CT Personal Care Team Section Performer Name Performer Role Active Date Inactive Da te
--- OUTSIDE RECORDS SUMMARY | 2024-05-17 15:01 | XMS_ITS ---
Author Organization Unknown Address [address] [place] [address] [phone] Phone Care Team Providers Care Advanced Manufacturing Engineer Name Role Phone HELLEN Correa Attending Unavailable CHERYL Hutchinson Primary Unavailable Results XR SHOULDER 2V OR MORE LT* - Completed: 09/22/2023 10:02 [facility]: [place], [place] [address] PACS STRIPPER LATEX REPORT Patient Name: ALEX CRESPO MRN: Sex: : Age: [id number] M 1945 77 Account: Accession: Admit: StayType: [id number] 09/22/2023 CLINIC Ordered: Order ID: Submitted: Ordering Provider: 09/22/2023 09:55 [id number] JULIÁN VICKERS Completed: Technologist: Resulted: 09/22/2023 10:02 [...] em Smoking History Former smoker 1964 12/19/[address] Sex Male Hospital Discharge Instructions [...] System No Known Drug Allergies Moderate Active 351411417 SNOMED-CT Plan of Treatment X-RAY 05/18/2024 PRE-OP TESTING 05/18/2024 CT UPPER EXTREM W/O CONTRAST 08/10/2023 PRE-OP TESTING 08/10/2023 CT UPPER EXTREM W/O CONTRAST 03/26/2023 PRE-OP TESTING 03/26/2023 NM BONE SCAN WHOLE BODY 03/25/2023 US GUIDED NEEDLE BIOPSY 03/04/2023 CT FACIAL/SINUS W/O CONTRAS 06/09/2022 Encounters Encounter Diagnosis Start Date Code Code Sys tem Follow-up orthopedic assessment 09/22/2023 329101782 SNOMED-CT Personal Care Team Section Performer Name Performer Role Active Date Inactive Da abbey
--- OUTSIDE RECORDS SUMMARY | 2024-05-17 15:01 | XMS_ITS ---
Author Organization Unknown Address [address] [place] [address] [phone] Phone Care Team Providers Care Risk Control Representative Name Role Phone DAX YONI Vargas Attending Unavailable CHERYL Hutchinson Primary Unavailable Social History Type Status Start Date End Date Code Code Syst em Smoking History Former smoker 1964 12/19/[address] Sex Male Hospital Discharge Instructions [...] System No Known Drug Allergies Moderate Active 476824665 SNOMED-CT Plan of Treatment X-RAY 05/18/2024 PRE-OP TESTING 05/18/2024 CT UPPER EXTREM W/O CONTRAST 08/10/2023 PRE-OP TESTING 08/10/2023 CT UPPER EXTREM W/O CONTRAST 03/26/2023 PRE-OP TESTING 03/26/2023 NM BONE SCAN WHOLE BODY 03/25/2023 US GUIDED NEEDLE BIOPSY 03/04/2023 CT FACIAL/SINUS W/O CONTRAS 06/09/2022 Encounters Encounter Diagnosis Start Date Code Code Sys tem Idiopathic osteoarthritis 11/25/2023 397656951 SN OMED-CT Personal Care Team Section Performer Name Performer Role Active Date Inactive Da te
--- OUTSIDE RECORDS SUMMARY | 2024-05-17 15:01 | XMS_ITS ---
Author Organization Unknown Address [address] [place] [address] [phone] Phone Care Team Providers Care Manager Medicare Marketing Name Role Phone DAX Vargas Attending Unavailable CHERYL Hutchinson Primary Unavailable Results XR KNEE BILAT 4V* - Complete d: 11/18/2023 07:48 LOINC: [facility] RADIOLOGY [place], [place] [address] [facility] PACS SOLE STAPLER WELT REPORT Patient Name: ALEX CRESPO MRN: Sex: : Age: [id number] O 1945 77 Account: Accession: Admit: StayType: [id number] 11/18/2023 O Ordered: Order ID: Submitted: Ordering Provider: 11/18/2023 07:35 [id number] LB YONI VERDUZCO Completed: Technologist: Resulted: 11/18/2023 [...] em Smoking History Former smoker 1964 12/19/[address] Sex Male Hospital Discharge Instructions [...] System No Known Drug Allergies Moderate Active 006570832 SNOMED-CT Plan of Treatment X-RAY 05/18/2024 PRE-OP TESTING 05/18/2024 CT UPPER EXTREM W/O CONTRAST 08/10/2023 PRE-OP TESTING 08/10/2023 CT UPPER EXTREM W/O CONTRAST 03/26/2023 PRE-OP TESTING 03/26/2023 NM BONE SCAN WHOLE BODY 03/25/2023 US GUIDED NEEDLE BIOPSY 03/04/2023 CT FACIAL/SINUS W/O CONTRAS 06/09/2022 Encounters Encounter Diagnosis Start Date Code Code Sys tem Idiopathic osteoarthritis 11/18/2023 833780665 SN OMED-CT Personal Care Team Section Performer Name Performer Role Active Date Inactive Da te
--- OUTSIDE RECORDS SUMMARY | 2024-05-17 15:01 | XMS_ITS ---
Author Organization Unknown Address [address] [place] [address] [phone] Phone Care Team Providers Care Convex Grinder Operator Name Role Phone HELLEN Correa Attending Unavailable CHERYL Hutchinson Primary Unavailable Social History Type Status Start Date End Date Code Code Syst em Smoking History Former smoker 1964 12/19/[address] Sex Male Hospital Discharge Instructions [...] System No Known Drug Allergies Moderate Active 053671247 SNOMED-CT Plan of Treatment X-RAY 05/18/2024 PRE-OP [...]
--- OUTSIDE RECORDS SUMMARY | 2024-05-17 15:02 | XMS_ITS ---
Author Organization [facility] Address [address] [place] [address] Care Team Providers Care Pot Feeder Name Role Phone Almita Raza Primary Care Provider Katharine Green [phone] REASON FOR VISIT Bone Scan Encounters Encounter Location Date Provider Diagnosis [facility] [address] [place] [address] 03/19/2023 Katharine Beasley PLAN OF TREATMENT No Information Progress Notes * ALEX CRESPO DDOB: 6 (77 yo M)Acc No.[id number]:03/19/2023 Patient:??ALEX CRESPO :1945?Age:77 Y?Sex:Marily valdez Address:[place], [address] * true * Date:??
--- OUTSIDE RECORDS SUMMARY | 2024-05-17 15:02 | XMS_ITS ---
Author Organization Unknown Address [address] [place] [address] [phone] Phone Care Team Providers Care Online Marketing Strategist Name Role Phone LAURYN Correa Attending Unavailable CHERYL Hutchinson Primary Unavailable Social History Type Status Start Date End Date Code Code Syst em Smoking History Former smoker 1964 12/19/[address] Sex Male Hospital Discharge Instructions [...] System No Known Drug Allergies Moderate Active 925452562 SNOMED-CT Plan of Treatment X-RAY 05/18/2024 PRE-OP TESTING 05/18/2024 CT UPPER EXTREM W/O CONTRAST 08/10/2023 PRE-OP TESTING 08/10/2023 CT UPPER EXTREM W/O CONTRAST 03/26/2023 PRE-OP TESTING 03/26/2023 NM BONE SCAN WHOLE BODY 03/25/2023 US GUIDED NEEDLE BIOPSY 03/04/2023 CT FACIAL/SINUS W/O CONTRAS 06/09/2022 Encounters Encounter Diagnosis Start Date Code Code Sys tem Idiopathic osteoarthritis 02/04/2024 168848550 SN OMED-CT Personal Care Team Section Performer Name Performer Role Active Date Inactive Da te
--- OUTSIDE RECORDS SUMMARY | 2024-05-17 15:02 | XMS_ITS ---
Author Organization [facility] Address [address] [place] [address] Care Team Providers Care Educational/Development Assistant Name Role Phone Almita Raza Primary Care Provider Katharine Green [phone] ALLERGIES No Known Allergies REASON FOR VISIT Prostate CA MEDICATIONS Medication SIG (Take, Route, Frequency, Duration) Notes Start Date End Date Status Viagra 100 MG 1 tablet as needed O rally Once a day for 30 day(s) Active Timolol Maleate 0.5 % 1 drop into affect ed eye Ophthalmic Once a day Active Atorvastatin Calcium 10 MG 1 tablet Oral ly Once a day for 30 day(s) Active Venlafaxine HCl 37.5 MG 1 tablet with fo od Orally Once a day Active SOCIAL HISTORY Tobacco Use: Social History Observation Description Date Details (start date - stop date) Former Smoker NA - NA Sex Assigned At : Social History Observation Description Sex Assigned At Unknown Tobacco Use/Smoking: Question Answer Notes Are you a former smoker VITAL SIGNS Blood pressure systolic 128 mm Hg 01/28/20 24 Blood pressure diastolic 78 mm Hg 024 Weight 187 lbs 01/28/2024 BMI 25.36 kg/m2 01/28/2024 Height 72 in 01/28/2024 Encounters Encounter Location Date Provider Diagnosis [facility] [address] [place] [address] 01/28/2024 Katharnie Beasley Malignant neoplasm of prostate C61 ASSESSMENTS Encounter Date Diagnosis Assessment Notes Treatment Notes Treatment Clinical Notes 01/28/2024 Malignant neoplasm of prostate (ICD-10 - C61) Nocturia x 3, reports good urination stream during the day but slower at night, denies frequency, urgency, and leaking. PLAN OF TREATMENT Treatment Notes Assessment Notes Malignant neoplasm of prostate Nocturia x 3, reports good urination stream during the day but slower at night, denies frequency, urgency, and leaking. Next Appt Details Follow Up: 3 Months, Reason: By phone, prostate cancer needs PSA prior Progress Notes * ALEX CRESPO DDOB: 6 (78 yo M)Acc No.[id number]:01/28/2024 Progress Notes Patient:??ALEX CRESPO Provider:??Isabella Beasley MD :1945?Age:78 Y?Sex:Ma le Date:01/28/2024 Address:[address] [place] [address] [place], [place], [phone] Pcp:Almita Raza Subjective: * Chief Complaints: * ?Prostate CA * HPI: ?Constitutional:? The patient returns in follow-up for his Kunkle 7 prostate cancer which was treated with hormone blockade and he completed radiation therapy in May 2023. His PSA is 0.1 which is excellent. Unfortunately the Lupron caused him severe hot flashes interrupting with his sleep as well as fatigue. He was placed on Effexor to ameliorate this series of side effects by Dr. Greenberg. The patient does not like the Lupron effects or of the Effexor effects. He denies hematuria or dysuria he has a good solid stream during the day and no frequency urgency or incontinence. * ROS:?All Other Systems:?Review of Systems (ROS)??See HPI for details. Medications, Medical History, Allergies, Social History, Surgical History, and ROS reviewed and updated with the patient today.? * Medical History:?? * Surgical History:??L Knee Ar throscopy 06/2014R Index Finger Cyst Excision 01/2020carpal tunnel Prostate Biopsy - Kunkle 7 02/2023 * Hospitalization/Major Diagno stic Procedure:??No Hospitalization History. * Family History:??Father: dec eased 89 yrs.??Mother: 93 yrs.?? mom and dad old age question if dad had prostate ca. * Social History:?Tobacco Use:?Tobacco Use/Smoking?Are you a??former smoker ?Miscellaneous:?Housing: owns a home. ?Living with: spouse. ?Marital status: . ?Occupation: Retired. ?quit smoking 1999. * Medications:??TakingVenlafax ine HCl 37.5 MG Tablet 1 tablet with food Orally Once a day Atorvastatin Calcium 10 MG Tablet 1 tablet Orally Once a day Timolol Maleate 0.5 % Solution 1 drop into affected eye Ophthalmic Once a day Viagra 100 MG Tablet 1 tablet as needed Orally Once a day Medication List reviewed and reconciled with the patientTaking Venlafaxine HCl 37.5 MG Tablet 1 tablet with food Orally Once a day Taking Atorvastatin Calcium 10 MG Tablet 1 tablet Orally Once a day Taking Timolol Maleate 0.5 % Solution 1 drop into affected eye Ophthalmic Once a day Taking Viagra 100 MG Tablet 1 tablet as needed Orally Once a day Medication List reviewed and reconciled with the patient * Allergies:??N.K.D.A.no[Aller gies Verified] Objective: * Vitals:??BP: 128/78 mm Hg, W t: 187 lbs, BMI: 25.36 Index, Ht: 72 in, Ht-cm: 182.88 cm, Wt-k.82 kg. * Examination: ?General Examination: ?GENERAL APPEARANCE:?? pleasant, in no acute distress.?SKIN:?? normal, no rashes, no suspicious lesions, warm and dry.?LUNGS:?? normal.?PSYCH:?? alert, oriented.? Assessment: * Assessment: 1.??Malignant neoplasm of pr jennifer - C61 (Primary)?? The patient is and I decker d a long discussion regarding the side effects of Lupron including hot flashes bone loss depression and fatigue. Versus the advantage in the prostate cancer patient who is essentially intermediate risk. He will consider foregoing the next Lupron injection which is due in March he will call Dr. Greenberg on how to discontinue or decrease his effect. Recheck of his PSA in late April and I will call him with the results, if it is rising he may consider going back on hormone blockade. He will continue to take vitamin D and calcium and get daily exercise. Plan: * Treatment: * ?Immunizations:?Immunization record has been reviewed and updated. * Procedure Codes:??G8420 BMI< 30 AND >=22 [id number] DOC MEDS VERIFIED W/PT OR TOS9331 FLU IMMUNIZE ORDER/[id number] Pneum vax admin 60+ * Preventive Medicine:?Counseling:?Care for Older Adults?Date of last completed Functional Status Assessment:??01/28/2024 ?Date of last Medication Review:??01/28/2024 ?Date of last Advance Care Planning:??01/28/2024 ?Fall Risk and Care Plan?Screening:??No falls in the past year * Follow Up:??3 Months (Reason : By phone, prostate cancer needs PSA prior) * Images: * Sign off status: Completed Addendum: * 01/28/2024??09:31 AM??Katharine Beasley??>??So the patients do not need to travel to [facility] * ?? true * Provider:??Isabella Besaley MD Date:??2023 History and Physical Notes * Examination Category Sub-Category Detail Notes General Examination GENERAL APPEARANCE: pleasant , in no acute distress LUNGS: normal SKIN: normal, no rashes, n o suspicious lesions, warm and dry PSYCH: alert, oriented
--- OUTSIDE RECORDS SUMMARY | 2024-05-17 15:03 | XMS_ITS | Encounter Summary ---
Author Organization [facility] Address [address] [place] [address] Care Team Providers Care Swimming Instructor Name Role Phone Domonique Caballero CLINICAL PROJECT LEADER Primary Care Provider Encounter Details Date Type Department Care Team (Late st Contact Info) Description 06/03/2023 Results Only [facility] Radiation Oncology - [address] [address] Unknown, Provider, Social History Tobacco Use Types [...] Care Team (Late st Contact Info) Description 09/20/2024 8:45 EDT Nurse Only [facility] [address] [place] [address] 09/20/2024 9:00 EDT Office Visit [facility] [address] [place] [address] Ezra Greenberg MD [address] [facility] [place] [address] documented as of this encounter [...] on filedocumented in this encounter Care Teams Swimming Instructor Relationship Specialty Start Date End Date Domonique Caballero FNP [address] [place] [phone] PCP - General Family Medicine - Primary Care 04/16/23 documented as of this encounter
--- OUTSIDE RECORDS SUMMARY | 2024-05-17 15:03 | XMS_ITS | Encounter Summary ---
Author Organization [facility] Address [address] [place] [address] Care Team Providers Care Refueler Name Role Phone Domonique Caballero FOOD CHEMIST Primary Care Provider [phone] Encounter Details Date Type Department Care Team (Late st Contact Info) Description 06/09/2023 Results Only [facility] Radiation Oncology - [address] [address] Unknown, Provider, Social History Tobacco Use Types [...] Info) Description 09/20/2024 8:45 EDT Nurse Only [facility] [address] [place], [place] [phone] 09/20/2024 9:00 EDT Office Visit [facility] [address] [place] [address] Ezra Greenberg MD 111 [facility], Level 2 [place] [address] documented as of this encounter [...] on filedocumented in this encounter Care Teams Refueler Relationship Specialty Start Date End Date Domonique Caballero FNP 4 [place] [phone] PCP - General Family Medicine - Primary Care 04/16/23 documented as of this encounter
--- OUTSIDE RECORDS SUMMARY | 2024-05-17 15:03 | XMS_ITS | Encounter Summary ---
Author Organization [facility] Address [address] [place] [address] Care Team Providers Care Dredge Master Name Role Phone Domonique Caballero PCTS Primary Care Provider [phone] Encounter Details Date Type Department Care Team (Late st Contact Info) Description 03/15/2024 Orders Only [facility] - [facility] [place] [address] [place] [address] Catrina Heredia, RN Social History Tobacco Use [...] tablet Take 1 Tablet by mouth daily. 30 Tablet 3 03/15/2024 03/29/2024 documented in this encounter Progress Notes * Catrina Heredia, RN - 03/15/2024 0978 EDT Pt requesting renewal of his Venlafaxin Rx, while on ADT therapy. Done to his new pharmacy: [facility] in [place]. documented in this encounter Plan of Treatment Upcoming Encounters Date Type Department Care Team (Late st Contact Info) Description 09/20/2024 8:[address] [facility] [address] [place], [place] [address] 09/20/2024 9:[address] [facility] Cancer [address] [address] Ezra Greenberg MD 111 [facility] 2 [place] [address] documented as of this encounter Visit Diagnoses Not on filedocumented in this encounter Discontinued Medications Medication Sig Discontinue Reason Start Date End Da te venlafaxine (EFFEXOR) 37.5 mg tablet TAKE 1 TABLET BY MOUTH DAILY Reorder 02/29/2024 03/15/2024 documented as of this encounter Care Teams Dredge Master Relationship Specialty Start Date End Date Domonique Caballero FNP [address] [place] [phone] PCP - General Family Medicine - Primary Care 04/16/23 documented as of this encounter
--- OUTSIDE RECORDS SUMMARY | 2024-05-17 15:03 | XMS_ITS | Encounter Summary ---
Author Organization [facility] Address [address] [place] [address] Care Team Providers Care Quality Assurance Supervisor Chassis Name Role Phone Domonique Caballero MEDICAL LANGUAGE SPECIALIST Primary Care Provider [phone] Encounter Details Date Type Department Care Team (Latest Contact Info) Description 06/08/2023 8:32 EST - 06/08/2023 23:59 EST Hospital Encounter [facility] [place] [address] [place] [address] Discharge Disposition: Home or Self Care Social [...] Info) Description 09/20/2024 8:45 EDT Nurse Only [facility] [place] [address] [place] [address] 09/20/2024 9:00 EDT Office Visit [facility] [address] [place] [address] Ezra Greenberg MD [address] [place] [address] 2 [place] [phone] documented as of this encounter Visit Diagnoses Not on filedocumented in this encounter Care Teams Quality Assurance Supervisor Chassis Relationship Specialty Start Date End Date Domonique Caballero FNP 4 [place] [phone] PCP - General Family Medicine - Primary Care 04/16/23 documented as of this encounter
--- OUTSIDE RECORDS SUMMARY | 2024-05-17 15:03 | XMS_ITS | Encounter Summary ---
Author Organization [facility] Address [address] [place] [address] Care Team Providers Care Retail Director Name Role Phone Domonique Caballero SUPERVISOR ORDNANCE TRUCK INSTALLATION Primary Care Provider Encounter Details Date Type Department Care Team (Late st Contact Info) Description 10/14/2023 Lab Requisition [facility] Pathology & Laboratory Medicine - [facility] [address] [place], [place] [phone] Outr Resulting Lab, Provider Social History Tobacco [...] Info) Description 09/20/2024 8:45 EDT Nurse Only [facility] Cancer Treatment [address] [phone] 09/20/2024 9:00 EDT Office Visit [facility] - [facility] Cancer [address] [phone] Ezra Greenberg MD 111 [facility], [facility] 2 [place] [address] documented as of this encounter Procedures Procedure Name Priority Date/Time Associated Diagnosis Comments PSA TOTAL, DIAGNOSTIC Routine 10/13/2023 14:05 EDT documented in this encounter Results * PSA TOTAL, DIAGNOSTIC (10/13/2023 14:05 EDT) PSA <0.1 <=6.5 ng/mL 10/14/2023 18:15 EDT [facility] Blood VENOUS BLOOD / Unknown 10/13/2023 14:05 EDT 10/14/2023 16:57 EDT Narrative [facility] - 10/14/2023 18:15 EDT NOTE: Serum PSA concentration should not be interpreted as absolute evidence for the presence or absence of malignant disease. Assayed on Siemens ADVIA Core2 Groupaur XPT using chemiluminescent technology.??Values obtained by using different assay methods cannot be used interchangeably. Provider Outr Resulting Lab CHEMISTRY & BLOOD GAS ORDERABLES [facility] [address] [place], [place] [address] documented in this encounter Visit Diagnoses Not on filedocumented in this encounter Care Teams Retail Director Relationship Specialty Start Date End Date Domonique Caballero FNP 4 [place] [phone] PCP - General Family Medicine - Primary Care 04/16/23 documented as of this encounter
--- OUTSIDE RECORDS SUMMARY | 2024-05-17 15:03 | XMS_ITS | Clinical Summary ---
Author Organization [facility] Address [address] [place] [address] Care Team Providers Care Rn Neonatal Icu Name Role Phone Domonique Caballero Evangelina 911 EMERGENCY DISPATCHER Primary Care Provider Allergies No known active allergies Medications Medication Sig Dispensed Refills Start Date End Date Status timolol (TIMOPTIC) 0.5 % ophthalmic solution Place 1 Drop into both eyes 2 times daily. Active sildenafil citrate (VIAGRA) 100 mg tablet Take 1 Tablet by mouth as needed for Erectile Dysfunction. Active vit A/vit C/vit E/zinc/copper (ICAPS AREDS ORAL) Take by mouth. Active fexofenadine (ROBYN) 60 mg tablet Take 1 Tablet by mouth daily. Active psyllium husk (METAMUCIL) 0.4 gram capsule Take 4 Capsules by mouth. Active venlafaxine (EFFEXOR) 37.5 mg tablet Take 1 Tablet by mouth daily. 90 Tablet 3 03/29/2024 Active Hospital, Clinic, or Other Facility Administered Medication Ordered Dose Route Frequency Start Date End Date Status leuprolide acetate (6 month) (LUPRON DEPOT) IM injection 45 mg 45 mg IM EVERY 6 MONTHS 04/30/2023 Activ e leuprolide acetate (6 month) (LUPRON DEPOT) IM injection 45 mg 45 mg IM EVERY 6 MONTHS 03/29/2024 Activ e Active Problems Problem Noted Date Diagnosed Date Malignant neoplasm of prostate (HCC-CMS) 023 Macular degeneration (senile) of retina 04/03/20 23 Glaucoma 04/03/2023 Deviated nasal septum 01/12/2018 Encounters Date Type Department Care Team Description 03/29/2024 9:[address] [facility] Treatment [place] [address] [place] [address] Ezra Greenberg MD Malignant neoplasm of prostate (HCC-CMS) (Primary Dx) 03/29/2024 8:[address] [facility] [address] [place] [address] Malignant neoplasm of prostate (HCC-CMS) (Primary Dx) 03/15/[address] [facility] [place] [address] Catrina Heredia RN 02/28/[address] [place] [facility] [address] Ezra Greenberg MD Medications Refill from Last 3 Months Medical History Medical [...] Sign Reading Time Taken Comments Blood Pressure 139/69 03/29/2024 0857 EDT Pulse 61 03/29/2024 0857 EDT Temperature - - Respiratory Rate 16 06/01/2023 1304 EST Oxygen Saturation - - Inhaled Oxygen Concentration - - Weight 82.8 kg (182 lb 8 oz) 03/29/2024 0857 EDT Height 182.9 cm (6') 01/12/2018 0826 EDT Body Mass Index 24.75 01/12/2018 0826 EDT Plan of Treatment Upcoming Encounters Date Type Department Care Team (Late st Contact Info) Description 09/20/2024 8:[address] [facility] Treatment [place] [address] [place], [place] [address] 09/20/2024 9:[address] [facility] [address] [place], [place] [address] Ezra Greenberg MD 111 [facility] Level [address] [place] [address] Health Maintenance Due Date Last Done Comments Hepatitis C Screen 1945 COVID-19 Vaccine (#1) 1950 RSV Immunization ( o r 60+ Years) (1 - 1-dose 60+ series) 2005 Fall Risk Screening 2010 Care Teams Rn Neonatal Icu Relationship Specialty Start Date End Date Domonique Caballero 911 EMERGENCY DISPATCHER 4 [place] [phone] PCP - General Family Medicine - Primary Care 04/16/23
--- OUTSIDE RECORDS SUMMARY | 2024-05-17 15:03 | XMS_ITS | Encounter Summary ---
Author Organization [facility] Address [address] [place] [address] Care Team Providers Care Wool Buyer Name Role Phone Domonique Caballero SUBWAY REPAIR SUPERVISOR Primary Care Provider [phone] Encounter Details Date Type Department Care Team (Late st Contact Info) Description 06/10/2023 Results Only [facility] Radiation Oncology - [address] [address] Unknown, Provider, Social History Tobacco Use Types [...] Info) Description 09/20/2024 8:45 EDT Nurse Only [facility] [address] [place], [place] [phone] 09/20/2024 9:00 EDT Office Visit [facility] [address] [place] [address] Ezra Greenberg MD 111 [facility], Level 2 [place] [phone] documented as of this encounter Procedures Procedure [...] RADIATION ONCOLOGY 10/21/2023 9:13 EDT Provider Unknown RADIATION ONCOLOGY O RDERALEONEL ARIA RADIATION ONCOLOGY documented in this encounter Visit Diagnoses Not on filedocumented in this encounter Care Teams Wool Buyer Relationship Specialty Start Date End Date Domonique Caballero SUBWAY REPAIR SUPERVISOR 4 [place] [phone] PCP - General Family Medicine - Primary Care 04/16/23 documented as of this encounter
--- OUTSIDE RECORDS SUMMARY | 2024-05-17 15:03 | XMS_ITS | Encounter Summary ---
Author Organization [facility] Address [address] [place] [address] Care Team Providers Care Product Scientist Name Role Phone Domonique Caballero TILE FITTER Primary Care Provider Reason for Visit * Reason Comments Prostate Cancer Encounter Details Date Type Department Care Team (Late st Contact Info) Description 06/03/2023 Radiation Therapy Visit [facility] Treatment [place] [address] [place] [address] Ezra Greenberg MD 111 [facility] 2 [place] [address] Malignant neoplasm of prostate (HCC-CMS) [...] up October 2023 Ezra Greenberg MD Radiation [facility] [phone] documented in this encounter Plan of Treatment Upcoming Encounters Date Type Department Care Team (Late st Contact Info) Description 09/20/2024 8:45 EDT Nurse Only [facility] Cancer [address] [address] 09/20/2024 9:00 EDT Office Visit [facility] Cancer [address] [address] Ezra Greenberg MD [address] [place] [address], [facility] 2 [place] [address] documented as of this encounter Visit Diagnoses Diagnosis Malignant neoplasm of prostate (HCC-CMS)- Primary Malignant neoplasm of prostate documented in this encounter Care Teams Product Scientist Relationship Specialty Start Date End Date Domonique Caballero FNP 4 [place] [address] PCP - General Family Medicine - Primary Care 04/16/23 documented as of this encounter
--- OUTSIDE RECORDS SUMMARY | 2024-05-17 15:03 | XMS_ITS | Encounter Summary ---
Author Organization [facility] Address [address] [place] [address] Care Team Providers Care Infant Childcare Provider Name Role Phone Domonique Caballero BLOOD BANK LABORATORY TECHNICIAN Primary Care Provider Encounter Details Date Type Department Care Team (Late st Contact Info) Description 10/19/2023 Documentation Visit [facility] Cancer Treatment [address] [address] Darby Eckert, RN Social History Tobacco Use [...] in front of the patient. [] Code 64364 (Venipuncture Blood Draw) was billed on 10/19/2023. [] Code 02209 (Port Blood Draw) was billed on 10/19/2023 . COMMENTS: [x] Injection: Intramuscular injection given at Left upper quad. gluteus Lot Number:[id number] Expiration Date: 06/26/25 [facility]:8626-2722-82 [x]The patient's name and were verified prior to administering medications. [x] All medications were verbally and visually verified prior to administration. [x] Code 67272 (Administration of hormonal anti-neoplastic) was billed on [...] Info) Description 09/20/2024 8:45 EDT Nurse Only [facility] Cancer [address] [address] 09/20/2024 9:00 EDT Office Visit [facility] [address] [place] [address] Ezra Greenberg MD 111 [facility] 2 [place] [phone] documented as of this encounter Visit Diagnoses Not on filedocumented in this encounter Care Teams Infant Childcare Provider Relationship Specialty Start Date End Date Domonique Caballero FNP 4 [place] [phone] PCP - General Family Medicine - Primary Care 04/16/23 documented as of this encounter
--- OUTSIDE RECORDS SUMMARY | 2024-05-17 15:03 | XMS_ITS | Encounter Summary ---
Author Organization [facility] Address [address] [place] [address] Care Team Providers Care Paper Box Maker Name Role Phone Domonique Caballero SENIOR BILLING CONSULTANT Primary Care Provider Encounter Details Date Type Department Care Team (Late st Contact Info) Description 06/10/2023 Results Only [facility] Radiation Oncology - [address] [address] Unknown, Provider, Social History Tobacco Use Types [...] Info) Description 09/20/2024 8:45 EDT Nurse Only [facility] 130 [place], [place] [phone] 09/20/2024 9:00 EDT Office Visit [facility] Cancer [facility] [address] [place] [address] Ezra Greenberg MD 111 [facility], Level 2 [place] [address] documented as of this encounter [...] RADIATION ONCOLOGY 06/10/2023 8:38 EST Provider Unknown RADIATION ONCOLOGY O RDERABLES ARIA RADIATION ONCOLOGY documented in this encounter Visit Diagnoses Not on filedocumented in this encounter Care Teams Paper Box Maker Relationship Specialty Start Date End Date Domonique Caballero FNP 4 [place] [phone] PCP - General Family Medicine - Primary Care 04/16/23 documented as of this encounter
--- OUTSIDE RECORDS SUMMARY | 2024-05-17 15:03 | XMS_ITS | Encounter Summary ---
Author Organization [facility] Address [address] [place] [address] Care Team Providers Care Energy Efficient Site Manager Name Role Phone Domonique Caballero DERRICK ENGINEER Primary Care Provider Reason for Visit * Reason Comments Prostate Cancer Encounter Details Date Type Department Care Team (Latest Contact Info) Description 06/09/2023 8:45 EST - 06/09/2023 23:59 EST Hospital Encounter [facility] Cancer Treatment [place] [address] [place] [address] Discharge Disposition: Home or Self Care Social [...] EDT Nurse Only [facility] Cancer [address] [address] 09/20/2024 9:00 EDT Office Visit [facility] Cancer [address] [address] Ezra Greenberg MD 111 [facility], [facility] 2 [place] [phone] documented as of this encounter Visit Diagnoses Not on filedocumented in this encounter Care Teams Energy Efficient Site Manager Relationship Specialty Start Date End Date Domonique Caballero FNP 4 [place] [phone] PCP - General Family Medicine - Primary Care 04/16/23 documented as of this encounter
--- OUTSIDE RECORDS SUMMARY | 2024-05-17 15:03 | XMS_ITS | Encounter Summary ---
Author Organization [facility] Address [address] [place] [address] Care Team Providers Care Curator Horticultural Museum Name Role Phone Domonique Caballero FACILITIES OPERATIONS TECHNICIAN Primary Care Provider Reason for Visit * Reason Comments Prostate Cancer OTV Encounter Details Date Type Department Care Team (Latest Contact Info) Description 06/01/2023 8:45 EST - 06/01/2023 23:59 EST Hospital Encounter [facility] Treatment [place] [address] [place] [address] Discharge Disposition: Home or Self Care Social [...] Info) Description 09/20/2024 8:45 EDT Nurse Only [facility] [address] [address] 09/20/2024 9:00 EDT Office Visit [facility] Cancer [address] [address] Ezra Greenberg MD 111 [facility], [facility] 2 [place] [phone] documented as of this encounter Visit Diagnoses Not on filedocumented in this encounter Care Teams Curator Horticultural Museum Relationship Specialty Start Date End Date Domonique Caballero FNP 4 [place] [phone] PCP - General Family Medicine - Primary Care 04/16/23 documented as of this encounter
--- OUTSIDE RECORDS SUMMARY | 2024-05-17 15:03 | XMS_ITS | Encounter Summary ---
Author Organization [facility] Address [address] [place] [address] Care Team Providers Care Clinical Manager Home Care Name Role Phone Doomnique Caballero QA INTERNSHIP Primary Care Provider Encounter Details Date Type Department Care Team (Late st Contact Info) Description 05/31/2023 Results Only [facility] Radiation Oncology - [address] [address] Unknown, Provider, Social History Tobacco Use Types [...] Info) Description 09/20/2024 8:45 EDT Nurse Only [facility] [address] [place] [address] 09/20/2024 9:00 EDT Office Visit [facility] [address] [place] [address] Ezra Greenberg MD [address] [facility], Level [address] [place] [address] documented as of this encounter [...] RADIATION ONCOLOGY 05/31/2023 8:52 EST Provider Unknown RADIATION ONCOLOGY O RDERABLES ARIA RADIATION ONCOLOGY documented in this encounter Visit Diagnoses Not on filedocumented in this encounter Care Teams Clinical Manager Home Care Relationship Specialty Start Date End Date Domonique Caballero FNP 4 [place] [address] PCP - General Family Medicine - Primary Care 04/16/23 documented as of this encounter
--- OUTSIDE RECORDS SUMMARY | 2024-05-17 15:03 | XMS_ITS | Encounter Summary ---
Author Organization Health system Address [address] [place] [address] Care Team Providers Care Theatrical Variety Agent Name Role Phone Domonique Caballero UPHOLSTERY CLEANER Primary Care Provider [phone] Encounter Details Date Type Department Care Team (Late st Contact Info) Description 05/29/2023 Results Only [facility] Radiation Oncology - [address] [address] Unknown, Provider, Social History Tobacco Use Types [...] Info) Description 09/20/2024 8:45 EDT Nurse Only [facility] 130 [place], [place] [phone] 09/20/2024 9:00 EDT Office Visit [facility] [address] [place] [address] Ezra Greenberg MD 111 [facility], Level [address] [place] [address] documented as of this encounter [...] RADIATION ONCOLOGY 05/29/2023 8:52 EST Provider Unknown RADIATION ONCOLOGY O RDERABLES ARIA RADIATION ONCOLOGY documented in this encounter Visit Diagnoses Not on filedocumented in this encounter Care Teams Theatrical Variety Agent Relationship Specialty Start Date End Date Domonique Caballero FNP 4 [place] [address] PCP - General Family Medicine - Primary Care 04/16/23 documented as of this encounter
--- OUTSIDE RECORDS SUMMARY | 2024-05-17 15:03 | XMS_ITS | Encounter Summary ---
Author Organization [facility] Address [address] [place] [address] Care Team Providers Care Golf Caddie Name Role Phone Domonique Caballero AUTOMATION MACHINE BUILDER Primary Care Provider [phone] Reason for Visit * Reason Comments Medications Refill Encounter Details Date Type Department Care Team (Late st Contact Info) Description 12/03/2023 Refill [facility] Cancer Treatment [place] [address] [place], [place] [address] Ezra Greenberg MD 111 [facility] 2 [place] [address] Medications Refill Social History Tobacco [...] tablet TAKE 1 TABLET BY MOUTH DAILY 30 Tablet 1 02/29/2024 03/15/2024 documented in this encounter Plan of Treatment Upcoming Encounters Date Type Department Care Team (Late st Contact Info) Description 09/20/2024 8:45 EDT Nurse Only [facility] Treatment [place] [address] [place] [address] 09/20/2024 9:00 EDT Office Visit [facility] [address] [place] [address] Ezra Greenberg MD 111 [facility] 2 [place] [phone] documented as of this encounter Visit Diagnoses Not on filedocumented in this encounter Discontinued Medications Medication Sig Discontinue Reason Start Date End Da te venlafaxine (EFFEXOR) 37.5 mg tablet TAKE 1 TABLET BY MOUTH DAILY Duplicate order 02/29/2024 02/29/2024 venlafaxine (EFFEXOR) 37.5 mg tablet Take 1 Tablet by mouth daily for 30 days. 10/19/2023 02/29/2024 documented as of this encounter Care Teams Golf Caddie Relationship Specialty Start Date End Date Domonique Caballero FNP [address] [place] [phone] PCP - General Family Medicine - Primary Care 04/16/23 documented as of this encounter
--- OUTSIDE RECORDS SUMMARY | 2024-05-17 15:03 | XMS_ITS | Encounter Summary ---
Author Organization [facility] Address [address] [place] [address] Care Team Providers Care Sharebroker Name Role Phone Domonique Caballero BAR STAFF Primary Care Provider [phone] Reason for Visit * Reason Comments Prostate Cancer Encounter Details Date Type Department Care Team (Late st Contact Info) Description 10/19/2023 8:45 EDT Nurse Only [facility] Treatment [place] [address] [place], [place] [address] Malignant neoplasm of prostate (HCC-CMS) (Primary Dx) [...] 8:45 EDT Nurse Only [facility] [place] [address] [place] [address] 09/20/2024 9:00 EDT Office Visit [facility] [address] [place] [address] Ezra Greenberg MD 111 [facility] 2 [place] [phone] documented as of this encounter Visit Diagnoses [...] daily. added in this encounter Care Teams Sharebroker Relationship Specialty Start Date End Date Domonique Caballero FNP [address] [place] [phone] PCP - General Family Medicine - Primary Care 04/16/23 documented as of this encounter
--- OUTSIDE RECORDS SUMMARY | 2024-05-17 15:03 | XMS_ITS | Encounter Summary ---
Author Organization [facility] Address [address] [place] [address] Care Team Providers Care Commercial Glazier Name Role Phone Domonique Caballero SPECIFICATION MANAGER Primary Care Provider Encounter Details Date Type Department Care Team (Late st Contact Info) Description 05/28/2023 Results Only [facility] Radiation Oncology - [address] [address] Unknown, Provider, Social History Tobacco Use Types [...] EDT Nurse Only [facility] [address] [place] [address] 09/20/2024 9:00 EDT Office Visit [facility] [address] [place] [address] Ezra Greenberg MD 111 [facility], Level [address] [place] [address] documented as of this encounter [...] RADIATION ONCOLOGY 05/28/2023 8:46 EST Provider Unknown RADIATION ONCOLOGY O RDERABLES [facility] RADIATION ONCOLOGY documented in this encounter Visit Diagnoses Not on filedocumented in this encounter Care Teams Commercial Glazier Relationship Specialty Start Date End Date Domonique Caballero FNP [address] [place] [phone] PCP - General Family Medicine - Primary Care 04/16/23 documented as of this encounter
--- OUTSIDE RECORDS SUMMARY | 2024-05-17 15:03 | XMS_ITS | Encounter Summary ---
Author Organization [facility] Address [address] [place] [address] Care Team Providers Care Mold Tooler Name Role Phone Domonique Caballero HYDRO GENERATION SUPERVISOR Primary Care Provider Encounter Details Date Type Department Care Team (Latest Contact Info) Description 06/03/2023 8:45 EST - 06/03/2023 23:59 EST Hospital Encounter [facility] Treatment [place] [address] [place] [address] Discharge Disposition: Home or Self Care Social [...] Info) Description 09/20/2024 8:45 EDT Nurse Only [facility] [place] [address] [place] [address] 09/20/2024 9:00 EDT Office Visit [facility] [address] [place] [address] Ezra Greenberg MD [address] [place] [address] 2 [place] [phone] documented as of this encounter Visit Diagnoses Not on filedocumented in this encounter Care Teams Mold Tooler Relationship Specialty Start Date End Date Domonique Caballero FNP [address] [place] [phone] PCP - General Family Medicine - Primary Care 04/16/23 documented as of this encounter
--- OUTSIDE RECORDS SUMMARY | 2024-05-17 15:03 | XMS_ITS | Encounter Summary ---
Author Organization [facility] Address [address] [place] [address] Care Team Providers Care Sewer Repairer Name Role Phone Domonique Caballero [facility] Primary Care Provider Encounter Details Date Type Department Care Team (Late st Contact Info) Description 11/12/2023 Lab Requisition [facility] Pathology & Laboratory Medicine - [facility] [address] [place], [place] [phone] Outr Resulting Lab, Provider Social History Tobacco [...] EDT Nurse Only [facility] Treatment [address] [phone] 09/20/2024 9:00 EDT Office Visit [facility] Cancer [address] [phone] Ezra Greenberg MD 111 [facility], Level [address] [place] [address] documented as of this encounter Procedures Procedure Name Priority Date/Time Associated Diagnosis Comments T3, TOTAL Routine 11/11/2023 15:20 EDT documented in this encounter Results * T3, TOTAL (11/11/2023 15:20 EDT) T3, Total 144 97 - 169 ng/dL 11/12/2023 18:21 EDT [facility] Blood VENOUS BLOOD / Unknown 11/11/2023 15:20 EDT 11/12/2023 17:31 EDT Provider Outr Resulting Lab CHEMISTRY & BLOOD GAS ORDERABLES [facility] [address] [place], [place] [address] documented in this encounter Visit Diagnoses Not on filedocumented in this encounter Care Teams Sewer Repairer Relationship Specialty Start Date End Date Domonique Caballero FNP [address] [place] [phone] PCP - General Family Medicine - Primary Care 04/16/23 documented as of this encounter
--- OUTSIDE RECORDS SUMMARY | 2024-05-17 15:03 | XMS_ITS | Encounter Summary ---
Author Organization [facility] Address [address] [place] [address] Care Team Providers Care Audit Tech Name Role Phone Domonique Caballero MANAGER PROGRAMS Primary Care Provider Reason for Visit * Reason Onset Date Comments Medication Reaction 10/26/2023 Encounter Details Date Type Department Care Team (Late st Contact Info) Description 10/26/2023 Telephone [facility] Cancer Treatment [place] [address] [place] [address] Darby Eckert, emergency room registered nurse Reaction Social History Tobacco Use Types Packs/Day [...] Encounter - Darby Eckert, RN - 10/26/2023 [id number] EDT Called [facility] back regarding reaction to Lupron and or [...] Info) Description 09/20/2024 8:45 EDT Nurse Only [facility] Cancer Treatment [address] [address] 09/20/2024 9:00 EDT Office Visit [facility] Cancer [address] [address] Ezra Greenberg MD 111 [facility] 2 [place] [phone] documented as of this encounter Visit Diagnoses Not on filedocumented in this encounter Care Teams Audit Tech Relationship Specialty Start Date End Date Domonique Caballero FNP [address] [place] [phone] PCP - General Family Medicine - Primary Care 04/16/23 documented as of this encounter
--- OUTSIDE RECORDS SUMMARY | 2024-05-17 15:03 | XMS_ITS | Encounter Summary ---
Author Organization [facility] Address [address] [place] [address] Care Team Providers Care Clinical Editor Name Role Phone Domonique Caballero [facility] Primary Care Provider Encounter Details Date Type Department Care Team (Late st Contact Info) Description 01/18/2024 Lab Requisition [facility] Pathology & Laboratory Medicine - [facility] [address] [place], [place] [phone] Outr Resulting Lab, Provider Social History Tobacco [...] 8:[address] [facility] Treatment [address] [phone] 09/20/2024 9:[address] [facility] Cancer [address] [phone] Ezra Greenberg MD 111 [facility], Level [address] [place] [address] documented as of this encounter Procedures Procedure Name Priority Date/Time Associated Diagnosis Comments TRANSFERRIN Routine 01/18/2024 7:45 EDT documented in this encounter Results * (ABNORMAL) TRANSFERRIN (01/18/2024 7:45 EDT) Transferrin 161(L) 201 - 352 mg/dL 01/19/2024 10:05 EDT [facility] Blood VENOUS BLOOD / Unknown 01/18/2024 7:45 EDT 01/18/2024 21:31 EDT Provider Outr Resulting Lab CHEMISTRY & BLOOD GAS ORDERABLES [facility] [address] [place], [place] [address] documented in this encounter Visit Diagnoses Not on filedocumented in this encounter Care Teams Clinical Editor Relationship Specialty Start Date End Date Domonique Caballero FNP [address] [place] [phone] PCP - General Family Medicine - Primary Care 04/16/23 documented as of this encounter
--- OUTSIDE RECORDS SUMMARY | 2024-05-17 15:03 | XMS_ITS ---
Author Organization [facility] Address [address] [place] [address] Care Team Providers Care Chisel Trimmer Name Role Phone Almita Raza Primary Care Provider Katharine Green Unavailable [phone] ALLERGIES No Known Allergies RESULTS Component Value Reference Range Notes Bone scan Reviewed date:04/15/2023 02:11:02 PM Interpretation:Abnormal Performing Lab: Notes/Report: Abnormal REASON FOR REFERRAL Reason [place] 6 now [place] n 7 would like consult for treatment options. Diagnosis 1 Malignant neoplasm o f prostate (C61) Referral Organization [facility] Referring Provider First Name Katharine Referring Provider Last Name Ramos Referring Provider Speciality Urology Referred Organization [facility] Referred Provider Todd Myles Referred Address [address] [place], [place],[address], Referred Provider Specialty Oncology General Notes Viet Sanderson 03/17/2023 1:02:41 PM > faxed referralKin Jean 05/06/2023 02:34:53 PM > report received Referral Priority Routine REASON FOR VISIT prostate cancer talk MEDICATIONS Medication SIG (Take, Route, Frequency, Duration) Notes Start Date End Date Status Timolol Maleate 0.5 % 1 drop into affect ed eye Ophthalmic Once a day Active Viagra 100 MG 1 tablet as needed O rally Once a day for 30 day(s) Active Atorvastatin Calcium 10 MG 1 tablet Oral ly Once a day for 30 day(s) Active SOCIAL HISTORY Tobacco Use: Social History Observation Description Date Details (start date - stop date) Former Smoker NA - NA Sex Assigned At : Social History Observation Description Sex Assigned At Unknown Tobacco Use/Smoking: Question Answer Notes Are you a former smoker VITAL SIGNS Blood pressure systolic 120 mm Hg 03/17/20 23 Blood pressure diastolic 72 mm Hg 023 Weight 185 lbs 03/17/2023 BMI 25.09 kg/m2 03/17/2023 Height 72. in 03/17/2023 Encounters Encounter Location Date Provider Diagnosis [facility] [address] [phone] 03/17/2023 [facility] Malignant neoplasm of prostate C61 ASSESSMENTS Encounter Date Diagnosis Assessment Notes Treatment Notes Treatment Clinical Notes 03/17/2023 Malignant neoplasm of prostate (ICD-10 - C61) The patient and I discussed the different options including active surveillance, radiation therapy and surgical options. Active surveillance would involve checking a PSA in 3 months as well as making lifestyle changes including adding Vitamin D and Calcium to their diet. Avoiding processed foods, especially meats (meat and dairy should be organic and hormone free). Exercise should be daily, especially weight bearing exercises as prostate cancer goes to the lymph nodes in the groin and then to the bone. Radiation therapy includes the options of external beam and brachytherapy. Possible side effects can be debilitating incontinence and/or proctitis. However, these are very rare. Over time erectile dysfunction is quite common. This can be dealt with by medication, injections, or intraurethral suppository. We also discussed the surgical options including robotic laparoscopic and open surgery. The patient understands that there is no difference in cancer cure rates. Important questions for the patient to ask the surgeon would be anesthesia time and recovery time. The patient understands there is always a risk of erectile dysfunction or permanent incontinence with any of the surgery options. The advantage of robotic surgery is that it reduces the risk of the need for a blood transfusion as well as the need for pain medications after the procedure. Also, there are at times more rapid recovery and back to work time. The advantage of open surgery is that there a much shorter anesthesia time. The patient was given a booklet discussing prostate cancer and all websites for information. I always recommend [facility] for the nomograms regarding risk for metastases.The patient was given information regarding PSA, [place] Score and Stage. At this point, he will go home and discuss the situation with his family and call regarding whether or not he wants a referral to radiation oncology or to another urologist for a second opinion. An appointment was made for the patient to have a repeat psa in 3 months. 45 minutes was spent with the patient, greater than 50% of which was in counseling and coordination of care. PLAN OF TREATMENT Treatment Notes Assessment Notes Malignant neoplasm of prostate The patient and I discussed the different options including active surveillance, radiation therapy and surgical options. Active surveillance would involve checking a PSA in 3 months as well as making lifestyle changes including adding Vitamin D and Calcium to their diet. Avoiding processed foods, especially meats (meat and dairy should be organic and hormone free). Exercise should be daily, especially weight bearing exercises as prostate cancer goes to the lymph nodes in the groin and then to the bone. Radiation therapy includes the options of external beam and brachytherapy. Possible side effects can be debilitating incontinence and/or proctitis. However, these are very rare. Over time erectile dysfunction is quite common. This can be dealt with by medication, injections, or intraurethral suppository. We also discussed the surgical options including robotic laparoscopic and open surgery. The patient understands that there is no difference in cancer cure rates. Important questions for the patient to ask the surgeon would be anesthesia time and recovery time. The patient understands there is always a risk of erectile dysfunction or permanent incontinence with any of the surgery options. The advantage of robotic surgery is that it reduces the risk of the need for a blood transfusion as well as the need for pain medications after the procedure. Also, there are at times more rapid recovery and back to work time. The advantage of open surgery is that there a much shorter anesthesia time. The patient was given a booklet discussing prostate cancer and all websites for information. I always recommend [facility] for the nomograms regarding risk for metastases.The patient was given information regarding PSA, [place] Score and Stage. At this point, he will go home and discuss the situation with his family and call regarding whether or not he wants a referral to radiation oncology or to another urologist for a second opinion. An appointment was made for the patient to have a repeat psa in 3 months. 45 minutes was spent with the patient, greater than 50% of which was in counseling and coordination of care. Referrals Referral Date Details [place] 6 now Marley n 7 would like consult for treatment options. , Todd Myles, [address] [place], [address], Next Appt Details Follow Up: 4 Months, Reason: PSA Lab Draw Progress Notes * ALEX CRESPO DDOB: 6 (77 yo M)Acc No.[id number]:03/17/2023 Progress Notes Patient:??ALEX CRESPO Provider:??[facility] MD :1945?Age:77 Y?Sex:Ma le Date:03/17/2023 Address:[address] [place] [address] [place] L[place]O, TIM, [phone] Pcp:Almita Raza Subjective: * Chief Complaints: * ?Prostate cancer talk * HPI: ?Constitutional:? The patient returns in follow-up status post his prostate biopsy for elevated PSA of 27.9. Previously he had been [place] 6 diagnosed in 2020. Unfortunately he is now [place] 7. He and his are here to discuss different options. He did well after the procedure with no bleeding or pain he finished his antibiotics as prescribed. * Medical History:?? * Surgical History:??L Knee Ar throscopy 06/2014R Index Finger Cyst Excision 01/2020carpal tunnel Prostate Biopsy - [place] 7 02/2023 * Hospitalization/Major Diagno stic Procedure:??No Hospitalization History. * Family History:??Father: dec eased 89 yrs.??Mother: 93 yrs.?? mom and dad old age question if dad had prostate ca. * Social History:?Tobacco Use:?Tobacco Use/Smoking?Are you a??former smoker ?quit smoking 1999. * Medications:??TakingAtorvast atin Calcium 10 MG Tablet 1 tablet Orally Once a dayTimolol Maleate 0.5 % Solution 1 drop into affected eye Ophthalmic Once a dayViagra 100 MG Tablet 1 tablet as needed Orally Once a dayTaking Atorvastatin Calcium 10 MG Tablet 1 tablet Orally Once a dayTaking Timolol Maleate 0.5 % Solution 1 drop into affected eye Ophthalmic Once a dayTaking Viagra 100 MG Tablet 1 tablet as needed Orally Once a dayDiscontinuedCiprofloxacin HCl 500 MG Tablet 1 tablet Orally every 12 hrsdiazePAM 10 MG Tablet 1 tablet as needed Orally Once a day 20 minutes prior to procedureMedication List reviewed and reconciled with the patientDiscontinued Ciprofloxacin HCl 500 MG Tablet 1 tablet Orally every 12 hrsDiscontinued diazePAM 10 MG Tablet 1 tablet as needed Orally Once a day 20 minutes prior to procedureMedication List reviewed and reconciled with the patient * Allergies:??N.K.D.A.no[Aller gies Verified] Objective: * Vitals:??BP:120/72 mm Hg, Wt :185 lbs, BMI:25.09 Index, Ht: 72. in, Ht-cm: 182.88 cm, Wt-k.92 kg. Assessment: * Assessment: 1.??Malignant neoplasm of pr ostate - C61 (Primary)?? Because the patient has a PS A of 27 he will undergo a bone scan to rule out metastatic disease. If he does not have metastatic disease he basically has all options open for him and we discussed them as below. I would not recommend active surveillance at this time because his PSA is 27. His was in the room throughout the talk today. And he and his decided to go ahead with a referral to the radiation oncology group at [facility] we have made that referral for them. Backup plan is a repeat PSA in 4 months. Plan: * Treatment: Notes: The patient and I discussed the different options including active surveillance, radiation therapy and surgical options. Active surveillance would involve checking a PSA in 3 months as well asmaking lifestyle changes including adding Vitamin D and Calcium to their diet. Avoiding processed foods, especially meats (meat and dairy should be organic and hormone free). Exercise should be daily, especially weight bearing exercises as prostate cancer goes to the lymph nodes in the groin and then to the bone. Radiation therapy includes the options of external beam and brachytherapy. Possible side effects can be debilitating incontinence and/or proctitis. However, these are very rare. Over time erectile dysfunction is quite common. This can be dealt with by medication, injections, or intraurethral suppository. We also discussed the surgical options including robotic laparoscopic and open surgery. The patientunderstands that there is no difference in cancer cure rates. Important questions for the patient to ask the surgeon would be anesthesia time and recovery time. The patient understands there is always a risk of erectile dysfunction or permanent incontinence with any of the surgery options. The advantage of robotic surgery is that it reduces the risk of the need for a blood transfusion as well as the need for pain medications after the procedure. Also, there are at times more rapid recovery and back to work time. The advantage of open surgery is that there a much shorter anesthesia time. The patient was given a booklet discussing prostate cancer and all websites for information. I always recommend [facility] for the nomograms regarding risk for metastases.The patient was given information regarding PSA, [place] Score and Stage. At this point, he will go home and discuss the situation with his family and call regarding whetheror not he wants a referral to radiation oncology or to another urologist for a second opinion. An appointment was made for the patient to have a repeat psa in 3 months. 45 minutes was spent with the patient, greater than 50% of which was in counseling and coordinationof care.? Referral To:Todd Myles?Oncology ?Reason:[place] 6 now [place] 7 would like consult for treatment options. * Procedure Codes:??G8420 BMI< 30 AND >=22 [id number] DOC MEDS VERIFIED W/PT OR [id number] FLU IMMUNIZE ORDER/[id number] Pneum vax admin 60+M0201 Covid-19 vaccine prev admin * Follow Up:??4 Months (Reason : PSA Lab Draw) * Images: * Sign off status: Completed Addendum: * ?? true * Provider:??[facility] MD Date:??2022 Consultation Request Notes Referral Date Referring Provider Referred Provider Not es 03/17/2023 Katharine Beasley Daniel Gleason 6 n ow [place] 7 would like consult for treatment options.
--- OUTSIDE RECORDS SUMMARY | 2024-05-17 15:03 | XMS_ITS | Encounter Summary ---
Author Organization [facility] Address [address] [place] [address] Care Team Providers Care Wheel Of Fortune Dealer Name Role Phone Domonique Caballero BLOCK PILER Primary Care Provider Reason for Visit * Reason Comments Prostate Cancer Encounter Details Date Type Department Care Team (Late st Contact Info) Description 03/29/2024 9:[address] [facility] Cancer Treatment [place] [address] [place], [place] [address] Ezra Greenberg MD 111 [facility] 2 [place] [address] Malignant neoplasm of prostate (HCC-CMS) [...] 0857 EDT Temperature - - Respiratory Rate - - Oxygen Saturation - - Inhaled Oxygen Concentration - - Weight 82.8 kg (182 lb 8 oz) 03/29/2024 0857 EDT Height - - Body Mass Index 24.75 01/12/2018 0826 EDT documented in this encounter Ordered Prescriptions Prescription Sig Dispensed Refills Start Date End Da te venlafaxine (EFFEXOR) 37.5 mg tablet Take 1 Tablet by mouth daily. 90 Tablet 3 03/29/2024 documented in this encounter Progress Notes * Ezra Greenberg MD - 03/29/2024 0900 EDT RADIATION ONCOLOGY FOLLOW UP NOTE Diagnosis: High risk prostate cancer ([id number]) PSA 27.9 Taylor score 3+4 adenocarcinoma the prostate Site Treated with Radiation: Prostate and Seminal Vesicles Radiation Completion Date: 06/10/2023 Encounter Date: 03/29/24 Clinical History: Rolan Cardenas is a 78 y.o. male who presented with elevated PSA. [...] in scheduled follow up. He reports nocturia 4 times per night that is unchanged since prior to radiation. He has hot flashes in the day and night that sometimes impacts his sleep. He had improvement in hot flashed with Effexor but then the hot flashes increased recently. He denies dysuria, hematuria or hematochezia. As below, his PSA is undetectable. AUA Score: PSA (ng/mL) Date Value 01/27/2024 <0.1 10/13/2023 <0.1 04/03/2023 20.300 (H) 12/31/2021 16.0 [...] intramuscular EVERY 6 MONTHS Allergies as of 03/29/2024 (No Known Allergies) Objective: General: Well appearing male in no acute distress. Accompanied his HEENT: No facial asymmetry. Extraocular movements intact, no scleral icterus or injection. Abdomen: Non-distended Extremities: No digital or extremity clubbing, cyanosis, edema Neurological: Awake alert and oriented ASSESSMENT: 78 y.o. male with high risk prostate cancer ([id number]) PSA 27.9 Latexo score 3+4 adenocarcinoma theprostate PLAN: Mr Cardenas is recovering from radiation and his PSA decreased significantly. He continues to have hot flashes thrughout the day and night, The plan is for 18 months ADT with third and final 6 month Lupron injection today (03/29/2024). The following plan was discussed: - Continue Effexor 37.5 mg for hot flashes from ADT - Final 6 months Lupron injection today - Follow [...] EDT Nurse Only [facility] Cancer Treatment [address] [address] 09/20/2024 9:00 EDT Office Visit [facility] Cancer Treatment [address] [address] Ezra Greenberg MD [address] [place] [address] 2 [place] [address] Scheduled Orders Name Type Priority Associated Diagnoses Orde r Schedule PSA TOTAL, DIAGNOSTIC Lab Routine Malignant neoplasm of prostate (HCC-CMS) Expected: 09/26/2024 (Approximate), Expires: 03/29/2025 documented as of this encounter Visit Diagnoses Diagnosis Malignant neoplasm of prostate (HCC-CMS)- Primary Malignant neoplasm of prostate documented in this encounter Administered Medications Active Administered Medications - up to 3 most recent administrations Medication Order MAR Action Action Date Dose Rate Site leuprolide acetate (6 month) (LUPRON DEPOT) IM injection 45 mg 45 mg, intramuscular, EVERY 6 MONTHS, First dose on Thu03/29/24 at 0930, Until Discontinued, Routine Given 03/29/2024 9:22 EDT 45 mg Left Gluteus Medius/Ventrogluteal Inactive Administered Medications - up to 3 most recent administrations Medication Order MAR Action Action Date Dose Rate Site leuprolide acetate (6 month) (LUPRON DEPOT) 45 mg IM injection 1 dose, Starting on Thu03/29/24 at 0916, Until Thu03/29/24 at 0922 documented in this encounter Discontinued Medications Medication Sig Discontinue Reason Start Date End Da te venlafaxine (EFFEXOR) 37.5 mg tablet Take 1 Tablet by mouth daily. 03/15/2024 03/29/2024 documented as of this encounter Care Teams Wheel Of Fortune Dealer Relationship Specialty Start Date End Date Domonique Caballero FNP [address] [place] [address] PCP - General Family Medicine - Primary Care 04/16/23 documented as of this encounter
--- OUTSIDE RECORDS SUMMARY | 2024-05-17 15:03 | XMS_ITS | Encounter Summary ---
Author Organization [facility] Address [address] [place] [address] Care Team Providers Care Lamp Replacer Name Role Phone Domonique Caballero SALES AND MARKETING INTERN Primary Care Provider Encounter Details Date Type Department Care Team (Late st Contact Info) Description 06/01/[address] [facility] Cancer Treatment [address] [address] Catrina Heredia, RN Social History Tobacco Use [...] Notes * Catrina Heredia, MARGOT - 06/01/2023 1309 EST Seen for a nursing visit during [...] Info) Description 09/20/2024 8:45 EDT Nurse Only [facility] Cancer Treatment [place] [address] [place] [address] 09/20/2024 9:00 EDT Office Visit [facility] Cancer [facility] [address] [place] [address] Ezra Greenberg MD [address] [facility] 2 [place] [address] documented as of this encounter Visit Diagnoses Not on filedocumented in this encounter Care Teams Lamp Replacer Relationship Specialty Start Date End Date Domonique Caballero FNP 4 [place] [phone] PCP - General Family Medicine - Primary Care 04/16/23 documented as of this encounter
--- OUTSIDE RECORDS SUMMARY | 2024-05-17 15:03 | XMS_ITS | Encounter Summary ---
Author Organization [facility] Address [address] [place] [address] Care Team Providers Care Hvac Sheet Metal Installer Name Role Phone Domonique Caballero PRINT GRAPHIC DESIGNER Primary Care Provider [phone] Encounter Details Date Type Department Care Team (Late st Contact Info) Description 06/02/2023 Results Only [facility] Radiation Oncology - [address] [address] Unknown, Provider, Social History Tobacco Use Types [...] Info) Description 09/20/2024 8:45 EDT Nurse Only [facility] [address] [place] [address] 09/20/2024 9:00 EDT Office Visit [facility] Cancer [facility] [address] [place] [address] Ezra Greenberg MD 111 [facility] [address] [place] [address] documented as of this encounter [...] RADIATION ONCOLOGY 06/02/2023 8:45 EST Provider Unknown RADIATION ONCOLOGY O RDERABLES ARIA RADIATION ONCOLOGY documented in this encounter Visit Diagnoses Not on filedocumented in this encounter Care Teams Hvac Sheet Metal Installer Relationship Specialty Start Date End Date Domonique Caballero FNP [address] [place] [address] PCP - General Family Medicine - Primary Care 04/16/23 documented as of this encounter
--- OUTSIDE RECORDS SUMMARY | 2024-05-17 15:03 | XMS_ITS ---
Author Organization [facility] Address [address] [place] [address] Care Team Providers Care Compugraph Operator Name Role Phone Domonique Caballero [facility] Primary Care Provider [phone] Active Problems Problem Noted Date Diagnosed Date Malignant neoplasm of prostate ([facility]) 023 Macular degeneration (senile) of retina 04/03/20 23 Glaucoma 04/03/2023 Deviated nasal septum 01/12/2018 Current Oncology Plans LEUPROLIDE* Plan Start Date:04/30/2023 Plan Provider:Todd Myles MD Linked Problems Malignant neoplasm of prosta te ([facility]) Treatment Medications leuprolide acetate (6 month) [...]
--- OUTSIDE RECORDS SUMMARY | 2024-05-17 15:03 | XMS_ITS | Encounter Summary ---
Author Organization [facility] Address [address] [place] [address] Care Team Providers Care Hoisting Engineer Name Role Phone Domonique Caballero HARVEST FIELD TICKETER Primary Care Provider Encounter Details Date Type Department Care Team (Latest Contact Info) Description 06/10/2023 8:30 EST - 06/10/2023 23:59 EST Hospital Encounter [facility] Cancer Treatment [place] [address] [place] [address] Discharge Disposition: Home or Self Care Social [...] Info) Description 09/20/2024 8:45 EDT Nurse Only [facility] Treatment [place] [address] [place] [address] 09/20/2024 9:00 EDT Office Visit [facility] Cancer [facility] [address] [place] [address] Ezra Greenberg MD [address] [place] [address] 2 [place] [phone] documented as of this encounter Visit Diagnoses Not on filedocumented in this encounter Care Teams Hoisting Engineer Relationship Specialty Start Date End Date Domonique Caballero FNP 4 [place] [phone] PCP - General Family Medicine - Primary Care 04/16/23 documented as of this encounter
--- OUTSIDE RECORDS SUMMARY | 2024-05-17 15:03 | XMS_ITS | Encounter Summary ---
Author Organization [facility] Address [address] [place] [address] Care Team Providers Care It Solutions Architect Name Role Phone Domonique Caballero PACKING MACHINE OPERATOR Primary Care Provider Reason for Visit * Reason Comments Medications Refill Encounter Details Date Type Department Care Team (Randell Contact Info) Description 02/28/2024 Refill [facility] Cancer Treatment [place] [address] [place] [address] Ezra Greenberg MD 111 [facility] 2 [place] [address] Medications Refill Social History Tobacco [...] 1 TABLET BY MOUTH DAILY 30 Tablet 2 02/29/2024 02/29/2024 documented in this encounter Plan of Treatment Upcoming Encounters Date Type Department Care Team (Randell chu Contact Info) Description 09/20/2024 8:45 EDT Nurse Only [facility] Cancer Treatment [place] [address] [place] [address] 09/20/2024 9:00 EDT Office Visit [facility] Cancer [facility] [address] [place] [address] Ezra Greenberg MD 111 [facility] 2 [place] [phone] documented as of this encounter Visit Diagnoses Not on filedocumented in this encounter Discontinued Medications Medication Sig Discontinue Reason Start Date End Da te venlafaxine (EFFEXOR) 37.5 mg tablet Take 1 Tablet by mouth daily for 90 days. 12/21/2023 02/29/2024 documented as of this encounter Care Teams It Solutions Architect Relationship Specialty Start Date End Date Domonique Caballero FNP 4 [place] [address] PCP - General Family Medicine - Primary Care 04/16/23 documented as of this encounter
--- OUTSIDE RECORDS SUMMARY | 2024-05-17 15:03 | XMS_ITS | Encounter Summary ---
Author Organization [facility] Address [address] [place] [address] Care Team Providers Care Counter Clerk [employer] Name Role Phone Domonique Caballero HELPDESK MANAGER Primary Care Provider [phone] Reason for Visit * Reason Comments Prostate Cancer Encounter Details Date Type Department Care Team (Late st Contact Info) Description 10/19/2023 9:00 EDT Office Visit [facility] Cancer Treatment [place] [address] [place], [place] [address] Ezra Greenberg MD 111 [facility] 2 [place] [address] Malignant neoplasm of prostate (HCC-CMS) [...] for 30 days. 30 Tablet 1 10/19/2023 02/29/2024 documented in this encounter Progress Notes * Ezra Greenbegr MD - 10/19/2023 0900 EDT RADIATION ONCOLOGY FOLLOW UP NOTE Diagnosis: High risk prostate cancer ([id number]) PSA 27.9 Fontana score 3+4 adenocarcinoma the prostate Site Treated with Radiation: Prostate and Seminal Vesicles Radiation Completion Date: 06/10/2023 Encounter Date: 10/19/23 Clinical History: Rolan Cardenas is a 77 y.o. male who presented with elevated PSA. PSA 14.2 on November 07, 2020 He underwent transrectal ultrasound-guided biopsies, we do not currently have that pathology reporthowever according to the note from Dr. Beasley this revealed Fontana score 6. PSA values on active surveillance included 14.6 on March 14, 2021, 14.8 on June 20, 2021, with 27.92 in February 18, 2023 03/04/2023 Transrectal ultrasound-guided biopsies by Dr. Beasley : Abnormality was noted on ultrasoundat the base extending from the right to the left. Pathology review: 09/17 core biopsies with evidenceof malignancy, Fontana score 3+3 disease at the right and [...] y.o. male with high risk prostate cancer ([id number]) PSA 27.9 Fontana score 3+4 adenocarcinoma theprostate PLAN: Mr Cardenas [...] 8:45 EDT Nurse Only [facility] Cancer [address] [address] 09/20/2024 9:00 EDT Office Visit [facility] Cancer [address] [address] Ezra Greenberg MD [address] [place] [address] 2 [place] [phone] Scheduled Orders Name Type Priority Associated Diagnoses Orde r Schedule PSA TOTAL, DIAGNOSTIC Lab Routine Malignant neoplasm of prostate (HCC-CMS) Expected: 04/12/2024 (Approximate), Expires: 10/18/2024 documented as of this encounter Visit Diagnoses Diagnosis Malignant neoplasm of prostate (HCC-CMS)- Primary Malignant neoplasm of prostate documented in this encounter Care Teams Counter Clerk [employer] Relationship Specialty Start Date End Date Domonique Caballero FNP 4 [place] [phone] PCP - General Family Medicine - Primary Care 04/16/23 documented as of this encounter
--- OUTSIDE RECORDS SUMMARY | 2024-05-17 15:03 | XMS_ITS | Encounter Summary ---
Author Organization [facility] Address [address] [place] [address] Care Team Providers Care Natural Resources Extension Educator Name Role Phone Domonique Caballero [employer] Primary Care Provider Encounter Details Date Type Department Care Team (Latest Contact Info) Description 05/31/2023 8:45 EST - 05/31/2023 23:59 EST Hospital Encounter [facility] Cancer Treatment [place] [address] [place] [address] Discharge Disposition: Home or Self Care Social [...] Nurse Only [facility] [place] [address] [place] [address] 09/20/2024 9:00 EDT Office Visit [facility] [address] [place] [address] Ezra Gerenberg MD [address] [place] [address] 2 [place] [phone] documented as of this encounter Visit Diagnoses Not on filedocumented in this encounter Care Teams Natural Resources Extension Educator Relationship Specialty Start Date End Date Domonique Caballero FNP 4 [place] [phone] PCP - General Family Medicine - Primary Care 04/16/23 documented as of this encounter
--- OUTSIDE RECORDS SUMMARY | 2024-05-17 15:03 | XMS_ITS | Encounter Summary ---
Author Organization [facility] Address [address] [place] [address] Care Team Providers Care Polisher And Sander Name Role Phone Domonique Caballero [facility] Primary Care Provider Encounter Details Date Type Department Care Team (Late st Contact Info) Description 12/04/2023 Orders Only [facility] Cancer Treatment [address] [address] Darby Eckert, MARGOT Social History Tobacco Use [...] for 90 days. 30 Tablet 2 12/21/2023 02/29/2024 documented in this encounter Plan of Treatment Upcoming Encounters Date Type Department Care Team (Late st Contact Info) Description 09/20/2024 8:45 EDT Nurse Only [facility] Cancer [address] [address] 09/20/2024 9:00 EDT Office Visit [facility] [address] [place] [address] Ezra Greenberg MD 111 [facility] 2 [place] [phone] documented as of this encounter Visit Diagnoses Not on filedocumented in this encounter Care Teams Polisher And Sander Relationship Specialty Start Date End Date Domonique Caballero FNP 4 [place] [phone] PCP - General Family Medicine - Primary Care 04/16/23 documented as of this encounter
--- OUTSIDE RECORDS SUMMARY | 2024-05-17 15:03 | XMS_ITS | Encounter Summary ---
Author Organization [facility] Address [address] [place] [address] Care Team Providers Care Carbide Operator Name Role Phone Domonique Caballero CENTRAL SUPPLY TECH Primary Care Provider Encounter Details Date Type Department Care Team (Latest Contact Info) Description 05/28/2023 8:45 EST - 05/28/2023 23:59 EST Hospital Encounter [facility] Cancer Treatment [place] [address] [place] [address] Discharge Disposition: Home or Self Care Social [...] Info) Description 09/20/2024 8:45 EDT Nurse Only [facility] [place] [address] [place] [address] 09/20/2024 9:[address] [facility] [address] [place] [address] Ezra Greenberg MD [address] [place] [address] 2 [place] [phone] documented as of this encounter Visit Diagnoses Not on filedocumented in this encounter Care Teams Carbide Operator Relationship Specialty Start Date End Date Domonique Caballero FNP 4 [place] [phone] PCP - General Family Medicine - Primary Care 04/16/23 documented as of this encounter
--- OUTSIDE RECORDS SUMMARY | 2024-05-17 15:03 | XMS_ITS | Encounter Summary ---
Author Organization [facility] Address [address] [place] [address] Care Team Providers Care Driver'S Education Instructor Name Role Phone Domonique Caballero EMERGENCY ROOM CLINICIAN Primary Care Provider Encounter Details Date Type Department Care Team (Late st Contact Info) Description 12/04/2023 Documentation Visit [facility] Cancer Treatment [address] [address] Darby Eckert, RN Social History Tobacco Use [...] Info) Description 09/20/2024 8:45 EDT Nurse Only [facility] [address] [place] [address] 09/20/2024 9:00 EDT Office Visit [facility] [address] [place] [address] Ezra Greenberg MD 111 [facility] 2 [place] [phone] documented as of this encounter Visit Diagnoses Not on filedocumented in this encounter Care Teams Driver'S Education Instructor Relationship Specialty Start Date End Date Domonique Caballero FNP 4 [place] [phone] PCP - General Family Medicine - Primary Care 04/16/23 documented as of this encounter
--- OUTSIDE RECORDS SUMMARY | 2024-05-17 15:03 | XMS_ITS | Encounter Summary ---
Author Organization [facility] Address [address] [place] [address] Care Team Providers Care Neurosurgery Spine Physician Name Role Phone Domonique Caballero HOSPITAL RECEPTIONIST Primary Care Provider [phone] Encounter Details Date Type Department Care Team (Late st Contact Info) Description 05/27/2023 Results Only [facility] Radiation Oncology - [address] [address] Unknown, Provider, Social History Tobacco Use Types [...] EDT Nurse Only [facility] [address] [place] [address] 09/20/2024 9:[address] [facility] Cancer [facility] [address] [place] [address] Ezra Greenberg MD 111 [facility], Level [address] [place] [address] documented as of this encounter [...] RADIATION ONCOLOGY 05/27/2023 9:23 EST Provider Unknown RADIATION ONCOLOGY O RDERABLES ARIA RADIATION ONCOLOGY documented in this encounter Visit Diagnoses Not on filedocumented in this encounter Care Teams Neurosurgery Spine Physician Relationship Specialty Start Date End Date Domonique Caballero FNP [address] [place] [phone] PCP - General Family Medicine - Primary Care 04/16/23 documented as of this encounter
--- OUTSIDE RECORDS SUMMARY | 2024-05-17 15:03 | XMS_ITS | Encounter Summary ---
Author Organization [facility] Address [address] [place] [address] Care Team Providers Care Superintendent Measurement Name Role Phone Domonique Caballero SAFETY PHYSICIAN Primary Care Provider Reason for Visit * Reason Comments Prostate Cancer Encounter Details Date Type Department Care Team (Late st Contact Info) Description 03/29/2024 8:45 EDT Nurse Only [facility] Cancer Treatment [place] [address] [place], [place] [phone] Malignant neoplasm of prostate (HCC-CMS) (Primary Dx) [...] as of this encounter Progress Notes * Beverley [place], MARGOT - 03/29/2024 0845 EDT MEDICATION ADMINISTRATION - ADT Luteinizing Hormone-Releasing Hormone (LHRH) Rolan Cardenas was seen today for his Lupron Depot injection. Dr. Ezra Greenberg was present in the clinic and immediately available. Assessment: Rolan Cardenas was identified using name and date of . Site was cleaned with alcohol. No bleeding at site. Medication: Lupron Depot Dose: 45 mg Route: Intramuscular Site: Left [facility] 2001: [id number] Lot #: [id number] Exp: 02/02/26 Ordered by: Dr. Ezra Greenberg Drug verification by: Dr. Ezra Greenberg and BEVERLEY NAPIER, RN Administered by: BEVERLEY NAPIER, RN Diagnosis: Prostate Cancer Pt reporting: Nocturia x4 Daytime frequency No change in bowel habits Follow Up Plan: Follow up in 6 months w/ PSA and Dr. Greenberg appointment. documented in this encounter Plan of Treatment Upcoming Encounters Date Type Department Care Team (Late st Contact Info) Description 09/20/2024 8:45 EDT Nurse Only [facility] Cancer [address] [address] 09/20/2024 9:00 EDT Office Visit [facility] Cancer Treatment [address] [address] Ezra Greenberg MD [address] [place] [address], [facility] 2 [place] [address] documented as of this encounter Visit Diagnoses Diagnosis Malignant neoplasm of prostate (HCC-CMS)- Primary Malignant neoplasm of prostate documented in this encounter Care Teams Superintendent Measurement Relationship Specialty Start Date End Date Domonique Caballero FNP [address] [place] [phone] PCP - General Family Medicine - Primary Care 04/16/23 documented as of this encounter
--- OUTSIDE RECORDS SUMMARY | 2024-05-17 15:03 | XMS_ITS | Encounter Summary ---
Author Organization [facility] Address [address] [place] [address] Care Team Providers Care Tile Shader Name Role Phone Domonique Caballero WAREHOUSE HELPER Primary Care Provider Reason for Visit * Reason Comments Prostate Cancer Encounter Details Date Type Department Care Team (Late st Contact Info) Description 05/27/2023 Radiation Therapy Visit [facility] Cancer Treatment [place] [address] [place] [address] Ezra Greenberg MD 111 [facility] 2 [place] [address] Malignant neoplasm of prostate (HCC-CMS) [...] Treatment Visit On Treatment Visit Assessment:05/27/23 Rolan Cardeans is currently receiving radiation therapy treatment and [...] at this time Ezra Greenberg MD [facility] [phone] documented in this encounter Plan of Treatment Upcoming Encounters Date Type Department Care Team (Late st Contact Info) Description 09/20/2024 8:45 EDT Nurse Only [facility] [address] [place] [address] 09/20/2024 9:00 EDT Office Visit [facility] [address] [place] [address] Ezra Greenberg MD 111 [facility] 2 [place] [address] documented as of this encounter Visit Diagnoses Diagnosis Malignant neoplasm of prostate (HCC-CMS)- Primary Malignant neoplasm of prostate documented in this encounter Care Teams Tile Shader Relationship Specialty Start Date End Date Domonique Caballero FNP [address] [place] [phone] PCP - General Family Medicine - Primary Care 04/16/23 documented as of this encounter
--- OUTSIDE RECORDS SUMMARY | 2024-05-17 15:03 | XMS_ITS | Patient Health Record ---
Author Organization [facility] Address [address] [place] [address] Care Team Providers Care Immigration Patrol Inspector Name Role Phone Almita Raza Primary Care Provider Katharine Green Unavailable [phone] ALLERGIES No Known Allergies REASON FOR REFERRAL No Information MEDICATIONS Medication SIG (Take, Route, Frequency, Duration) [...] fo od Orally Once a day Active IMMUNIZATIONS Vaccine Route Administration Date Status Comme nts Covid19 Unknown 09/05/2020 Administered Covid19 Unknown 10/05/2020 Administered Covid19 Unknown 05/03/2021 Administered Covid19 Unknown 12/05/2021 Administered Influenza, high dose seasonal Unknown 03/11/2021 Admini stered Pneumococcal conjugate PCV 13 Unknown 03/18/2019 Admini stered SOCIAL HISTORY Tobacco Use: Social History Observation Description Date Details (start date - stop date) Former Smoker NA - NA Sex Assigned At : Social History Observation Description Sex Assigned At Unknown Tobacco Use/Smoking: Question Answer Notes Are you a former smoker PROBLEMS Problem Type ICD Code Onset Dates Problem Status W/U Status Risk SNOMED Code Notes Problem Malignant neoplasm of prostate (C61) Active confirmed Malignant tumor of prostate (627291384) Problem Erectile 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 (521929389) Problem Elevated prostate specific antigen [PSA] (R97.20) Active confirmed Raised prostate specific antigen (335006442) VITAL SIGNS Blood pressure diastolic 78 mm Hg 01/28/2024 Height 72 in 01/28/2024 Blood pressure systolic 128 mm Hg 01/28/2024 Weight 187 lbs 01/28/2024 BMI 25.36 kg/m2 01/28/2024 Encounters Encounter Location Date Provider Diagnosis [facility] [address] [place] [address] 01/28/2024 Katharine Ramos Malignant neoplasm of prostate C61 ASSESSMENTS Encounter Date Diagnosis Assessment Notes Treatment Notes Treatment Clinical Notes 01/28/2024 Malignant neoplasm of prostate (ICD-10 - C61) Nocturia x 3, reports good urination stream during the day but slower at night, denies frequency, urgency, and leaking. PLAN OF TREATMENT No Information Insurance Providers Payer Name Payer Address Payer Phone Subscriber Number Group Number Insured Name Patient Relationship to Insured Coverage Start Date Coverage End Date Medicare of [place] - J14 [address] [place] [phone] [id number] ALEX CRESPO Self - patient is the insured [facility] [address] [place] [address] [phone] [id number] CHERIE ALEX Self - patient is the insured MEDICAL (GENERAL) HISTORY Medical History History ICD Code boarderline htn and lipids glaucoma elevated PSA, 10.5 prostate cancer diagnosed 2020, [place] 6 03/04/23 [place] 7, treated with Lupron and radiation therapy ended 1123 Surgical History Surgery Date(Month/Year) L Knee Arthroscopy 06/2014 R Index Finger Cyst Excision 01/2020 carpal tunnel Prostate Biopsy - [place] 7 02/2023
--- OUTSIDE RECORDS SUMMARY | 2024-05-17 15:03 | XMS_ITS | Encounter Summary ---
Author Organization [facility] Address [address] [place] [address] Care Team Providers Care Trade Analyst Name Role Phone Domonique Caballero SUPERINTENDENT WATER [employer]S Primary Care Provider [phone] Encounter Details Date Type Department Care Team (Late st Contact Info) Description 06/09/2023 Documentation Visit [facility] Cancer Treatment [address] [address] Darby Eckert, RN Social History Tobacco Use [...] EDT Nurse Only [facility] Cancer Treatment [place] [address] [place] [address] 09/20/2024 9:00 EDT Office Visit [facility] Cancer Treatment [place] [address] [place] [address] Ezra Greenberg MD [address] [place] [address] 2 [place] [address] documented as of this encounter Visit Diagnoses Not on filedocumented in this encounter Care Teams Trade Analyst Relationship Specialty Start Date End Date Domonique Caballero FNP [address] [place] [phone] PCP - General Family Medicine - Primary Care 04/16/23 documented as of this encounter
--- OUTSIDE RECORDS SUMMARY | 2024-05-17 15:03 | XMS_ITS | Encounter Summary ---
Author Organization [facility] Address [address] [place] [address] Care Team Providers Care Editor In Chief Name Role Phone Domonique Caballero ATHLETIC EQUIPMENT CUSTODIAN Primary Care Provider Encounter Details Date Type Department Care Team (Latest Contact Info) Description 06/02/2023 8:45 EST - 06/02/2023 23:59 EST Hospital Encounter [facility] Cancer Treatment [place] [address] [place] [address] Discharge Disposition: Home or Self Care Social [...] Info) Description 09/20/2024 8:45 EDT Nurse Only [facility] [place] [address] [place] [address] 09/20/2024 9:00 EDT Office Visit [facility] [address] [place] [address] zEra Greenberg MD [address] [place] [address] 2 [place] [phone] documented as of this encounter Visit Diagnoses Not on filedocumented in this encounter Care Teams Editor In Chief Relationship Specialty Start Date End Date Domonique Caballero FNP 4 [place] [phone] PCP - General Family Medicine - Primary Care 04/16/23 documented as of this encounter
--- OUTSIDE RECORDS SUMMARY | 2024-05-17 15:03 | XMS_ITS | Encounter Summary ---
Author Organization [facility] Address [address] [place] [address] Care Team Providers Care Elementary School Music Teacher Name Role Phone Domonique Caballero ANIMAL EVISCERATOR Primary Care Provider [phone] Encounter Details Date Type Department Care Team (Late st Contact Info) Description 06/01/2023 Results Only [facility] Radiation Oncology - [address] [address] Unknown, Provider, Social History Tobacco Use Types [...] EDT Nurse Only [facility] [address] [place], [place] [id number] 09/20/2024 9:00 EDT Office Visit [facility] [address] [place] [address] Ezra Greenberg MD 111 [facility] Level 2 [place] [address] documented as of this encounter [...] RADIATION ONCOLOGY 06/01/2023 8:49 EST Provider Unknown RADIATION ONCOLOGY O RDERABLES [facility] RADIATION ONCOLOGY documented in this encounter Visit Diagnoses Not on filedocumented in this encounter Care Teams Elementary [employer] Music Teacher Relationship Specialty Start Date End Date Domonique Caballero FNP [address] [place] [phone] PCP - General Family Medicine - Primary Care 04/16/23 documented as of this encounter
--- OUTSIDE RECORDS SUMMARY | 2024-05-17 15:03 | XMS_ITS | Encounter Summary ---
Author Organization [facility] Address [address] [place] [address] Care Team Providers Care Line Service Attendant Name Role Phone Domonique Caballero MEDICAL RECORDS ASSISTANT Primary Care Provider [phone] Reason for Visit * Reason Comments Prostate Cancer Encounter Details Date Type Department Care Team (Late st Contact Info) Description 06/10/2023 Radiation Therapy Visit [facility] Treatment [place] [address] [place] [address] Ezra Greenberg MD 111 [facility] 2 [place] [address] Malignant neoplasm of prostate (HCC-CMS) [...] clinic October 2023 Ezra Greenberg MD Radiation [facility] [phone] documented in this encounter Plan of Treatment Upcoming Encounters Date Type Department Care Team (Late st Contact Info) Description 09/20/2024 8:45 EDT Nurse Only [facility] Treatment [place] [address] [place] [address] 09/20/2024 9:00 EDT Office Visit [facility] [address] [place] [address] Ezra Greenberg MD [address] [place] [address] 2 [place] [phone] Scheduled Orders Name Type Priority Associated Diagnoses Orde r Schedule PSA TOTAL, DIAGNOSTIC Lab Routine Malignant neoplasm of prostate (HCC-CMS) Expected: 10/12/2023 (Approximate), Expires: 06/10/2024 documented as of this encounter Visit Diagnoses Diagnosis Malignant neoplasm of prostate (HCC-CMS)- Primary Malignant neoplasm of prostate documented in this encounter Care Teams Line Service Attendant Relationship Specialty Start Date End Date Domonique Caballero FNP [address] [place] [phone] PCP - General Family Medicine - Primary Care 04/16/23 documented as of this encounter
--- OUTSIDE RECORDS SUMMARY | 2024-05-17 15:03 | XMS_ITS | Encounter Summary ---
Author Organization [facility] Address [address] [place] [address] Care Team Providers Care Engineer Systems Name Role Phone Domonique Caballero MANAGER FRONT OFFICE Primary Care Provider Encounter Details Date Type Department Care Team (Late st Contact Info) Description 07/22/2023 Documentation Visit [facility] Cancer Treatment [address] [address] Ezra Greenberg MD 111 [facility] 2 [place] [address] Social History Tobacco Use Types [...] Summary - Ezra Greenberg MD - 07/22/2023 4952 EST RADIATION ONCOLOGY END OF TREATMENT REPORT Diagnosis: [id number], PSA 27.9 Cambridge score 3+4 adenocarcinoma the prostate, PSA 27.92 [...] review: 09/17 core biopsies with evidenceof malignancy, Cambridge score 3+3 disease at the right and [...] Nurse Only [facility] [address] [address] 09/20/2024 9:00 EDT Office Visit [facility] [address] [address] Ezra Greenberg MD 111 [facility], Level [address] [place] [phone] documented as of this encounter Visit Diagnoses Not on filedocumented in this encounter Care Teams Engineer Systems Relationship Specialty Start Date End Date Domonique Caballero FNP [address] [place] [address] PCP - General Family Medicine - Primary Care 04/16/23 documented as of this encounter
--- OUTSIDE RECORDS SUMMARY | 2024-05-17 15:03 | XMS_ITS | Encounter Summary ---
Author Organization [facility] Address [address] [place] [address] Care Team Providers Care Data Communications Analyst Name Role Phone Domonique Caballero DICTATING MACHINE MECHANIC Primary Care Provider Encounter Details Date Type Department Care Team (Latest Contact Info) Description 05/29/2023 8:45 EST - 05/29/2023 23:59 EST Hospital Encounter [facility] Treatment [place] [address] [place] [address] Discharge Disposition: Home or Self Care Social [...] Nurse Only [facility] [place] [address] [place] [address] 09/20/2024 9:00 EDT Office Visit [facility] [address] [place] [address] Ezra Greenberg MD [address] [place] [address] 2 [place] [phone] documented as of this encounter Visit Diagnoses Not on filedocumented in this encounter Care Teams Data Communications Analyst Relationship Specialty Start Date End Date Domonique Caballero FNP 4 [place] [phone] PCP - General Family Medicine - Primary Care 04/16/23 documented as of this encounter
--- OUTSIDE RECORDS SUMMARY | 2024-05-17 15:03 | XMS_ITS | Referral Summary ---
Author Organization [facility] Address [address] [place] [address] Care Team Providers Care Physicist Solid [place] Name Role Phone Domonique Caballero IRON SETTER Primary Care Provider [phone] Encounters Date Type Department Care Team Description 03/29/2024 8:45 EDT Nurse Only [facility] [place] [address] Malignant neoplasm of prostate (HCC-CMS) (Primary Dx) 03/29/2024 9:00 EDT Office Visit [facility] [place] [address] Ezra Greenberg MD Malignant neoplasm of prostate (HCC-CMS) (Primary Dx) 03/15/2024 Orders Only [facility] [place] [address] Catrina Heredia RN 02/28/2024 Refill [facility] [address] [address] Ezra Greenberg MD Medications Refill from Last 3 Months Allergies No known [...] Info) Description 09/20/2024 8:45 EDT Nurse Only [facility] [place] [address] [place] [address] 09/20/2024 9:00 EDT Office Visit [facility] [place] [address] [place] [address] Ezra Greenberg MD [address] [facility] 2 [place] [address] Care Teams Physicist Solid [place] Relationship Specialty Start Date End Date Domonique Caballero, [facility] 4 [place] [address] PCP - General Family Medicine - Primary Care 04/16/23
--- OUTSIDE RECORDS SUMMARY | 2024-05-17 15:03 | XMS_ITS | Encounter Summary ---
Author Organization [facility] Address [address] [place] [address] Care Team Providers Care College Or University Department Head Name Role Phone Domonique Caballero [facility] Primary Care Provider Encounter Details Date Type Department Care Team (Late st Contact Info) Description 01/27/2024 Lab Requisition [facility] Pathology & Laboratory Medicine - [facility] [address] [place], [place] [phone] Outr Resulting Lab, Provider Social History Tobacco [...] 8:45 EDT Nurse Only [facility] Cancer Treatment [address] [phone] 09/20/2024 9:00 EDT Office Visit [facility] Cancer [address] [phone] Ezra Greenberg MD 111 [facility], [facility] 2 [place] [address] documented as of this encounter Procedures Procedure Name Priority Date/Time Associated Diagnosis Comments PSA TOTAL, DIAGNOSTIC Routine 01/27/2024 7:40 EDT documented in this encounter Results * PSA TOTAL, DIAGNOSTIC (01/27/2024 7:40 EDT) PSA <0.1 <=6.5 ng/mL 01/27/2024 22:57 EDT [facility] Blood VENOUS BLOOD / Unknown 01/27/2024 7:40 EDT 01/27/2024 21:47 EDT Narrative [facility] - 01/27/2024 22:57 EDT NOTE: Serum PSA concentration should not be interpreted as absolute evidence for the presence or absence of malignant disease. Assayed on Siemens ADVIA Qikaur XPT using chemiluminescent technology.??Values obtained by using different assay methods cannot be used interchangeably. Provider Outr Resulting Lab CHEMISTRY & BLOOD GAS ORDERABLES [facility] [address] [place], [place] [address] documented in this encounter Visit Diagnoses Not on filedocumented in this encounter Care Teams College Or [employer] Department Head Relationship Specialty Start Date End Date Domonique Caballero FNP [address] [place] [phone] PCP - General Family Medicine - Primary Care 04/16/23 documented as of this encounter
--- OUTSIDE RECORDS SUMMARY | 2024-05-17 15:04 | XMS_ITS | Encounter Summary ---
Author Organization [facility] Address [address] [place] [address] Care Team Providers Care Disposal Man Name Role Phone Almita Raza Clemente SNYDER Primary Care Provider [phone] Encounter Details Date Type Department Care Team (Late st Contact Info) Description 04/03/2023 Orders Only [facility] Radiology - Main [place] [address] [place], [place] [phone] Blanca Layton MD [address] [place] [address] Social History Tobacco Use Types [...] EDT Nurse Only [facility] Cancer Treatment [address] [address] 09/20/2024 9:00 EDT Office Visit [facility] [address] [place] [address] Ezra Greenberg MD 111 [facility], [facility] 2 [place] [address] documented as of this encounter Visit Diagnoses Not on filedocumented in this encounter Care Teams Disposal Man Relationship Specialty Start Date End Date Almita Raza APRN [address] [place] [phone] PCP - General Family Medicine - Primary Care 03/18/22 04/15/23 documented as of this encounter
--- OUTSIDE RECORDS SUMMARY | 2024-05-17 15:04 | XMS_ITS | Encounter Summary ---
Author Organization [facility] Address [address] [place] [address] Care Team Providers Care Aircraft Quality Control Inspector Name Role Phone Domonique Caballero FRONT OFFICE ATTENDANT Primary Care Provider Encounter Details Date Type Department Care Team (Late st Contact Info) Description 05/15/2023 Results Only [facility] Radiation Oncology - [address] [address] Unknown, Provider, Social History Tobacco Use Types [...] Description 09/20/2024 8:45 EDT Nurse Only [facility] [address] [place] [address] 09/20/2024 9:00 EDT Office Visit [facility] [address] [place] [address] Ezra Greenberg MD [address] [facility], Level [address] [place] [phone] documented as of this encounter Procedures Procedure [...] ONCOLOGY 05/15/2023 11:1 7 EDT Provider Unknown RADIATION ONCOLOGY O RDERABLES [facility] RADIATION ONCOLOGY documented in this encounter Visit Diagnoses Not on filedocumented in this encounter Care Teams Aircraft Quality Control Inspector Relationship Specialty Start Date End Date Domonique Caballero FNP [address] [place] [address] PCP - General Family Medicine - Primary Care 04/16/23 documented as of this encounter
--- OUTSIDE RECORDS SUMMARY | 2024-05-17 15:04 | XMS_ITS | Encounter Summary ---
Author Organization [facility] Address [address] [place] [address] Care Team Providers Care Clinical Documentation Consultant Name Role Phone Domonique Caballero RESOURCE MANAGER Primary Care Provider Reason for Visit * Reason Comments Prostate Cancer Encounter Details Date Type Department Care Team (Late st Contact Info) Description 05/20/2023 Radiation Therapy Visit [facility] [place] [address] [place] [address] Ezra Greenberg MD 111 [facility] 2 [place] [address] Malignant neoplasm of prostate (HCC-CMS) [...] Notes * Ezra Greenberg MD - 05/20/2023 8499 EST Images from the original note were [...] expected radiation reaction. Ezra Greenberg MD [facility] [phone] documented in this encounter Plan of Treatment Upcoming Encounters Date Type Department Care Team (Late st Contact Info) Description 09/20/2024 8:45 EDT Nurse Only [facility] Cancer Treatment [address] [address] 09/20/2024 9:00 EDT Office Visit [facility] [address] [place] [address] Ezra Greenberg MD 111 [facility] 2 [place] [phone] documented as of this encounter Visit Diagnoses Diagnosis Malignant neoplasm of prostate (HCC-CMS)- Primary Malignant neoplasm of prostate documented in this encounter Care Teams Clinical Documentation Consultant Relationship Specialty Start Date End Date Domonique Caballero FNP 4 [place] [phone] PCP - General Family Medicine - Primary Care 04/16/23 documented as of this encounter
--- OUTSIDE RECORDS SUMMARY | 2024-05-17 15:04 | XMS_ITS | Encounter Summary ---
Author Organization [facility] Address [address] [place] [address] Care Team Providers Care Glaze Wiper Name Role Phone Domonique Caballero ENFORCEMENT SAFETY OFFICER Primary Care Provider Encounter Details Date Type Department Care Team (Latest Contact Info) Description 05/07/2023 14:07 EDT - 05/07/2023 23:[address] [facility] Treatment [place] [address] [place] [address] Discharge Disposition: Home or Self Care Social [...] 8:45 EDT Nurse Only [facility] [address] [place] [address] 09/20/2024 9:00 EDT Office Visit [facility] Cancer [address] [address] Ezra Greenberg MD 111 [facility] 2 [place] [address] documented as of this encounter Visit Diagnoses Not on filedocumented in this encounter Care Teams Glaze Wiper Relationship Specialty Start Date End Date Domonique Caballero FNP 4 [place] [phone] PCP - General Family Medicine - Primary Care 04/16/23 documented as of this encounter
--- OUTSIDE RECORDS SUMMARY | 2024-05-17 15:04 | XMS_ITS | Encounter Summary ---
Author Organization [facility] Address [address] [place] [address] Care Team Providers Care Event Host Name Role Phone Almita Raza APRN Primary Care Provider Reason for Visit * (Routine/Next Available) - Receiving Office to Obtain Authorization Specialty Diagnoses / Procedures Referred By Tri crane Referred To Contact Procedures NM OUTSIDE IMAGES Imaging, External Referral ID Status Reason Start Date Expiration Date Visits Requested Visits Authorized [id number] Receiving Office to Obtain Authorization 04/03/2023 1 1 Encounter Details Date Type Department Care Team (Latest Contact Info) Description 03/25/2023 - 03/25/2023 23:59 EDT Hospital Encounter [facility] Secondary Reads [place] Discharge Disposition: Home or [...] 8:45 EDT Nurse Only [facility] [place] [address] [place], [place] [address] 09/20/2024 9:00 EDT Office Visit [facility] Treatment [place] [address] [place], [place] [address] Ezra Greenberg MD 111 [facility] 2 [place] [phone] documented as of this encounter Procedures Procedure Name Priority Date/Time Associated Diagnosis Comments NM OUTSIDE IMAGES Routine 03/25/2023 9:07 EDT documented in this encounter Results * NM OUTSIDE IMAGES (03/25/2023 9:07 EDT) Narrative 04/03/2023 9:08 EDT This is a non-reportable exam. External Imaging IMG OTHER IMAGING OR DERABLES documented in this encounter Visit Diagnoses Not on filedocumented in this encounter Care Teams Event Host Relationship Specialty Start Date End Date Almita Raza APRN 4 [place] [address] PCP - General Family Medicine - Primary Care 03/18/22 04/15/23 documented as of this encounter
--- OUTSIDE RECORDS SUMMARY | 2024-05-17 15:04 | XMS_ITS | Encounter Summary ---
Author Organization [facility] Address [address] [place] [address] Care Team Providers Care Load Test Mechanic Name Role Phone Domonique Caballero REED DIPPER Primary Care Provider [phone] Encounter Details Date Type Department Care Team (Late st Contact Info) Description 04/24/2023 Documentation Visit [facility] Cancer Treatment [place] [address] [place] [address] Cole Wright MD 111 [facility], [facility] 2 [place] [address] Social History Tobacco Use Types [...] * Cole Wright III, MD - 04/24/2023 5466 EDT RADIATION ONCOLOGY Mr. Cardenas's PET scan revealed no evidence of metastatic disease. Inguinal lymphadenopathy most likely to be reactive was noted. I spoke with him by phone today. I told him we will arrange to initiate androgen deprivation and radiation treatment planning as soon as practical. Antonino Wright MD Radiation Oncology [phone] (office) [phone] (pager) This note has been prepared with voice recognition software. Please excuse wool sampler errors. documented in this encounter Plan of Treatment Upcoming Encounters Date Type Department Care Team (Late st Contact Info) Description 09/20/2024 8:45 EDT Nurse Only [facility] Cancer Treatment [address] [address] 09/20/2024 9:00 EDT Office Visit [facility] Cancer Treatment [place] [address] [place] [address] Ezra Greenberg MD 111 [facility], Level 2 [place] [address] documented as of this encounter Visit Diagnoses Not on filedocumented in this encounter Care Teams Load Test Mechanic Relationship Specialty Start Date End Date Domonique Caballero FNP 4 [place] [phone] PCP - General Family Medicine - Primary Care 04/16/23 documented as of this encounter
--- OUTSIDE RECORDS SUMMARY | 2024-05-17 15:04 | XMS_ITS | Encounter Summary ---
Author Organization [facility] Address [address] [place] [address] Care Team Providers Care Dyer And Washer Name Role Phone Domonique Caballero BIG MACHINE CONSULTANT Primary Care Provider [phone] Encounter Details Date Type Department Care Team (Late st Contact Info) Description 05/12/2023 11:00 EDT - 05/12/2023 23:59 EDT Hospital Encounter [facility] Cancer Treatment [place] [address] [place] [address] Todd Myles MD 111 [facility] 2 [place] [address] Discharge Disposition: Home or Self [...] Nurse Only [facility] Cancer Treatment [address] [phone] 09/20/2024 9:00 EDT Office Visit [facility] Cancer Treatment [address] [address] Ezra Greenberg MD 111 [facility], [facility] 2 [place] [address] documented as of this encounter Visit Diagnoses Not on filedocumented in this encounter Care Teams Dyer And Washer Relationship Specialty Start Date End Date Domonique Caballero FNP 4 [place] [phone] PCP - General Family Medicine - Primary Care 04/16/23 documented as of this encounter
--- OUTSIDE RECORDS SUMMARY | 2024-05-17 15:04 | XMS_ITS | Encounter Summary ---
Author Organization [facility] Address [address] [place] [address] Care Team Providers Care Brick Chimney Supervisor Name Role Phone Domonique Caballero SUPPORT CLERK Primary Care Provider [phone] Encounter Details Date Type Department Care Team (Late st Contact Info) Description 05/14/2023 Results Only [facility] Radiation Oncology - [address] [address] Unknown, Provider, Social History Tobacco Use Types [...] Info) Description 09/20/2024 8:45 EDT Nurse Only [facility] [address] [place] [address] 09/20/2024 9:00 EDT Office Visit [facility] [address] [place] [address] Ezra Greenberg MD 111 [facility], Level 2 [place] [phone] documented as of this encounter Procedures Procedure [...] RADIATION ONCOLOGY 05/14/2023 9:58 EDT Provider Unknown RADIATION ONCOLOGY O RDERABLES ARIA RADIATION ONCOLOGY documented in this encounter Visit Diagnoses Not on filedocumented in this encounter Care Teams Brick Chimney Supervisor Relationship Specialty Start Date End Date Domonique Caballero FNP 4 [place] [address] PCP - General Family Medicine - Primary Care 04/16/23 documented as of this encounter
--- OUTSIDE RECORDS SUMMARY | 2024-05-17 15:04 | XMS_ITS | Encounter Summary ---
Author Organization [facility] Address [address] [place] [address] Care Team Providers Care Deli Department Manager Name Role Phone Domonique Caballero TURRET LATHE TENDER Primary Care Provider Encounter Details Date Type Department Care Team (Latest Contact Info) Description 05/20/2023 9:05 EST - 05/20/2023 12:23 EST Hospital Encounter [facility] Cancer Treatment [place] [address] [place] [address] Discharge Disposition: Home or Self Care Social [...] EDT Nurse Only [facility] Cancer [address] [address] 09/20/2024 9:00 EDT Office Visit [facility] Cancer [address] [address] Ezra Greenberg MD [address] [place] [address] 2 [place] [address] documented as of this encounter Visit Diagnoses Not on filedocumented in this encounter Care Teams Deli Department Manager Relationship Specialty Start Date End Date Domonique Caballero FNP 4 [place] [phone] PCP - General Family Medicine - Primary Care 04/16/23 documented as of this encounter
--- OUTSIDE RECORDS SUMMARY | 2024-05-17 15:04 | XMS_ITS | Encounter Summary ---
Author Organization [facility] Address [address] [place] [address] Care Team Providers Care Studio Set Up Worker Name Role Phone Domonique Caballero Evangelina BAY STOCKER Primary Care Provider Encounter Details Date Type Department Care Team (Latest Contact Info) Description 05/19/2023 9:45 EST Hospital Encounter [facility] Cancer Treatment [place] [address] [place] [address] Discharge Disposition: Home or Self Care Social [...] 8:45 EDT Nurse Only [facility] 130 [place] [address] 09/20/2024 9:00 EDT Office Visit [facility] Cancer [address] [address] Ezra Greenberg MD [address] [place] [address] 2 [place] [phone] documented as of this encounter Visit Diagnoses Not on filedocumented in this encounter Care Teams Studio Set Up Worker Relationship Specialty Start Date End Date Domonique Caballero FNP 4 [place] [phone] PCP - General Family Medicine - Primary Care 04/16/23 documented as of this encounter
--- OUTSIDE RECORDS SUMMARY | 2024-05-17 15:04 | XMS_ITS | Encounter Summary ---
Author Organization [facility] Address [address] [place] [address] Care Team Providers Care Nutritional Health Coach Name Role Phone Domonique Caballero Evangelina AUTOMATIC CLIPPER AND STRIPPER Primary Care Provider Encounter Details Date Type Department Care Team (Latest Contact Info) Description 05/20/2023 15:15 EST - 05/20/2023 23:59 EST Hospital Encounter [facility] Cancer Treatment [place] [address] [place] [address] Discharge Disposition: Home or Self Care Social [...] 8:45 EDT Nurse Only [facility] [address] [address] 09/20/2024 9:00 EDT Office Visit [facility] Cancer [address] [address] Ezra Greenberg MD [address] [place] [address] 2 [place] [address] documented as of this encounter Visit Diagnoses Not on filedocumented in this encounter Care Teams Nutritional Health Coach Relationship Specialty Start Date End Date Domonique Caballero FNP 4 [place] [phone] PCP - General Family Medicine - Primary Care 04/16/23 documented as of this encounter
--- OUTSIDE RECORDS SUMMARY | 2024-05-17 15:04 | XMS_ITS | Encounter Summary ---
Author Organization [facility] Address [address] [place] [address] Care Team Providers Care Night Worker Name Role Phone Domonique Caballero MANAGER GLOBAL Primary Care Provider Reason for Referral * Radiology Services (Routine/Next Available) - Authorization Not Required Specialty Diagnoses / Procedures Referred By Contac t Referred To Contact Nuclear Medicine Diagnoses Malignant neoplasm of prostate (HCC-CMS) Procedures PET CT PSMA OR PIFLU F-18, FARRAH 1 Cole Sands MD [address] [place] [phone] [facility] Referral ID Status Reason Start Date Expiration Date Visits Requested Visits Authorized [id number] Authorization Not Required 04/03/2023 1 1 Reason for Visit * Radiology Services (Routine/Next Available) - Authorization Not Required Specialty Diagnoses / Procedures Referred By Contac t Referred To Contact Nuclear Medicine Diagnoses Malignant neoplasm of prostate (HCC-CMS) Procedures PET CT PSMA OR PIFLU F-18, FARRAH 1 Cole Sands MD [address] [place] [phone] [facility] Referral ID Status Reason Start Date Expiration Date Visits Requested Visits Authorized [id number] Authorization Not Required 04/03/2023 1 1 Encounter Details Date Type Department Care Team (Latest Contact Info) Description 04/23/2023 14:31 EDT - 04/23/2023 23:59 EDT Hospital Encounter [facility] Radiology Nuclear Medicine and PET - [facility] [address] [place], [place] [id number] Malignant neoplasm of prostate (HCC-CMS) Discharge Disposition: [...] Info) Description 09/20/2024 8:45 EDT Nurse Only [facility] Cancer Treatment [address] [address] 09/20/2024 9:00 EDT Office Visit [facility] Cancer Treatment [address] [phone] Ezra Greenberg MD 111 [facility], Level 2 [place] [address] documented as of this encounter [...] metastatic disease. 4. Emphysema with bibasal blebs. [id number] Narrative 04/24/2023 10:[address] PSMA 04/23/2023 3:00 PM Signs and Symptoms: ??Prostate cancer, staging;C61:Malignant neoplasm of prostate ([facility]) Comparison: none Technique: Approximately 79 minutes following the IV injection of 9.3 mCi of F18- Piflufolastat, 3D TOF PET imaging was obtained from the skull base to upper thighs using a [employer] digital PET/CT system. ??The injection site was [...] the skull base toupper thighs using a [employer] digital PET/CT system. The injectionsite was the [...] metastatic disease. 4. Emphysema with bibasal blebs. [id number] Cole Wright MD IMG NM ORDERABLE S [...] millicuries documented in this encounter Care Teams Night Worker Relationship Specialty Start Date End Date Domonique Caballero FNP 4 [place] [phone] PCP - General Family Medicine - Primary Care 04/16/23 documented as of this encounter
--- OUTSIDE RECORDS SUMMARY | 2024-05-17 15:04 | XMS_ITS | Encounter Summary ---
Author Organization [facility] Address [address] [place] [address] Care Team Providers Care Poultry Farm Laborer Name Role Phone Domonique Caballero CLIENT HR MANAGER Primary Care Provider Encounter Details Date Type Department Care Team (Latest Contact Info) Description 05/26/2023 9:15 EST - 05/26/2023 23:59 EST Hospital Encounter [facility] Cancer Treatment [place] [address] [place] [address] Discharge Disposition: Home or Self Care Social [...] Nurse Only [facility] [place] [address] [place] [address] 09/20/2024 9:[address] [facility] 130 [place] [address] Ezra Greenberg MD [address] [place] [address] 2 [place] [phone] documented as of this encounter Visit Diagnoses Not on filedocumented in this encounter Care Teams Poultry Farm Laborer Relationship Specialty Start Date End Date Domonique Caballero FNP 4 [place] [phone] PCP - General Family Medicine - Primary Care 04/16/23 documented as of this encounter
--- OUTSIDE RECORDS SUMMARY | 2024-05-17 15:04 | XMS_ITS | Encounter Summary ---
Author Organization [facility] Address [address] [place] [address] Care Team Providers Care Continuity Editor Name Role Phone Almita Raza APRN Primary Care Provider [phone] Reason for Visit * (Routine/Next Available) - Receiving Office to Obtain Authorization Specialty Diagnoses / Procedures Referred By Tri crane Referred To Contact Procedures XR OUTSIDE IMAGES LUMBAR SPINE Imaging, External Referral ID Status Reason Start Date Expiration Date Visits Requested Visits Authorized [id number] Receiving Office to Obtain Authorization 04/03/2023 1 1 Encounter Details Date Type Department Care Team (Latest Contact Info) Description 04/01/2023 - 04/01/2023 23:59 EDT Hospital [facility] Secondary Reads [place] Discharge Disposition: [...] Department Care Team (Late Contact Info) Description 09/20/2024 8:45 EDT Nurse Only [facility] [place] [address] [place], [place] [address] 09/20/2024 9:00 EDT Office Visit [facility] [address] [place], [place] [address] Ezra Greenberg MD 111 [facility] 2 [place] [phone] documented as of this encounter Procedures Procedure [...] on filedocumented in this encounter Care Teams Continuity Editor Relationship Specialty Start Date End Date Almita Raza APRN [address] [place] [phone] PCP - General Family Medicine - Primary Care 03/18/22 04/15/23 documented as of this encounter
--- OUTSIDE RECORDS SUMMARY | 2024-05-17 15:04 | XMS_ITS | Encounter Summary ---
Author Organization [facility] Address [address] [place] [address] Care Team Providers Care Dry Kiln Burner Name Role Phone Domonique Caballero MEDICAL CARE MANAGER Primary Care Provider [phone] Encounter Details Date Type Department Care Team (Latest Contact Info) Description 05/14/2023 9:45 EDT - 05/14/2023 23:59 EDT Hospital Encounter [facility] Treatment [place] [address] [place] [address] Discharge Disposition: Home or Self Care Social [...] Nurse Only [facility] 130 [place] [address] 09/20/2024 9:00 EDT Office Visit [facility] Cancer [address] [address] Ezra Greenberg MD 111 [facility] 2 [place] [address] documented as of this encounter Visit Diagnoses Not on filedocumented in this encounter Care Teams Dry Kiln Burner Relationship Specialty Start Date End Date Domonique Caballero FNP 4 [place] [phone] PCP - General Family Medicine - Primary Care 04/16/23 documented as of this encounter
--- OUTSIDE RECORDS SUMMARY | 2024-05-17 15:04 | XMS_ITS | Encounter Summary ---
Author Organization [facility] Address [address] [place] [address] Care Team Providers Care Boatwright Name Role Phone Domonique Caballero [facility] Primary Care Provider Encounter Details Date Type Department Care Team (Late st Contact Info) Description 04/24/2023 Orders Only [facility] Treatment [address] [address] Darby Eckert, MARGOT Social History Tobacco Use [...] Info) Description 09/20/2024 8:45 EDT Nurse Only [facility] Cancer Treatment [address] [address] 09/20/2024 9:00 EDT Office Visit [facility] [address] [place] [address] Ezra Greenberg MD [address] [facility], [facility] 2 [place] [phone] documented as of this encounter Visit Diagnoses Not on filedocumented in this encounter Orders Medications Ordered That Pop ht Not Have Been Administered Count Last Ordered Date First Ordered Date leuprolide acetate (6 month) (LUPRON DEPOT) IM injection 45 mg 1 04/24/2023 documented in this encounter Care Teams Boatwright Relationship Specialty Start Date End Date Domonique Caballero FNP 4 [place] [address] PCP - General Family Medicine - Primary Care 04/16/23 documented as of this encounter
--- OUTSIDE RECORDS SUMMARY | 2024-05-17 15:04 | XMS_ITS | Encounter Summary ---
Author Organization [facility] Address [address] [place] [address] Care Team Providers Care Army Manager Name Role Phone Domonique Caballero BUTTONHOLER Primary Care Provider [phone] Reason for Referral * (Routine/Next Available) - New Request Specialty Diagnoses / Procedures Referred By Tri crane Referred To Contact Diagnoses Malignant neoplasm of prostate (HCC-CMS) Procedures CT SIM EXAM Ezra Greenberg MD [address] [place] [phone] [facility] Referral ID Status Reason Start Date Expiration Date V isits Requested Visits Authorized [id number] New Request 05/19/2023 1 1 Reason for Visit * (Routine/Next Available) - New Request Specialty Diagnoses / Procedures Referred By Tri crane Referred To Contact Diagnoses Malignant neoplasm of prostate (HCC-CMS) Procedures CT SIM EXAM Ezra Greenberg MD [address] [place] [phone] [facility] Referral ID Status Reason Start Date Expiration Date V isits Requested Visits Authorized [id number] New Request 05/19/2023 1 1 Encounter Details Date Type Department Care Team (Latest Contact Info) Description 05/19/2023 9:45 EST - 05/19/2023 23:59 EST Hospital Encounter [facility] [place] [address] [place] [address] Malignant neoplasm of prostate (HCC-CMS) Discharge Disposition: [...] EDT Nurse Only [facility] [place] [address] [place] [address] 09/20/2024 9:00 EDT Office Visit [facility] Cancer Treatment [place] [address] [place] [address] Ezra Greenberg MD [address] [place] [address] 2 [place] [address] documented as of this encounter [...] prostate documented in this encounter Care Teams Army Manager Relationship Specialty Start Date End Date Domonique Caballero FNP 4 [place] [address] PCP - General Family Medicine - Primary Care 04/16/23 documented as of this encounter
--- OUTSIDE RECORDS SUMMARY | 2024-05-17 15:04 | XMS_ITS | Encounter Summary ---
Author Organization [facility] Address [address] [place] [address] Care Team Providers Care Spd Manager Name Role Phone Domonique Caballero Evangelina DATA CLERK Primary Care Provider [phone] Encounter Details Date Type Department Care Team (Latest Contact Info) Description 05/18/2023 10:30 EST - 05/18/2023 23:59 EST Hospital Encounter [facility] Cancer Treatment [place] [address] [place] [address] Discharge Disposition: Home or Self Care Social [...] [facility] Cancer [address] [address] 09/20/2024 9:00 EDT Office Visit [facility] Cancer [address] [address] Ezra Greenberg MD [address] [place] [address] 2 [place] [address] documented as of this encounter Visit Diagnoses Not on filedocumented in this encounter Care Teams Spd Manager Relationship Specialty Start Date End Date Domonique Caballero FNP 4 [place] [phone] PCP - General Family Medicine - Primary Care 04/16/23 documented as of this encounter
--- OUTSIDE RECORDS SUMMARY | 2024-05-17 15:04 | XMS_ITS | Encounter Summary ---
Author Organization [facility] Address [address] [place] [address] Care Team Providers Care Contact Representative Name Role Phone Domonique Caballero STARCHER AND TENTER RANGE FEEDER Primary Care Provider Encounter Details Date Type Department Care Team (Late st Contact Info) Description 05/25/2023 Results Only [facility] Radiation Oncology - [address] [address] Unknown, Provider, Social History Tobacco Use Types [...] EDT Nurse Only [facility] [address] [place] [address] 09/20/2024 9:00 EDT Office Visit [facility] [address] [place] [address] Ezra Greenberg MD [address] [facility], Level 2 [place] [address] documented as of this encounter [...] RADIATION ONCOLOGY 05/25/2023 9:54 EST Provider Unknown RADIATION ONCOLOGY O RDERABLES ARIA RADIATION ONCOLOGY documented in this encounter Visit Diagnoses Not on filedocumented in this encounter Care Teams Contact Representative Relationship Specialty Start Date End Date Domonique Caballero FNP 4 [place] [phone] PCP - General Family Medicine - Primary Care 04/16/23 documented as of this encounter
--- OUTSIDE RECORDS SUMMARY | 2024-05-17 15:04 | XMS_ITS | Encounter Summary ---
Author Organization [facility] Address [address] [place] [address] Care Team Providers Care National Accounts Recruiter Name Role Phone Domonique Caballero Evangelina CUSTOMER RESOLUTION SPECIALIST Primary Care Provider Encounter Details Date Type Department Care Team (Latest Contact Info) Description 05/21/2023 9:45 EST - 05/21/2023 23:59 EST Hospital Encounter [facility] Cancer Treatment [place] [address] [place] [address] Discharge Disposition: Home or Self Care Social [...] EDT Nurse Only [facility] Cancer [address] [address] 09/20/2024 9:[address] [facility] Cancer [address] [address] Ezra Greenberg MD [address] [place] [address] 2 [place] [address] documented as of this encounter Visit Diagnoses Not on filedocumented in this encounter Care Teams National Accounts Recruiter Relationship Specialty Start Date End Date Domonique Caballero FNP 4 [place] [phone] PCP - General Family Medicine - Primary Care 04/16/23 documented as of this encounter
--- OUTSIDE RECORDS SUMMARY | 2024-05-17 15:04 | XMS_ITS | Encounter Summary ---
Author Organization [facility] Address [address] [place] [address] Care Team Providers Care Business Records Manager Name Role Phone Domonique Caballero CHILD NUTRITION ASSISTANT Primary Care Provider [phone] Encounter Details Date Type Department Care Team (Latest Contact Info) Description 05/25/2023 9:45 EST - 05/25/2023 23:59 EST Hospital Encounter [facility] Treatment [place] [address] [place] [address] Discharge Disposition: Home or Self Care Social [...] 09/20/2024 8:45 EDT Nurse Only [facility] 130 [place] [address] 09/20/2024 9:00 EDT Office Visit [facility] [address] [address] Ezra Greenberg MD [address] [place] [address] 2 [place] [phone] documented as of this encounter Visit Diagnoses Not on filedocumented in this encounter Care Teams Business Records Manager Relationship Specialty Start Date End Date Domonique Caballero FNP 4 [place] [address] PCP - General Family Medicine - Primary Care 04/16/23 documented as of this encounter
--- OUTSIDE RECORDS SUMMARY | 2024-05-17 15:04 | XMS_ITS | Encounter Summary ---
Author Organization [facility] Address [address] [place] [address] Care Team Providers Care Upper Cutter Machine Name Role Phone Domonique Caballero BILLING COLLECTIONS SPECIALIST Primary Care Provider Encounter Details Date Type Department Care Team (Late st Contact Info) Description 05/12/2023 Results Only [facility] Radiation Oncology - [address] [address] Unknown, Provider, Social History Tobacco Use Types [...] EDT Nurse Only [facility] [address] [place], [place] [phone] 09/20/2024 9:00 EDT Office Visit [facility] [address] [place] [address] Ezra Greenberg MD 111 [facility], Level 2 [place] [phone] documented as of this encounter Procedures Procedure [...] ONCOLOGY 05/12/2023 11:0 2 EDT Provider Unknown RADIATION ONCOLOGY O KATELYNERALEONEL ARIA RADIATION ONCOLOGY documented in this encounter Visit Diagnoses Not on filedocumented in this encounter Care Teams Upper Cutter Machine Relationship Specialty Start Date End Date Domonique Caballero FNP 4 [place] [address] PCP - General Family Medicine - Primary Care 04/16/23 documented as of this encounter
--- OUTSIDE RECORDS SUMMARY | 2024-05-17 15:04 | XMS_ITS | Encounter Summary ---
Author Organization [facility] Address [address] [place] [address] Care Team Providers Care Selling Underwriter Name Role Phone Domonique Caballero ENGRAVER RUBBER Primary Care Provider Encounter Details Date Type Department Care Team (Latest Contact Info) Description 05/22/2023 9:45 EST - 05/22/2023 23:59 EST Hospital Encounter [facility] [place] [address] [place] [address] Discharge Disposition: Home or Self Care Social [...] EDT Nurse Only [facility] [place] [address] [place] [address] 09/20/2024 9:00 EDT Office Visit [facility] 130 [place] [address] Ezra Greenberg MD [address] [place] [address] 2 [place] [phone] documented as of this encounter Visit Diagnoses Not on filedocumented in this encounter Care Teams Selling Underwriter Relationship Specialty Start Date End Date Domonique Caballero FNP 4 [place] [phone] PCP - General Family Medicine - Primary Care 04/16/23 documented as of this encounter
--- OUTSIDE RECORDS SUMMARY | 2024-05-17 15:04 | XMS_ITS | Encounter Summary ---
Author Organization [facility] Address [address] [place] [address] Care Team Providers Care Home Care Chaplain Name Role Phone Almita Raza APRN Primary Care Provider Reason for Visit * (Routine/Next Available) - Receiving Office to Obtain Authorization Specialty Diagnoses / Procedures Referred By Tri crane Referred To Contact Procedures CT OUTSIDE IMAGES RIGHT UPPER EXTREMITY Imaging, External Referral ID Status Reason Start Date Expiration Date Visits Requested Visits Authorized [id number] Receiving Office to Obtain Authorization 04/03/2023 1 1 Encounter Details Date Type Department Care Team (Latest Contact Info) Description 03/26/2023 - 03/26/2023 23:59 EDT Hospital Encounter [facility] [place] Discharge Disposition: Home or [...] 09/20/2024 8:45 EDT Nurse Only [facility] [place] [address] [place], [place] [address] 09/20/2024 9:00 EDT Office Visit [facility] [address] [place], [place] [address] Ezra Greenberg MD [address] [place] [address] 2 [place] [phone] documented as of this encounter Procedures Procedure [...] on filedocumented in this encounter Care Teams Home Care Chaplain Relationship Specialty Start Date End Date Almita Raza APRN 4 [place] [address] PCP - General Family Medicine - Primary Care 03/18/22 04/15/23 documented as of this encounter
--- OUTSIDE RECORDS SUMMARY | 2024-05-17 15:04 | XMS_ITS | Encounter Summary ---
Author Organization [facility] Address [address] [place] [address] Care Team Providers Care Research Associate Name Role Phone Domonique Caballero DRESS OPERATOR Primary Care Provider Encounter Details Date Type Department Care Team (Late st Contact Info) Description 04/30/2023 Documentation Visit [facility] Treatment [address] [address] Darby Eckert, RN Social History Tobacco Use [...] in front of the patient. [] Code 13851 (Venipuncture Blood Draw) was billed on 04/30/2023. [] Code 93054 (Port Blood Draw) was billed on 04/30/2023 . COMMENTS: [x] Injection: Intramuscular injection given at Left upper quad. gluteus Lot Number:[id number] Expiration Date: 01.30.2025 [facility]:[id number] [x]The patient's name and were verified prior to administering medications. [x] All medications were verbally and visually verified prior to administration. [x] Code 72277 (Administration of hormonal anti-neoplastic) was billed on [...] [facility] [place] [address] [place] [address] 09/20/2024 9:00 EDT Office Visit [facility] Treatment [place] [address] [place] [address] Ezra Greenberg MD [address] [place] [address] 2 [place] [phone] documented as of this encounter Visit Diagnoses Not on filedocumented in this encounter Care Teams Research Associate Relationship Specialty Start Date End Date Domonique Caballero FNP 4 [place] [phone] PCP - General Family Medicine - Primary Care 04/16/23 documented as of this encounter
--- OUTSIDE RECORDS SUMMARY | 2024-05-17 15:04 | XMS_ITS | Encounter Summary ---
Author Organization [facility] Address [address] [place] [address] Care Team Providers Care Ship Fastener Name Role Phone Domonique Caballero MACHINE FEED OPERATOR Primary Care Provider Encounter Details Date Type Department Care Team (Late st Contact Info) Description 05/20/2023 Results Only [facility] Radiation Oncology - [address] [address] Unknown, Provider, Social History Tobacco Use Types [...] Only [facility] [address] [place] [address] 09/20/2024 9:00 EDT Office Visit [facility] [address] [place] [address] Ezra Greenberg MD 111 [facility], Level 2 [place] [address] documented as of this encounter [...] ONCOLOGY 05/20/2023 15:5 3 EST Provider Unknown RADIATION ONCOLOGY O RDERABLES ARIA RADIATION ONCOLOGY documented in this encounter Visit Diagnoses Not on filedocumented in this encounter Care Teams Ship Fastener Relationship Specialty Start Date End Date Domonique Caballero FNP 4 [place] [address] PCP - General Family Medicine - Primary Care 04/16/23 documented as of this encounter
--- OUTSIDE RECORDS SUMMARY | 2024-05-17 15:04 | XMS_ITS | Encounter Summary ---
Author Organization [facility] Address [address] [place] [address] Care Team Providers Care Cotton Presser Name Role Phone Domonique Caballero DOCTOR OF DENTAL MEDICINE Primary Care Provider [phone] Encounter Details Date Type Department Care Team (Latest Contact Info) Description 05/13/2023 10:38 EDT - 05/13/2023 23:59 EDT Hospital Encounter [facility] Cancer Treatment [place] [address] [place] [address] Discharge Disposition: Home or Self Care Social [...] EDT Nurse Only [facility] 130 [place] [address] 09/20/2024 9:00 EDT Office Visit [facility] [address] [address] Ezra Greenberg MD 111 [facility] 2 [place] [address] documented as of this encounter Visit Diagnoses Not on filedocumented in this encounter Care Teams Cotton Presser Relationship Specialty Start Date End Date Domonique Caballero FNP 4 [place] [phone] PCP - General Family Medicine - Primary Care 04/16/23 documented as of this encounter
--- OUTSIDE RECORDS SUMMARY | 2024-05-17 15:04 | XMS_ITS | Encounter Summary ---
Author Organization [facility] Address [address] [place] [address] Care Team Providers Care Gun Fertilizer Name Role Phone Domonique Caballero SUPERINTENDENT STATIONS Primary Care Provider Encounter Details Date Type Department Care Team (Late st Contact Info) Description 05/18/[address] [facility] Radiation Oncology - [address] [address] Unknown, Provider, Social History Tobacco Use Types [...] 8:45 EDT Nurse Only [facility] [address] [place] [address] 09/20/2024 9:00 EDT Office Visit [facility] [address] [place] [address] Ezra Greenberg MD 111 [facility], Level [address] [place] [phone] documented as of this encounter Procedures Procedure [...] ONCOLOGY 05/18/2023 10:4 4 EST Provider Unknown RADIATION ONCOLOGY O RDERABLES ARIA RADIATION ONCOLOGY documented in this encounter Visit Diagnoses Not on filedocumented in this encounter Care Teams Gun Fertilizer Relationship Specialty Start Date End Date Domonique Caballero FNP 4 [place] [address] PCP - General Family Medicine - Primary Care 04/16/23 documented as of this encounter
--- OUTSIDE RECORDS SUMMARY | 2024-05-17 15:04 | XMS_ITS | Encounter Summary ---
Author Organization [facility] Address [address] [place] [address] Care Team Providers Care Claims Associate Name Role Phone Domonique Caballero BROWNFIELD REDEVELOPMENT SITE MANAGER Primary Care Provider Encounter Details Date Type Department Care Team (Late st Contact Info) Description 05/25/2023 Documentation Visit [facility] Cancer Treatment [address] [address] Darby Eckert, RN Social History Tobacco Use [...] 8:45 EDT Nurse Only [facility] [address] [place] [address] 09/20/2024 9:00 EDT Office Visit [facility] [address] [place] [address] Ezra Greenberg MD 111 [facility] 2 [place] [address] documented as of this encounter Visit Diagnoses Not on filedocumented in this encounter Care Teams Claims Associate Relationship Specialty Start Date End Date Domonique Caballero FNP 4 [place] [address] PCP - General Family Medicine - Primary Care 04/16/23 documented as of this encounter
--- OUTSIDE RECORDS SUMMARY | 2024-05-17 15:04 | XMS_ITS | Encounter Summary ---
Author Organization [facility] Address [address] [place] [address] Care Team Providers Care Cloth Worker Name Role Phone Domonique Caballero Evangelina PV DESIGN AND INSTALLATION TECHNICIAN Primary Care Provider Reason for Referral * (Routine/Next Available) - New Request Specialty Diagnoses / Procedures Referred By Tri crane Referred To Contact Diagnoses Malignant neoplasm of prostate (HCC-CMS) Procedures CT SIM EXAM Todd Myles MD [address] [address] [facility] Referral ID Status Reason Start Date Expiration Date V isits Requested Visits Authorized [id number] New Request 04/28/2023 1 1 Reason for Visit * Reason Comments Prostate Cancer * (Routine/Next Available) - New Request Specialty Diagnoses / Procedures Referred By Tri crane Referred To Contact Diagnoses Malignant neoplasm of prostate (HCC-[facility]) Procedures CT SIM EXAM Todd Myles MD [address] [address] [facility] Referral ID Status Reason Start Date Expiration Date V isits Requested Visits Authorized [id number] New Request 04/28/2023 1 1 Encounter Details Date Type Department Care Team (Latest Contact Info) Description 04/30/2023 7:29 EDT - 04/30/2023 23:59 EDT Hospital Encounter [facility] Treatment [address] [address] Malignant neoplasm of prostate (HCC-CMS) Discharge Disposition: [...] 09/20/2024 8:45 EDT Nurse Only [facility] Cancer Treatment [address] [address] 09/20/2024 9:00 EDT Office Visit [facility] Treatment [address] [address] Ezra Greenberg MD [address] [place] [address] 2 [place] [address] documented as of this encounter [...] prostate documented in this encounter Care Teams Cloth Worker Relationship Specialty Start Date End Date Domonique Caballero, PV DESIGN AND INSTALLATION TECHNICIAN 4 [place] [phone] PCP - General Family Medicine - Primary Care 04/16/23 documented as of this encounter
--- OUTSIDE RECORDS SUMMARY | 2024-05-17 15:04 | XMS_ITS | Encounter Summary ---
Author Organization [facility] Address [address] [place] [address] Care Team Providers Care Mat Worker Name Role Phone Domonique Caballero EMBOSSING MACHINE OPERATOR HELPER Primary Care Provider [phone] Encounter Details Date Type Department Care Team (Late st Contact Info) Description 05/19/2023 Results Only [facility] Radiation Oncology - [address] [address] Unknown, Provider, Social History Tobacco Use Types [...] EDT Nurse Only [facility] [address] [place], [place] [phone] 09/20/2024 9:00 EDT Office Visit [facility] [address] [place] [address] Ezra Greenberg MD 111 [facility], Level [address] [place] [phone] documented as of this encounter Procedures Procedure [...] RADIATION ONCOLOGY 05/19/2023 9:57 EST Provider Unknown RADIATION ONCOLOGY O RDERABLES ARIA RADIATION ONCOLOGY documented in this encounter Visit Diagnoses Not on filedocumented in this encounter Care Teams Mat Worker Relationship Specialty Start Date End Date Domonique Caballero FNP 4 [place] [address] PCP - General Family Medicine - Primary Care 04/16/23 documented as of this encounter
--- OUTSIDE RECORDS SUMMARY | 2024-05-17 15:04 | XMS_ITS | Encounter Summary ---
Author Organization [facility] Address [address] [place] [address] Care Team Providers Care Environmental Restoration Planner Name Role Phone Domonique Caballero CRAB PICKER Primary Care Provider [phone] Encounter Details Date Type Department Care Team (Late st Contact Info) Description 05/21/2023 Results Only [facility] Radiation Oncology - [address] [address] Unknown, Provider, Social History Tobacco Use Types [...] EDT Nurse Only [facility] [address] [place] [address] 09/20/2024 9:[address] [facility] [address] [place] [address] Ezra Greenberg MD 111 [facility], Level [address] [place] [address] documented as of this encounter [...] on filedocumented in this encounter Care Teams Environmental Restoration Planner Relationship Specialty Start Date End Date Domonique Caballero FNP 4 [place] [phone] PCP - General Family Medicine - Primary Care 04/16/23 documented as of this encounter
--- OUTSIDE RECORDS SUMMARY | 2024-05-17 15:04 | XMS_ITS | Encounter Summary ---
Author Organization [facility] Address [address] [place] [address] Care Team Providers Care Supervisor Vendor Quality Name Role Phone Domonique Caballero HOISTING ENGINEER Primary Care Provider [phone] Encounter Details Date Type Department Care Team (Late st Contact Info) Description 05/13/2023 Radiation Therapy Visit [facility] [address] [place] [address] Todd Myles MD 111 [facility] 2 [place] [address] Prostate cancer ([facility] (Primary Dx) Social History Tobacco Use Types [...] months pending tolerance Todd Myles MD Radiation Oncology-[facility] (p) [phone] / (f) [phone] documented in this encounter Plan of Treatment Upcoming Encounters Date Type Department Care Team (Late st Contact Info) Description 09/20/2024 8:45 EDT Nurse Only [facility] Treatment [place] [address] [place] [address] 09/20/2024 9:00 EDT Office Visit [facility] [address] [place] [address] Ezra Greenberg MD [address] [place] [address] 2 [place] [phone] documented as of this encounter Visit Diagnoses Diagnosis Prostate cancer ([facility] Primary Malignant neoplasm of prostate documented in this encounter Care Teams Supervisor Vendor Quality Relationship Specialty Start Date End Date Domonique Caballero FNP 4 [place] [phone] PCP - General Family Medicine - Primary Care 04/16/23 documented as of this encounter
--- OUTSIDE RECORDS SUMMARY | 2024-05-17 15:04 | XMS_ITS | Encounter Summary ---
Author Organization [facility] Address [address] [place] [address] Care Team Providers Care Monogram Technician Name Role Phone Almita Raza Clemente SNYDER Primary Care Provider [phone] Reason for Referral * Radiology Services (Routine/Next Available) - Authorization Not Required Specialty Diagnoses / Procedures [facility] Referred To Contact Nuclear Medicine Diagnoses Malignant neoplasm of prostate (HCC-CMS) Procedures PET CT PSMA [place] PIFLU F-18, FARRAH 1 Cole Sands MD [address] [facility] 2 [place] [address] [facility] Referral ID Status Reason Start Date Expiration Date Visits Requested Visits Authorized [id number] Authorization Not Required 04/03/2023 1 1 Reason for Visit * Reason Comments Prostate Cancer Encounter Details Date Type Department Care Team (Latest Contact Info) Description 04/03/2023 13:00 EDT Initial consult [facility] Treatment [place] [address] [place] [address] Malignant neoplasm of prostate (HCC-CMS) [...] SERVICE: 04/03/2023 PRIMARY SITE, HISTOPATHOLOGY AND STAGE: [id number], PSA 27.9 Thompson score 3+4 adenocarcinoma the prostate HPI: Mr. Cardenas is a 77-year-old man who is otherwise in who has had a gradual rise in his PSA over time. ?? PSA 14.2 on November 07, 2020 ?? He underwent transrectal ultrasound-guided biopsies, we do not currently have that pathology report however according to the note from Dr. Beasley this revealed Taylor score 6. ?? Subsequent PSA values on [...] right and left base as well as Thompson score 3+4 in the left base. ?? [...] he has relatively small volume disease and Taylor grade 2 at maximum. I shared with [...] prepared with voice recognition software. Please excuse recreational therapy aide errors documented in this encounter Plan of Treatment Upcoming Encounters Date Type Department Care Team (Late st Contact Info) Description 09/20/2024 8:45 EDT Nurse Only [facility] Treatment [place] [address] [place] [address] 09/20/2024 9:00 EDT Office Visit [facility] Cancer [facility] 130 [place], [place] [address] Ezra Greenberg MD [address] [facility] 2 [place] [address] documented as of this [...] metastatic disease. 4. Emphysema with bibasal blebs. [id number] Narrative 04/24/2023 10:[address] PSMA 04/23/2023 3:00 PM Signs and Symptoms: ??Prostate cancer, staging;C61:Malignant neoplasm of prostate (HCC-CMS) Comparison: none Technique: Approximately 79 minutes following the IV injection of 9.3 mCi of F18- Piflufolastat, 3D TOF PET imaging was obtained from the skull base to upper thighs using a Tigerstripe digital PET/CT system. ??The injection site was [...] the skull base toupper thighs using a Tigerstripe digital PET/CT system. The injectionsite was the [...] metastatic disease. 4. Emphysema with bibasal blebs. [id number] Cole Wright MD [facility] ORDERABLE S * (ABNORMAL) PSA TOTAL, DIAGNOSTIC (04/03/2023 14:26 EDT) PSA 20.300(H) <=6.500 ng/mL 04/03/2023 16:46 EDT [facility] Blood VENOUS BLOOD / Unknown Venipuncture / Unknown 04/03/2023 14:26 EDT 04/03/2023 15:41 EDT Narrative [facility] - 04/03/2023 16:46 EDT NOTE: Serum PSA concentration should not be interpreted as absolute evidence for the presence or absence of malignant disease. Assayed on [employer] 5600 using chemiluminescent technology.??Values obtained by using different assay methods cannot be used interchangeably. ?? Cole Wright MD CHEMISTRY & BLOO D GAS ORDERABLES [facility] [address] [place] [address] documented in this encounter Visit Diagnoses Diagnosis [...] Dysfunction. added in this encounter Care Teams Monogram Technician Relationship Specialty Start Date End Date Luz Marina, Almita J, TRAIN EXAMINER [address] [place] [phone] PCP - General Family Medicine - Primary Care 03/18/22 04/15/23 documented as of this encounter
--- OUTSIDE RECORDS SUMMARY | 2024-05-17 15:04 | XMS_ITS | Encounter Summary ---
Author Organization [facility] Address [address] [place] [address] Care Team Providers Care Dishwashing Machine Repairer Name Role Phone Domonique Caballero PAPER CONE MACHINE TENDER Primary Care Provider Encounter Details Date Type Department Care Team (Latest Contact Info) Description 05/27/2023 9:15 EST - 05/27/2023 23:59 EST Hospital Encounter [facility] Treatment [place] [address] [place] [address] Discharge Disposition: Home or Self Care Social [...] results found for: ZINCMZN, COPPER, THIAMINE, FOLATE, [id number], METMMETHY, VITEALPH, RETINOL, VITD No results found [...] EDT Nurse Only [facility] Treatment [place] [address] [place] [address] 09/20/2024 9:00 EDT Office Visit [facility] Cancer [address] [address] Ezra Greenberg MD [address] [place] [address] 2 [place] [phone] documented as of this encounter Visit Diagnoses Not on filedocumented in this encounter Care Teams Dishwashing Machine Repairer Relationship Specialty Start Date End Date Domonique Caballero FNP 4 [place] [phone] PCP - General Family Medicine - Primary Care 04/16/23 documented as of this encounter
--- OUTSIDE RECORDS SUMMARY | 2024-05-17 15:04 | XMS_ITS | Encounter Summary ---
Author Organization [facility] Address [address] [place] [address] Care Team Providers Care Steel Tier Name Role Phone Domonique Caballero BEHAVIORAL HEALTH PROFESSIONAL Primary Care Provider Encounter Details Date Type Department Care Team (Late st Contact Info) Description 05/13/2023 Results Only [facility] Radiation Oncology - [address] [address] Unknown, Provider, Social History Tobacco Use Types [...] EDT Nurse Only [facility] Cancer [facility] [address] [place] [address] 09/20/2024 9:00 EDT Office Visit [facility] Cancer [facility] [address] [place] [address] Ezra Greenberg MD 111 [facility], Level 2 [place] [phone] documented as of this encounter Procedures Procedure [...] ONCOLOGY 05/13/2023 10:3 8 EDT Provider Unknown RADIATION ONCOLOGY O RDERALEONEL ARIA RADIATION ONCOLOGY documented in this encounter Visit Diagnoses Not on filedocumented in this encounter Care Teams Steel Tier Relationship Specialty Start Date End Date Domonique Caballero FNP [address] [place] [address] PCP - General Family Medicine - Primary Care 04/16/23 documented as of this encounter
--- OUTSIDE RECORDS SUMMARY | 2024-05-17 15:04 | XMS_ITS | Encounter Summary ---
Author Organization [facility] Address [address] [place] [address] Care Team Providers Care Sleep Technologist Name Role Phone Domonique Caballero [facility] Primary Care Provider Encounter Details Date Type Department Care Team (Late st Contact Info) Description 04/30/2023 Documentation Visit [facility] Cancer Treatment [address] [address] Darby Eckert, RN Social History Tobacco Use [...] Darby Eckert, RN - 04/30/2023 1522 EDT [facility] Patient Education/Needs Assessment Date: 04/30/23 What is [...] preferred method of learning? Patient's primary language: [place]ese Does the patient require an hourly sign language interpreter? No Does the patient have any barriers to learning? []Hard of Hearing []Visual Impairment []Cognitive Impairment []Dementia []Low Literacy []Other Comments: PATIENT EDUCATION After assessing the patient's learning needs, the patient was educated about their upcoming treatments. The patient was: The following education materials were supplied to the patient: Written: [x] ZI Radiation Therapy for Cancer [] ZI Radiation Therapy for [x][facility]-specific information Audio/Visual [] ZI RT Answers: An [...] 09/20/2024 8:45 EDT Nurse Only [facility] Cancer Treatment [address] [address] 09/20/2024 9:00 EDT Office Visit [facility] Cancer [facility] [address] [place] [address] Ezra Greenberg MD [address] [place] [address] 2 [place] [phone] documented as of this encounter Visit Diagnoses Not on filedocumented in this encounter Care Teams Sleep Technologist Relationship Specialty Start Date End Date Domonique Caballero FNP 4 [place] [address] PCP - General Family Medicine - Primary Care 04/16/23 documented as of this encounter
--- OUTSIDE RECORDS SUMMARY | 2024-05-17 15:04 | XMS_ITS | Encounter Summary ---
Author Organization [facility] Address [address] [place] [address] Care Team Providers Care Toll Testboard Worker Name Role Phone Domonique Caballero ASSISTANT PROFESSOR OF SPANISH Primary Care Provider Encounter Details Date Type Department Care Team (Late st Contact Info) Description 05/22/2023 Results Only [facility] Radiation Oncology - [address] [address] Unknown, Provider, Social History Tobacco Use Types [...] EDT Nurse Only [facility] [address] [place] [address] 09/20/2024 9:00 EDT Office Visit [facility] [address] [place] [address] Ezra Greenberg MD 111 [facility], Level 2 [place] [address] documented as of this encounter [...] RADIATION ONCOLOGY 05/22/2023 9:59 EST Provider Unknown RADIATION ONCOLOGY O RDERABLES ARIA RADIATION ONCOLOGY documented in this encounter Visit Diagnoses Not on filedocumented in this encounter Care Teams Toll Testboard Worker Relationship Specialty Start Date End Date Domonique Caballero FNP 4 [place] [phone] PCP - General Family Medicine - Primary Care 04/16/23 documented as of this encounter
--- OUTSIDE RECORDS SUMMARY | 2024-05-17 15:04 | XMS_ITS | Encounter Summary ---
Author Organization [facility] Address [address] [place] [address] Care Team Providers Care Deputy Clerk Of [address] Name Role Phone Michael Caballerosanti Hutchinson EQUIPMENT SERVICE ASSOCIATE Primary Care Provider Reason for Visit * Reason Comments Prostate Cancer * Episode Based Medications (Routine) - New Request Specialty Diagnoses / Procedures Referred By Tri crane Referred To Contact Diagnoses Malignant neoplasm of prostate (HCC-CMS) Todd Myles MD [address] [phone] [facility] [address] [place] [address] Referral ID Status Reason Start Date Expiration Date V isits Requested Visits Authorized [id number] New Request 04/24/2023 1 1 Encounter Details Date Type Department Care Team (Late st Contact Info) Description 04/30/2023 9:[address] [facility] [address] [place] [address] Todd Myles MD [address] [address] Malignant neoplasm of prostate (HCC-CMS) [...] Mr. Cardenas is a 77-year-old with a [place] 3+4/group 2 adenocarcinoma of the prostate with [...] with 6 to 12 months. [facility] that with surgery there is [...] History of Presenting Illness: Mr. Cardenas has [id number], PSA 27.9 [place] score 3+4 adenocarcinoma the prostate, PSA 27.92 (03/04). ??? PSA 14.2 on November 07, 2020 ??? He underwent transrectal ultrasound-guided biopsies, we do not currently have that pathology report however according to the note from Dr. Beasley this revealed Taylor score 6. ??? PSA values on active [...] right and left base as well as [place] score 3+4 in the left base. ??? [...] decrease from 27.9 to 20.3 at the [facility] without treatment. Dr. Wright recommended ADT [...] of the visit. Todd Myles MD Radiation Oncology[facility] (p) [phone] / (f) [phone] documented in this encounter Plan of Treatment Upcoming Encounters Date Type Department Care Team (Late st Contact Info) Description 09/20/2024 8:45 EDT Nurse Only [facility] Cancer Treatment [address] [phone] 09/20/2024 9:00 EDT Office Visit [facility] Cancer [address] [phone] Ezra Greenberg MD [address] [place] [address], Level 2 [place] [address] documented as of this encounter [...] Take by mouth. added in this encounter Care Teams Deputy Clerk Of [address] Relationship Specialty Start Date End Date Domonique Caballero FNP 4 [place] [phone] PCP - General Family Medicine - Primary Care 04/16/23 documented as of this encounter
--- OUTSIDE RECORDS SUMMARY | 2024-05-17 15:04 | XMS_ITS | Encounter Summary ---
Author Organization [facility] Address [address] [place] [address] Care Team Providers Care Rn Telephonic Name Role Phone Domonique Caballero DOUGH BRAKER Primary Care Provider [phone] Encounter Details Date Type Department Care Team (Latest Contact Info) Description 05/08/2023 18:15 EDT - 05/08/2023 23:[address] [facility] Cancer Treatment [place] [address] [place] [address] Discharge Disposition: Home or Self Care Social [...] EDT Nurse Only [facility] [address] [place] [address] 09/20/2024 9:00 EDT Office Visit [facility] Cancer [address] [address] Ezra Greenberg MD 111 [facility] 2 [place] [address] documented as of this encounter Visit Diagnoses Not on filedocumented in this encounter Care Teams Rn Telephonic Relationship Specialty Start Date End Date Domonique Caballero FNP 4 [place] [phone] PCP - General Family Medicine - Primary Care 04/16/23 documented as of this encounter
--- OUTSIDE RECORDS SUMMARY | 2024-05-17 15:04 | XMS_ITS | Encounter Summary ---
Author Organization [facility] Address [address] [place] [address] Care Team Providers Care Destination Coordinator Name Role Phone Almita Raza Clemente SNYDER Primary Care Provider [phone] Encounter Details Date Type Department Care Team (Late st Contact Info) Description 04/03/2023 Documentation Visit [facility] Cancer Treatment [address] [address] Darby Eckert, RN Social History Tobacco Use [...] Notes * Darby Eckert, RN - 04/03/2023 4159 EDT Images from the original note were [...] [facility] Cancer Treatment [place] [address] [place] [address] 09/20/2024 9:00 EDT Office Visit [facility] Cancer [facility] [address] [place] [address] Ezra Greenberg MD [address] [place] [address], [facility] 2 [place] [phone] documented as of this encounter Visit Diagnoses Not on filedocumented in this encounter Care Teams Destination Coordinator Relationship Specialty Start Date End Date Almita Raza APRN [address] [place] [phone] PCP - General Family Medicine - Primary Care 03/18/22 04/15/23 documented as of this encounter
--- OUTSIDE RECORDS SUMMARY | 2024-05-17 15:04 | XMS_ITS | Encounter Summary ---
Author Organization [facility] Address [address] [place] [address] Care Team Providers Care Wireless Sales Consultant Name Role Phone Domonique Caballero PURCHASING OFFICER Primary Care Provider Encounter Details Date Type Department Care Team (Late st Contact Info) Description 05/26/2023 Results Only [facility] Radiation Oncology - [address] [address] Unknown, Provider, Social History Tobacco Use Types [...] EDT Nurse Only [facility] Cancer [facility] [address] [place], [place] [phone] 09/20/2024 9:[address] [facility] [address] [place] [address] Ezra Greenberg MD 111 [facility], Level 2 [place] [address] documented as of this encounter [...] RADIATION ONCOLOGY 05/26/2023 9:24 EST Provider Unknown RADIATION ONCOLOGY O RDERABLES ARIA RADIATION ONCOLOGY documented in this encounter Visit Diagnoses Not on filedocumented in this encounter Care Teams Wireless Sales Consultant Relationship Specialty Start Date End Date Domonique Caballero FNP 4 [place] [phone] PCP - General Family Medicine - Primary Care 04/16/23 documented as of this encounter
--- OUTSIDE RECORDS SUMMARY | 2024-05-17 15:04 | XMS_ITS | Encounter Summary ---
Author Organization [facility] Address [address] [place] [address] Care Team Providers Care Glycerin Supervisor Name Role Phone Almita Raza Clemente SNYDER Primary Care Provider [phone] Encounter Details Date Type Department Care Team (Late st Contact Info) Description 04/03/2023 14:20 EDT Phlebotomy Only [facility] - Outpatient Phlebotomy Drawing [address] [place] [address] Lab, [facility] Op Phlebotomy Malignant neoplasm of prostate (HCC-CMS) [...] Info) Description 09/20/2024 8:45 EDT Nurse Only [facility] Treatment [place] [address] [place] [address] 09/20/2024 9:00 EDT Office Visit [facility] [address] [place] [address] Ezra Greenberg MD 111 [facility], Level [address] [place] [address] documented as of this encounter [...] or absence of malignant disease. Assayed on [employer] 5600 using chemiluminescent technology.??Values obtained by using different assay methods cannot be used interchangeably. ?? Cole Wright MD CHEMISTRY & BLOO D GAS ORDERABLES [facility] [address] [place] [address] documented in this encounter Visit Diagnoses Diagnosis Malignant neoplasm of prostate (HCC-CMS) Malignant neoplasm of prostate documented in this encounter Care Teams Glycerin Supervisor Relationship Specialty Start Date End Date Almita Raza APRN [address] [place] [address] PCP - General Family Medicine - Primary Care 03/18/22 04/15/23 documented as of this encounter
--- OUTSIDE RECORDS SUMMARY | 2024-05-17 15:04 | XMS_ITS | Encounter Summary ---
Author Organization [facility] Address [address] [place] [address] Care Team Providers Care Practical Nurse Name Role Phone Domonique Caballero [facility] Primary Care Provider [phone] Encounter Details Date Type Department Care Team (Late st Contact Info) Description 04/24/2023 Orders Only [facility] Life Cancer Treatment [address] [address] Darby Eckert, MARGOT Social History Tobacco Use [...] 8:45 EDT Nurse Only [facility] Cancer [address] [address] 09/20/2024 9:00 EDT Office Visit [facility] Cancer [address] [address] Ezra Greenberg MD 111 [facility], Level 2 [place] [address] documented as of this encounter Visit Diagnoses Not on filedocumented in this encounter Care Teams Practical Nurse Relationship Specialty Start Date End Date Domonique Caballero FNP 4 [place] [address] PCP - General Family Medicine - Primary Care 04/16/23 documented as of this encounter
--- OUTSIDE RECORDS SUMMARY | 2024-05-17 15:04 | XMS_ITS | Encounter Summary ---
Author Organization [facility] Address [address] [place] [address] Care Team Providers Care Supply Chain Procurement Manager Name Role Phone Domonique Caballero EXPLOSIVE ORDNANCE HANDLER Primary Care Provider Encounter Details Date Type Department Care Team (Latest Contact Info) Description 05/15/2023 11:15 EDT - 05/15/2023 23:59 EDT Hospital Encounter [facility] Cancer Treatment [place] [address] [place] [address] Discharge Disposition: Home or Self Care Social [...] 8:45 EDT Nurse Only [facility] [address] [place] [address] 09/20/2024 9:00 EDT Office Visit [facility] Cancer [address] [address] Ezra Greenberg MD 111 [facility] 2 [place] [address] documented as of this encounter Visit Diagnoses Not on filedocumented in this encounter Care Teams Supply Chain Procurement Manager Relationship Specialty Start Date End Date Domonique Caballero FNP 4 [place] [phone] PCP - General Family Medicine - Primary Care 04/16/23 documented as of this encounter
--- OUTSIDE RECORDS SUMMARY | 2024-05-17 15:05 | XMS_ITS | Encounter Summary ---
Author Organization [facility] Address [address] [place] [address] Care Team Providers Care Purchase Request Editor Name Role Phone Unavailable Primary Care Provider Unavailabl e Encounter Details Date Type Department Care Team (Late st Contact Info) Description 11/02/2007 Before PRISM Converted Visit (Maple) [facility] - Maple conversion [address] [place] [address] Nii Pena MD 111 [facility], Level 5 [place] [address] Social History Tobacco Use Types Packs/Day Years Used Date Smoking Tobacco: Never Assessed Sex and Gender Information Value Date Recorded Sex Assigned at Not on file Gender Identity Male 03/18/2022 14:42 EDT Sexual Orientation Not on file documented as of this encounter Progress Notes * Nii Pena MD - 04/13/2009 0159 EDT DIVISION OF OPHTHALMOLOGY [facility] PROGRESS/FOLLOWUP NOTE - 11/02/2007 Brian Wu MD [facility] [address] Dear Jose C: I had the pleasure [...] Pena MD 11/17/2007 15:03 Nii Pena MD [facility] - Retina and Vitreous Service [address] [place] [address] D: - Nii Pena MD - DV Job ID: [id number] Doc ID: [id number] cc: Brian Wu MD documented in this encounter Plan of Treatment Upcoming Encounters Date Type Department Care Team (Late st Contact Info) Description 09/20/2024 8:45 EDT Nurse Only [facility] Cancer [address] [address] 09/20/2024 9:00 EDT Office Visit [facility] Cancer [facility] [address] [place], [place] [address] Ezra Greenberg MD [address] [place] [address] 2 [place] [phone] documented as of this encounter Visit Diagnoses Not on filedocumented in this encounter
--- OUTSIDE RECORDS SUMMARY | 2024-05-17 15:05 | XMS_ITS | Encounter Summary ---
Author Organization [facility] Address [address] [place] [address] Care Team Providers Care Performance Makeup Artist Name Role Phone Unavailable Primary Care Provider Unavailabl e Encounter Details Date Type Department Care Team (Late st Contact Info) Description 11/03/[address] [facility] Ophthalmology - [address] [address] Nii Pena MD 111 [facility] [address] [place] [address] Social History Tobacco Use Types [...] EDT Nurse Only [facility] Cancer Treatment [address] [address] 09/20/2024 9:[address] [facility] Cancer Treatment [place] [address] [place] [address] Ezra Greenberg MD 111 [facility] 2 [place] [address] documented as of this encounter Visit Diagnoses Not on filedocumented in this encounter
--- OUTSIDE RECORDS SUMMARY | 2024-05-17 15:05 | XMS_ITS | Encounter Summary ---
Author Organization [facility] Address [address] [place] [address] Care Team Providers Care Auto Phone Installer Name Role Phone Unknown, Provider MD Primary Care Provider Almita Vines APRN Primary Care Provider [phone] Domonique Caballero Primary Care Provider [phone] Encounter Details Date Type Department Care Team (Late st Contact Info) Description 01/03/2020 Lab Requisition [facility] Pathology & Laboratory Medicine - [facility] [address] [place], [place] [phone] Outr Resulting Lab, Provider Social History Tobacco [...] EDT Nurse Only [facility] Cancer Treatment [address] [address] 09/20/2024 9:[address] [facility] Cancer [address] [address] Ezra Greenberg MD 111 [facility], Level 2 [place] [phone] documented as of this encounter Procedures Procedure Name Priority Date/Time Associated Diagnosis Comments ZZCOVID-19 TEST [facility] PCR Today 01/03/2020 14:05 EDT COVID-19 TESTING Routine 01/03/2020 14:0 5 EDT documented in this encounter Results * COVID-19 TEST [facility] PCR (01/03/2020 14:05 EDT) Swab ENTIRE NASOPHARYNX / Unknown 01/03/2020 14:05 EDT 01/03/2020 21:53 EDT Provider Outr Resulting Lab MICROBIOLOGY - GENERAL ORDERABLES [facility] [address] [place] [address] * COVID-19 TESTING (01/03/2020 14:05 EDT) COVID-19 rt-PCR Result Negative Negative 01/04/2020 11:14 EDT [facility] Comment: This test has not [...] history, and epidemiological information. Performed on the Field Squared instrument Performing Lab [place] [facility] 01/04/2020 11:14 EDT [facility] Swab 01/03/2020 14:0 5 EDT 01/03/2020 21:53 EDT Provider Outr Resulting Lab MICROBIOLOGY - GENERAL ORDERABLES [facility] [address] [place] [address] documented in this encounter Visit Diagnoses Not on filedocumented in this encounter Care Teams Auto Phone Installer Relationship Specialty Start Date End Date Unknown, Provider, PCP - General 02/25/19 03/17/22 Almita Raza APRN 4 [place] [address] PCP - General Family Medicine - Primary Care 03/18/22 04/15/23 Domonique Caballero FNP 4 [place] [address] PCP - General Family Medicine - Primary Care 04/16/23 documented as of this encounter
--- OUTSIDE RECORDS SUMMARY | 2024-05-17 15:05 | XMS_ITS | Encounter Summary ---
Author Organization [facility] Address [address] [place] [address] Care Team Providers Care Adult Specialist Name Role Phone Unavailable Primary Care Provider Unavailabl e Encounter Details Date Type Department Care Team (Late st Contact Info) Description 11/25/2007 Before PRISM Converted Visit (Maple) [facility] - Maple conversion [address] [place] [address] Brian Wu MD 111 [facility], Level 5 [place] [address] Social History Tobacco Use Types Packs/Day Years Used Date Smoking Tobacco: Never Assessed Sex and Gender Information Value Date Recorded Sex Assigned at Not on file Gender Identity Male 03/18/2022 14:42 EDT Sexual Orientation Not on file documented as of this encounter Progress Notes * Brian Wu MD - 04/13/2009 0958 EDT DIVISION OF OPHTHALMOLOGY [facility] PROGRESS/FOLLOWUP NOTE - 11/25/2007 EXTENDED OPHTHALMOSCOPY Extended ophthalmoscopy done with 360 degrees scleral depression reveals: 1. No new holes, tears or detachment. 2. The patient has an area of pexy at about 11 oclock, which is flat. ASSESSMENT Good result from pneumatic retinopexy. PLAN Recheck in one month. Signed by Brian Wu MD 12/02/2007 07:58 Brian Wu MD [facility] - Retina and Vitreous Service [address] [place], [place] [address] - Brian Wu MD - DV Job ID: [id number] Doc ID: [id number] cc: documented in this encounter Plan of Treatment Upcoming Encounters Date Type Department Care Team (Late st Contact Info) Description 09/20/2024 8:45 EDT Nurse Only [facility] Life Cancer Treatment [address] [phone] 09/20/2024 9:00 EDT Office Visit [facility] Cancer Treatment [address] [phone] Ezra Greenberg MD [address] [place] [address] Level 2 [place] [phone] documented as of this encounter Visit Diagnoses Not on filedocumented in this encounter
--- OUTSIDE RECORDS SUMMARY | 2024-05-17 15:05 | XMS_ITS | Encounter Summary ---
Author Organization [facility] Address [address] [place] [address] Care Team Providers Care Senior Care Provider Name Role Phone Unavailable Primary Care Provider Unavailabl e Encounter Details Date Type Department Care Team (Late st Contact Info) Description 11/09/2007 Office Visit [facility] Ophthalmology - [address] [phone] Brian Wu MD 111 [facility] 5 [place] [address] Social History Tobacco Use Types [...] EDT Nurse Only [facility] Cancer Treatment [address] [phone] 09/20/2024 9:00 EDT Office Visit [facility] Cancer Treatment [place] [address] [place] [address] Ezra Greenberg MD 111 [facility] 2 [place] [address] documented as of this encounter Visit Diagnoses Not on filedocumented in this encounter
--- OUTSIDE RECORDS SUMMARY | 2024-05-17 15:05 | XMS_ITS | Encounter Summary ---
Author Organization [facility] Address [address] [place] [address] Care Team Providers Care Crematory Operator Name Role Phone Unknown, Provider MD Primary Care Provider Almita Vines APRN Primary Care Provider + [phone] Domonique Caballero Primary Care Provider + [phone] Encounter Details Date Type Department Care Team (Late st Contact Info) Description 06/26/2020 Lab Requisition [facility] Pathology & Laboratory Medicine - [facility] [address] [place] [address] Outr Resulting Lab, Provider Social History Tobacco [...] 8:45 EDT Nurse Only [facility] Cancer Treatment [address] [address] 09/20/2024 9:00 EDT Office Visit [facility] Cancer Treatment [place] [address] [place] [address] Ezra Greenberg MD 111 [facility] 2 [place] [address] documented as of this encounter Procedures Procedure Name Priority Date/Time Associated Diagnosis Comments PSA TOTAL, DIAGNOSTIC Routine 06/25/2020 11:45 EST documented in this encounter Results * (ABNORMAL) PSA TOTAL, DIAGNOSTIC (06/25/2020 11:45 EST) PSA 11.8(H) 0.0 - 6.5 ng/mL 06/26/2020 17:39 EST [facility] Blood VENOUS BLOOD / Unknown 06/25/2020 11:45 EST 06/26/2020 16:14 EST Narrative [facility] - 06/26/2020 17:39 EST NOTE: Serum PSA concentration should not be interpreted as absolute evidence for the presence or absence of malignant disease. Assayed on Siemens ADVIA Centaur XPT using chemiluminescent technology.??Values obtained by using different assay methods cannot be used interchangeably. Provider Outr Resulting Lab CHEMISTRY & BLOOD GAS ORDERABLES [facility] [address] [place] [address] documented in this encounter Visit Diagnoses Not on filedocumented in this encounter Care Teams Crematory Operator Relationship Specialty Start Date End Date Unknown, Provider, PCP - General 02/25/19 03/17/22 Almita Raza APRN 4 [place] [address] PCP - General Family Medicine - Primary Care 03/18/22 04/15/23 Domonique Caballero FNP 4 [place] [address] PCP - General Family Medicine - Primary Care 04/16/23 documented as of this encounter
--- OUTSIDE RECORDS SUMMARY | 2024-05-17 15:05 | XMS_ITS | Encounter Summary ---
Author Organization [facility] Address [address] [place] [address] Care Team Providers Care Replanter Name Role Phone Unknown, Provider MD Primary Care Provider Almita Vines APRN Primary Care Provider + [phone] Domonique Caballero Primary Care Provider + [phone] Encounter Details Date Type Department Care Team (Late st Contact Info) Description 06/13/2020 Lab Requisition [facility] Pathology & Laboratory Medicine - [facility] [address] [place] [address] Outr Resulting Lab, Provider Social [...] EDT Nurse Only [facility] Cancer Treatment [address] [phone] 09/20/2024 9:00 EDT Office Visit [facility] Cancer Treatment [place] [address] [place] [address] Ezra Greenberg MD 111 [facility] 2 [place] [address] documented as of this encounter Procedures Procedure Name Priority Date/Time Associated Diagnosis Comments PSA TOTAL, DIAGNOSTIC Routine 06/12/2020 8:30 EST documented in this encounter Results * (ABNORMAL) PSA TOTAL, DIAGNOSTIC (06/12/2020 8:30 EST) PSA 10.5(H) 0.0 - 6.5 ng/mL 06/13/2020 21:24 EST [facility] Blood VENOUS BLOOD / Unknown 06/12/2020 8:30 EST 06/13/2020 16:05 EST Narrative [facility] - 06/13/2020 21:24 EST NOTE: Serum PSA concentration should not be interpreted as absolute evidence for the presence or absence of malignant disease. Assayed on Siemens ADVIA Centaur XPT using chemiluminescent technology.??Values obtained by using different assay methods cannot be used interchangeably. Provider Outr Resulting Lab CHEMISTRY & BLOOD GAS ORDERABLES [facility] [address] [place] [address] documented in this encounter Visit Diagnoses Not on filedocumented in this encounter Care Teams Replanter Relationship Specialty Start Date End Date Unknown, Provider, PCP - General 02/25/19 03/17/22 Almita Raza APRN 4 [place] [address] PCP - General Family Medicine - Primary Care 03/18/22 04/15/23 Domonique Caballero FNP 4 [place] [address] PCP - General Family Medicine - Primary Care 04/16/23 documented as of this encounter
--- OUTSIDE RECORDS SUMMARY | 2024-05-17 15:05 | XMS_ITS | Encounter Summary ---
Author Organization [facility] Address [address] [place] [address] Care Team Providers Care Massotherapist Name Role Phone Unavailable Primary Care Provider Unavailabl e Encounter Details Date Type Department Care Team (Late st Contact Info) Description 11/25/2007 Before PRISM Converted Visit (Maple) [facility] - Maple conversion [address] [place] [address] Brian Wu MD 111 [facility], Level 5 [place] [address] Social History Tobacco Use Types Packs/Day Years Used Date Smoking Tobacco: Never Assessed Sex and Gender Information Value Date Recorded Sex Assigned at Not on file Gender Identity Male 03/18/2022 14:42 EDT Sexual Orientation Not on file documented as of this encounter Progress Notes * Brian Wu MD - 04/13/2009 0958 EDT DIVISION OF OPHTHALMOLOGY [facility] November 25, 2007 Mack Colón MD [address] [place] [address] Federico Mccann, OD 530 [facility] [address] [place] [address] Dear Citlali: Rolan Cardenas was seen again today. He had a pneumatic about two weeks ago and looks great today. I will plan to see him again in a month or so. Sincerely, Signed by Brian Wu MD 12/02/2007 08:03 Brian Wu MD [facility] - Retina and Vitreous Service [address] [place] [address] - Brian Wu MD - DV Job ID: [id number] Doc ID: [id number] cc: MD Federico Lin OD ([address] [place] [address], [address], [place] [address]) * documented in this encounter Plan of Treatment Upcoming Encounters Date Type Department Care Team (Late st Contact Info) Description 09/20/2024 8:45 EDT Nurse Only [facility] Life Cancer Treatment [address] [phone] 09/20/2024 9:00 EDT Office Visit [facility] Treatment [address] 772743 Ezra Greenberg MD [address] [place] [address], [facility] 2 [place] [phone] documented as of this encounter Visit Diagnoses Not on filedocumented in this encounter
--- OUTSIDE RECORDS SUMMARY | 2024-05-17 15:05 | XMS_ITS | Encounter Summary ---
Author Organization [facility] Address [address] [place] [address] Care Team Providers Care Pulpwood Cutter Name Role Phone Unavailable Primary Care Provider Unavailabl e Encounter Details Date Type Department Care Team (Late st Contact Info) Description 07/17/2005 12:03 EST Hospital Encounter [facility] - Other [address] [place] [address] Brian Wu MD 111 [facility], Level 5 [place] [address] Social History Tobacco Use Types [...] 09/20/2024 8:45 EDT Nurse Only [facility] Cancer [address] [address] 09/20/2024 9:00 EDT Office Visit [facility] [address] [place] [address] Ezra Greenberg MD [address] [place] [address], [facility] 2 [place] [address] documented as of this encounter Visit Diagnoses Not on filedocumented in this encounter
--- OUTSIDE RECORDS SUMMARY | 2024-05-17 15:05 | XMS_ITS | Encounter Summary ---
Author Organization [facility] Address [address] [place] [address] Care Team Providers Care Gamma Facilities Operator Name Role Phone Unknown, Provider MD Primary Care Provider Almita Vines APRN Primary Care Provider + [phone] Domonique Caballero Primary Care Provider + [phone] Encounter Details Date Type Department Care Team (Late st Contact Info) Description 03/13/2021 Lab Requisition [facility] Pathology & [facility] - [facility] [address] [place] [address] Outr Resulting Lab, Provider Social [...] EDT Nurse Only [facility] Cancer Treatment [address] [phone] 09/20/2024 9:[address] [facility] Cancer Treatment [place] [address] [place] [address] Ezra Greenberg MD 111 [facility], Level 2 [place] [address] documented as of this encounter Procedures Procedure Name Priority Date/Time Associated Diagnosis Comments PSA TOTAL, DIAGNOSTIC Routine 03/13/2021 8:45 EDT documented in this encounter Results * (ABNORMAL) PSA TOTAL, DIAGNOSTIC (03/13/2021 8:45 EDT) PSA 14.6(H) 0.0 - 6.5 ng/mL 03/13/2021 22:13 EDT [facility] Blood VENOUS BLOOD / Unknown 03/13/2021 8:45 EDT 03/13/2021 21:10 EDT Narrative [facility] - 03/13/2021 22:13 EDT NOTE: Serum PSA concentration should not be interpreted as absolute evidence for the presence or absence of malignant disease. Assayed on Siemens ADVIA Centaur XPT using chemiluminescent technology.??Values obtained by using different assay methods cannot be used interchangeably. Provider Outr Resulting Lab CHEMISTRY & BLOOD GAS ORDERABLES [facility] [address] [place] [address] documented in this encounter Visit Diagnoses Not on filedocumented in this encounter Care Teams Gamma Facilities Operator Relationship Specialty Start Date End Date Unknown, Provider, PCP - General 02/25/19 03/17/22 Almita Raza APRN 4 [place] [phone] PCP - General Family Medicine - Primary Care 03/18/22 04/15/23 Domonique Caballero FNP [address] [place] [address] PCP - General Family Medicine - Primary Care 04/16/23 documented as of this encounter
--- OUTSIDE RECORDS SUMMARY | 2024-05-17 15:05 | XMS_ITS | Encounter Summary ---
Author Organization [facility] Address [address] [place] [address] Care Team Providers Care Mail Courier Name Role Phone Unknown, Provider MD Primary Care Provider Almita Vines APRN Primary Care Provider + [phone] Domonique Caballero Primary Care Provider + [phone] Encounter Details Date Type Department Care Team (Late st Contact Info) Description 07/02/2021 Lab Requisition [facility] Pathology & Laboratory Medicine - [facility] [address] [place] [address] Outr Resulting Lab, Provider Social [...] Only [facility] Cancer Treatment [address] [address]223 09/20/2024 9:00 EDT Office Visit [facility] Cancer Treatment [place] [address] [place] [address] Ezra Greenberg MD 111 [facility], [facility] 2 [place] [phone] documented as of this encounter Procedures Procedure Name Priority Date/Time Associated Diagnosis Comments PSA TOTAL, DIAGNOSTIC Routine 07/02/2021 7:35 EST documented in this encounter Results * (ABNORMAL) PSA TOTAL, DIAGNOSTIC (07/02/2021 7:35 EST) PSA 14.8(H) 0.0 - 6.5 ng/mL 07/02/2021 22:55 EST [facility] Blood VENOUS BLOOD / Unknown 07/02/2021 7:35 EST 07/02/2021 21:51 EST Narrative [facility] - 07/02/2021 22:55 EST NOTE: Serum PSA concentration should not be interpreted as absolute evidence for the presence or absence of malignant disease. Assayed on Siemens ADVIA Centaur XPT using chemiluminescent technology.??Values obtained by using different assay methods cannot be used interchangeably. Provider Outr Resulting Lab CHEMISTRY & BLOOD GAS ORDERABLES [facility] [address] [place] [address] documented in this encounter Visit Diagnoses Not on filedocumented in this encounter Care Teams Mail Courier Relationship Specialty Start Date End Date Unknown, Provider, PCP - General 02/25/19 03/17/22 Almita Raza APRN 4 [place] [address] PCP - General Family Medicine - Primary Care 03/18/22 04/15/23 Domonique Caballero FNP 4 [place] [address] PCP - General Family Medicine - Primary Care 04/16/23 documented as of this encounter
--- OUTSIDE RECORDS SUMMARY | 2024-05-17 15:05 | XMS_ITS | Encounter Summary ---
Author Organization [facility] Address [address] [place] [address] Care Team Providers Care Pediatrics Hospitalist Name Role Phone Unavailable Primary Care Provider Unavailabl e Encounter Details Date Type Department Care Team (Late st Contact Info) Description 07/30/2005 Results Only [facility] - Maple conversion [address] [place], [place] [address] Justyna Eduardo MD [address] [place] [address] [address] [place] [phone] Social History Tobacco Use Types Packs/Day Years [...] EDT Nurse Only [facility] Life Cancer Treatment [address] [address] 09/20/2024 9:00 EDT Office Visit [facility] Cancer Treatment [place] [address] [place], [place] [address] Ezra Greenberg MD 111 [facility], [facility] 2 [place] [address] [phone] (work) documented as of this encounter Procedures [...] ? ROLAN CRESPO ? Accession #: ? [id number] ? : ? 1945 (Age: 59) ??M [...] cm. ??Submitted in toto as (B). ??(Inocencia Woodward)/[facility] End of Report ISAK BLAIR 07/30/2005 08/01/2005 8:4 8 EST Justyna Eduardo MD PATHOLOGY ORDERABL ES ISAK BLAIR [address] [place] [address] documented in this encounter Visit Diagnoses Not on filedocumented in this encounter
--- OUTSIDE RECORDS SUMMARY | 2024-05-17 15:05 | XMS_ITS | Encounter Summary ---
Author Organization [facility] Address [address] [place] [address] Care Team Providers Care Palm And Back Forger Name Role Phone Unavailable Primary Care Provider Unavailabl e Encounter Details Date Type Department Care Team (Late st Contact Info) Description 10/06/2007 Office Visit [facility] Ophthalmology - [place] [address] [place] [address] Brian Wu MD 111 [facility], [facility] 5 [place] [address] Social History Tobacco Use Types Packs/Day Years Used Date Smoking Tobacco: Never Assessed Sex and Gender Information Value Date Recorded Sex Assigned at Not on file Gender Identity Male 03/18/2022 14:42 EDT Sexual Orientation Not on file documented as of this encounter Progress Notes * Brian Wu MD - 04/04/2009 2333 EDT DIVISION OF OPHTHALMOLOGY [facility] October 06, 2007 Mack Colón MD 45 [place] [address] Federico Mccann, OD 530 [facility] [address] [place] [address] Dear Citlali: Rolan Cardenas was in today. [...] Wu MD 10/14/2007 10:09 Brian Wu MD [facility] - Retina and Vitreous Service [address] [place] [address] - Brian Wu MD - DV Job ID: [id number] Doc ID: [id number] cc: MD Federico Lin, BEATRIZ ([address] [place] [address], [address] [address]) * documented in this encounter Plan of Treatment Upcoming Encounters Date Type Department Care Team (Late st Contact Info) Description 09/20/2024 8:45 EDT Nurse Only [facility] Cancer Treatment Center [address] [place] [address] 09/20/2024 9:00 EDT Office Visit [facility] Cancer Treatment Center [address] [place] [address] Ezra Greenberg MD [address] [place] [address] 2 [place] [phone] documented as of this encounter Visit Diagnoses Not on filedocumented in this encounter
--- OUTSIDE RECORDS SUMMARY | 2024-05-17 15:05 | XMS_ITS | Encounter Summary ---
Author Organization [facility] Address [address] [place] [address] Care Team Providers Care Butcherette Name Role Phone Unknown, Provider MD Primary Care Provider Unava ilable Reason for Visit * Reason Onset Date Comments Eye Problem 03/18/2019 Encounter Details Date Type Department Care Team (Late st Contact Info) Description 03/18/2019 Telephone [facility] [address] [place], [place] [phone] Luis Arambula MD 111 [facility], Level 5 [place] [address] Eye Problem Social History Tobacco [...] Encounter - Piero Petty RN - 03/18/2019 6572 EDT Called and spoke to patient. Episode [...] if the double was changing at all. [phone] ok to leave message. Piero Petty RN 03/18/2019 15:44 * Telephone Encounter - [...] Nurse Only [facility] Cancer Treatment [address] [address] 09/20/2024 9:00 EDT Office Visit [facility] Cancer Treatment [address] [address] Ezra Greenberg MD [address] [place] [address], Level 2 [place] [address] documented as of this encounter Visit Diagnoses Not on filedocumented in this encounter Care Teams Butcherette Relationship Specialty Start Date End Date Unknown, Provider, PCP - General 02/25/19 03/17/22 documented as of this encounter
--- OUTSIDE RECORDS SUMMARY | 2024-05-17 15:05 | XMS_ITS | Encounter Summary ---
Author Organization [facility] Address [address] [place] [address] Care Team Providers Care Assistant Track And Field Coach Name Role Phone Unknown, Provider Primary Care Provider Unava ilable Encounter Details Date Type Department Care Team (Late st Contact Info) Description 03/04/2019 12:08 EDT - 03/04/2019 23:59 EDT Hospital Encounter [facility] [address] [place] [address] Luis Arambula MD 111 [facility], Level 5 [place] [address] Discharge Disposition: Auto Discharge Social [...] Nurse Only [facility] Cancer [address] [address] 09/20/2024 9:00 EDT Office Visit [facility] Cancer [address] [address] Ezra Greenberg MD [address] [place] [address] 2 [place] [phone] documented as of this encounter Visit Diagnoses Not on filedocumented in this encounter Care Teams Assistant Track And Field Coach Relationship Specialty Start Date End Date Unknown, Provider, PCP - General 02/25/19 03/17/22 documented as of this encounter
--- OUTSIDE RECORDS SUMMARY | 2024-05-17 15:05 | XMS_ITS | Encounter Summary ---
Author Organization [facility] Address [address] [place] [address] Care Team Providers Care Social Service Director Name Role Phone Almita Raza APRN Primary Care Provider [phone] Reason for Referral * Radiology Services (Routine/Next Available) - Authorization Not Required Specialty Diagnoses / Procedures Referred By Contac t Referred To Contact Diagnoses Hyperlipidemia, unspecified Procedures CT CARDIAC CALCIUM SCORE Almita Raza APRN [address] [place] [address] [facility] Referral ID Status Reason Start Date Expiration Date Visits Requested Visits Authorized [id number] Authorization Not Required 02/04/2022 1 1 Reason for Visit * Radiology Services (Routine/Next Available) - Authorization Not Required Specialty Diagnoses / Procedures Referred By Contac t Referred To Contact Diagnoses Hyperlipidemia, unspecified Procedures CT CARDIAC CALCIUM SCORE Almita Raza APRN [address] [place] [address] [facility] Referral ID Status Reason Start Date Expiration Date Visits Requested Visits Authorized [id number] Authorization Not Required 02/04/2022 1 1 Encounter Details Date Type Department Care Team (Latest Contact Info) Description 03/20/2022 12:32 EDT - 03/20/2022 23:59 EDT Hospital Encounter [facility] Radiology CT Outpatient - [facility] [address] [place] [address] Hyperlipidemia, unspecified Discharge Disposition: Home or Self [...] EDT Nurse Only [facility] Cancer Treatment [address] [address] 09/20/2024 9:00 EDT Office Visit [facility] Cancer Treatment [address] [address] Ezra Greenberg MD 111 [facility] 2 [place] [phone] documented as of this encounter Procedures Procedure [...] PARRA, Madeleine M, Juvenal Cornejo and Freddy Vargas.CAC- [...] following reference: Christen Corona, Brian Spivey, Marija Farrell Distribution of Coronary Artery Calcium by [...] unspecified documented in this encounter Care Teams Social Service Director Relationship Specialty Start Date End Date Almita Raza APRN 4 [facility] [place] [phone] PCP - General Family Medicine - Primary Care 03/18/22 04/15/23 documented as of this encounter
--- OUTSIDE RECORDS SUMMARY | 2024-05-17 15:05 | XMS_ITS | Encounter Summary ---
Author Organization [facility] Address [address] [place] [address] Care Team Providers Care Door Installer Name Role Phone Unavailable Primary Care Provider Unavailabl e Encounter Details Date Type Department Care Team (Late st Contact Info) Description 03/26/2004 Before PRISM Converted Visit (Maple) [facility] - Maple conversion [address] [place], [place] [address] [phone] Brian Wu MD [address] [address] Social History Tobacco Use Types [...] 8:45 EDT Nurse Only [facility] [address] [address] 09/20/2024 9:00 EDT Office Visit [facility] [address] [address] Ezra Greenberg MD 111 [facility] 2 [place] [address] documented as of this encounter Visit Diagnoses Not on filedocumented in this encounter
--- OUTSIDE RECORDS SUMMARY | 2024-05-17 15:05 | XMS_ITS | Encounter Summary ---
Author Organization [facility] Address [address] [place] [address] Care Team Providers Care Resistance Welder Name Role Phone Unavailable Primary Care Provider Unavailabl e Encounter Details Date Type Department Care Team (Late st Contact Info) Description 03/21/2004 12:40 EDT Hospital Encounter [address] [address] Brian Wu MD 111 [facility] 5 [place] [address] Discharge Disposition: Auto Discharge Social [...] Nurse Only [facility] Cancer Treatment [place] [address] [place], [place] [address] 09/20/2024 9:00 EDT Office Visit [facility] Cancer Treatment [place] [address] [place], [place] [address] Ezra Greenberg MD 111 [facility], Level 2 [place] [address] documented as of this encounter Visit Diagnoses Not on filedocumented in this encounter
--- OUTSIDE RECORDS SUMMARY | 2024-05-17 15:05 | XMS_ITS | Encounter Summary ---
Author Organization [facility] Address [address] [place] [address] Care Team Providers Care River Crossing Supervisor Name Role Phone Unavailable Primary Care Provider Unavailabl e Encounter Details Date Type Department Care Team (Late st Contact Info) Description 11/25/2007 Office Visit [facility] - [address] [address] Brian Wu MD [address] [place] [phone] Discharge Disposition: Auto Discharge Social History Tobacco [...] EDT Nurse Only [facility] Cancer Treatment [place] [address] [place], [place] [phone] 09/20/2024 9:00 EDT Office Visit [facility] Cancer Treatment [place] [address] [place], [place] [address] Ezra Greenberg MD 111 [facility] 2 [place] [address] documented as of this encounter Visit Diagnoses Not on filedocumented in this encounter
--- OUTSIDE RECORDS SUMMARY | 2024-05-17 15:05 | XMS_ITS | Encounter Summary ---
Author Organization [facility] Address [address] [place] [address] Care Team Providers Care Chemical Research Engineer Name Role Phone Unknown, Provider MD Primary Care Provider Almita Vines APRN Primary Care Provider + [phone] Domonique Caballero Primary Care Provider + [phone] Encounter Details Date Type Department Care Team (Late st Contact Info) Description 12/31/2021 Lab Requisition [facility] Pathology & Laboratory Medicine - [facility] [address] [place] [address] Outr Resulting Lab, Provider Social [...] Nurse Only [facility] Cancer Treatment [address] [address] 09/20/2024 9:00 EDT Office Visit [facility] Cancer Treatment [place] [address] [place] [address] Ezra Greenberg MD 111 [facility], Level 2 [place] [address] documented as of this encounter Procedures Procedure Name Priority Date/Time Associated Diagnosis Comments PSA TOTAL, DIAGNOSTIC Routine 12/31/2021 10:28 EDT documented in this encounter Results * (ABNORMAL) PSA TOTAL, DIAGNOSTIC (12/31/2021 10:28 EDT) PSA 16.0(H) <=6.5 ng/mL 12/31/2021 23:01 EDT [facility] Blood VENOUS BLOOD / Unknown 12/31/2021 10:28 EDT 12/31/2021 22:01 EDT Narrative [facility] - 12/31/2021 23:01 EDT NOTE: Serum PSA concentration should not be interpreted as absolute evidence for the presence or absence of malignant disease. Assayed on Siemens ADVIA Centaur XPT using chemiluminescent technology.??Values obtained by using different assay methods cannot be used interchangeably. Provider Outr Resulting Lab CHEMISTRY & BLOOD GAS ORDERABLES [facility] [address] [place] [address] documented in this encounter Visit Diagnoses Not on filedocumented in this encounter Care Teams Chemical Research Engineer Relationship Specialty Start Date End Date Unknown, Provider, PCP - General 02/25/19 03/17/22 Almita Raza APRN [address] [place] [address] PCP - General Family Medicine - Primary Care 03/18/22 04/15/23 Domonique Caballero FNP [address] [place] [address] PCP - General Family Medicine - Primary Care 04/16/23 documented as of this encounter
--- OUTSIDE RECORDS SUMMARY | 2024-05-17 15:05 | XMS_ITS | Encounter Summary ---
Author Organization [facility] Address [address] [place] [address] Care Team Providers Care Rags Laborer Name Role Phone Unavailable Primary Care Provider Unavailabl e Encounter Details Date Type Department Care Team (Late st Contact Info) Description 03/20/2004 Office [address] [facility] - Maple conversion [address] [place] [address] Katharine Mark MD [address], [address] [place], [place] [address] Social History Tobacco Use Types Packs/Day Years [...] [facility] Cancer Treatment [place] [address] [place] [address] 09/20/2024 9:00 EDT Office Visit [facility] Cancer Treatment [place] [address] [place] [address] Ezra Greenberg MD 111 [facility], Level 2 [place] [address] documented as of this encounter Visit Diagnoses Not on filedocumented in this encounter
--- OUTSIDE RECORDS SUMMARY | 2024-05-17 15:05 | XMS_ITS | Encounter Summary ---
Author Organization [facility] Address [address] [place] [address] Care Team Providers Care Sanitary Plumber Name Role Phone Unavailable Primary Care Provider Unavailabl e Encounter Details Date Type Department Care Team (Late st Contact Info) Description 07/17/2005 Before PRISM Converted Visit (Maple) [facility] - Maple conversion [address] [place] [address] Brian Wu MD 111 [facility], Level 5 [place] [address] Social History Tobacco Use Types [...] NOTE - 07/17/2005 Federico Mccann, OD [address] [facility] [address] [place] [address] Jeronimo Benjamin MD [address] [place] [address] Dear Colleagues: Rolan Cardenas was seen today. [...] Brian Wu MD 07/23/2005 10:33 Kenya Wu MD[address] [id number] [phone] Millay, MD Brian Wu MD [address] [address] - Brian Wu MD A - dv Job ID: [id number] Document ID: [id number] cc: MD Federico Martinez MP, OD * documented in this encounter Plan of Treatment Upcoming Encounters Date Type Department Care Team (Late st Contact Info) Description 09/20/2024 8:45 EDT Nurse Only [facility] Cancer Treatment [address] [address] 09/20/2024 9:00 EDT Office Visit [facility] Cancer Treatment [address] [phone] Ezra Greenberg MD [address] [place] [address] 2 [place] [address] documented as of this encounter Visit Diagnoses Not on filedocumented in this encounter
--- OUTSIDE RECORDS SUMMARY | 2024-05-17 15:05 | XMS_ITS | Encounter Summary ---
Author Organization [facility] Address [address] [place] [address] Care Team Providers Care Electric Meter Tester Helper Name Role Phone Unavailable Primary Care Provider Unavailabl e Encounter Details Date Type Department Care Team (Late st Contact Info) Description 11/02/2007 Office Visit [facility] Ophthalmology - [address] [address] Nii Pena MD [address] [place] [phone] Discharge Disposition: Auto Discharge Social History Tobacco [...] EDT Nurse Only [facility] Cancer Treatment [place] [address] [place], [place] [phone] 09/20/2024 9:00 EDT Office Visit [facility] Cancer Treatment [place] [address] [place], [place] [address] Ezra Greenberg MD 111 [facility] 2 [place] [address] documented as of this encounter Visit Diagnoses Not on filedocumented in this encounter
--- OUTSIDE RECORDS SUMMARY | 2024-05-17 15:05 | XMS_ITS | Encounter Summary ---
Author Organization [facility] Address [address] [place] [address] Care Team Providers Care Broker In Charge Name Role Phone Almita Raza APRN Primary Care Provider Reason for Visit * (Routine/Next Available) - Receiving Office to Obtain Authorization Specialty Diagnoses / Procedures Referred By Tri crane Referred To Contact Procedures CT OUTSIDE IMAGES NEURO Imaging, External Referral ID Status Reason Start Date Expiration Date Visits Requested Visits Authorized [id number] Receiving Office to Obtain Authorization 2 1 1 Encounter Details Date Type Department Care Team (Latest Contact Info) Description 06/09/2022 17:44 EST - 06/09/2022 23:59 EST Hospital Encounter [facility] Secondary Reads [place] Discharge Disposition: Home or [...] EDT Nurse Only [facility] Cancer Treatment [place] [address] [place] [address] 09/20/2024 9:00 EDT Office Visit [facility] Cancer Treatment [place] [address] [place] [address] Ezra Greenberg MD [address] [place] [address] 2 [place] [phone] documented as of this encounter Procedures Procedure [...] on filedocumented in this encounter Care Teams Broker In Charge Relationship Specialty Start Date End Date Almita Raza APRN [address] [place] [address] PCP - General Family Medicine - Primary Care 03/18/22 04/15/23 documented as of this encounter
--- OUTSIDE RECORDS SUMMARY | 2024-05-17 15:05 | XMS_ITS | Encounter Summary ---
Author Organization [facility] Address [address] [place] [address] Care Team Providers Care Vacuum Tester Cans Name Role Phone Unavailable Primary Care Provider Unavailabl e Encounter Details Date Type Department Care Team (Late st Contact Info) Description 03/20/2004 15:24 EDT Hospital Encounter [facility] [address] [place] [address] Katharine Mark MD [address] [place] [address], [address] [place], [place] [address] Todd Dorsey MD 0 [place] [phone] Social History Tobacco Use Types Packs/Day Years [...] 8:45 EDT Nurse Only [facility] Cancer Treatment [place] [address] [place] [address] 09/20/2024 9:00 EDT Office Visit [facility] Cancer [facility] [address] [place] [address] Ezra Greenberg MD [address] [place] [address] 2 [place] [address] documented as of this encounter Visit Diagnoses Not on filedocumented in this encounter
--- OUTSIDE RECORDS SUMMARY | 2024-05-17 15:05 | XMS_ITS | Encounter Summary ---
Author Organization [facility] Address [address] [place] [address] Care Team Providers Care Mule Packer Name Role Phone Unknown, Provider MD Primary Care Provider Unava ilable Encounter Details Date Type Department Care Team (Late st Contact Info) Description 03/04/2019 Phlebotomy Only [facility] [address] [place], [place] [phone] Pressurizer, Outpatient Diplopia; Vertical strabismus of left eye [...] Nurse Only [facility] Cancer Treatment [address] [address] 09/20/2024 9:00 EDT Office Visit [facility] Cancer Treatment [place] [address] [place], [place] [address] Ezra Greenberg MD 111 [facility] 2 [place] [address] [phone] (work) documented as of this encounter Procedures [...] Ab Negative <1:120 titer 03/07/2019 13:33 EDT [facility] Comment: (Note) . ADDITIONAL INFORMATION This test was developed and its performance characteristics determined by [facility] in a manner consistent with CLIA requirements. This test has not been cleared or approved by the U.S. Food and Drug Administration. Performed or Referred by: [facility], [address] [place] [address] Blood specimen (specimen) BLOOD SPECIMEN / Unknown 03/04/2019 12:16 EDT 03/04/2019 12:44 EDT Luis Arambula MD IMMUNOLOGY AND S EROLOGY ORDERABLES [facility] [address] [place] [address] * THYROTROPIN RECEPTOR ANTIBODY (03/04/2019 12:16 EDT) Pathologist [facility] Thyrotropin Receptor Ab <1.00 0.00 - 1.75 IU/L 03/07/2019 13:06 EDT [facility] Comment: (Note) . ADDITIONAL INFORMATION At a decision limit of 1.75 IU/L, this assay has 97% sensitivity and 99% specificity for detection of Graves' disease. In healthy individuals and in patients with thyroid disease without diagnosis of Graves' disease, the upper limit of anti-TSHR values are 1.22 IU/L and 1.58 IU/L, respectively (97.5th percentiles). Performed by: [facility]: [facility] [address], [place] [address] Blood specimen (specimen) BLOOD SPECIMEN / Unknown 03/04/2019 12:16 EDT 03/04/2019 12:44 EDT Luis Arambula MD CHEMISTRY & BLOO D GAS ORDERABLES Performing Organization Address [facility] Co de Phone Number [facility] [address] [place] [address] * THYROID ANTIBODIES (03/04/2019 12:16 EDT) [facility] Thyroglobulin Ab 20 <61 U/mL 03/04/20 19 14:50 EDT [facility] Thyroperoxidase Ab <28 <61 U/mL 2018 14:50 EDT [facility] Blood specimen (specimen) BLOOD SPECIMEN / Unknown 03/04/2019 12:16 EDT 03/04/2019 12:44 EDT Luis Arambula MD CHEMISTRY & BLOO D GAS ORDERABLES Performing Organization Address [facility] Co de Phone Number [facility] [address] [place] [address] * ACETYLCHOLINE RECEPTOR (MUSCLE ACHR) BINDING ANTIBODY (03/04/2019 12:16 EDT) [facility] Acetylcholine Receptor Ab 0.00 <=0.02 nmol/L 03/09/2019 8:22 EDT [facility] Comment: (Note) . ADDITIONAL INFORMATION This test was developed and its performance characteristics determined by [facility] in a manner consistent with CLIA requirements. This test has not been cleared or approved by the U.S. Food and Drug Administration. Performed or Referred by: [facility], [address] [place] [address] Blood specimen (specimen) BLOOD SPECIMEN / Unknown 03/04/2019 12:16 EDT 03/04/2019 12:44 EDT Luis Arambula MD IMMUNOLOGY AND S EROLOGY ORDERABLES Performing Organization Address [facility] Co de Phone Number [facility] [address] [place] [address] * THYROID-STIMULATING IMMUNOGLOBULIN (TSI), SERUM (03/04/2019 12:16 EDT) Thyroid Stimulating Immunoglobulin <1.0 <=1.3 TSI index 03/11/2019 7:58 EDT [facility] Comment: Performed or Referred by: [facility], [address] [place] [address] Blood specimen (specimen) BLOOD SPECIMEN / Unknown 03/04/2019 12:16 EDT 03/04/2019 12:44 EDT Luis Arambula MD CHEMISTRY & BLOO D GAS ORDERABLES Performing Organization Address [facility] Co de Phone Number [facility] [address] [place] [address] documented in this encounter Visit Diagnoses Diagnosis Diplopia Vertical strabismus of left eye Hypertropia documented in this encounter Care Teams Mule Packer Relationship Specialty Start Date End Date Unknown, Provider, PCP - General 02/25/19 03/17/22 documented as of this encounter
--- OUTSIDE RECORDS SUMMARY | 2024-05-17 15:05 | XMS_ITS | Encounter Summary ---
Author Organization [facility] Address [address] [place] [address] Care Team Providers Care Activity Director Name Role Phone Unknown, Provider MD Primary Care Provider Unava ilable Reason for Visit * Reason Comments Diplopia 1 Episode of diplopi a last 3-5 minutes. Did not go away if one eye or the other was covered. Slight dizziness, followed by a minor headache. Intermittent chronic floaters both eyes, stable. No flashing lights or eye pain. * Consult, Test and Treat (Routine) - Closed Specialty Diagnoses / Procedures Referred By [facility] Referred To Contact Ophthalmology Diagnoses Diplopia Headache Benjamín Harvey, OD [address] [place] [address] Luis Arambula MD [address] [place] [phone] Referral ID Status Reason Start Date Expiration Date Visits Re quested Visits Authorized [id number] Closed 1 1 Encounter Details Date Type Department Care Team (Late st Contact Info) Description 03/04/2019 8:30 EDT Office Visit [facility] Ophthalmology - [address] [phone] Luis Arambula MD [address] [place] [phone] Social History Tobacco Use Types Packs/Day [...] Arambula MD - 03/04/2019 0830 EDT [facility] NEURO-OPHTHALMOLOGY CONSULTATION - March 04, 2019 Patient: Rolan Cardenas : [address] Harvey, Thank you for requesting Neuro-Ophthalmological consultation on Mr. Cardenas because of the history of double vision. Appreciate the notes and events provide instruction to his medical problems. 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 Loewry for age related macular degeneration and central [...] a former smoker with with close to [id number] history reports moderate alcohol useand denies recreational [...] concerns. Sincerely, Luis Arambula MD Diplomate, the [place] [employer] parts counterman Department of Ophthalmology NEURO-OPHTHALMOLOGY documented in this encounter Plan of Treatment Upcoming Encounters Date Type Department Care Team (Late st Contact Info) Description 09/20/2024 8:45 EDT Nurse Only [facility] Cancer [address] [address] 09/20/2024 9:00 EDT Office Visit [facility] Cancer [address] [phone] Ezra Greenberg MD [address] [place] [address], [facility] 2 [place] [address] documented as of this encounter Results * STRIATED MUSCLE ANTIBODY (03/04/2019 12:16 EDT) Striated Muscle Ab Negative <1:120 titer 03/07/2019 13:33 EDT [facility] Comment: (Note) . ADDITIONAL INFORMATION This test was developed and its performance characteristics determined by [facility] in a manner consistent with CLIA requirements. This test has not been cleared or approved by the U.S. Food and Drug Administration. Performed or Referred by: [facility], [address] [place] [address] Blood specimen (specimen) BLOOD SPECIMEN / Unknown 03/04/2019 12:16 EDT 03/04/2019 12:44 EDT Luis Arambula MD IMMUNOLOGY AND S EROLOGY ORDERABLES Performing Organization Address [facility] Co de Phone Number [facility] [address] [place] [address] * THYROTROPIN RECEPTOR ANTIBODY (03/04/2019 12:16 EDT) Thyrotropin Receptor Ab <1.00 0.00 - 1.75 IU/L 03/07/2019 13:06 EDT [facility] Comment: (Note) . ADDITIONAL INFORMATION At a decision limit of 1.75 IU/L, this assay has 97% sensitivity and 99% specificity for detection of Graves' disease. In healthy individuals and in patients with thyroid disease without diagnosis of Graves' disease, the upper limit of anti-TSHR values are 1.22 IU/L and 1.58 IU/L, respectively (97.5th percentiles). Performed by: [facility]: [address], [place] [address] Blood specimen (specimen) BLOOD SPECIMEN / Unknown 03/04/2019 12:16 EDT 03/04/2019 12:44 EDT Luis Arambula MD CHEMISTRY & BLOO D GAS ORDERABLES Performing Organization Address [facility] de Phone Number [facility] [address] [place] [phone] * THYROID ANTIBODIES (03/04/2019 12:16 EDT) Thyroglobulin Ab 20 <61 U/mL 03/04/20 19 14:50 EDT [facility] Thyroperoxidase Ab <28 <61 U/mL 2018 14:50 EDT [facility] Blood specimen (specimen) BLOOD SPECIMEN / Unknown 03/04/2019 12:16 EDT 03/04/2019 12:44 EDT Luis Arambula MD CHEMISTRY & BLOO D GAS ORDERABLES Performing Organization Address City/[facility]/ZIP Co de Phone Number [facility] [address] [place] [address] * ACETYLCHOLINE RECEPTOR (MUSCLE ACHR) BINDING ANTIBODY (03/04/2019 12:16 EDT) Acetylcholine Receptor Ab 0.00 <=0.02 nmol/L 03/09/2019 8:22 EDT [facility] Comment: (Note) . ADDITIONAL INFORMATION This test was developed and its performance characteristics determined by [facility] in a manner consistent with CLIA requirements. This test has not been cleared or approved by the U.S. Food and Drug Administration. Performed or Referred by: [facility], [address] [place] [address] Blood specimen (specimen) BLOOD SPECIMEN / Unknown 03/04/2019 12:16 EDT 03/04/2019 12:44 EDT Luis Arambula MD IMMUNOLOGY AND S EROLOGY ORDERABLES Performing Organization Address [facility] Co de Phone Number [facility] [address] [place] [address] * THYROID-STIMULATING IMMUNOGLOBULIN (TSI), SERUM (03/04/2019 12:16 EDT) Thyroid Stimulating Immunoglobulin <1.0 <=1.3 TSI index 03/11/2019 7:58 EDT [facility] Comment: Performed or Referred by: [facility], [address] [place] [address] Blood specimen (specimen) BLOOD SPECIMEN / Unknown 03/04/2019 12:16 EDT 03/04/2019 12:44 EDT Luis Arambula MD CHEMISTRY & BLOO D GAS ORDERABLES Performing Organization Address City/[facility] Co de Phone Number [facility] [address] [place] [address] documented in this encounter Visit Diagnoses Diagnosis [...] the center Color Right eye Left eye Kadi 04/22 04/22 Stereo Fly: + Circles: 03/21 Lan Sec Wearing Rx Sphere Cylinder [place] Add Right eye -2.50 +1.50 011 +2.75 Left eye -2.00 +1.50 164 +2.75 Care Teams Activity Director Relationship Specialty Start Date End Date Unknown, Provider, PCP - General 02/25/19 03/17/22 documented as of this encounter
--- OUTSIDE RECORDS SUMMARY | 2024-05-17 15:05 | XMS_ITS | Encounter Summary ---
Author Organization [facility] Address [address] [place] [address] Care Team Providers Care School Laboratory Technician Name Role Phone Unknown, Provider MD Primary Care Provider Almita Vines APRN Primary Care Provider + [phone] Domonique Caballero Primary Care Provider + [phone] Encounter Details Date Type Department Care Team (Late st Contact Info) Description 11/05/2020 Lab Requisition [facility] Pathology & Laboratory Medicine - [facility] [address] [place] [address] Outr Resulting Lab, Provider Social [...] Nurse Only [facility] Cancer Treatment [address] [address] 09/20/2024 9:[address] [facility] Cancer Treatment [place] [address] [place] [address] Ezra Greenberg MD 111 [facility], Level [address] [place] [address] documented as of this encounter Procedures Procedure Name Priority Date/Time Associated Diagnosis Comments PSA TOTAL, DIAGNOSTIC Routine 11/05/2020 10:00 EDT documented in this encounter Results * (ABNORMAL) PSA TOTAL, DIAGNOSTIC (11/05/2020 10:00 EDT) PSA 14.2(H) 0.0 - 6.5 ng/mL 11/05/2020 22:18 EDT [facility] Blood VENOUS BLOOD / Unknown 11/05/2020 10:00 EDT 11/05/2020 21:23 EDT Narrative [facility] - 11/05/2020 22:18 EDT NOTE: Serum PSA concentration should not be interpreted as absolute evidence for the presence or absence of malignant disease. Assayed on Siemens ADVIA Centaur XPT using chemiluminescent technology.??Values obtained by using different assay methods cannot be used interchangeably. Provider Outr Resulting Lab CHEMISTRY & BLOOD GAS ORDERABLES [facility] [address] [place] [address] documented in this encounter Visit Diagnoses Not on filedocumented in this encounter Care Teams School Laboratory Technician Relationship Specialty Start Date End Date Unknown, Provider, PCP - General 02/25/19 03/17/22 Almita Raza APRN [address] [place] [phone] PCP - General Family Medicine - Primary Care 03/18/22 04/15/23 Domonique Caballero FNP [address] [place] [address] PCP - General Family Medicine - Primary Care 04/16/23 documented as of this encounter
--- OUTSIDE RECORDS SUMMARY | 2024-05-17 15:05 | XMS_ITS | Encounter Summary ---
Author Organization [facility] Address [address] [place] [address] Care Team Providers Care Career Development Engineer Name Role Phone Jeronimo Anthony MD Primary Care Provider Un available Reason for Visit * Reason Comments Other feels a ridge in the back of nose. in the winter causes excess mucous and bleeding symptoms approx 2 years. no imaging rinses with water. * Consult (Routine) - Closed Specialty Diagnoses / Procedures [facility] Referred To Contact Otolaryngology Diagnoses Other specified disorders of nose and nasal sinuses Walker Marcial MD [address] [place] [address] Frandy Thayer MD [address] [place] [phone] Referral ID Status Reason Start Date Expiration Date Visits Re quested Visits Authorized [id number] Closed 1 1 Encounter Details Date Type Department Care Team (Late st Contact Info) Description 01/12/2018 8:30 EDT Office Visit [facility] [place] [address] [place] [address] Frandy Thayer MD [address] [place] [phone] Deviated nasal septum (Primary Dx) Discharge [...] EDT Nurse Only [facility] [address] [address] 09/20/2024 9:00 EDT Office Visit [facility] [address] [address] Ezra Greenberg MD [address] [place] [address] [address] [place] [phone] documented as of this encounter Visit Diagnoses [...] documented as of this encounter Care Teams Career Development Engineer Relationship Specialty Start Date End Date Jeronimo Anthony MD PCP - General 06/04/15 02/24/19 documented as of this encounter
--- OUTSIDE RECORDS SUMMARY | 2024-05-17 15:05 | XMS_ITS | Encounter Summary ---
Author Organization [facility] Address [address] [place] [address] Care Team Providers Care Electronics Repair Technician Name Role Phone Unavailable Primary Care Provider Unavailabl e Encounter Details Date Type Department Care Team (Late st Contact Info) Description 01/05/2008 Office Visit [facility] - [address] [address] Brian Wu MD [address] [place] [phone] Discharge Disposition: Auto Discharge Social History Tobacco [...] Nurse Only [facility] [place] [address] [place], [place] [phone] 09/20/2024 9:00 EDT Office Visit [facility] [place] [address] [place], [place] [address] Ezra Greenberg MD [address] [facility] [address] [place] [phone] documented as of this encounter Visit Diagnoses Not on filedocumented in this encounter
--- OUTSIDE RECORDS SUMMARY | 2024-05-17 15:05 | XMS_ITS | Encounter Summary ---
Author Organization [facility] Address [address] [place] [address] Care Team Providers Care Final Assembly Inspector Name Role Phone Unknown, Provider MD Primary Care Provider Almita Vines APRN Primary Care Provider + [phone] Domonique Caballero Primary Care Provider + [phone] Encounter Details Date Type Department Care Team (Late st Contact Info) Description 10/12/2020 Lab Requisition [facility] Pathology & Laboratory Medicine - [facility] [address] [place] [address] Outr Resulting Lab, Provider Social [...] Nurse Only [facility] Treatment [address] [phone] 09/20/2024 9:00 EDT Office Visit [facility] Treatment [place] [address] [place] [address] Ezra Greenberg MD [address] [facility], Level [address] [place] [phone] documented as of this encounter Procedures Procedure Name Priority Date/Time Associated Diagnosis Comments FUNGAL CULTURE/SMEAR, SKIN, HAIR OR NAIL Routine 10/11/2020 14:50 EDT documented in this encounter Results * FUNGAL CULTURE/SMEAR, SKIN, HAIR OR NAIL (10/11/2020 14:50 EDT) Organism ID No fungi isolated 11/09/2020 12:31 EDT [facility] Fungal Smear No Fungi Seen 11/09/2020 12:31 EDT [facility] Nail ENTIRE NAIL BED / Unknown 10/11/2020 14:50 EDT 10/12/2020 16:50 EDT Provider Outr Resulting Lab MICROBIOLOGY - GENERAL ORDERABLES Performing Organization Address City/State/[facility] Co de Phone Number [facility] [address] [place] [address] documented in this encounter Visit Diagnoses Not on filedocumented in this encounter Care Teams Final Assembly Inspector Relationship Specialty Start Date End Date Unknown, Milena, PCP - General 02/25/19 03/17/22 Almita Raza APRN [address] [place] [phone] PCP - General Family Medicine - Primary Care 03/18/22 04/15/23 Domonique Caballero FNP [address] [place] [phone] PCP - General Family Medicine - Primary Care 04/16/23 documented as of this encounter
--- OUTSIDE RECORDS SUMMARY | 2024-05-17 15:05 | XMS_ITS | Encounter Summary ---
Author Organization [facility] Address [address] [place] [address] Care Team Providers Care Ditch Digger Name Role Phone Unavailable Primary Care Provider Unavailabl e Encounter Details Date Type Department Care Team (Latest Contact Info) Description 12/03/2000 14:04 EDT - 12/10/2000 11:59 EDT Hospital Encounter [facility] [place] [address] [place], [place] [phone] Brett Moreland MD Discharge Disposition: Auto Discharge [...] 8:45 EDT Nurse Only [facility] [address] [phone] 09/20/2024 9:00 EDT Office Visit [facility] [place] [address] [place], [place] [phone] Ezra Greenberg MD 111 [facility] 2 [place] [phone] documented as of this encounter Procedures Procedure [...] No fracture seen. D: 12-11-00 T: 12-14-00 [facility] Addendum: The ICD9/diagnostic code has been changed from 653.90 to 840.9 for physician billing. The text has not been altered. Brett Moreland MD IMG DIAGNOSTIC I MAGING ORDERABLES documented in this encounter Visit Diagnoses Not on filedocumented in this encounter
--- OUTSIDE RECORDS SUMMARY | 2024-05-17 15:05 | XMS_ITS | Encounter Summary ---
Author Organization [facility] Address [address] [place] [address] Care Team Providers Care Commonwealth Attorney Name Role Phone Unknown, Provider Primary Care Provider Unava ilable Reason for Visit * Reason Onset Date Comments Appointment Related 02/25/2019 Encounter Details Date Type Department Care Team (Late st Contact Info) Description 02/25/2019 Telephone [facility] Ophthalmology - [address] [phone] Luis Arambula MD 111 [facility], [address] [place] [phone] Appointment Related Social History Tobacco [...] 8:45 EDT Nurse Only [facility] [address] [place] [address] 09/20/2024 9:00 EDT Office Visit [facility] [address] [place] [address] Ezra Greenberg MD [address] [place] [address] [address] [place] [phone] documented as of this encounter Visit Diagnoses Not on filedocumented in this encounter Care Teams Commonwealth Attorney Relationship Specialty Start Date End Date Unknown, Provider, PCP - General 02/25/19 03/17/22 documented as of this encounter
--- OUTSIDE RECORDS SUMMARY | 2024-05-17 15:05 | XMS_ITS | Encounter Summary ---
Author Organization [facility] Address [address] [place] [address] Care Team Providers Care Patch Finisher Name Role Phone Jeronimo Anthony MD Primary Care Provider Un available Encounter Details Date Type Department Care Team (Late st Contact Info) Description 01/11/2018 Abstract [facility] - [place] [address] [place], [place] [address] Walker Marcial MD Social History Tobacco Use [...] 8:45 EDT Nurse Only [facility] [place] [address] [place], [place] [phone] 09/20/2024 9:00 EDT Office Visit [facility] [address] [place], [place] [phone] Ezra Greenberg MD [address] [facility] [address] [place] [phone] documented as of this encounter [...] 01/12/2018 added in this encounter Care Teams Patch Finisher Relationship Specialty Start Date End Date Jeronimo Anthony MD PCP - General 06/04/15 02/24/19 documented as of this encounter
[2024-05-18 18:30] LABS: PSA, Diagnostic <0.1 ng/mL (<=6.5)
== END 2024-05-17 14:54 | disposition home or self-care (01) ==
LOC: NCHCN 14:53
PROVIDERS: Urology; PCP Nurse Practitioner Family; Visit Provider Nurse Practitioner Family
DX: C61 Malignant neoplasm of prostate (principal)
CPT/HCPCS: 84153

== ENCOUNTER 2024-08-29 10:12 | Outpatient (REF) | payer MEDICARE, BC, SELFPAY ==
[2024-08-29 14:52] LABS: HCT 38.6 % (40.0-50.0); MCH 28.5 pg (27.0-33.0); MCHC 31.1 % (32.0-36.0); MCV 92 fL (80-95); MPV 11.2 fL (8.0-11.0); Platelet Count 198 10^3/uL (130-400); RBC 4.21 10^6/uL (4.36-5.78); RDW-SD 50.7 fL; Reticulocyte 1.3 % (0.5-2.4); WBC 5.68 10^3/uL (4.4-10.8)
[2024-08-29 15:07] LABS: Iron 53 ug/dL (65-175); Total Iron Binding Capacity 225 ug/dL (250-450); Transferrin Sat 24 % (20-55)
[2024-08-29 15:22] LABS: ALT 31 U/L (16-63); AST 29 U/L (15-37); Albumin 3.9 g/dL (3.4-5.0); Alkaline Phosphatase 71 U/L (46-116); Anion Gap 7.8 mmol/L (3-11); BUN 21 mg/dL (7-18); CO2 28.2 mmol/L (21.0-32.0); CREATININE 0.9 mg/dL (0.70-1.30); Chloride 108 mmol/L (98-107); Estimated GFR 87.42 (mL/min/1.73m2); Ferritin 361 ng/mL (26-388); Glucose 91 mg/dL (74-106); Potassium 4.1 mmol/L (3.5-5.1); Sodium 144 mmol/L (136-145); Total Protein 7.8 g/dL (6.4-8.2)
[2024-08-30 09:55] LABS: Transferrin 174 mg/dL (201-352)
== END 2024-08-29 10:13 | disposition home or self-care (01) ==
LOC: NCHCN 10:12
PROVIDERS: PCP Nurse Practitioner Family; Visit Provider Nurse Practitioner Family
DX: D53.9 Nutritional anemia, unspecified (principal)
CPT/HCPCS: 80053; 85027; 82728; 83540; 83550; 84466; 85045

== ENCOUNTER 2024-09-20 14:00 | Outpatient (REF) | payer MEDICARE, BC, SELFPAY ==
[2024-09-21 23:01] LABS: PSA, Diagnostic <0.1 ng/mL (<=6.5)
== END 2024-09-20 14:01 | disposition home or self-care (01) ==
LOC: LBN 14:00
PROVIDERS: PCP Nurse Practitioner Family
DX: C61 Malignant neoplasm of prostate (principal)
CPT/HCPCS: 84153

== ENCOUNTER 2025-02-21 13:19 | Outpatient (REF) | payer MEDICARE, BC, SELFPAY ==
[2025-02-21 16:06] LABS: HCT 39.3 % (40.0-50.0); HGB 12.4 g/dL (13.5-17.5); MCH 28.9 pg (27.0-33.0); MCHC 31.6 % (32.0-36.0); MCV 92 fL (80-95); MPV 11.9 fL (8.0-11.0); Platelet Count 180 10^3/uL (130-400); RBC 4.29 10^6/uL (4.36-5.78); RDW 15.5 % (11.8-14.1); RDW-SD 52.2 fL; WBC 4.79 10^3/uL (4.4-10.8)
[2025-02-21 16:51] LABS: Calculated LDL 128 mg/dL (<100); Cholesterol 190 mg/dL (<200); Ferritin 241 ng/mL (26-388); HDL Cholesterol 48 mg/dL (>or=40); Triglyceride 71 mg/dL (<150)
[2025-02-22 09:33] LABS: PSA, Diagnostic <0.1 ng/mL (<=6.5)
== END 2025-02-21 13:20 | disposition home or self-care (01) ==
LOC: NCHCN 13:19
PROVIDERS: Nurse Practitioner Family; PCP Student in an Organized Health Care Education/Training Program; Visit Provider Student in an Organized Health Care Education/Training Program
DX: C61 Malignant neoplasm of prostate (principal); E78.5 Hyperlipidemia, unspecified; D53.9 Nutritional anemia, unspecified
CPT/HCPCS: 80061; 85027; 82728; 84153; 85045